=== PATIENT | male | born 1950 | race Caucasian/White ===

== ENCOUNTER → 2016-09-10 | Outpatient (CLI) | payer MEDICARE, OTHER ==
[~2016-09-10] MED LIST: ALBU1.25 IH; ALLP300T; ALLP300T PO; AMLO5TAB2 PO; ASP325TEC PO; ASP81CT; ASP81TEC PO; ATRV10T PO; CEFD300C3 PO; CEPH-507 PO; CEPH250T PO; CEPH500C PO; CERTIRIZINE PO; CETI10CA PO; CETI10TA17 PO; CLOP75TA PO; CYAN10006 PO; DCS100C PO; DICL25TA PO; DILT120C PO; FERR-57 PO; FEXO180T PO; FL025NA25; FL025NA25 NSEACH; GABA100T PO; GABA600T2 PO; GBPN100C; GBPN100C PO; GBPN300C; GBPN400C; GEMF600T3; GEMF600T3 PO; GLYB2.5T2; HCT25T; HCT25T PO; HYDR12.56 PO; HYDR1TAB PO; HYDR1TAB3 PO; HYDR1TAB86 PO; ISOS30TA74 PO; LIRA0.6P SQ; LIRA0.6P3 SC; LISI10TA PO; LISI20TA PO; LISI30TA; LISI30TA64 PO; LORA10TA2; LOSA100T7 PO; LOSA50TA36 PO; METF-380; METH-313 PO; METO-351 PO; METO25TA2 PO; MTP25TSR PO; MULT-608; MULT-608 PO; OMEG-109 PO; OMEG1CAP51 PO; OMG1KC; PHEN100C11 PO; PRED10TA22 PO; SIMV10TA3; SIMV20TA3 PO; SIMV40TA4 PO; SULF1TAB38 PO; TEST200V3 IM; TEST5GEL6; TESTOSTERONE; TRAM-21; TRAM-21 PO; TRAM50TA2; TRAM50TA2 PO; TRM50T PO; Ticagrelor PO; VARD20TA30
--- OUTSIDE RECORDS SUMMARY | 2016-09-10 09:31 | XMS REPORT | Continuity of Care Document ---
Author Author [facility] Organization [facility] Address Unknown Phone Unavailable Care Team Providers Care Boot Liner Maker Name Role Phone PCP Unavailable Source Comments Some departments are not documenting in the electronic medical record. If you do not see the information that you expected, contact Release of Information in the Health Information Management department at [phone] for further assistance in locating additional records.[facility] Active Allergies and Adverse Reactions Not on File Current Medications Not on file Active Problems Not on file Social History Tobacco Use Types Packs/Day Years Used Date Never Assessed Plan of Care Health Maintenance Due Date Last Done Comments Physical (Comprehensive) 1957 Exam Pertussis Vaccine 1960 Tetanus Vaccine 1966 Colorectal Cancer 1999 Screening Shingles Vaccine 2009 Prevnar/Pneumovax (#1) 2014 Influenza Vaccine 05/03/2016 Results from Last 3 Months Not on file
--- NOTE | 2016-09-11 08:10 | ELECTROENCEPHALOPATHY REPORT ---
PROCEDURE PHYSICIAN: KACI WINTER DATE OF PROCEDURE: 09/10/2016 Mr. Johnny Aj is a 66-year-old male with complaints of memory loss, occasional dizziness and time loss events. This study was requested to evaluate for epileptiform activity. The background rhythm consisted of 8 to 9 Hz, 50 to 65 microvolts in amplitude, bilaterally symmetrical over the vortex region which was reactive to eye opening. Intermix was no epileptiform activity. Movement and muscle artifacts were present. The patient was awake, drowsy and asleep during this recording. Hyperventilation was performed and there was no build-up of diffuse or focal slow wave activity. Intermittent photic stimulation was done at various flash frequencies and no photic driving response was seen. IMPRESSION: This EEG is within normal limits in awake and sleepy states. No clear epileptiform activity is seen. A normal EEG does not exclude the diagnosis of seizure or epilepsy. Job ID: [id number] Dictated Date: 09/11/2016 07:43:12 Cocoa Roaster Date: 09/11/2016 08:09:00 / gume
== END ==
LOC: RT 09:24
PROVIDERS: ATTEND Psychiatry & Neurology Neurology
DX: R56.9 Unspecified convulsions (principal)

== ENCOUNTER → 2016-09-20 | Outpatient (CLI) | payer MEDICARE, OTHER ==
--- OUTSIDE RECORDS SUMMARY | 2016-09-20 10:17 | XMS REPORT | Continuity of Care Document ---
Author Author [facility] Organization [facility] Address Unknown Phone Unavailable Care Team Providers Care Shop Mechanic Helper Name Role Phone PCP Unavailable Source Comments Some departments are not documenting in the electronic medical record. If you do not see the information that you expected, contact Release of Information in the Health Information Management department at [phone] for further assistance in locating additional records.[facility] Active Allergies and Adverse Reactions Not [...]
[2016-09-20 10:27] LABS: BASOPHILS % (AUTO) 1 % (0-10); EOSINOPHILS # (AUTO) 0.3 10^3/uL (0.0-0.3); EOSINOPHILS % (AUTO) 7 % (0-10); LYMPHOCYTES # (AUTO) 1.2 X 10^3 (1.0-4.0); LYMPHOCYTES % (AUTO) 29 % (12-44); MEAN CORPUSCULAR HEMOGLOBIN 31 PG (25-34); MEAN CORPUSCULAR HGB CONC 34 G/DL (32-36); MEAN CORPUSCULAR VOLUME 91 FL (80-99); MEAN PLATELET VOLUME 8.7 FL (7.4-10.4); MONOCYTES # (AUTO) 0.4 X 10^3 (0.0-1.0); MONOCYTES % (AUTO) 10 % (0-12); NEUTROPHILS # (AUTO) 2.2 X 10^3 (1.8-7.8); NEUTROPHILS % (AUTO) 53 % (42-75); PLATELET COUNT 235 10^3/uL (130-400); RED BLOOD COUNT 4.35 10^6/uL (4.35-5.85); RED CELL DISTRIBUTION WIDTH 13.1 % (10.0-14.5); WHITE BLOOD COUNT 4.2 10^3/uL (4.3-11.0)
[2016-09-20 10:50] LABS: ALANINE AMINOTRANSFERASE 43 U/L (0-55); ALBUMIN 3.8 G/DL (3.2-4.5); ANION GAP 9 MMOL/L (5-14); ASPARTATE AMINO TRANSFERASE 27 U/L (5-34); BILIRUBIN,TOTAL 0.3 MG/DL (0.1-1.0); BLOOD UREA NITROGEN 14 MG/DL (7-18); BUN/CREATININE RATIO 14; CALCIUM 9.5 MG/DL (8.5-10.1); CARBON DIOXIDE 27 MMOL/L (21-32); CHLORIDE 99 MMOL/L (98-107); CREATININE SERUM 1.02 MG/DL (0.60-1.30); GFR ESTIMATED > 60; GLUCOSE 103 MG/DL (70-105); SODIUM 135 MMOL/L (135-145); TOTAL PROTEIN 6.6 G/DL (6.4-8.2)
== END ==
LOC: LAB 10:14
PROVIDERS: ATTEND Psychiatry & Neurology Neurology
DX: R56.9 Unspecified convulsions (principal); Z79.899 Other long term (current) drug therapy
CPT/HCPCS: 36415; 80053; 80185; 85025

== ENCOUNTER → 2016-10-15 | Outpatient (CLI) | payer MEDICARE, OTHER ==
--- OUTSIDE RECORDS SUMMARY | 2016-10-15 13:44 | XMS REPORT | Continuity of Care Document ---
Author Author [facility] Organization [facility] Address Unknown Phone Unavailable Care Team Providers Care Central Supply Technician Name Role Phone PCP Unavailable Source Comments Some departments are not documenting in the electronic medical record. If you do not see the information that you expected, contact Release of Information in the Health Information Management department at [phone] for further assistance in locating additional records.[facility] [...]
--- NOTE | 2016-10-17 07:41 | ECHOCARDIOGRAPHY REPORT ---
PROCEDURE PHYSICIAN: GENE BOYKIN DATE OF PROCEDURE: 10/15/2016 TWO DIMENSIONAL ECHOCARDIOGRAM REPORT PRIMARY PHYSICIAN: OTHER PHYSICIAN: REFERRING PHYSICIAN: Dr. Haro ORDERING PHYSICIAN: INDICATION FOR THE PROCEDURE: Coronary artery disease. MEASUREMENTS DERIVED VALUES LV DIAMETER (LAX) NORMALS NORMALS Diastolic 3.5 (3.6-5.2) Eject. Fract. 60% (60%+/-6%) Systolic (2.3-3.9) Diastolic Vol. % Shortening (0.22-0.42) Systolic Vol. Aortic Root IVS THICKNESS Diastolic 1 (0.6-1.1) LVPW THICKNESS Diastolic 1 (0.6-1.1) LA DIAMETER Systolic 4.1 (2.1-3.7) FINDINGS: 1. Technically difficult study. 2. The left ventricle is normal in size, endocardium was not well visualized in all segments. Overall systolic function appeared to be preserved. Estimated ejection fraction 60%. 3. The left atrium is in the upper normal limit in size. No clot or thrombus were seen within the left atrium. 4. The right atrium and right ventricle were not well visualized. No clot or thrombus were seen within the right side. 5. Mitral valve is normal in morphology with mild mitral regurgitation noted by color Doppler flow. No mitral valve prolapse. No mitral valve stenosis. 6. Aortic valve leaflets were not well visualized. No significant aortic stenosis or regurgitation was seen. 7. Tricuspid valve is normal in morphology with mild tricuspid regurgitation noted by color Doppler flow. Doppler across tricuspid valve estimated pulmonary artery pressure of 10+ right atrial pressure. 8. Pulmonic valve is functioning normally. 9. No pericardial effusion. IN CONCLUSION: 1. Technically difficult study. 2. Normal left ventricular size and systolic function. Endocardium was not well visualized. Overall contractility appeared to be preserved. Cannot comment on segmental wall motion. Estimated ejection fraction 60%. 3. Mild mitral and tricuspid regurgitation. 4. Estimated pulmonary artery pressure of 15 mmHg. Job ID: [id number] Dictated Date: 10/16/2016 15:33:02 Cartridge Feeder Date: 10/17/2016 07:37:49 / gume
== END ==
LOC: CARD 13:42
PROVIDERS: ATTEND Physician Assistant
DX: I25.10 Atherosclerotic heart disease of native coronary artery without angina pectoris (principal); I65.23 Occlusion and stenosis of bilateral carotid arteries; I10 Essential (primary) hypertension; E66.01 Morbid (severe) obesity due to excess calories
CPT/HCPCS: 93306

== ENCOUNTER 2016-10-23 23:14 | Inpatient (IN) | payer MEDICARE, OTHER ==
[~2016-10-23] VITALS: Ht 165.1 cm; Wt 103.9 kg
[~2016-10-23 23:14] MED LIST changes: -ALBU1.25 IH; -CEFD300C3 PO; -CERTIRIZINE PO; -CETI10CA PO; -CYAN10006 PO; -LIRA0.6P3 SC; -LOSA50TA36 PO; -METO-351 PO; -OMEG-109 PO; -PHEN100C11 PO; -PRED10TA22 PO
--- OUTSIDE RECORDS SUMMARY | 2016-10-23 23:22 | XMS REPORT | Continuity of Care Document ---
Author Author [facility] Organization [facility] Address Unknown Phone Unavailable Care Team Providers Care Frit Burner Name Role Phone PCP Unavailable Source Comments Some departments are not documenting in the electronic medical record. If you do not see the information that you expected, contact Release of Information in the Health Information Management department at [phone] for further assistance in locating additional records.[facility] Active Allergies and Adverse Reactions [...]
[2016-10-23] MEDS ORDERED: NS IV 1000 ML 1,000 ML IV ONE (23:27)
[2016-10-23] MEDS ORDERED: ACETAMINOPHEN 500 MG TAB (TYLENOL) PO PRN (23:30)
[2016-10-23 23:52] LABS: BASOPHILS % (AUTO) 0 % (0-10); EOSINOPHILS % (AUTO) 0 % (0-10); LYMPHOCYTES # (AUTO) 0.3 X 10^3 (1.0-4.0); LYMPHOCYTES % (AUTO) 3 % (12-44); MEAN CORPUSCULAR HEMOGLOBIN 31 PG (25-34); MEAN CORPUSCULAR HGB CONC 35 G/DL (32-36); MEAN CORPUSCULAR VOLUME 88 FL (80-99); MEAN PLATELET VOLUME 9.3 FL (7.4-10.4); MONOCYTES # (AUTO) 0.4 X 10^3 (0.0-1.0); MONOCYTES % (AUTO) 5 % (0-12); NEUTROPHILS # (AUTO) 6.8 X 10^3 (1.8-7.8); NEUTROPHILS % (AUTO) 92 % (42-75); PLATELET COUNT 213 10^3/uL (130-400); RED CELL DISTRIBUTION WIDTH 13.9 % (10.0-14.5); WHITE BLOOD COUNT 7.4 10^3/uL (4.3-11.0)
[2016-10-24] LABS: PROTHROMBIN TIME PATIENT 13.3 SEC (12.2-14.7)
--- NOTE | 2016-10-24 00:02 | ED General ---
General Chief Complaint: Fever-Adult/Adol Stated Complaint: DIZZY,SOB,103 FEVER Nursing Triage Note: COUGH X 3 DAYS, SNIFFLES AND THROAT TICKLE X 2 DAYS, PT DEVELOPED SOA AND LABORED BREATHING AT REST WITH FEVER LATE DAY Nursing Sepsis Screen: Possible Severe Sepsis Risk Source of Information: Patient Exam Limitations: No Limitations History of Present Illness Time Seen by Provider: 23:20 Initial Comments Here with report of fevers, chills that started over the last 12 hours as well as sore throat and sniffles over the last couple days and cough for the last 3 days. Overall does not feel well and is short of breath. Does complain of body aches. Has not taken anything for the fever tonight. Denies nausea or vomiting. She denies chest pain, diarrhea or dysuria. Timing/Duration: 2-3 Days, Getting Worse Severity: Moderate Associated Systoms: No Chest Pain, Cough Fever/ChillsNo Nausea/Vomiting, Shortness of Air Weakness Allergies and Home Medications Allergies Coded Allergies: hydrocodone (Verified Allergy, Mild, RASH (NO REACTION TO MORPHINE/ PERCOCET), 10/29/11) Sulfa (Sulfonamide Antibiotics) (Verified Allergy, Unknown, 12/08/12) Home Medications Allopurinol 300 Mg Tab 300 MG PO DAILY PRN PRN (Reported) PRN GOUT Aspirin 81 Mg Tabec 81 MG PO DAILY (Reported) Cetirizine Hcl 10 Mg Tablet 10 MG PO DAILY (Reported) Gabapentin 100 Mg Tablet 100 MG PO DAILY IN MORNING (Reported) Gabapentin 100 Mg Cap 300 MG PO HS (Reported) TAKE 3 (100MG) TABS AT HS Hydrochlorothiazide 25 Mg Tab 12.5 MG PO DAILY (Reported) Isosorbide Mononitrate 30 Mg Tab.sr.24h 30 MG PO DAILY (Reported) Losartan Potassium 100 Mg Tablet 50 MG PO DAILY (Reported) Metoprolol Succinate 25 Mg Tab.er.24h #180 12.5 MG PO DAILY (Reported) Multivitamins 1 Tab Tablet 1 TAB PO DAILY (Reported) Sheridan-3 Fatty Acids/Fish Oil 1 Each Capsule 1 EACH PO DAILY (Reported) Phenytoin Sodium Extended 100 Mg Capsule 200 MG PO BID (Reported) Simvastatin 40 Mg Tablet 20 MG PO HS (Reported) TAKES 1/2 TAB OF 40MG Constitutional: see HPI chills fever malaise EENTM: nose congestion see HPI throat pain Respiratory: no symptoms reported cough short of breathNo wheezing Cardiovascular: No chest pain, No edema, No palpitations Gastrointestinal: no symptoms reportedNo abdominal pain, No nausea, No vomiting Genitourinary: no symptoms reported Musculoskeletal: see HPINo joint pain, muscle pain Skin: no symptoms reportedNo lesions, No rash Psychiatric/Neurological: No Symptoms Reported All Other Systems Reviewed Negative Unless Noted: Yes Past Kfherrx-Ycazgj-Otdyxx Hx Patient Social History Alcohol Use: Past History Recreational Drug Use: No Smoking Status: Former Smoker Type Used: Cigarettes Former Smoker/When Quit: Feb 24, 1992 2nd Hand Smoke Exposure: No Recent Foreign Travel: No Contact w/Someone Who Travel: No Recent Infectious Disease Expo: No Recent Hopitalizations: Yes ( PREVIOUSLY STATED) Immunizations Up To Date Tetanus Booster (TDap): More than 5yrs Date of Pneumonia Vaccine: Jun 02, 2016 Date of Influenza Vaccine: Jun 02, 2016 Seasonal Allergies Seasonal Allergies: No Surgeries HX Surgeries: Yes (BILAT HIP REPLACEMENT, RIGHT KNEE SX, R SHOULDER, ) Respiratory Hx Respiratory Disorders: Yes (GETS SOB, USES C-PAP) Respiratory Disorders: Sleep Apnea Cardiovascular Hx Cardiac Disorders: Yes (X2 STENTS) Cardiac Disorders: Heart Attack, Hypertension Neurological Hx Neurological Disorders: Yes Neurological Disorders: Neuropathy Reproductive System Hx Reproductive Disorders: No Sexually Transmitted Disease: No Genitourinary Hx Genitourinary Disorders: No Gastrointestinal Hx Gastrointestinal Disorders: No Musculoskeletal Hx Musculoskeletal Disorders: Yes (RIGHT LEG, FOSTER. THR) Endocrine Hx Endocrine Disorders: Yes Endocrine Disorders: Diabetes, Non-Insulin dep HEENT HX ENT Disorders: Yes (GLASSES) Cancer Hx Cancer: No Psychosocial Hx Psychiatric Problems: No Integumentary HX Skin/Integumentary Disorder: No Blood Transfusions Hx Blood Disorders: No Reviewed Nursing Assessment Reviewed/Agree w Nursing PMH: Yes Family Medical History Significant Family History: No Pertinent Family Hx Physical Exam-Suspected Sepsis Physical Exam Vital Signs Vital Sign - Last 12Hours 10/23/16 10/23/16 23:21 23:30 Temp 103.4 Pulse 139 Resp 26 B/P 132/59 Pulse Ox 91 O2 Delivery Room Air O2 Flow Rate 2 Capillary Refill : Less Than 3 Seconds Blood Pressure Mean: 83 General Appearance: WD/WN Mild Distress (body aches and fever) HEENT: PERRL/EOMI TMs Normal Pharyngeal Erythema Other (moderate nasal congestion bilateral) Neck: Non Tender Supple Respiratory: Lungs Clear Normal Breath Sounds Cardiovascular: No Murmur Tachycardia Gastrointestinal: Non Tender Soft Back: Normal Inspection No CVA Tenderness No Vertebral Tenderness Extremity: Normal Capillary Refill Non Tender No Calf Tenderness Neurologic/Psychiatric: Alert Oriented x3 Skin: normal color warm/dryNo rash Laceration Repair : Suture Size: 5-0 Progress/Results/Core Measures Suspected Sepsis Recent Fever Within 48 Hours: Yes Infection Criteria Present: Suspected New Infection New/Unexplained Altered Menta: Yes Sepsis Screen: Possible Severe Sepsis Risk Sepsis Diagnosis: SIRS Temperature:103.4 Pulse: 139 Respiratory Rate: 26 Laboratory Tests 10/23/16 23:30: White Blood Count 7.4 Blood Pressure 132 /59 Mean: 83 Laboratory Tests 10/23/16 23:30: Creatinine 1.12, INR Comment 1.0, Platelet Count 213, Total Bilirubin 0.5 Results/Orders Lab Results Laboratory Tests Test 10/23/16 23:30 Range/Units Activated Partial Thromboplast Time 27 24-35 SEC Alanine Aminotransferase (ALT/SGPT) 34 0-55 U/L Albumin 4.1 3.2-4.5 G/DL Alkaline Phosphatase 50 40-136 U/L Anion Gap 15 H 5-14 MMOL/L Aspartate Amino Transf (AST/SGOT) 32 5-34 U/L BUN/Creatinine Ratio 14 Band Neutrophils 24 % Basophils # (Auto) 0.0 0.0-0.1 10^3/uL Basophils % (Manual) 0 % Basophils (%) (Auto) 0 0-10 % Blood Morphology Comment NORMAL Blood Urea Nitrogen 16 7-18 MG/DL Calcium Level 8.9 8.5-10.1 MG/DL Carbon Dioxide Level 21 21-32 MMOL/L Chloride Level 93 L 98-107 MMOL/L Creatinine 1.12 0.60-1.30 MG/DL Eosinophils # (Auto) 0.0 0.0-0.3 10^3/uL Eosinophils % (Manual) 0 % Eosinophils (%) (Auto) 0 0-10 % Estimat Glomerular Filtration Rate > 60 Glucose Level 115 H 70-105 MG/DL Hematocrit 43 40-54 % Hemoglobin 15.0 13.3-17.7 G/DL INR Comment 1.0 0.8-1.4 Lactic Acid Level 1.2 0.5-2.0 MMOL/L Lymphocytes # (Auto) 0.3 L 1.0-4.0 X 10^3 Lymphocytes % (Manual) 1 % Lymphocytes (%) (Auto) 3 L 12-44 % Mean Corpuscular Hemoglobin 31 25-34 PG Mean Corpuscular Hemoglobin Concent 35 32-36 G/DL Mean Corpuscular Volume 88 80-99 FL Mean Platelet Volume 9.3 7.4-10.4 FL Monocytes # (Auto) 0.4 0.0-1.0 X 10^3 Monocytes % (Manual) 9 % Monocytes (%) (Auto) 5 0-12 % Neutrophils # (Auto) 6.8 1.8-7.8 X 10^3 Neutrophils % (Manual) 64 % Neutrophils (%) (Auto) 92 H 42-75 % Platelet Count 213 130-400 10^3/uL Potassium Level 3.3 L 3.6-5.0 MMOL/L Prothrombin Time 13.3 12.2-14.7 SEC Reactive Lymphocytes 2 % Red Blood Count 4.90 4.35-5.85 10^6/uL Red Cell Distribution Width 13.9 10.0-14.5 % Sodium Level 129 L 135-145 MMOL/L Total Bilirubin 0.5 0.1-1.0 MG/DL Total Protein 6.9 6.4-8.2 G/DL White Blood Count 7.4 4.3-11.0 10^3/uL Micro Results Microbiology 10/23/16 Influenza Types A,B Antigen (THANIA) - Final, Complete My Orders Orders-LOIDA SHEPARD MD Cbc With Automated Diff (10/23/16 23:27) Comprehensive Metabolic Panel (10/23/16 23:27) Lactic Acid Analyzer (10/23/16 23:27) Blood Culture (10/23/16 23:27) Sputum Culture (10/23/16 23:27) Ua Culture If Indicated (10/23/16 23:27) Protime With Inr (10/23/16 23:27) Partial Thromboplastin Time (10/23/16 23:27) Chest 1 View, Ap/Pa Only (10/23/16 23:27) O2 (10/23/16 23:27) Acetaminophen Tablet (Tylenol Tablet) (10/23/16 23:30) Saline Lock/Iv-Start (10/23/16 23:27) Saline Lock/Iv-Start (10/23/16 23:27) Vital Signs Adult Sepsis Patie Q1HR (10/23/16 23:27) Remove Rings In Anticipation O (10/23/16 23:27) Influenza A And B Antigens (10/23/16 23:27) Saline Lock/Iv-Start (10/23/16 23:27) Ns Iv 1000 Ml (Sodium Chloride 0.9%) (10/23/16 23:27) Manual Differential (10/23/16 23:30) Ns Iv 1000 Ml (Sodium Chloride 0.9%) (10/24/16 00:06) Ceftriaxone Injection (Rocephin Injectio (10/24/16 00:45) Medications Given in ED Current Medications Medications Dose Ordered Sig/Malissa Route Start Time Stop Time Status Last Admin Dose Admin Acetaminophen 1000 mg 1,000 mg ONCE PRN PO 10/23/16 23:30 10/23/16 23:34 DC 10/23/16 23:34 1,000 MG Ceftriaxone Sodium/Sodium Chloride 50 ml @ 100 mls/hr ONCE ONCE IV 10/24/16 00:45 10/24/16 01:14 10/24/16 00:47 100 MLS/HR Sodium Chloride 1,000 ml @ 0 mls/hr Q0M ONCE IV 10/23/16 23:27 10/23/16 23:28 DC 10/23/16 23:33 0 MLS/HR Sodium Chloride 1,000 ml @ 0 mls/hr Q0M ONCE IV 10/24/16 00:06 10/24/16 00:08 DC 10/24/16 00:10 0 MLS/HR Vital Signs/I&O Vital Sign - Last 12Hours 10/23/16 10/23/16 10/24/16 23:21 23:30 00:12 Temp 103.4 102.5 Pulse 139 128 Resp 26 30 B/P 132/59 111/66 Pulse Ox 91 89 96 O2 Delivery Room Air Nasal Cannula Nasal Cannula O2 Flow Rate 2 Capillary Refill : Less Than 3 Seconds Blood Pressure Mean: 83 Progress Note : Progress Note Seen and evaluated. Sepsis protocol initiated. IV, labs, normal saline 1 L bolus, UA, chest x-ray, blood cultures, lactic acid and sputum culture ordered. Monitor patient. 0000: Concerns for right-sided pneumonia noted on chest x- ray. Pending lab studies. 0040: Discussed case with Dr. CRESPO. Likely pneumonia. Patient has fairly significant left shift indicating ongoing infection. Fever improved with Tylenol. Rocephin 1 g IV. He accepts patient for admission, inpatient status for right-sided pneumonia. Patient family informed and they agree with plan. Currently meet sepsis but not requiring high -volume fluid resuscitation as blood pressure in normal range with a negative lactic acid. Heart rate improved with fluid volume resuscitation and is currently 116 after 1.2 L of fluid. Total of 2 L ordered and normal saline in the emergency department. Diagnostic Imaging Diagonstic Imaging: Xray Plain Films/CT/US/NM/MRI: chest Comments Questionable right-sided infiltrate. Stable cardiomegaly. Departure Communication Time/Spoke to Admitting Phy: 00:40 Impression Impression: Primary Impression: Pneumonia involving right lung Qualified Code: J18.1 - Lobar pneumonia, unspecified organism Disposition: ADMITTED INPATIENT Condition: Stable Decision to Admit Reason: Admit from ER (General) Decision to Admit/Date: Oct 24, 2016 Time/Decision to Admit Time: 00:40 Departure-Patient Inst. Referrals: MICHELLE REA MD (PCP/Family) Primary Care Physician LOIDA SHEPARD MD Oct 24, 2016 00:02
[2016-10-24] MEDS ORDERED: OMEG-109 PO (00:03)
[2016-10-24] MEDS ORDERED: METO-351 PO (00:03)
[2016-10-24] MEDS ORDERED: PHEN100C11 PO (00:03)
[2016-10-24 00:06] LABS: BAND NEUTROPHILS 24 %; BASOPHILS % (MANUAL) 0 %; EOSINOPHILS % (MANUAL) 0 %; LYMPHOCYTES % (MANUAL) 1 %; NEUTROPHILS % (MANUAL) 64 %; REACTIVE LYMPHOCYTES 2 %
[2016-10-24] MEDS ORDERED: NS IV 1000 ML 1,000 ML IV ONE (00:06)
[2016-10-24 00:11] LABS: ALANINE AMINOTRANSFERASE 34 U/L (0-55); ALBUMIN 4.1 G/DL (3.2-4.5); ANION GAP 15 MMOL/L (5-14); ASPARTATE AMINO TRANSFERASE 32 U/L (5-34); BILIRUBIN,TOTAL 0.5 MG/DL (0.1-1.0); BLOOD UREA NITROGEN 16 MG/DL (7-18); BUN/CREATININE RATIO 14; CALCIUM 8.9 MG/DL (8.5-10.1); CARBON DIOXIDE 21 MMOL/L (21-32); CHLORIDE 93 MMOL/L (98-107); CREATININE SERUM 1.12 MG/DL (0.60-1.30); GFR ESTIMATED > 60; GLUCOSE 115 MG/DL (70-105); POTASSIUM 3.3 MMOL/L (3.6-5.0); SODIUM 129 MMOL/L (135-145); TOTAL PROTEIN 6.9 G/DL (6.4-8.2)
[2016-10-24] MEDS ORDERED: cefTRIAXone INJECTION 1,000 MG in NS (IVPB) 50 ML IV ONE (00:45)
[2016-10-24 01:35] VITALS: BP 100/63
[2016-10-24] MEDS ORDERED: NS IV 1000 ML 1,000 ML IV SCH (02:00)
[2016-10-24] MEDS ORDERED: AZITHROMYCIN 500 MG/NS 250 ML IVPB IV ONE ×2 (02:00)
[2016-10-24] MEDS ORDERED: CATHETER FLUSH 10 ML SYR IV PRN (02:00)
[2016-10-24] MEDS ORDERED: NS W/KCL 20 MEQ/L 1,000 ML IV ONE (02:09)
[2016-10-24] MEDS: NS W/KCL 20 MEQ/L 1,000 ML IV SCH ×3 (02:18→20:24)
[2016-10-24 02:41] LABS: BILIRUBIN,URINE NEGATIVE (NEGATIVE); KETONES,URINE NEGATIVE (NEGATIVE); LEUKOCYTE ESTERASE ,URINE NEGATIVE (NEGATIVE); NITRITE,URINE NEGATIVE (NEGATIVE); PH,URINE 7 (5-9); PROTEIN,URINE 2+ (NEGATIVE); UROBILINOGEN,URINE NORMAL (NORMAL)
[2016-10-24 02:48] LABS: HYALINE CASTS, URINE 0-2 /LPF; SQUAMOUS EPITHELIAL CELL,UR RARE /HPF; WBC,URINE RARE /HPF
[2016-10-24] MEDS ORDERED: RT-ALBUTEROL/IPRATROPIUM 3 ML (DUONEB) VIAL INH PRN (04:15)
[2016-10-24 04:40] VITALS: BP 130/79
[2016-10-24 05:00] LABS: BASOPHILS % (AUTO) 0 % (0-10); EOSINOPHILS % (AUTO) 0 % (0-10); LYMPHOCYTES # (AUTO) 0.5 X 10^3 (1.0-4.0); LYMPHOCYTES % (AUTO) 5 % (12-44); MEAN CORPUSCULAR HEMOGLOBIN 31 PG (25-34); MEAN CORPUSCULAR HGB CONC 34 G/DL (32-36); MEAN CORPUSCULAR VOLUME 89 FL (80-99); MEAN PLATELET VOLUME 9.3 FL (7.4-10.4); MONOCYTES # (AUTO) 0.5 X 10^3 (0.0-1.0); MONOCYTES % (AUTO) 5 % (0-12); NEUTROPHILS # (AUTO) 8.5 X 10^3 (1.8-7.8); NEUTROPHILS % (AUTO) 90 % (42-75); PLATELET COUNT 199 10^3/uL (130-400); RED BLOOD COUNT 4.38 10^6/uL (4.35-5.85); WHITE BLOOD COUNT 9.4 10^3/uL (4.3-11.0)
[2016-10-24 05:24] LABS: ALANINE AMINOTRANSFERASE 28 U/L (0-55); ALBUMIN 3.4 G/DL (3.2-4.5); ANION GAP 13 MMOL/L (5-14); ASPARTATE AMINO TRANSFERASE 28 U/L (5-34); BILIRUBIN,TOTAL 0.4 MG/DL (0.1-1.0); BLOOD UREA NITROGEN 15 MG/DL (7-18); BUN/CREATININE RATIO 13; CALCIUM 8.1 MG/DL (8.5-10.1); CARBON DIOXIDE 21 MMOL/L (21-32); CHLORIDE 96 MMOL/L (98-107); CREATININE SERUM 1.17 MG/DL (0.60-1.30); GFR ESTIMATED > 60; GLUCOSE 129 MG/DL (70-105); POTASSIUM 3.6 MMOL/L (3.6-5.0); SODIUM 130 MMOL/L (135-145); TOTAL PROTEIN 5.7 G/DL (6.4-8.2)
[2016-10-24] MEDS: inSUlin (REGULAR) HUMAN 1 UNIT/0.01 ML (CHARGE PER UNIT) SC SCH ×4 (05:57→20:24)
[2016-10-24] MEDS: CATHETER FLUSH 10 ML SYR IV SCH ×3 (05:57→20:20)
[2016-10-24] MEDS ORDERED: inSUlin ASPART (NovoLOG) 1 UNIT/0.01 ML (CHARGE PER UNIT) SC SCH (06:00)
[2016-10-24] MEDS: RT-ALBUTEROL/IPRATROPIUM 3 ML (DUONEB) VIAL INH SCH ×4 (07:40→19:45)
[2016-10-24 08:00] VITALS: BP 115/70
--- NOTE | 2016-10-24 08:00 | Diagnostic Imaging Report ---
Portable erect AP chest at 1131 hours. INDICATION: Cough and congestion. FINDINGS: The heart size is within normal limits and stable when compared to 04/10/16. In the interval since the previous exam, vague areas of increased density have developed in the right midlung and right infrahilar region. I suspect these are secondary to mild pneumonia/atelectasis. The right upper lung and left lung are generally clear. The mediastinum is not widened. The osseous structures are intact. IMPRESSION: 1. The findings do suggest that there is now mild pneumonia/atelectasis involving the right midlung and right lung base. Clinical followup is recommended. 2. There is no acute cardiopulmonary abnormality identified otherwise. Dictated by: Dictated on workstation # [id number]
[2016-10-24] MEDS ORDERED: LOSA50TA36 PO (08:53)
[2016-10-24] MEDS ORDERED: LIRA0.6P3 SC (08:53)
[2016-10-24] MEDS ORDERED: CYAN10006 PO (08:53)
[2016-10-24] MEDS ORDERED: AZITHROMYCIN 250 MG TAB (ZITHROMAX) PO SCH (09:00)
[2016-10-24] MEDS ORDERED: oxyCODONE/APAP 5/325MG (PERCOCET 5) TABLET PO PRN (09:30)
[2016-10-24] MEDS ORDERED: ONDANSETRON 4 MG/2 ML (SDV) Z0FRAN IVP PRN (09:30)
[2016-10-24] MEDS ORDERED: RT-ALBUTEROL/IPRATROPIUM 3 ML (DUONEB) VIAL INH SCH (09:30)
[2016-10-24] MEDS ORDERED: fentaNYL INJECTION 100 MCG/2 ML AMP IVP PRN (09:30)
[2016-10-24] MEDS: HYDROCHLOROTHIAZIDE 12.5 MG (HCTZ) CAP PO SCH (10:21)
[2016-10-24] MEDS: methylPREDNISolone 125 MG (Solu-MEDROL) VIAL IVP SCH ×3 (10:21→14:25)
[2016-10-24] MEDS: GABAPENTIN 100 MG (NEURONTIN) CAP PO SCH (10:22)
[2016-10-24] MEDS: ISOSORBIDE MONONITRATE 30 MG (IMDUR) TAB PO SCH (10:23)
--- NOTE | 2016-10-24 10:49 | Diagnostic Imaging Report ---
PA and lateral chest at 10:20 a.m. INDICATION: Pneumonia. The previous exam of 10/23/2016, suggested mild pneumonia/atelectasis involving the right midlung and right lung base. On this exam the density in both of these areas has increased indicating that there is greater involvement of these portions of the right lung by pneumonia/atelectasis. There also appears to be another area of pneumonia/atelectasis in the left retrocardiac region. The left upper lung is clear. The heart is stable in size. The mediastinum is not widened. The osseous structures are intact. IMPRESSION: The appearance of the chest has worsened since the prior exam as there is greater involvement of the right lung by pneumonia/atelectasis. There also now appears to be an area of pneumonia/atelectasis in the left retrocardiac region. A followup study would be recommended for continued evaluation. Dictated by: Dictated on workstation # [id number]
--- NOTE | 2016-10-24 11:19 | History & Physical-Hospitalist ---
HPI History of Present Illness: HPI/Chief Complaint CC: Cough and fever HPI: This is a 66yowM that presented with worsening symptoms of cough and fever. Pt has cardiac hx involving two stents monitored by Dr. Chavis, but reports no hx of prior pneumonia. Pt is influenza negative, and found to have RML pneumonia. Chart Review: Max fever 100.5 WBC 9.4 Hgb 13.4 Na+ 130 K+ 3.6 Lactic acid 1.2 CXR mild pneumonia RL Influenza negative Patient Interview: Pt states that he still has a cough and headache. PCP is Dr. Haro, but pt has not seen PCP. Pt has never had a pneumonia. Pt uses CPAP every night. Pt has two stents in heart. Softball Player is Dr. Chavis. Pt denies smoking and drinking ETOH. Pt has had cough for three days, and it escalated yesterday. Physical exam reveals wheezing. Pt served in the [employer] for 20 years. Scribed by Rafael Tucker under the direct supervision of Dr. Holden. 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) Alcohol Use: Past History Recreational Drug Use: No Smoking Status: Former Smoker Former smoker/When Quit: Feb 24, 1992 Type Used: Cigarettes 2nd Hand Smoke Exposure: No Physical Abuse Screen: No Sexual Abuse: No Recent Foreign Travel: No Contact w/other who traveled: No Recent Hopitalizations: Yes ( PREVIOUSLY STATED) Recent Infectious Disease Expo: No Immunizations Up To Date Tetanus Booster (TDap): More than 5yrs Date of Pneumonia Vaccine: Jun 02, 2016 Date of Influenza Vaccine: Jun 02, 2016 Seasonal Allergies Seasonal Allergies: No Surgeries HX Surgeries: Yes (BILAT HIP REPLACEMENT, RIGHT KNEE SX, R SHOULDER, ) Respiratory Hx Respiratory Disorders: Yes (GETS SOB, USES C-PAP) Respiratory Disorders: Sleep Apnea Cardiovascular Hx Cardiovascular Disorders: Yes (X2 STENTS) Cardiac Disorders: Coronary Artery Disease, Heart Attack, Hypertension Neurological Hx Neurological Disorders: Yes Neurological Disorders: Neuropathy Reproductive System Hx Reproductive Disorders: No Sexually Transmitted Disease: No Genitourinary Hx Genitourinary Disorders: No Gastrointestinal Hx Gastrointestinal Disorders: No Musculoskeletal Hx Musculoskeletal Disorders: Yes (RIGHT LEG, FOSTER. THR) Musculoskeletal Disorders: Arthritis Endocrine Hx Endocrine Disorders: Yes Endocrine Disorders: Diabetes, Non-Insulin dep HEENT HX ENT Disorders: Yes (GLASSES) Loss of Vision: Denies Hearing Impairment: Hearing Aide Right, Hearing Aide Left Cancer Hx Cancer: No Psychosocial Hx Psychiatric Problems: No Integumentary HX Skin/Integumentary Disorder: No Blood Transfusions Hx Blood Disorders: No Reviewed Nursing Assessment Reviewed/Agree w Nursing PMH: Yes Family Medical History Significant Family History: No Pertinent Family Hx Review of Systems Constitutional: see HPI chills dizziness fever malaise weakness EENTM: no symptoms reported Respiratory: cough short of breath wheezing Cardiovascular: no symptoms reported Gastrointestinal: no symptoms reported Genitourinary: no symptoms reported Musculoskeletal: no symptoms reported Skin: no symptoms reported Psychiatric/Neurological: No Symptoms Reported All Other Systems Reviewed Negative Unless Noted: Yes Physical Exam Physical Exam Vital Signs Vital Sign - Last 12Hours 10/23/16 10/23/16 23:21 23:30 Temp 103.4 Pulse 139 Resp 26 B/P 132/59 Pulse Ox 91 O2 Delivery Room Air O2 Flow Rate 2 Capillary Refill : Less Than 3 Seconds General Appearance: No Apparent Distress WD/WN Chronically ill Obese Eyes: Bilateral Eye Normal Inspection, Bilateral Eye PERRL HEENT: PERRL/EOMI Normal ENT Inspection Pharynx Normal Neck: Full Range of Motion Normal Inspection Non Tender Supple Carotid Bruit Respiratory: Chest Non Tender No Accessory Muscle Use No Respiratory Distress Crackles Decreased Breath Sounds Wheezing Cardiovascular: Regular Rate, Rhythm No Edema No Gallop No JVD No Murmur Normal Peripheral Pulses Gastrointestinal: Normal Bowel Sounds No Organomegaly No Pulsatile Mass Non Tender Soft Back: Normal Inspection No CVA Tenderness No Vertebral Tenderness Extremity: Normal Capillary Refill Normal Inspection Normal Range of Motion Non Tender No Calf Tenderness No Pedal Edema Neurologic/Psychiatric: Alert Oriented x3 No Motor/Sensory Deficits Normal Mood/Affect Skin: Normal Color Warm/Dry Lymphatic: No Adenopathy Results Results/Procedures Lab Laboratory Tests 10/23/16 23:30 10/24/16 04:08 Assessment/Plan Admission Diagnosis Assessment: RML pneumonia but worsened CXR today compared to last night ELLY on CPAP Gout Neuropathy CAD previous stents by Dr. Chavis HTN Angina Seizure disorder Hyperlipidemia Assessment and Plan Plan: Plan for DC tomorrow if able to recover but worsen CXR is prompting Dr. Bledsoe consult Decrease IVF to 90ccs/hr Recheck CXR Check labs in AM Maintain Zithromax Duoneb TID scheduled instead of prn Initiate Solumedrol 62.5 q6 Initiate Pulmicort BID Initiate Fentanyl and Percocet for CEE Restart all home meds Clinical Quality Measures DVT/VTE Risk/Contraindication: Risk Factor Score Per Nursin RFS Level Per Nursing on Admit: 4+=Very High GWEN HOLDEN DO Oct 24, 2016 11:19
[2016-10-24 12:00] VITALS: BP 137/81
[2016-10-24] MEDS ORDERED: PATIENT MAY USE OWN MED,SINGLE MED PO SCH (12:15)
--- NOTE | 2016-10-24 12:59 | Pulmonary Consultation ---
History of Present Illness History of Present Illness Date of Consultation 10/24/16 12:53 Date of Admission History of Present Illness 66yo presented to ED secondary to worsening, fever, cough and SOB. Pt was dx with DELMA CARLOS in ED. Influenza is negative. I am consulted for pulmonary management. Allergies and Home Medications Allergies Coded Allergies: hydrocodone (Verified Allergy, Mild, RASH (NO REACTION TO MORPHINE/ PERCOCET), 10/29/11) Sulfa (Sulfonamide Antibiotics) (Verified Allergy, Unknown, 12/08/12) Home Medications Allopurinol 300 Mg Tab 300 MG PO HS (Reported) Aspirin 81 Mg Tabec 81 MG PO DAILY (Reported) Cetirizine Hcl 10 Mg Tablet 10 MG PO DAILY (Reported) Cyanocobalamin (Vitamin B-12) 1,000 Mcg Tablet 1,000 MCG PO DAILY (Reported) Gabapentin 100 Mg Tablet 100 MG PO DAILY (Reported) Gabapentin 100 Mg Cap 300 MG PO HS (Reported) TAKES 3 (100MG) CAPSULES Hydrochlorothiazide 25 Mg Tab 12.5 MG PO DAILY (Reported) TAKES 1/2 (25MG) TABLET Isosorbide Mononitrate 30 Mg Tab.sr.24h 30 MG PO DAILY (Reported) Liraglutide 0.6 Mg/0.1 Ml Pen.injctr 1.2 MG SC DAILY (Reported) Losartan Potassium 50 Mg Tablet 50 MG PO HS (Reported) Metoprolol Succinate 25 Mg Tab.er.24h 12.5 MG PO BID (Reported) TAKES 1/2 (25MG) TABLET Multivitamins 1 Tab Tablet 1 TAB PO DAILY (Reported) [place]-3 Fatty Acids/Fish Oil 1 Each Capsule 1,200 MG PO DAILY (Reported) Phenytoin Sodium Extended 100 Mg Capsule 200 MG PO BID (Reported) TAKES 2 (100MG) CAPSULES Simvastatin 40 Mg Tablet 20 MG PO HS (Reported) TAKES 1/2 TAB OF 40MG Past Chofczy-Yurpsg-Ttwldr Hx Patient Social History Alcohol Use: Past History Recreational Drug Use: No Smoking Status: Former Smoker Type Used: Cigarettes Former Smoker/When Quit: Feb 24, 1992 2nd Hand Smoke Exposure: No Recent Foreign Travel: No Contact w/Someone Who Travel: No Recent Infectious Disease Expo: No Recent Hopitalizations: Yes ( PREVIOUSLY STATED) Physical Abuse Screen: No Sexual Abuse: No Immunizations Up To Date Tetanus Booster (TDap): More than 5yrs Date of Pneumonia Vaccine: Jun 02, 2016 Date of Influenza Vaccine: Jun 02, 2016 Seasonal Allergies Seasonal Allergies: No Surgeries HX Surgeries: Yes (BILAT HIP REPLACEMENT, RIGHT KNEE SX, R SHOULDER, ) Respiratory Hx Respiratory Disorders: Yes (GETS SOB, USES C-PAP) Respiratory Disorders: Sleep Apnea Cardiovascular Hx Cardiac Disorders: Yes (X2 STENTS) Cardiac Disorders: Coronary Artery Disease, Heart Attack, Hypertension Neurological Hx Neurological Disorders: Yes Neurological Disorders: Neuropathy Reproductive System Hx Reproductive Disorders: No Sexually Transmitted Disease: No Genitourinary Hx Genitourinary Disorders: No Gastrointestinal Hx Gastrointestinal Disorders: No Musculoskeletal Hx Musculoskeletal Disorders: Yes (RIGHT LEG, FOSTER. THR) Musculoskeletal Disorders: Arthritis Endocrine Hx Endocrine Disorders: Yes Endocrine Disorders: Diabetes, Non-Insulin dep HEENT HX ENT Disorders: Yes (GLASSES) Loss of Vision: Denies Hearing Impairment: Hearing Aide Right, Hearing Aide Left Cancer Hx Cancer: No Psychosocial Hx Psychiatric Problems: No Integumentary HX Skin/Integumentary Disorder: No Blood Transfusions Hx Blood Disorders: No Reviewed Nursing Assessment Reviewed/Agree w Nursing PMH: Yes Family Medical History Significant Family History: No Pertinent Family Hx Exam Exam Vital Signs Date Time Temp Pulse Resp B/P Pulse Ox O2 Delivery O2 Flow Rate FiO2 10/24/16 10:55 94 5.00 10/24/16 08:00 99.5 79 16 115/70 98 Nasal Cannula 3.00 10/24/16 07:40 92 4.00 10/24/16 04:40 99.1 82 18 130/79 94 Nasal Cannula 3.00 10/24/16 04:02 92 3.00 10/24/16 04:00 92 10/24/16 01:35 100.5 112 18 100/63 92 Nasal Cannula 3.00 10/24/16 01:30 Nasal Cannula 2.00 10/24/16 01:29 100.8 113 31 93 2 10/24/16 00:58 100.8 117 24 110/61 93 Nasal Cannula 2 10/24/16 00:12 102.5 128 30 111/66 96 Nasal Cannula 10/23/16 23:30 89 Nasal Cannula 2 10/23/16 23:21 103.4 139 26 132/59 91 Room Air I & O 10/24/16 07:00 Intake Total 550 ml Output Total 200 ml Balance 350 ml General Appearance: No Apparent Distress WD/WN Chronically ill Obese HEENT: PERRL/EOMI Normal ENT Inspection Pharynx Normal Neck: Full Range of Motion Normal Inspection Non Tender Supple Carotid Bruit Respiratory: Chest Non Tender No Accessory Muscle Use No Respiratory Distress Crackles Decreased Breath Sounds Wheezing Cardiovascular: Regular Rate, Rhythm No Edema No Gallop No JVD No Murmur Normal Peripheral Pulses Capillary Refill: Less Than 3 Seconds Extremity: Normal Capillary Refill Normal Inspection Normal Range of Motion Non Tender No Calf Tenderness No Pedal Edema Neurologic/Psychiatric: Alert Oriented x3 No Motor/Sensory Deficits Normal Mood/Affect Skin: Normal Color Warm/Dry Lymphatic: No Adenopathy Results Lab Laboratory Tests 10/23/16 23:30 10/24/16 04:08 Assessment/Plan Assessment/Plan RML pneumonia with acute bronchitis -solumedrol -SVNs DuoNeb and Pulmicort -Continue Rocephin and azithromycin (worsening CXR probably secondary to IV hydration) ELLY - continue CPAP therapy Clinical Quality Measures DVT/VTE Risk/Contraindication: Risk Factor Score Per Nursin RFS Level Per Nursing on Admit: 4+=Very High RASHI HUTCHISON DO Oct 24, 2016 12:59
[2016-10-24] MEDS: MULTIVIT W/MINERALS TAB (THERAGRAN M) PO SCH (14:25)
[2016-10-24] MEDS: OMEGA 3 (FISH OIL) 1000 MG CAP PO SCH (14:25)
[2016-10-24] MEDS: ACETAMINOPHEN 500 MG TAB (TYLENOL) PO PRN (14:29)
[2016-10-24] MEDS: CYANOCOBALAMIN 500 MCG TAB (VITAMIN B-12) PO SCH (14:31)
[2016-10-24 16:00] VITALS: BP 127/62
[2016-10-24] MEDS: RT-BUDESONIDE NEBS 0.5 MG/2ML (PULMICORT) AMP INH SCH ×2 (19:22→19:45)
[2016-10-24 20:00] VITALS: BP 122/56
[2016-10-24] MEDS: LOSARTAN 50 MG (COZAAR) TAB PO SCH (20:19)
[2016-10-24] MEDS: SIMvastatin 20 MG (ZOCOR) TAB PO SCH (20:20)
[2016-10-24] MEDS: GABAPENTIN 300 MG (NEURONTIN) CAP PO SCH (20:20)
[2016-10-24] MEDS: ALLOPURINOL 300 MG (ZYLOPRIM) TAB PO SCH (20:20)
[2016-10-24] MEDS ORDERED: PHENYTOIN 100 MG (DILANTIN) CAP PO SCH (21:00)
[2016-10-24] MEDS ORDERED: prednisoLONE 1% OPTH (PRED FORTE) 5 ML BTL OU SCH (21:00)
[2016-10-24] MEDS ORDERED: prednisoLONE 1% OPTH (PRED FORTE) 5 ML BTL OS SCH (21:00)
[2016-10-25 00:53] VITALS: BP 135/78
[2016-10-25] MEDS: methylPREDNISolone 125 MG (Solu-MEDROL) VIAL IVP SCH ×2 (01:02→06:12)
[2016-10-25] MEDS: inSUlin (REGULAR) HUMAN 1 UNIT/0.01 ML (CHARGE PER UNIT) SC SCH ×4 (06:00→19:30)
[2016-10-25] MEDS: CATHETER FLUSH 10 ML SYR IV SCH ×3 (06:00→20:00)
[2016-10-25] MEDS: CYANOCOBALAMIN 500 MCG TAB (VITAMIN B-12) PO SCH (06:12)
[2016-10-25] MEDS: MULTIVIT W/MINERALS TAB (THERAGRAN M) PO SCH (06:12)
[2016-10-25] MEDS: OMEGA 3 (FISH OIL) 1000 MG CAP PO SCH (06:12)
[2016-10-25] MEDS: RT-BUDESONIDE NEBS 0.5 MG/2ML (PULMICORT) AMP INH SCH ×2 (07:25→20:05)
[2016-10-25] MEDS: RT-ALBUTEROL/IPRATROPIUM 3 ML (DUONEB) VIAL INH SCH ×4 (07:25→20:05)
[2016-10-25] MEDS: AZITHROMYCIN 250 MG TAB (ZITHROMAX) PO SCH (07:29)
[2016-10-25] MEDS: GABAPENTIN 100 MG (NEURONTIN) CAP PO SCH (07:30)
[2016-10-25] MEDS: ISOSORBIDE MONONITRATE 30 MG (IMDUR) TAB PO SCH (07:30)
[2016-10-25] MEDS: LORATADINE (CLARITIN) 10 MG TAB PO SCH (07:30)
[2016-10-25] MEDS: LIRAGLUTIDE 1.2 MG SC SCH (07:30)
[2016-10-25] MEDS: HYDROCHLOROTHIAZIDE 12.5 MG (HCTZ) CAP PO SCH (07:30)
[2016-10-25 07:32] LABS: BASOPHILS % (AUTO) 0 % (0-10); EOSINOPHILS % (AUTO) 0 % (0-10); LYMPHOCYTES # (AUTO) 0.4 X 10^3 (1.0-4.0); LYMPHOCYTES % (AUTO) 3 % (12-44); MEAN CORPUSCULAR HEMOGLOBIN 31 PG (25-34); MEAN CORPUSCULAR HGB CONC 35 G/DL (32-36); MEAN CORPUSCULAR VOLUME 90 FL (80-99); MEAN PLATELET VOLUME 9.6 FL (7.4-10.4); MONOCYTES # (AUTO) 0.3 X 10^3 (0.0-1.0); MONOCYTES % (AUTO) 2 % (0-12); NEUTROPHILS # (AUTO) 14.1 X 10^3 (1.8-7.8); NEUTROPHILS % (AUTO) 95 % (42-75); PLATELET COUNT 186 10^3/uL (130-400); RED BLOOD COUNT 4.19 10^6/uL (4.35-5.85); RED CELL DISTRIBUTION WIDTH 14.2 % (10.0-14.5); WHITE BLOOD COUNT 14.8 10^3/uL (4.3-11.0)
[2016-10-25] MEDS: ASPIRIN E.C. 81 MG (ECOTRIN) TAB PO SCH (07:33)
--- NOTE | 2016-10-25 07:39 | Pulmonary Progress Note ---
ROSIEKACIE Kathleen BONNIE 10/25/16 0739: Subjective Subjective/Events-last exam Pt states he is feeling better today but that he still feels short of breath. He is sitting up in bed. Wearing oxygen at 5L and is using cpap at night from home. Reports productive cough. Exam Exam Vital Signs Date Time Temp Pulse Resp B/P Pulse Ox O2 Delivery O2 Flow Rate FiO2 10/25/16 07:26 95 5.00 10/25/16 00:53 98.8 90 20 135/78 94 Nasal Cannula 3.00 10/24/16 21:00 Nasal Cannula 2.00 10/24/16 20:00 98.4 101 20 122/56 96 Nasal Cannula 3.00 10/24/16 19:48 5.00 10/24/16 19:46 92 5.00 10/24/16 16:00 98.6 86 18 127/62 97 Nasal Cannula 3.00 10/24/16 14:05 94 5.00 10/24/16 12:00 100.3 96 20 137/81 97 Nasal Cannula 3.00 10/24/16 10:55 94 5.00 10/24/16 08:00 99.5 79 16 115/70 98 Nasal Cannula 3.00 10/24/16 07:40 92 4.00 I & O 10/25/16 07:00 Intake Total 3280 ml Output Total 1500 ml Balance 1780 ml General Appearance: No Apparent Distress WD/WN Chronically ill Obese HEENT: PERRL/EOMI Normal ENT Inspection Pharynx Normal Neck: Full Range of Motion Normal Inspection Non Tender Supple Carotid Bruit Respiratory: Chest Non Tender No Accessory Muscle Use No Respiratory Distress Crackles Decreased Breath Sounds Wheezing Cardiovascular: Regular Rate, Rhythm No Edema No Gallop No JVD No Murmur Normal Peripheral Pulses Capillary Refill: Less Than 3 Seconds Extremity: Normal Capillary Refill Normal Inspection Normal Range of Motion Non Tender No Calf Tenderness No Pedal Edema Neurologic/Psychiatric: Alert Oriented x3 No Motor/Sensory Deficits Normal Mood/Affect Skin: Normal Color Warm/Dry Lymphatic: No Adenopathy Results Lab Laboratory Tests 10/23/16 23:30 10/24/16 04:08 10/25/16 06:50 Assessment/Plan Assessment/Plan RML pneumonia with acute bronchitis -solumedrol -SVNs DuoNeb and Pulmicort -Continue Rocephin and azithromycin (worsening CXR probably secondary to IV hydration) ELLY - continue CPAP therapy Clinical Quality Measures DVT/VTE Risk/Contraindication: Risk Factor Score Per Nursin RFS Level Per Nursing on Admit: 4+=Very High RASHI HUTCHISON DO 10/25/16 0840: Subjective Subjective/Events-last exam No complications noted. Exam Exam General Appearance: No Apparent Distress WD/WN Respiratory: Lungs Clear No Accessory Muscle Use No Respiratory Distress Neurologic/Psychiatric: Alert Oriented x3 Skin: Normal Color Warm/Dry Assessment/Plan Assessment/Plan RML pneumonia with acute bronchitis -solumedrol -SVNs DuoNeb and Pulmicort -Continue Rocephin and azithromycin (worsening CXR probably secondary to IV hydration) ELLY - continue CPAP therapy KACIE VELEZ APRN Oct 25, 2016 07:39 RASHI HUTCHISON DO Oct 25, 2016 08:40
[2016-10-25 07:55] LABS: ALANINE AMINOTRANSFERASE 28 U/L (0-55); ALBUMIN 3.3 G/DL (3.2-4.5); ANION GAP 8 MMOL/L (5-14); ASPARTATE AMINO TRANSFERASE 24 U/L (5-34); BILIRUBIN,TOTAL 0.3 MG/DL (0.1-1.0); BLOOD UREA NITROGEN 14 MG/DL (7-18); BUN/CREATININE RATIO 16; CALCIUM 8.7 MG/DL (8.5-10.1); CARBON DIOXIDE 23 MMOL/L (21-32); CHLORIDE 100 MMOL/L (98-107); CREATININE SERUM 0.87 MG/DL (0.60-1.30); GFR ESTIMATED > 60; GLUCOSE 164 MG/DL (70-105); POTASSIUM 4.3 MMOL/L (3.6-5.0); SODIUM 131 MMOL/L (135-145)
[2016-10-25 08:00] VITALS: BP 119/56
[2016-10-25] MEDS: ACETAMINOPHEN 500 MG TAB (TYLENOL) PO PRN (08:09)
[2016-10-25 08:26] LABS: BASOPHILS % (MANUAL) 1 %; LYMPHOCYTES % (MANUAL) 2 %; NEUTROPHILS % (MANUAL) 96 %
[2016-10-25] MEDS: methylPREDNISolone 40 MG/ML (Solu-MEDROL) VIAL IV SCH ×2 (11:29→17:58)
--- NOTE | 2016-10-25 11:44 | Progress Note-Hospitalist ---
Progress Note HPI/CC on Admission CC: Cough and fever HPI: This is a 66yowM that presented with worsening symptoms of cough and fever. Pt has cardiac hx involving two stents monitored by Dr. Chavis, but reports no hx of prior pneumonia. Pt is influenza negative, and found to have RML pneumonia. Chart Review: Max fever 100.5 WBC 9.4 Hgb 13.4 Na+ 130 K+ 3.6 Lactic acid 1.2 CXR mild pneumonia RL Influenza negative Patient Interview: Pt states that he still has a cough and headache. PCP is Dr. Haro, but pt has not seen PCP. Pt has never had a pneumonia. Pt uses CPAP every night. Pt has two stents in heart. Soap Grinder is Dr. Chavis. Pt denies smoking and drinking ETOH. Pt has had cough for three days, and it escalated yesterday. Physical exam reveals wheezing. Pt served in the [employer] for 20 years. Scribed by Rafael Tucker under the direct supervision of Dr. Holden. Progress Notes/Assess & Plan Date Seen 10/25/16 Admission Dx/Process Assessment: RML pneumonia but worsened CXR today compared to last night ELLY on CPAP Gout Neuropathy CAD previous stents by Dr. Chavis HTN Angina Seizure disorder Hyperlipidemia Diagonsis/Assessment & Plan Chart Review: No fever since yesterday at noon of 100.3 WBC 14.8 up from 9.4 Hgb 13 Na+ up to 131 All Cx negative including sputum Cx CXR from yesterday showed worsening prompting consult from Dr Bledsoe who states pt is doing very well. Review: Patient Interview: Pt states that he still requires oxygen, and is using breathing treatments and the IS, but still struggles to breathe. Physical exam reveals improved lungs, but pt still struggling. Pt states that he uses [facility] no fever vital signs stable, pleasant, oriented 3, sitting in chair, much improved but coughing Regular rate and rhythm, wheezing throughout all rodriguez with good air expansion No edema Laboratory Tests 10/25/16 06:50 Assessment: RML pneumonia ELLY on CPAP Gout Neuropathy CAD previous stents by Dr. Chavis HTN Angina Seizure disorder Hyperlipidemia Plan: Home O2 eval SS consult Check labs in AM Duoneb TID scheduled Maintain Solumedrol 62.5 q6, Zithromax, Pulmicort BID, Fentanyl and Percocet for CEE Scribed by Rafael Tucker under the direct supervision of Dr. Holden. GWEN HOLDEN DO Oct 25, 2016 11:44
[2016-10-25 15:40] VITALS: BP 131/61
[2016-10-25] MEDS: SIMvastatin 20 MG (ZOCOR) TAB PO SCH (19:56)
[2016-10-25] MEDS: ALLOPURINOL 300 MG (ZYLOPRIM) TAB PO SCH (19:56)
[2016-10-25] MEDS: GABAPENTIN 300 MG (NEURONTIN) CAP PO SCH (19:56)
[2016-10-25] MEDS: LOSARTAN 50 MG (COZAAR) TAB PO SCH (19:57)
[2016-10-26] VITALS: BP_SYST 148; BP_SYST 159; BP_DIAS 80; BP_DIAS 81
[2016-10-26] MEDS: methylPREDNISolone 40 MG/ML (Solu-MEDROL) VIAL IV SCH ×2 (00:14→06:02)
[2016-10-26 05:09] LABS: BASOPHILS % (AUTO) 0 % (0-10); EOSINOPHILS % (AUTO) 0 % (0-10); LYMPHOCYTES # (AUTO) 0.3 X 10^3 (1.0-4.0); LYMPHOCYTES % (AUTO) 3 % (12-44); MEAN CORPUSCULAR HEMOGLOBIN 30 PG (25-34); MEAN CORPUSCULAR HGB CONC 34 G/DL (32-36); MEAN CORPUSCULAR VOLUME 88 FL (80-99); MEAN PLATELET VOLUME 9.6 FL (7.4-10.4); MONOCYTES # (AUTO) 0.2 X 10^3 (0.0-1.0); MONOCYTES % (AUTO) 2 % (0-12); NEUTROPHILS # (AUTO) 9.5 X 10^3 (1.8-7.8); NEUTROPHILS % (AUTO) 94 % (42-75); PLATELET COUNT 205 10^3/uL (130-400); RED BLOOD COUNT 4.29 10^6/uL (4.35-5.85); RED CELL DISTRIBUTION WIDTH 13.8 % (10.0-14.5); WHITE BLOOD COUNT 10.1 10^3/uL (4.3-11.0)
[2016-10-26 05:25] LABS: ALANINE AMINOTRANSFERASE 49 U/L (0-55); ALBUMIN 3.3 G/DL (3.2-4.5); ANION GAP 9 MMOL/L (5-14); ASPARTATE AMINO TRANSFERASE 40 U/L (5-34); BILIRUBIN,TOTAL 0.2 MG/DL (0.1-1.0); BLOOD UREA NITROGEN 16 MG/DL (7-18); BUN/CREATININE RATIO 20; CALCIUM 8.9 MG/DL (8.5-10.1); CARBON DIOXIDE 22 MMOL/L (21-32); CHLORIDE 98 MMOL/L (98-107); CREATININE SERUM 0.82 MG/DL (0.60-1.30); GFR ESTIMATED > 60; GLUCOSE 205 MG/DL (70-105); POTASSIUM 4.2 MMOL/L (3.6-5.0); SODIUM 129 MMOL/L (135-145); TOTAL PROTEIN 6.1 G/DL (6.4-8.2)
[2016-10-26] MEDS: CYANOCOBALAMIN 500 MCG TAB (VITAMIN B-12) PO SCH (06:02)
[2016-10-26] MEDS: OMEGA 3 (FISH OIL) 1000 MG CAP PO SCH (06:02)
[2016-10-26] MEDS: MULTIVIT W/MINERALS TAB (THERAGRAN M) PO SCH (06:02)
[2016-10-26] MEDS: inSUlin (REGULAR) HUMAN 1 UNIT/0.01 ML (CHARGE PER UNIT) SC SCH ×2 (06:03→09:58)
[2016-10-26] MEDS: CATHETER FLUSH 10 ML SYR IV SCH (06:04)
[2016-10-26] MEDS: RT-BUDESONIDE NEBS 0.5 MG/2ML (PULMICORT) AMP INH SCH (07:05)
[2016-10-26] MEDS: RT-ALBUTEROL/IPRATROPIUM 3 ML (DUONEB) VIAL INH SCH ×2 (07:05→11:17)
--- NOTE | 2016-10-26 07:12 | Pulmonary Progress Note ---
Subjective Subjective/Events-last exam No complications noted. Exam Exam Vital Signs Date Time Temp Pulse Resp B/P Pulse Ox O2 Delivery O2 Flow Rate FiO2 10/26/16 00:00 98.7 102 18 148/80 95 Room Air 10/25/16 20:09 Room Air 10/25/16 20:06 92 10/25/16 15:40 97.3 96 24 131/61 96 Room Air 10/25/16 14:44 95 10/25/16 13:00 97 4.00 10/25/16 11:01 100 5.00 10/25/16 09:00 4 Nasal Cannula 10/25/16 08:00 99.4 114 18 119/56 92 Nasal Cannula 5.00 10/25/16 07:40 5.00 10/25/16 07:26 95 5.00 I & O 10/26/16 07:00 Intake Total 4248 ml Output Total 3775 ml Balance 473 ml General Appearance: No Apparent Distress WD/WN Chronically ill Obese HEENT: PERRL/EOMI Normal ENT Inspection Pharynx Normal Neck: Full Range of Motion Normal Inspection Non Tender Supple Carotid Bruit Respiratory: Chest Non Tender No Accessory Muscle Use No Respiratory Distress Crackles Decreased Breath Sounds Wheezing Cardiovascular: Regular Rate, Rhythm No Edema No Gallop No JVD No Murmur Normal Peripheral Pulses Capillary Refill: Less Than 3 Seconds Extremity: Normal Capillary Refill Normal Inspection Normal Range of Motion Non Tender No Calf Tenderness No Pedal Edema Neurologic/Psychiatric: Alert Oriented x3 No Motor/Sensory Deficits Normal Mood/Affect Skin: Normal Color Warm/Dry Lymphatic: No Adenopathy Results Lab Laboratory Tests 10/25/16 06:50 10/26/16 04:35 Assessment/Plan Assessment/Plan RML pneumonia with acute bronchitis -solumedrol -- change to prednisone taper -SVNs DuoNeb and Pulmicort -Continue Rocephin and azithromycin (worsening CXR probably secondary to IV hydration) ELLY - continue CPAP therapy Never smoker Clinical Quality Measures DVT/VTE Risk/Contraindication: Risk Factor Score Per Nursin RFS Level Per Nursing on Admit: 4+=Very High RASHI HUTCHISON DO Oct 26, 2016 07:12
[2016-10-26 08:00] VITALS: BP 158/78
[2016-10-26] MEDS ORDERED: predniSONE 10 MG TAB PO SCH (09:00)
[2016-10-26] MEDS: AZITHROMYCIN 250 MG TAB (ZITHROMAX) PO SCH (09:16)
[2016-10-26] MEDS: GABAPENTIN 100 MG (NEURONTIN) CAP PO SCH (09:16)
[2016-10-26] MEDS: ACETAMINOPHEN 500 MG TAB (TYLENOL) PO PRN (09:16)
[2016-10-26] MEDS: LIRAGLUTIDE 1.2 MG SC SCH (09:16)
[2016-10-26] MEDS: ASPIRIN E.C. 81 MG (ECOTRIN) TAB PO SCH (09:17)
[2016-10-26] MEDS: ISOSORBIDE MONONITRATE 30 MG (IMDUR) TAB PO SCH (09:18)
[2016-10-26] MEDS: LORATADINE (CLARITIN) 10 MG TAB PO SCH (09:18)
--- NOTE | 2016-10-26 09:50 | Diagnostic Imaging Report ---
EXAM: CHEST PA/LAT (2 VIEW) INDICATION: Shortness of breath. COMPARISON: Chest radiograph 10/24/2016. FINDINGS: Normal heart size with mildly prominent central pulmonary vascularity. Since yesterday, there has been no appreciable change in the atelectasis or infiltrate in the lung bases. The airspace opacity in the right upper lobe has minimally improved. No pleural effusion or pneumothorax. Degenerative changes in the visualized spine. IMPRESSION: Stable/ minimally improved bilateral infiltrates. Dictated by: Dictated on workstation # [id number]
--- NOTE | 2016-10-26 10:52 | Discharge Summary-Hospitalist ---
Diagnosis/Chief Complaint Date of Admission Oct 24, 2016 at 00:44 Date of Discharge Admission Diagnosis Assessment: RML pneumonia but worsened CXR today compared to last night ELLY on CPAP Gout Neuropathy CAD previous stents by Dr. Chavis HTN Angina Seizure disorder Hyperlipidemia Discharge Diagnosis Assessment: RML pneumonia ELLY on CPAP Gout Neuropathy CAD previous stents by Dr. Chavis HTN Angina Seizure disorder Hyperlipidemia hyponatremia due to hydrochlorothiazide Chart Review: No fever since yesterday at noon of 100.3 WBC 14.8 up from 9.4 Hgb 13 Na+ up to 131 All Cx negative including sputum Cx CXR from yesterday showed worsening prompting consult from Dr Bledsoe who states pt is doing very well. Review: Patient Interview: Pt states that he still requires oxygen, and is using breathing treatments and the IS, but still struggles to breathe. Physical exam reveals improved lungs, but pt still struggling. Pt states that he uses [facility] no fever vital signs stable, pleasant, oriented 3, sitting in chair, much improved but coughing Regular rate and rhythm, wheezing throughout all rodriguez with good air expansion No edema Laboratory Tests 10/25/16 06:50 Assessment: RML pneumonia ELLY on CPAP Gout Neuropathy CAD previous stents by Dr. Chavis HTN Angina Seizure disorder Hyperlipidemia Plan: Home O2 eval SS consult Check labs in AM Duoneb TID scheduled Maintain Solumedrol 62.5 q6, Zithromax, Pulmicort BID, Fentanyl and Percocet for CEE Scribed by Rafael Tucker under the direct supervision of Dr. Holden. Reason Hospital Visit/Course CC: Cough and fever HPI: This is a [id number] that presented with worsening symptoms of cough and fever. Pt has cardiac hx involving two stents monitored by Dr. Chavis, but reports no hx of prior pneumonia. Pt is influenza negative, and found to have RML pneumonia. Chart Review: Max fever 100.5 WBC 9.4 Hgb 13.4 Na+ 130 K+ 3.6 Lactic acid 1.2 CXR mild pneumonia RL Influenza negative Patient Interview: Pt states that he still has a cough and headache. PCP is Dr. Haro, but pt has not seen PCP. Pt has never had a pneumonia. Pt uses CPAP every night. Pt has two stents in heart. Sr. Manager [employer] is Dr. Chavis. Pt denies smoking and drinking ETOH. Pt has had cough for three days, and it escalated yesterday. Physical exam reveals wheezing. Pt served in the [employer] for 20 years. Scribed by Rafael Tucker under the direct supervision of Dr. Holden. Notes from 10/26/2016: Chart Review: No fever Vitals stable WBC 10 now normal Na+ 129 so will hold HCTZ CXR shows improved bilateral infiltrates Patient Interview: Pt states that he feels much better today and is ready to DC to home. Dr. Holden discusses updated CXR results and improved health. Dr. Holden informs pt that HCTZ will be held due to low Na. Pt states that Dr. Haro is PCP, but he also sees a physician at the [facility] in [place]. Pt will follow-up with Dr. Haro. Physical exam stable. Pt still coughing. Pt will not need home O2, but will continue using CPAP. Pts BMs normal. Pt uses [facility]. no fever, vital signs stable, pleasant, improved, sitting in chair Regular rate and rhythm, wheezing throughout all rodriguez but much improved and good air expansion No edema Plan: Hold HCTZ DC with follow-up with Dr. Haro complete antibiotics Scribed by Rafael Tucker under the direct supervision of Dr. Holden. Hospital course: She had an uneventful hospital course due to the fact that his chest x-ray did worsen prompted a pulmonary consultation but that was assessed to be just rehydration and more apparent infiltrate on chest x-ray. Overall he responded to community-acquired antibiotics in addition to steroids while maintaining CPAP for ELLY. Hyponatremia did occur due to illness in addition to HCTZ use of that was held and will be continued to be held for 1 week. He did not meet criteria for home oxygen so was discharged in good condition with close follow-up with Dr. Haro. Discharge Summary Discharge Physical Examination Allergies: Coded Allergies: hydrocodone (Verified Allergy, Mild, RASH (NO REACTION TO MORPHINE/ PERCOCET), 10/29/11) Sulfa (Sulfonamide Antibiotics) (Verified Allergy, Unknown, 12/08/12) Vitals & I&Os Vital Signs Date Time Temp Pulse Resp B/P Pulse Ox O2 Delivery O2 Flow Rate FiO2 10/26/16 11:17 91 10/26/16 08:00 98.9 119 20 158/78 Room Air 10/25/16 13:00 4.00 Hospital Course Labs (last 24 hrs) Laboratory Tests 10/25/16 14:50: Glucometer 253H 10/25/16 19:35: Glucometer 193H 10/26/16 04:35: Alanine Aminotransferase (ALT/SGPT) 49, Albumin 3.3, Alkaline Phosphatase 42, Anion Gap 9, Aspartate Amino Transf (AST/SGOT) 40H, BUN/Creatinine Ratio 20, Basophils # (Auto) 0.0, Basophils (%) (Auto) 0, Blood Urea Nitrogen 16, Calcium Level 8.9, Carbon Dioxide Level 22, Chloride Level 98, Creatinine 0.82, Eosinophils # (Auto) 0.0, Eosinophils (%) (Auto) 0, Estimat Glomerular Filtration Rate > 60, Glucose Level 205H, Hematocrit 38L, Hemoglobin 13.0L, Lymphocytes # (Auto) 0.3L, Lymphocytes (%) (Auto) 3L, Mean Corpuscular Hemoglobin 30, Mean Corpuscular Hemoglobin Concent 34, Mean Corpuscular Volume 88, Mean Platelet Volume 9.6, Monocytes # (Auto) 0.2, Monocytes (%) (Auto) 2, Neutrophils # (Auto) 9.5H, Neutrophils (%) (Auto) 94H, Platelet Count 205, Potassium Level 4.2, Red Blood Count 4.29L, Red Cell Distribution Width 13.8, Sodium Level 129L, Total Bilirubin 0.2, Total Protein 6.1L, White Blood Count 10.1 10/26/16 09:45: Glucometer 271H Microbiology 10/23/16 Blood Culture - Preliminary, Resulted No growth 10/23/16 Gram Stain - Final, Complete 10/23/16 Sputum Culture - Final, Complete Usual/normal gerald isolated. Pending Labs Laboratory Tests 10/26/16 04:35: Alanine Aminotransferase (ALT/SGPT) 49, Albumin 3.3, Alkaline Phosphatase 42, Anion Gap 9, Aspartate Amino Transf (AST/SGOT) 40, BUN/Creatinine Ratio 20, Basophils # (Auto) 0.0, Basophils (%) (Auto) 0, Blood Urea Nitrogen 16, Calcium Level 8.9, Carbon Dioxide Level 22, Chloride Level 98, Creatinine 0.82, Eosinophils # (Auto) 0.0, Eosinophils (%) (Auto) 0, Estimat Glomerular Filtration Rate > 60, Glucose Level 205, Hematocrit 38, Hemoglobin 13.0, Lymphocytes # (Auto) 0.3, Lymphocytes (%) (Auto) 3, Mean Corpuscular Hemoglobin 30, Mean Corpuscular Hemoglobin Concent 34, Mean Corpuscular Volume 88, Mean Platelet Volume 9.6, Monocytes # (Auto) 0.2, Monocytes (%) (Auto) 2, Neutrophils # (Auto) 9.5, Neutrophils (%) (Auto) 94, Platelet Count 205, Potassium Level 4.2, Red Blood Count 4.29, Red Cell Distribution Width 13.8, Sodium Level 129, Total Bilirubin 0.2, Total Protein 6.1, White Blood Count 10.1 10/26/16 09:45: Glucometer 271 Discharge Home Medications: Active Scripts Active Albuterol Sulfate 1.25 Mg/3 Ml Vial.neb 1.25 Mg IH TID Cefdinir 300 Mg Capsule 300 Mg PO BID Prednisone 10 Mg Tab.ds.pk 10 Mg PO DAILY Take 6 tabs(60mg)daily,decrease by 1 tab(10mg)every other day. Reported Vitamin B-12 (Cyanocobalamin (Vitamin B-12)) 1,000 Mcg Tablet 1,000 Mcg PO DAILY Victoza 3-Justin (Liraglutide) 0.6 Mg/0.1 Ml Pen.injctr 1.2 Mg SC DAILY Losartan Potassium 50 Mg Tablet 50 Mg PO HS Phenytoin Sodium Extended 100 Mg Capsule 200 Mg PO BID TAKES 2 (100MG) CAPSULES Toprol Xl (Metoprolol Succinate) 25 Mg Tab.er.24h 12.5 Mg PO BID TAKES 1/2 (25MG) TABLET Fish Oil 1,200 mg Softgel (Butler-3 Fatty Acids/Fish Oil) 1 Each Capsule 1,200 Mg PO DAILY Simvastatin 40 Mg Tablet 20 Mg PO HS TAKES 1/2 TAB OF 40MG Aspirin Ec 81 Mg (Aspirin) 81 Mg Tabec 81 Mg PO DAILY Neurontin (Gabapentin) 100 Mg Cap 300 Mg PO HS TAKES 3 (100MG) CAPSULES Cetirizine Hcl (Cetirizine HCl) 10 Mg Tablet 10 Mg PO DAILY Imdur (Isosorbide Mononitrate) 30 Mg Tab.sr.24h 30 Mg PO DAILY Gabapentin 100 Mg Tablet 100 Mg PO DAILY Zyloprim (Allopurinol) 300 Mg Tab 300 Mg PO HS Multiple Vitamin (Multivitamins) 1 Tab Tablet 1 Tab PO DAILY Instructions to patient/family Please see electonic discharge instructions given to patient. Clinical Quality Measures DVT/VTE Risk/Contraindication: Risk Factor Score Per Nursin RFS Level Per Nursing on Admit: 4+=Very High GWEN HOLDEN DO Oct 26, 2016 10:52
[2016-10-26] MEDS ORDERED: CEFD300C3 PO (11:03)
[2016-10-26] MEDS ORDERED: PRED10TA22 PO (11:03)
[2016-10-26] MEDS ORDERED: ALBU1.25 IH (11:07)
--- NOTE | 2016-10-26 11:08 | Discharge Instructions ---
Discharge Instructions Discharge Medications New, Converted or Re-Newed RX: Transmitted to Pharmacy New Medications: Albuterol Sulfate (Albuterol Sulfate) 1.25 Mg/3 Ml Vial.neb 1.25 MG IH TID #50 EACH Cefdinir (Cefdinir) 300 Mg Capsule 300 MG PO BID #8 CAP Prednisone (Prednisone) 10 Mg Tab.ds.pk 10 MG PO DAILY Take 6 tabs(60mg)daily,decrease by 1 tab(10mg)every other day. # 42 PKG Continued Medications: Allopurinol (Zyloprim) 300 Mg Tab 300 MG PO HS TAB Aspirin (Aspirin Ec 81 Mg) 81 Mg Tabec 81 MG PO DAILY TAB Cetirizine Hcl (Cetirizine Hcl) 10 Mg Tablet 10 MG PO DAILY TAB Cyanocobalamin (Vitamin B-12) (Vitamin B-12) 1,000 Mcg Tablet 1000 MCG PO DAILY TAB Gabapentin (Gabapentin) 100 Mg Tablet 100 MG PO DAILY CAP Gabapentin (Neurontin) 100 Mg Cap 300 MG PO HS TAKES 3 (100MG) CAPSULES CAP Isosorbide Mononitrate (Imdur) 30 Mg Tab.sr.24h 30 MG PO DAILY TAB Liraglutide (Victoza 3-Justin) 0.6 Mg/0.1 Ml Pen.injctr 1.2 MG SC DAILY EA Losartan Potassium (Losartan Potassium) 50 Mg Tablet 50 MG PO HS TAB Metoprolol Succinate (Toprol Xl) 25 Mg Tab.er.24h 12.5 MG PO BID TAKES 1/2 (25MG) TABLET TAB Multivitamins (Multiple Vitamin) 1 Tab Tablet 1 TAB PO DAILY TAB Garrett-3 Fatty Acids/Fish Oil (Fish Oil 1,200 mg Softgel) 1 Each Capsule 1200 MG PO DAILY CAP Phenytoin Sodium Extended (Phenytoin Sodium Extended) 100 Mg Capsule 200 MG PO BID TAKES 2 (100MG) CAPSULES CAP Simvastatin (Simvastatin) 40 Mg Tablet 20 MG PO HS TAKES 1/2 TAB OF 40MG TAB Discontinued Medications: Hydrochlorothiazide (Hctz) 25 Mg Tab 12.5 MG PO DAILY TAKES 1/2 (25MG) TABLET TAB Patient Instructions Goal/Follow Up Appt: PCP Dr Haro in 1 week Activity & Diet Discharge Diet: Cardiac Diet Activity as Tolerated: Yes GWEN HOLDEN DO Oct 26, 2016 11:08
[2016-10-26 12:30] VITALS: BP 148/88
== END 2016-10-26 12:30 | disposition home or self-care (01) | DRG 194 ==
LOC: EDUNIT# 23:14 → ER 23:18 → 4TH 10-24 00:44
PROVIDERS: ADMIT Internal Medicine; ATTEND Internal Medicine
DX: J18.1 Lobar pneumonia, unspecified organism (principal); J20.9 Acute bronchitis, unspecified; E87.1 Hypo-osmolality and hyponatremia; T50.2X5A Adverse effect of carbonic-anhydrase inhibitors, benzothiadiazides and other diuretics, initial encounter; G47.33 Obstructive sleep apnea (adult) (pediatric); I25.10 Atherosclerotic heart disease of native coronary artery without angina pectoris; I10 Essential (primary) hypertension; I25.2 Old myocardial infarction; E11.40 Type 2 diabetes mellitus with diabetic neuropathy, unspecified; Z96.643 Presence of artificial hip joint, bilateral; G40.909 Epilepsy, unspecified, not intractable, without status epilepticus; E78.5 Hyperlipidemia, unspecified; M10.9 Gout, unspecified; Z87.891 Personal history of nicotine dependence; Z95.5 Presence of coronary angioplasty implant and graft
CPT/HCPCS: 36415; 71010; 71020; 80053; 81000; 82962; 83605; 85007; 85025; 85027; 85610; 85730; 87040; 87070; 87205; 87804; 94640; 94760; 94761; 96361; 96365

== ENCOUNTER → 2016-11-06 | Outpatient (CLI) | payer MEDICARE, OTHER ==
[~2016-11-06] MED LIST changes: +ALBU1.25 IH; +CEFD300C3 PO; +CERTIRIZINE PO; +CETI10CA PO; +CYAN10006 PO; +LIRA0.6P3 SC; +LOSA50TA36 PO; +METO-351 PO; +OMEG-109 PO; +PHEN100C11 PO; +PRED10TA22 PO
--- OUTSIDE RECORDS SUMMARY | 2016-11-06 10:00 | XMS REPORT | Continuity of Care Document ---
Author Author [facility] Organization [facility] Address Unknown Phone Unavailable Care Team Providers Care Oil Well Gun Perforator Operator Name Role Phone PCP Unavailable Source Comments Some departments are not documenting in the electronic medical record. If you do not see the information that you expected, contact Release of Information in the Health Information Management department at [phone] for further assistance in locating additional records.[facility] Active Allergies and Adverse Reactions Not [...]
== END ==
LOC: LAB 09:55
PROVIDERS: ATTEND Psychiatry & Neurology Neurology
DX: G40.219 Localization-related (focal) (partial) symptomatic epilepsy and epileptic syndromes with complex partial seizures, intractable, without status epilepticus (principal); Z79.899 Other long term (current) drug therapy
CPT/HCPCS: 36415; 80185

== ENCOUNTER → 2016-11-14 | Outpatient (CLI) | payer MEDICARE, OTHER ==
[~2016-11-14] VITALS: Ht 167.6 cm; Wt 109.3 kg
[~2016-11-14] MED LIST changes: +CATHETER FLUSH 10 ML SYR IV PRN; +REGADENOSON 0.4 MG/5 ML SYR (LEXISCAN) IV ONE
--- OUTSIDE RECORDS SUMMARY | 2016-11-14 07:30 | XMS REPORT | Continuity of Care Document ---
Author Author [facility] Organization [facility] Address Unknown Phone Unavailable Care Team Providers Care Knit Tubing Dyer Name Role Phone PCP Unavailable Source Comments Some departments are not documenting in the electronic medical record. If you do not see the information that you expected, contact Release of Information in the Health Information Management department at [phone] for further assistance in locating additional records.[facility] Active Allergies and Adverse Reactions [...]
[2016-11-14 09:12] VITALS: BP 154/81
[2016-11-14 09:15] VITALS: BP 135/96
[2016-11-14 09:17] VITALS: BP 152/89
--- NOTE | 2016-11-15 08:30 | STRESS TEST ---
PROCEDURE PHYSICIAN: GENE BOYKIN DATE OF PROCEDURE: 11/14/2016 LEXISCAN MYOVIEW STRESS TEST REPORT: REFERRING PHYSICIAN: Dr. Haro INDICATION: Coronary artery disease. BASELINE HEART RATE: 82 BASELINE BLOOD PRESSURE: 150/80 BASELINE EKG: Sinus rhythm with no ischemic changes. IN SUMMARY: The patient was injected with 10.68 mCi of technetium 99 Myoview and the resting images were obtained. Then the patient received 0.4 mg of Lexiscan followed by 30.6 mCi of technetium 99 Myoview. Throughout the test, there were no EKG changes. The resting and stress images were reviewed and compared in the short axis, horizontal long axis, and vertical long axis views. Review of the images showed diaphragmatic attenuation with no significant ischemia or infarction on SPECT images. SSS is 3, SDS 2, TID value 1.11. On the gated images, the left ventricle appeared to be normal size with normal contractility. Calculated ejection fraction 50%. IN CONCLUSION: 1. The patient tolerated Lexiscan well. 2. No ischemia or infarction on SPECT images. 3. Normal left ventricular size with normal contractility. Calculated ejection fraction 50%. Job ID: [id number] Dictated Date: 11/14/2016 15:45:46 Medical Receptionist Date: 11/15/2016 08:28:30 / gume
== END ==
LOC: CARD 07:27
PROVIDERS: ATTEND Physician Assistant
DX: I25.10 Atherosclerotic heart disease of native coronary artery without angina pectoris (principal); I65.23 Occlusion and stenosis of bilateral carotid arteries; I10 Essential (primary) hypertension; E66.01 Morbid (severe) obesity due to excess calories
CPT/HCPCS: 78452; 93017

== ENCOUNTER → 2016-11-21 | Outpatient (CLI) | payer MEDICARE, OTHER ==
[~2016-11-21] MED LIST changes: -CATHETER FLUSH 10 ML SYR IV PRN; -REGADENOSON 0.4 MG/5 ML SYR (LEXISCAN) IV ONE
== END ==
LOC: RT 15:19
PROVIDERS: ATTEND Nurse Practitioner Family
DX: R06.02 Shortness of breath (principal)
CPT/HCPCS: 94060; 94726; 94729

== ENCOUNTER 2016-12-31 01:20 | Inpatient (IN) | payer MEDICARE, OTHER ==
[2016-12-31] VITALS (8 sets, daily range): BP systolic 104–164; BP diastolic 68–94
[~2016-12-31] VITALS: Ht 160 cm; Wt 98.6 kg
[~2016-12-31 01:20] MED LIST changes: -CERTIRIZINE PO; -CETI10CA PO
[2016-12-31] MEDS ORDERED: NS IV 1000 ML 1,000 ML IV ONE ×2 (01:50→04:30)
[2016-12-31 02:16] LABS: BASOPHILS # (AUTO) 0.1 10^3/uL (0.0-0.1); BASOPHILS % (AUTO) 1 % (0-10); EOSINOPHILS # (AUTO) 0.3 10^3/uL (0.0-0.3); EOSINOPHILS % (AUTO) 6 % (0-10); LYMPHOCYTES # (AUTO) 1.7 X 10^3 (1.0-4.0); LYMPHOCYTES % (AUTO) 31 % (12-44); MEAN CORPUSCULAR HEMOGLOBIN 30 PG (25-34); MEAN CORPUSCULAR HGB CONC 34 G/DL (32-36); MEAN CORPUSCULAR VOLUME 88 FL (80-99); MEAN PLATELET VOLUME 9.5 FL (7.4-10.4); MONOCYTES # (AUTO) 0.7 X 10^3 (0.0-1.0); MONOCYTES % (AUTO) 12 % (0-12); NEUTROPHILS # (AUTO) 2.8 X 10^3 (1.8-7.8); NEUTROPHILS % (AUTO) 50 % (42-75); PLATELET COUNT 245 10^3/uL (130-400); RED BLOOD COUNT 4.74 10^6/uL (4.35-5.85); RED CELL DISTRIBUTION WIDTH 14.9 % (10.0-14.5); WHITE BLOOD COUNT 5.6 10^3/uL (4.3-11.0)
[2016-12-31 02:25] LABS: PROTHROMBIN TIME PATIENT 12.4 SEC (12.2-14.7)
--- NOTE | 2016-12-31 02:29 | ED GI ---
General Chief Complaint: Rect Problems Stated Complaint: BLOOD CLOTS IN STOOL Nursing Triage Note: passing blood clots x6hrs Sepsis Screen: No Definite Risk Source of Information: Patient, Spouse History of Present Illness Time Seen By Provider: 01:35 Initial Comments C/O BRIGHT RED RECTAL BLEEDING AND PASSING ALOT OF CLOTS PT HAD A BM MIXED WITH BLOOD AT 1800 TONIGHT-STOOL WAS NORMAL/SOFT FORMED STOOL AND WAS NOT STRAINING, ETC. SINCE THEN, PT IS NOW JUST PASSING LARGE AMOUNTS OF BRIGHT RED BLOOD WITH CLOTS , WITHOUT STOOL NO RECTAL PAIN NO ABDOMINAL PAIN NO NAUSEA/VOMITING NO FEVER/SWEATS/CHILLS HAS BEEN DIZZY ON STANDING SINCE THE BLEEDING STARTED HAS FELT FINE ALL DAY ATE DINNER AROUND 1830 TONIGHT NO HISTORY OF SIMILAR PT HAS ROUTINE SCREENING COLONOSCOPIES EVERY 2 YEARS THROUGH [facility], AND LAST ONE WAS 2 YEARS AGO--ALL HAVE BEEN NORMAL PT HAS NO PERSONAL OR FAMILY HISTORY OF ANY GI PROBLEMS PT TAKES A BABY ASPIRIN DAILY---PT WAS ON [place] AFTER HIS LAST CARDIAC STENT , BUT THAT WAS DISCONTINUED APPROXIMATELY 2 MONTHS AGO. PT DOES HAVE A HISTORY OF ALCOHOL ABUSE, BUT IN THE LAST FEW MONTHS, HAS CUT DOWN TO "OCCASIONAL" USE--HAD A COUPLE OF BEERS THIS WEEKEND Allergies and Home Medications Allergies Coded Allergies: hydrocodone (Verified Allergy, Mild, RASH (NO REACTION TO MORPHINE/ PERCOCET), 10/29/11) Sulfa (Sulfonamide Antibiotics) (Verified Allergy, Unknown, 12/08/12) Home Medications Allopurinol 300 Mg Tab, 300 MG PO HS, (Reported) Aspirin 81 Mg Tabec, 81 MG PO DAILY, (Reported) Cetirizine Hcl 10 Mg Tablet, 10 MG PO DAILY, (Reported) Cyanocobalamin (Vitamin B-12) 1,000 Mcg Tablet, 1,000 MCG PO DAILY, (Reported) Gabapentin 100 Mg Tablet, 100 MG PO DAILY, (Reported) Gabapentin 100 Mg Cap, 300 MG PO HS, (Reported) TAKES 3 (100MG) CAPSULES Isosorbide Mononitrate 30 Mg Tab.sr.24h, 30 MG PO DAILY, (Reported) Liraglutide 0.6 Mg/0.1 Ml Pen.injctr, 1.2 MG SC DAILY, (Reported) Losartan Potassium 50 Mg Tablet, 50 MG PO HS, (Reported) Metoprolol Succinate 25 Mg Tab.er.24h, 12.5 MG PO BID, (Reported) TAKES 1/2 (25MG) TABLET Multivitamins 1 Tab Tablet, 1 TAB PO DAILY, (Reported) [place]-3 Fatty Acids/Fish Oil 1 Each Capsule, 1,200 MG PO DAILY, (Reported) Phenytoin Sodium Extended 100 Mg Capsule, 200 MG PO BID, (Reported) TAKES 2 (100MG) CAPSULES Simvastatin 40 Mg Tablet, 20 MG PO HS, (Reported) TAKES 1/2 TAB OF 40MG Review of Systems Constitutional: see HPI, No chills, No diaphoresis, dizziness, No fever, No malaise, No weakness, weight loss (HAS LOST 20 LBS SINCE HE REDUCED ALCOHOL INTAKE FROM DAILY USE TO "OCCASIONAL" USE) EENTM: No Symptoms Reported Respiratory: No Symptoms Reported, Denies Shortness of Air Cardiovascular: No Symptoms Reported, Denies Chest Pain Gastrointestinal: See HPI, Denies Abdomen Distended, Denies Abdominal Pain, Denies Constipated, Denies Diarrhea, Denies Nausea, Denies Poor Appetite, Denies Poor Fluid Intake, Rectal Bleeding, Denies Vomiting Genitourinary: No Symptoms Reported Musculoskeletal: no symptoms reported Skin: no symptoms reported Psychiatric/Neurological: No Symptoms Reported Endocrine: No Symptoms Reported Hematologic/Lymphatic: See HPI Past Wpkkdmg-Fylumt-Vrrlio Hx Patient Social History Alcohol Use: Occasionally Uses (HISTORY OF ABUSE/HEAVY USE--> 6 PACK OF BEER / DAY--NOW ONLY "OCCASIONALLY USES" FOR THE PAST FEW MONTHS-PER PT ON 12/31/16) Recreational Drug Use: No Smoking Status: Former Smoker (2 PPD, QUIT IN 1999) Type Used: Cigarettes 2nd Hand Smoke Exposure: No Recent Foreign Travel: No Contact w/Someone Who Travel: No Recent Infectious Disease Expo: No Recent Hopitalizations: No Immunizations Up To Date Tetanus Booster (TDap): Unknown Date of Pneumonia Vaccine: Jun 02, 2016 Date of Influenza Vaccine: Jun 02, 2016 Seasonal Allergies Seasonal Allergies: Yes Surgeries HX Surgeries: Yes (BILAT HIP REPLACEMENTS; RIGHT KNEE SX X 5--PATELLA FX; LEFT SHOULDER; CARDIAC CATH X 2--STENTS X 2; TMJ SURGERY; COLONOSCOPIES ) Surgeries: Appendectomy, Cardiac, Coronary Stent, Joint Replacement, Orthopedic Respiratory Hx Respiratory Disorders: Yes (GETS SOB-DX "RESTRICTIVE LUNG DISEASE", USES C- PAP) Respiratory Disorders: Sleep Apnea Cardiovascular Hx Cardiac Disorders: Yes (X2 STENTS) Cardiac Disorders: Coronary Artery Disease, Heart Attack, High Cholesterol, Hypertension Neurological Hx Neurological Disorders: Yes (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 TOTAL HIP REPLACEMENT) Musculoskeletal Disorders: Arthritis, Gout Endocrine Hx Endocrine Disorders: Yes (ON VICTOZA) Endocrine Disorders: Diabetes, Non-Insulin dep HEENT HX ENT Disorders: Yes (GLASSES) Loss of Vision: Denies Hearing Impairment: Hearing Aide Right, Hearing Aide Left, Bilateral Hearing Aide Cancer Hx Cancer: No Psychosocial Hx Psychiatric Problems: No Integumentary HX Skin/Integumentary Disorder: No Blood Transfusions Hx Blood Disorders: No Family Medical History Significant Family History: No Pertinent Family Hx Physical Exam Vital Signs VS - Last 72 Hours, by Label 12/31/16 12/31/16 12/31/16 01:37 02:17 04:38 Temp 98.0 98.0 Pulse 98 91 81 81 96 Resp 18 16 B/P (MAP) 109/68 Pulse Ox 94 97 O2 Delivery Room Air Capillary Refill : Less Than 3 Seconds General Appearance: WD/WN, no apparent distress HEENT: No pale conjunctivae (R), No pale conjunctivae (L) Neck: normal inspection Respiratory: normal breath sounds, no respiratory distress, no accessory muscle use Cardiovascular: regular rate, rhythm, no murmur Gastrointestinal: normal bowel sounds, non tender, soft, no organomegaly, no pulsatile mass, hernia (REDUCIBLE, NON-TENDER UMBILICAL HERNIA) Rectal: No mass, No tenderness, other (GROSS BLOOD PRESENT. SMALL INTERNAL HEMORRHOID AT 6:00, NON-TENDER. ) Extremities: normal inspection, no pedal edema Back: normal inspection, no CVA tenderness, no vertebral tenderness Neurologic/Psychiatric: tax agent II-XII nml as tested, no motor/sensory deficits, alert, normal mood/affect, oriented x 3 Skin: normal color, warm/dry Laceration Repair : Suture Size: 5-0 Progress/Results/Core Measures Results/Orders Lab Results Laboratory Tests Test 12/31/16 01:55 12/31/16 04:30 Range/Units White Blood Count 5.6 4.3-11.0 10^3/uL Red Blood Count 4.74 4.35-5.85 10^6/uL Hemoglobin 14.0 12.7 L 13.3-17.7 G/DL Hematocrit 42 38 L 40-54 % Mean Corpuscular Volume 88 80-99 FL Mean Corpuscular Hemoglobin 30 25-34 PG Mean Corpuscular Hemoglobin Concent 34 32-36 G/DL Red Cell Distribution Width 14.9 H 10.0-14.5 % Platelet Count 245 130-400 10^3/uL Mean Platelet Volume 9.5 7.4-10.4 FL Neutrophils (%) (Auto) 50 42-75 % Lymphocytes (%) (Auto) 31 12-44 % Monocytes (%) (Auto) 12 0-12 % Eosinophils (%) (Auto) 6 0-10 % Basophils (%) (Auto) 1 0-10 % Neutrophils # (Auto) 2.8 1.8-7.8 X 10^3 Lymphocytes # (Auto) 1.7 1.0-4.0 X 10^3 Monocytes # (Auto) 0.7 0.0-1.0 X 10^3 Eosinophils # (Auto) 0.3 0.0-0.3 10^3/uL Basophils # (Auto) 0.1 0.0-0.1 10^3/uL Prothrombin Time 12.4 12.2-14.7 SEC INR Comment 1.0 0.8-1.4 Activated Partial Thromboplast Time 28 24-35 SEC Sodium Level 138 135-145 MMOL/L Potassium Level 4.0 3.6-5.0 MMOL/L Chloride Level 103 98-107 MMOL/L Carbon Dioxide Level 26 21-32 MMOL/L Anion Gap 9 5-14 MMOL/L Blood Urea Nitrogen 24 H 7-18 MG/DL Creatinine 1.16 0.60-1.30 MG/DL Estimat Glomerular Filtration Rate > 60 BUN/Creatinine Ratio 21 Glucose Level 90 70-105 MG/DL Calcium Level 9.3 8.5-10.1 MG/DL Total Bilirubin 0.4 0.1-1.0 MG/DL Aspartate Amino Transf (AST/SGOT) 25 5-34 U/L Alanine Aminotransferase (ALT/SGPT) 31 0-55 U/L Alkaline Phosphatase 49 40-136 U/L Total Protein 6.3 L 6.4-8.2 G/DL Albumin 3.8 3.2-4.5 G/DL Amylase Level 49 25-125 U/L Lipase 24 8-78 U/L Phenytoin (Dilantin) Level 10.0-20.0 UG/ML Serum Alcohol < 10 <10 MG/DL My Orders Orders - EDDIE PORTER DO Saline Lock/Iv-Start (12/31/16 01:50) Amylase (12/31/16 01:50) Cbc With Automated Diff (12/31/16 01:50) Comprehensive Metabolic Panel (12/31/16 01:50) Lipase (12/31/16 01:50) Protime With Inr (12/31/16 01:50) Partial Thromboplastin Time (12/31/16 01:50) Type And Screen (12/31/16 01:50) Saline Lock/Iv-Start (12/31/16 01:50) Ns Iv 1000 Ml (Sodium Chloride 0.9%) (12/31/16 01:50) Orthostatic Vital Signs (12/31/16 01:50) Alcohol (12/31/16 02:29) Phenytoin (Dilantin) (12/31/16 02:37) Ct Abdomen/Pelvis W (12/31/16 02:51) Iohexol Injection (Omnipaque 350 Mg/Ml 1 (12/31/16 03:30) Ns (Ivpb) (Sodium Chloride 0.9% Ivpb Bag (12/31/16 03:30) Red Cells Leukocytes Reduced (12/31/16 04:21) Hemoglobin And Hematocrit (12/31/16 04:21) Saline Lock/Iv-Start (12/31/16 04:30) Ns Iv 1000 Ml (Sodium Chloride 0.9%) (12/31/16 04:30) Medications Given in ED Current Medications Medications Dose Ordered Sig/Malissa Route Start Time Stop Time Status Last Admin Dose Admin Iohexol 100 ml ONCE ONCE IV 12/31/16 03:30 12/31/16 03:31 DC 12/31/16 03:18 100 ML Sodium Chloride 100 ml ONCE ONCE IV 12/31/16 03:30 12/31/16 03:31 DC 12/31/16 03:18 80 ML Sodium Chloride 1,000 ml @ 0 mls/hr Q0M ONCE IV 12/31/16 01:50 12/31/16 01:52 DC 12/31/16 01:56 0 MLS/HR Sodium Chloride 1,000 ml @ 0 mls/hr Q0M ONCE IV 12/31/16 04:30 12/31/16 04:31 UNV 12/31/16 04:35 0 MLS/HR Vital Signs/I&O Vital Sign - Last 12Hours 12/31/16 12/31/16 12/31/16 01:37 02:17 04:38 Temp 98.0 98.0 Pulse 98 91 81 81 96 Resp 18 16 B/P (MAP) 109/68 Pulse Ox 94 97 O2 Delivery Room Air Blood Pressure Mean: 82 Progress Note : Progress Note PT HAD MULTIPLE EPISODES OF PASSING BRIGHT RED BLOOD WITH CLOTS DURING ER STAY-- AT LEAST 6 EPISODES\\ VITALS REMAINED STABLE AND PT STATES DIZZINESS IS BETTER, BUT NOT GONE, WITH STANDING /WALKING. FEELS FINE OTHERWISE--NO PAIN, NAUSEA, OR ANY OTHER SYMPTOMS Diagnostic Imaging Comments CT ABDOMEN/PELVIS--NON-SPECIFIC MILD MESENTERIC STRANDING WITH PROMINENT LYMPH NODES. OTHER NON-ACUTE FINDINGS--PER [facility] VIA FAX @ [phone] Reviewed: Reviewed by Me Departure Communication Progress Notes 0420--SPOKE WITH DR. LACY, SURGEON EXCELSIOR MACHINE TENDER--HE WILL SEE PT IN CONSULT OR OUTPATIENT 0421--SPOKE WITH DR. HOLDEN, ACCEPTS PT FOR ADMIT. Impression Impression: Primary Impression: Acute lower GI bleeding Disposition: ADMITTED INPATIENT Condition: Stable Decision to Admit Reason: Admit from ER (General) Decision to Admit/Date: December 31, 2016 Time/Decision to Admit Time: 04:20 Departure-Patient Inst. Referrals: MICHELLE REA MD (PCP/Family) Primary Care Physician EDDIE PORTER DO December 31, 2016 02:29
[2016-12-31 02:40] LABS: ALANINE AMINOTRANSFERASE 31 U/L (0-55); ALBUMIN 3.8 G/DL (3.2-4.5); AMYLASE 49 U/L (25-125); ANION GAP 9 MMOL/L (5-14); ASPARTATE AMINO TRANSFERASE 25 U/L (5-34); BILIRUBIN,TOTAL 0.4 MG/DL (0.1-1.0); BLOOD UREA NITROGEN 24 MG/DL (7-18); BUN/CREATININE RATIO 21; CALCIUM 9.3 MG/DL (8.5-10.1); CARBON DIOXIDE 26 MMOL/L (21-32); CHLORIDE 103 MMOL/L (98-107); CREATININE SERUM 1.16 MG/DL (0.60-1.30); GFR ESTIMATED > 60; GLUCOSE 90 MG/DL (70-105); LIPASE 24 U/L (8-78); SODIUM 138 MMOL/L (135-145); TOTAL PROTEIN 6.3 G/DL (6.4-8.2)
[2016-12-31] MEDS ORDERED: NS 100 ML (IVPB) BAG IV ONE (03:30)
[2016-12-31] MEDS ORDERED: IOHEXOL 350 MG/ML 100 ML (OMNIPAQUE 350) VIAL IV ONE (03:30)
[2016-12-31] MEDS ORDERED: CATHETER FLUSH 10 ML SYR IV PRN (06:00)
[2016-12-31] MEDS: CATHETER FLUSH 10 ML SYR IV SCH ×3 (06:16→22:00)
[2016-12-31] MEDS: NS IV 1000 ML 1,000 ML IV SCH ×4 (06:49→23:15)
--- NOTE | 2016-12-31 08:36 | Diagnostic Imaging Report ---
PROCEDURE: CT abdomen and pelvis with contrast. TECHNIQUE: Multiple contiguous axial images were obtained through the abdomen and pelvis after administration of intravenous contrast. INDICATION: Rectal bleeding. CONTRAST: 100 mL of Omnipaque 350 was administered intravenously. FINDINGS: There is a 5 mm nodule in the left lung base, similar to the 08/15/2016 exam. The etiology is indeterminate. Minimal bilateral atelectasis is also seen. The liver demonstrates hypodense lesions of less than 1 cm in size, mostly within the left hepatic lobe, which may relate to hepatic cysts. No definite enhancing lesion. The gallbladder demonstrates no calcified stone. The spleen is not enlarged. The adrenals and pancreas appear unremarkable. The kidneys have symmetric enhancement and contrast excretion. A 7.3 cm upper pole exophytic left renal cyst is seen. The abdominal aorta is normal in caliber. No periaortic significantly enlarged lymph node is seen. There is a fat-containing umbilical hernia of a [id number]-[id number] size with a 1 cm diameter abdominal wall defect seen. The urinary bladder demonstrates minimal wall thickening which could relate to cystitis. The lower pelvis is obscured by significant streak artifact from the bilateral hip replacements. There is no bowel obstruction. There are a few diverticuli scattered in the colon with no diverticulitis. There is mild stranding in the mesentery with mildly prominent mesenteric lymph nodes which may relate to an underlying infectious or inflammatory process. No significant free fluid or abscess in the abdomen or pelvis. The osseous structures demonstrate lower lumbar spine degenerative disc changes. IMPRESSION: 1. Mild stranding and minimally prominent lymph nodes in the mesentery may reflect an inflammatory or infectious process involving the mesentery itself or the bowel loops. 2. Diverticulosis. No definite evidence of diverticulitis. 3. Mild urinary bladder wall thickening which could correlate with cystitis. Correlate clinically. 4. Small to moderate-sized fat-containing umbilical hernia. 5. Nonspecific pulmonary 5 mm nodule in the left lower lobe. 6 months followup unenhanced low dose CT chest to reevaluate is recommended. Dictated by: Dictated on workstation # [id number]
[2016-12-31] MEDS ORDERED: GOLYTELY POWDER 4000 ML BTL PO NR (13:00)
--- NOTE | 2016-12-31 13:35 | Consultation ---
History of Present Illness History of Present Illness Patient Consulted On(simone/time) 12/31/16 13:27 Date of Admission History of Present Illness Surgery asked to consult regarding GI bleed. HPI Pt presented to the ER last night with c/o bright red rectal bleeding and seeing clots. This first occurred at 18:00 and was mixed with normal stool, after that it was only blood. Pt denies rectal pain, abdominal pain. No N/V. Pt denied fever or chills. He did relate some dizziness with standing after the bleeding started. He states this has never occurred before, he gets colonoscopy every 2 yrs at the [facility]. He states this is because he was in the [place] War and was exposed to Agent [place]. He denies any family hx of GI problems or cancer. Pt states the bleeding "has slacked off". Does not feel dizzy at this time. Per ER PT TAKES A BABY ASPIRIN DAILY---PT WAS ON BRILLINTA AFTER HIS LAST CARDIAC STENT , BUT THAT WAS DISCONTINUED APPROXIMATELY 2 MONTHS AGO. PT DOES HAVE A HISTORY OF ALCOHOL ABUSE, BUT IN THE LAST FEW MONTHS, HAS CUT DOWN TO "OCCASIONAL" USE--HAD A COUPLE OF BEERS THIS WEEKEND Allergies and Home Medications Allergies Coded Allergies: hydrocodone (Verified Allergy, Mild, RASH (NO REACTION TO MORPHINE/ PERCOCET), 10/29/11) Sulfa (Sulfonamide Antibiotics) (Verified Allergy, Unknown, 12/08/12) Home Medications Allopurinol 300 Mg Tab, 300 MG PO HS, (Reported) Aspirin 81 Mg Tabec, 81 MG PO DAILY, (Reported) Cetirizine Hcl 10 Mg Tablet, 10 MG PO DAILY, (Reported) Cyanocobalamin (Vitamin B-12) 1,000 Mcg Tablet, 1,000 MCG PO DAILY, (Reported) Gabapentin 100 Mg Tablet, 100 MG PO DAILY, (Reported) Gabapentin 100 Mg Cap, 300 MG PO HS, (Reported) TAKES 3 (100MG) CAPSULES Isosorbide Mononitrate 30 Mg Tab.sr.24h, 30 MG PO DAILY, (Reported) Liraglutide 0.6 Mg/0.1 Ml Pen.injctr, 1.2 MG SC DAILY, (Reported) Losartan Potassium 50 Mg Tablet, 50 MG PO HS, (Reported) Metoprolol Succinate 25 Mg Tab.er.24h, 12.5 MG PO BID, (Reported) TAKES 1/2 (25MG) TABLET Multivitamins 1 Tab Tablet, 1 TAB PO DAILY, (Reported) [place]-3 Fatty Acids/Fish Oil 1 Each Capsule, 1,200 MG PO DAILY, (Reported) Phenytoin Sodium Extended 100 Mg Capsule, 200 MG PO BID, (Reported) TAKES 2 (100MG) CAPSULES Simvastatin 40 Mg Tablet, 20 MG PO HS, (Reported) TAKES 1/2 TAB OF 40MG Past Lkgtjik-Vhvons-Bzzhlk Hx Patient Social History Alcohol Use: Occasionally Uses Recreational Drug Use: No Smoking Status: Former Smoker Type Used: Cigarettes 2nd Hand Smoke Exposure: No Recent Foreign Travel: No Contact w/Someone Who Travel: No Recent Infectious Disease Expo: No Recent Hopitalizations: Yes Physical Abuse Screen: No Sexual Abuse: No Immunizations Up To Date Tetanus Booster (TDap): Unknown Date of Pneumonia Vaccine: Jun 02, 2016 Date of Influenza Vaccine: Jun 02, 2016 Seasonal Allergies Seasonal Allergies: Yes Surgeries HX Surgeries: Yes (BILAT HIP REPLACEMENTS; RIGHT KNEE SX X 5--PATELLA FX; LEFT SHOULDER; CARDIAC CATH X 2--STENTS X 2; TMJ SURGERY; COLONOSCOPIES ) Surgeries: Appendectomy, Cardiac, Coronary Stent, Joint Replacement, Orthopedic Respiratory Hx Respiratory Disorders: Yes (GETS SOB-DX "RESTRICTIVE LUNG DISEASE", USES C- PAP) Respiratory Disorders: Sleep Apnea Cardiovascular Hx Cardiac Disorders: Yes (X2 STENTS) Cardiac Disorders: Coronary Artery Disease, Heart Attack, High Cholesterol, Hypertension Neurological Hx Neurological Disorders: Yes (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 TOTAL HIP REPLACEMENT) Musculoskeletal Disorders: Arthritis, Gout Endocrine Hx Endocrine Disorders: Yes (ON VICTOZA) Endocrine Disorders: Diabetes, Non-Insulin dep HEENT HX ENT Disorders: Yes (GLASSES) Loss of Vision: Denies Hearing Impairment: Hearing Aide Right, Hearing Aide Left, Bilateral Hearing Aide Cancer Hx Cancer: No Psychosocial Hx Psychiatric Problems: No Integumentary HX Skin/Integumentary Disorder: No Blood Transfusions Hx Blood Disorders: No Family Medical History Significant Family History: Diabetes (mother), Other Conditions/Hx Family Medial History: Not obtainable due to adoption unknown Review of Systems-General Constitutional: No chills, No diaphoresis, dizziness, malaise EENTM: No blurred vision, No epistaxis, No mouth pain, No throat swelling Respiratory: No cough, No dyspnea on exertion Cardiovascular: No chest pain, No edema, Hx of Intervention, No palpitations Gastrointestinal: No constipation, No hematemesis, other (hematochezia) Genitourinary: No dysuria, No frequency Musculoskeletal: joint pain, muscle stiffness Skin: No change in color, No change in hair/nails Psychiatric/Neurological: Denies Anxiety, Denies Depressed, Denies Emotional Problems Physical Exam-General Problems Physical Exam Vital Signs Vital Sign - Last 12Hours 12/31/16 01:37 Temp 98.0 Pulse 98 Resp 18 B/P (MAP) 109/68 Pulse Ox 94 O2 Delivery Room Air Capillary Refill : Less Than 3 Seconds General Appearance: WD/WN, no apparent distress, obese Eyes: Bilateral Eye EOMI, Bilateral Eye PERRL HEENT: pharynx normal, No scleral icterus (R), No scleral icterus (L) Neck: full range of motion, supple Respiratory: lungs clear, normal breath sounds, no respiratory distress, no accessory muscle use Cardiovascular: regular rate, rhythm, no edema, no murmur Gastrointestinal: normal bowel sounds, soft, no organomegaly, no pulsatile mass Extremities: no pedal edema, no calf tenderness Neurologic/Psychiatric: grain distributor II-XII nml as tested, no motor/sensory deficits, alert, normal mood/affect, oriented x 3 Lymphatic: no adenopathy (neck, axilla or groin) Data Review Labs Laboratory Tests 12/31/16 01:55: White Blood Count 5.6, Red Blood Count 4.74, Hemoglobin 14.0, Hematocrit 42, Mean Corpuscular Volume 88, Mean Corpuscular Hemoglobin 30, Mean Corpuscular Hemoglobin Concent 34, Red Cell Distribution Width 14.9H, Platelet Count 245, Mean Platelet Volume 9.5, Neutrophils (%) (Auto) 50, Lymphocytes (%) (Auto) 31, Monocytes (%) (Auto) 12, Eosinophils (%) (Auto) 6, Basophils (%) (Auto) 1, Neutrophils # (Auto) 2.8, Lymphocytes # (Auto) 1.7, Monocytes # (Auto) 0.7, Eosinophils # (Auto) 0.3, Basophils # (Auto) 0.1, Prothrombin Time 12.4, INR Comment 1.0, Activated Partial Thromboplast Time 28, Sodium Level 138, Potassium Level 4.0, Chloride Level 103, Carbon Dioxide Level 26, Anion Gap 9, Blood Urea Nitrogen 24H, Creatinine 1.16, Estimat Glomerular Filtration Rate > 60, BUN/Creatinine Ratio 21, Glucose Level 90, Calcium Level 9.3, Total Bilirubin 0.4, Aspartate Amino Transf (AST/SGOT) 25, Alanine Aminotransferase ( ALT/SGPT) 31, Alkaline Phosphatase 49, Total Protein 6.3L, Albumin 3.8, Amylase Level 49, Lipase 24, Phenytoin (Dilantin) Level , Serum Alcohol < 10 12/31/16 04:30: Hemoglobin 12.7L, Hematocrit 38L 12/31/16 06:26: Hemoglobin 12.3L, Hematocrit 37L Assessment/Plan Assessment/Plan Assessment/Plan 1. Rectal Bleed - Clear liquids, Start Go-lytely. Plan for colonoscopy tomorrow. Pt is well versed in colonoscopy, but went over risks and complications not limited to; pain, bleeding, infection and worst case scenario bowel perforation. All questions answered to his satisfaction. CAD MO Arthritis Sleep Apnea HTN Max medical management. Clinical Quality Measures DVT/VTE Risk/Contraindication: Risk Factor Score Per Nursin RFS Level Per Nursing on Admit: 3=High BENJAMIN LACY DO December 31, 2016 13:34
--- NOTE | 2016-12-31 14:32 | History & Physical-Hospitalist ---
HPI History of Present Illness: HPI/Chief Complaint The patient is a 66-year-old white male who presented to the emergency room in the fruit and vegetable classer hours. He reports that he had a bowel movement at about 1800 yesterday which was stool blood mixed. He had several bowel movements following that the were only red blood and with some darker clots. He had no past history of GI bleeding. He believes that he had a colonoscopy 2-3 years ago. He is not currently taking any blood thinners. He had previously been taking Plavix after a stent. This was discontinued in October Source: patient Date Seen 12/31/16 Attending Physician Andrey Haro MD PCP Andrey Haro MD Referring Physician Date of Admission December 31, 2016 at 04:20 Home Medications & Allergies Home Medications Reviewed patient Home Medication Reconciliation Form Allergies Allergies Coded Allergies hydrocodone (Verified Allergy, Mild, RASH (NO REACTION TO MORPHINE/PERCOCET), 10/29/11) Sulfa (Sulfonamide Antibiotics) (Verified Allergy, Unknown, 12/08/12) Past Kyrdsmx-Dcupnn-Jjbxox Hx Patient Social History Alcohol Use: Occasionally Uses Recreational Drug Use: No Smoking Status: Former Smoker Type Used: Cigarettes 2nd Hand Smoke Exposure: No Physical Abuse Screen: No Sexual Abuse: No Recent Foreign Travel: No Contact w/other who traveled: No Recent Hopitalizations: Yes Recent Infectious Disease Expo: No Immunizations Up To Date Tetanus Booster (TDap): Unknown Date of Pneumonia Vaccine: Jun 02, 2016 Date of Influenza Vaccine: Jun 02, 2016 Seasonal Allergies Seasonal Allergies: Yes Surgeries HX Surgeries: Yes (BILAT HIP REPLACEMENTS; RIGHT KNEE SX X 5--PATELLA FX; LEFT SHOULDER; CARDIAC CATH X 2--STENTS X 2; TMJ SURGERY; COLONOSCOPIES ) Surgeries: Appendectomy, Cardiac, Coronary Stent, Joint Replacement, Orthopedic Respiratory Hx Respiratory Disorders: Yes (GETS SOB-DX "RESTRICTIVE LUNG DISEASE", USES C- PAP) Respiratory Disorders: Sleep Apnea Cardiovascular Hx Cardiovascular Disorders: Yes (X2 STENTS) Cardiac Disorders: Coronary Artery Disease, Heart Attack, High Cholesterol, Hypertension Neurological Hx Neurological Disorders: Yes (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 TOTAL HIP REPLACEMENT) Musculoskeletal Disorders: Arthritis, Gout Endocrine Hx Endocrine Disorders: Yes (ON VICTOZA) Endocrine Disorders: Diabetes, Non-Insulin dep HEENT HX ENT Disorders: Yes (GLASSES) Loss of Vision: Denies Hearing Impairment: Hearing Aide Right, Hearing Aide Left, Bilateral Hearing Aide Cancer Hx Cancer: No Psychosocial Hx Psychiatric Problems: No Integumentary HX Skin/Integumentary Disorder: No Blood Transfusions Hx Blood Disorders: No Family Medical History Significant Family History: Diabetes (mother), Other Conditions/Hx Family Hx: Not obtainable due to adoption unknown Review of Systems Constitutional: see HPI EENTM: no symptoms reported Respiratory: no symptoms reported Cardiovascular: no symptoms reported Gastrointestinal: melena, other (hematochezia) Genitourinary: no symptoms reported Musculoskeletal: no symptoms reported Skin: no symptoms reported Psychiatric/Neurological: No Symptoms Reported Physical Exam Physical Exam Vital Signs Vital Sign - Last 12Hours 12/31/16 01:37 Temp 98.0 Pulse 98 Resp 18 B/P (MAP) 109/68 Pulse Ox 94 O2 Delivery Room Air Capillary Refill : Less Than 3 Seconds General Appearance: No Apparent Distress, WD/WN Eyes: Bilateral Eye Normal Inspection HEENT: Normal ENT Inspection Neck: Normal Inspection Respiratory: Chest Non Tender, Lungs Clear, Normal Breath Sounds, No Accessory Muscle Use, No Respiratory Distress Cardiovascular: Regular Rate, Rhythm, No Edema, No Gallop, No JVD, No Murmur, Normal Peripheral Pulses Gastrointestinal: Other (obese, no masses or tenderness to palpation) Back: No CVA Tenderness Extremity: Normal Capillary Refill, Normal Inspection, Normal Range of Motion, Non Tender, No Calf Tenderness, No Pedal Edema Skin: Normal Color, Warm/Dry Lymphatic: No Adenopathy Results Results/Procedures Lab Laboratory Tests 12/31/16 01:55 12/31/16 04:30 12/31/16 06:26 Assessment/Plan Admission Diagnosis 1.lower GI bleeding. 2.arteriosclerotic heart disease with previous stenting. 3.previous history of alcohol abuse Clinical Quality Measures DVT/VTE Risk/Contraindication: Risk Factor Score Per Nursin RFS Level Per Nursing on Admit: 3=High KELLY CRESPO MD December 31, 2016 14:32
[2017-01-01] VITALS (8 sets, daily range): BP systolic 115–173; BP diastolic 74–96
[2017-01-01] MEDS: NS IV 1000 ML 1,000 ML IV SCH ×3 (05:45→21:23)
[2017-01-01] MEDS: CATHETER FLUSH 10 ML SYR IV SCH ×3 (06:05→22:49)
--- NOTE | 2017-01-01 10:33 | Progress Note-Hospitalist ---
Subjective HPI/CC On Admission The patient is a 66-year-old white male who presented to the emergency room in the tube sorter hours. He reports that he had a bowel movement at about 1800 yesterday which was stool blood mixed. He had several bowel movements following that the were only red blood and with some darker clots. He had no past history of GI bleeding. He believes that he had a colonoscopy 2-3 years ago. He is not currently taking any blood thinners. He had previously been taking Plavix after a stent. This was discontinued in October Date Seen 01/01/17 Subjective/Events-last exam Mr. Aj reports he is able to finish the bowel prep last night with some initial bright red blood per rectum but by the end he was only passing a lot of coffee-ground like material. He denies lightheadedness or weakness this morning. His last bowel movement was at 1 o'clock a.m. last night. Objective Exam Vital Signs Vital Sign - Last 12Hours 12/31/16 01:37 Temp 98.0 Pulse 98 Resp 18 B/P (MAP) 109/68 Pulse Ox 94 O2 Delivery Room Air Capillary Refill : Less Than 3 Seconds General Appearance: No Apparent Distress, Obese Respiratory: Chest Non Tender, Lungs Clear, Normal Breath Sounds, No Accessory Muscle Use, No Respiratory Distress Cardiovascular: Regular Rate, Rhythm, No Edema, No Gallop, No JVD, No Murmur Gastrointestinal: Normal Bowel Sounds, No Organomegaly, No Pulsatile Mass, Non Tender, Soft Neurologic/Psychiatric: Alert, Normal Mood/Affect Assessment/Plan Assessment and Plan Assess & Plan/Chief Complaint 1. Lower GI bleed hemodynamically stable at this time. Patient scheduled for colonoscopy later on today. At this point bleeding has ceased. 2. Type II diabetes mellitus will hold Actos at a day we will add sliding scale insulin and glucose monitoring. 3. Patient has a questionable history of absence seizures for which she is been on Dilantin he has no history of generalized seizure disorder. Will hold for now with resumption as an outpatient. NUBIA RODRÍGUEZ MD January 01, 2017 10:33
[2017-01-01] MEDS: inSUlin (REGULAR) HUMAN 1 UNIT/0.01 ML (CHARGE PER UNIT) SC SCH ×2 (11:17→16:12)
[2017-01-01] MEDS ORDERED: proPOfol 200 MG/20 ML (DIPRIVAN) VIAL IV ONE ×2 (12:10→12:36)
[2017-01-01] MEDS ORDERED: MIDAZOLAM 5 MG/5 ML (VERSED) VIAL ONE (12:10)
--- NOTE | 2017-01-01 12:16 | Progress Note ---
Subjective Subjective/Events-last exam Pt seen and examined, no new complaints today. Was able to drink entire gallon of Golytely, states he was having clear BM's but now sees some brown. Denies abdominal pain. Denies hematochezia. State he is hungry. Review of Systems General: No Chills, No Night Sweats HEENT: No Head Aches Pulmonary: No Dyspnea, No Cough Cardiovascular: No: Chest Pain, Palpitations Gastrointestinal: No: Abdominal Pain, Nausea, Vomiting Objective Exam Vital Signs Date Time Temp Pulse Resp B/P (MAP) Pulse Ox O2 Delivery O2 Flow Rate FiO2 01/01/17 08:00 97.6 92 16 146/85 99 Room Air 01/01/17 04:00 96.9 96 20 153/93 97 Room Air 01/01/17 00:00 96.6 79 20 115/86 99 Room Air 12/31/16 19:38 97.2 72 20 164/83 100 Room Air 12/31/16 16:00 96.8 75 20 153/94 98 Room Air I & O 01/01/17 07:00 Intake Total 49304 ml Output Total 4650 ml Balance 7050 ml Capillary Refill : Less Than 3 Seconds General Appearance: No Apparent Distress, Obese HEENT: Normal ENT Inspection Neck: Normal Inspection Respiratory: Chest Non Tender, Lungs Clear, Normal Breath Sounds, No Accessory Muscle Use, No Respiratory Distress Cardiovascular: Regular Rate, Rhythm, No Edema, No Gallop, No JVD, No Murmur Gastrointestinal: normal bowel sounds, soft, no organomegaly, no pulsatile mass Extremity: Normal Capillary Refill, Normal Inspection, Normal Range of Motion, Non Tender, No Calf Tenderness, No Pedal Edema Neurologic/Psychiatric: Alert, Normal Mood/Affect Skin: Normal Color, Warm/Dry Lymphatic: No Adenopathy Results Lab Laboratory Tests 01/01/17 11:09: Glucometer 113H Assessment/Plan Assessment/Plan Assessment/Plan 1. Rectal Bleed - Going down for colonoscopy in next hour. Went over risks and complications (yesterday) not limited to; pain, bleeding, infection and worst case scenario bowel perforation. All questions answered to his satisfaction. CAD MO Arthritis Sleep Apnea HTN Max medical management. Clinical Quality Measures DVT/VTE Risk/Contraindication: Risk Factor Score Per Nursin RFS Level Per Nursing on Admit: 3=High BENJAMIN LACY DO January 01, 2017 12:16
[2017-01-01] MEDS ORDERED: NS IV 1000 ML 1,000 ML ONE (12:17)
[2017-01-01] MEDS ORDERED: PROPOFOL INJECTION 50 ML IV ONE (12:45)
[2017-01-01] MEDS ORDERED: LACTATED RINGERS 1,000 ML IV ONE (13:01)
[2017-01-01] MEDS ORDERED: CERTIRIZINE PO (14:33)
[2017-01-01] MEDS ORDERED: CETI10CA PO (14:37)
--- NOTE | 2017-01-01 15:04 | Progress Note-Post Operative ---
Post-Operative Progess Note Surgeon (s)/Shank Tapper (s) Surgeon BENJAMIN LACY DO Shank Tapper: none Pre-Operative Diagnosis Rectal bleed Post-Operative Diagnosis GI bleed Diverticula Colon Polyps Internal hemorrhoids Post-Op Procedure Note Date of Procedure: January 01, 2017 Name of Procedure Performed: Colonoscopy with snare polypectomy Description of the Procedure: colonoscopy Findings of the Procedure Blood found in colon and TI Large diverticula, more on right than left Internal hemorrhoids 4 polyps, 3 small and one large Anesthesia Type IV sedation Estimated blood loss (mL): scant from procedure Specimen(s) collected/removed 2 small polyps BENJAMIN LACY DO January 01, 2017 15:04
[2017-01-01] MEDS: LOSARTAN 50 MG (COZAAR) TAB PO SCH ×2 (15:39→20:04)
[2017-01-01] MEDS: LORATADINE (CLARITIN) 10 MG TAB PO SCH (15:40)
--- NOTE | 2017-01-01 16:23 | OPERATIVE REPORT ---
DATE OF SERVICE: 01/01/2017 PREOPERATIVE DIAGNOSIS: Rectal bleed. POSTOPERATIVE DIAGNOSES: 1. Gastrointestinal bleed. 2. Colon polyps. 3. Diverticula. 4. Internal hemorrhoids. PROCEDURE: Colonoscopy with snare polypectomy. SURGEON: Dr. Junior. CANAL SUPERINTENDENT: None. ANESTHESIA: IV sedation by WOOD GOUGER. SPECIMEN: Removed 3 small polyps and 1 large one. Unfortunately, only able to recover 2 of the small polyps. BLOOD LOSS: During the procedure scant, unknown from his bleeding. FLUIDS: Per anesthesia. POSTOPERATIVE CONDITION: Stable. INDICATION FOR PROCEDURE: The patient is a 66-year-old male who came in with bright red rectal bleeding and needed a workup. FINDINGS: The patient actually still had some blood and feculent material in the colon and even into the terminal ileum. The patient was also noted to have large diverticula, more on the right than on the left. He had 3 small polyps and 1 large polyp. Unfortunately, I only did collect 2 of the small polyps. He also had some internal hemorrhoids. PROCEDURE NOTE: After informed consent was obtained the patient was brought to the endoscopy suite and placed in the left lateral decubitus position. He was administered IV sedation. Vitals were monitored the entire time by the WOOD GOUGER. The scope was inserted. Upon entry noted some fecal material and some blood but able to wash some of this off of the llamas, starting pushing in and I saw some diverticula. I was able to push all the way to about [address] to the cecum. I took a picture of the appendiceal orifice. Again all throughout here there was blood and feculent material. Most of it washed off. I was able to get into the terminal ileum, and again found blood and took a picture in here as well and then slowly withdrew the scope, insufflated and looked circumferentially at the llamas, looking at the cecum, up the ascending colon. In the ascending colon, I saw large diverticula with feculent material in them. I saw a large polyp and did a snare polypectomy. Unfortunately, it would not suction up through the scope and so I tried to insert a Finch basket but after I inserted the Finch basket, then could not find the polyp. It had fallen off. I looked for another 15-20 minutes and could not find it. I found 3 other small polyps. I did a snare polypectomy of these as well and suctioned up. Unfortunately, there was some difficulty with the trap and only able to find 2 of the 3 polyps of the small polyps that we removed. Two was found in the ascending colon, 1 in the descending colon. These were sent to pathology. I continued up the ascending colon to the hepatic flexure, then down the transverse colon, splenic flexure, into the descending colon and then down into the sigmoid and finally into the rectum. Retroflexed in the rectal vault and saw some internal hemorrhoids, probably grade 2. Unfortunately, I did not see a source for the bleeding. I did not see anything obvious. We will need to do an EGD and possible capsule endoscopy on this patient. He tolerated the procedure well and was transferred to recovery in stable condition. Job ID: [id number] DocumentID: [id number] Dictated Date: 01/01/2017 15:20:50 [facility] Date: 01/01/2017 16:22:32 Dictated By: BENJAMIN JUNIOR DO
[2017-01-01] MEDS: GABAPENTIN 100 MG (NEURONTIN) CAP PO SCH (20:04)
[2017-01-01] MEDS: ALLOPURINOL 300 MG (ZYLOPRIM) TAB PO SCH (20:04)
[2017-01-01] MEDS: SIMvastatin 20 MG (ZOCOR) TAB PO SCH (20:04)
[2017-01-01] MEDS ORDERED: LOSARTAN 50 MG (COZAAR) TAB PO SCH (21:00)
[2017-01-02 03:00] VITALS: BP 163/95
[2017-01-02] MEDS: CATHETER FLUSH 10 ML SYR IV SCH ×3 (05:56→21:09)
[2017-01-02] MEDS: inSUlin (REGULAR) HUMAN 1 UNIT/0.01 ML (CHARGE PER UNIT) SC SCH ×4 (05:56→20:49)
[2017-01-02] MEDS: NS IV 1000 ML 1,000 ML IV SCH ×2 (05:56→13:20)
[2017-01-02] MEDS ORDERED: proPOfol 200 MG/20 ML (DIPRIVAN) VIAL IV ONE (07:09)
[2017-01-02] MEDS ORDERED: NS IV 1000 ML 1,000 ML ONE (07:59)
[2017-01-02 08:00] VITALS: BP 175/83
[2017-01-02] MEDS ORDERED: NS IV 1000 ML 1,000 ML IV PRN (08:05)
--- NOTE | 2017-01-02 08:25 | Progress Note-Post Operative ---
Post-Operative Progess Note Surgeon (s)/Primary Montessori Teacher (s) Surgeon BENJAMIN LACY DO Primary Montessori Teacher: none Pre-Operative Diagnosis Rectal bleed Post-Operative Diagnosis Gastritis Rectal Bleed Post-Op Procedure Note Date of Procedure: January 02, 2017 Name of Procedure Performed: EGD with biopsy Description of the Procedure: EGD Findings of the Procedure Gastritis Small Hiatal Hernia Anesthesia Type IV sedation by CREDIT REPORTER Estimated blood loss (mL): scant from procedure Specimen(s) collected/removed Antral biopsy BENJAMIN LACY DO January 02, 2017 08:25
[2017-01-02] MEDS ORDERED: HURRICAINE EXT TUBE (BENZOCAINE) XX PRN (08:45)
[2017-01-02 09:00] VITALS: BP 175/83
[2017-01-02] MEDS ORDERED: LORATADINE (CLARITIN) 10 MG TAB PO SCH (09:00)
--- NOTE | 2017-01-02 10:28 | Progress Note ---
Subjective Subjective/Events-last exam Pt seen and examined, walking around halls. Pt denies abdominal pain, states he saw a little blood in BM. Denies nausea, vomiting, fever or chills. Pt denies any weakness. He is hungry. Tolerated clears yesterday without any difficulty. Review of Systems General: No Chills, No Night Sweats HEENT: No Head Aches Pulmonary: No Dyspnea, No Cough Cardiovascular: No: Chest Pain, Palpitations Gastrointestinal: Hematochezia, No: Abdominal Pain, Nausea, Vomiting Objective Exam Vital Signs Date Time Temp Pulse Resp B/P (MAP) Pulse Ox O2 Delivery O2 Flow Rate FiO2 01/02/17 08:00 96.8 92 20 175/83 97 NIV CPAP 01/02/17 03:00 96.4 96 20 163/95 98 NIV CPAP 01/02/17 00:23 97.1 18 99 NIV CPAP 01/01/17 22:50 96.9 81 20 172/94 99 NIV CPAP 01/01/17 19:10 97.4 93 18 173/96 97 Room Air 01/01/17 16:00 97.4 94 19 156/91 98 Room Air 01/01/17 15:18 162/82 01/01/17 12:00 98.8 99 20 151/74 93 Room Air I & O 01/02/17 07:00 Intake Total 4100 ml Output Total 3600 ml Balance 500 ml Capillary Refill : Less Than 3 Seconds General Appearance: No Apparent Distress, Obese HEENT: Normal ENT Inspection Neck: Normal Inspection Respiratory: Chest Non Tender, Lungs Clear, Normal Breath Sounds, No Accessory Muscle Use, No Respiratory Distress Cardiovascular: Regular Rate, Rhythm, No Edema, No Gallop, No JVD, No Murmur Gastrointestinal: normal bowel sounds, soft, no organomegaly, no pulsatile mass Extremity: No Calf Tenderness, No Pedal Edema Neurologic/Psychiatric: Alert, Normal Mood/Affect Skin: Normal Color, Warm/Dry Lymphatic: No Adenopathy Results Lab Laboratory Tests 01/01/17 11:09: Glucometer 113H 01/01/17 15:58: Glucometer 204H 01/01/17 22:48: Glucometer 139H 01/02/17 05:51: Glucometer 108 Assessment/Plan Assessment/Plan Assessment/Plan 1. GI Bleed - EGD performed showed some gastritis, but did not find source and neither did Colonoscopy. Pt now wearing gear for capsule endoscopy. Bleeding seen in entire colon and portion of TI. 2. Colon polyps - sent for path 3. Diverticula - did not see any inflammation or signs of active bleeding CAD MO Arthritis Sleep Apnea HTN Max medical management. Clinical Quality Measures DVT/VTE Risk/Contraindication: Risk Factor Score Per Nursin RFS Level Per Nursing on Admit: 3=High BENJAMIN LACY DO January 02, 2017 10:28 am
[2017-01-02] MEDS: LORATADINE (CLARITIN) 10 MG TAB PO SCH (10:49)
[2017-01-02] MEDS: ISOSORBIDE MONONITRATE 30 MG (IMDUR) TAB PO SCH (10:49)
[2017-01-02 11:52] VITALS: BP 125/65
--- NOTE | 2017-01-02 12:55 | OPERATIVE REPORT ---
DATE OF SERVICE: 01/02/2017 PREOPERATIVE DIAGNOSIS: Gastrointestinal bleed. POSTOPERATIVE DIAGNOSES: 1. Gastrointestinal bleed. 2. Gastritis. PROCEDURE: EGD with biopsy. SURGEON: Jl Junior DO SNOW GROOMER: None. ANESTHESIA: IV sedation by SUPERVISOR ROVING. SPECIMEN: Antral biopsy. BLOOD LOSS: Scant. FLUIDS: Per anesthesia. POSTOPERATIVE CONDITION: Stable. INDICATIONS FOR PROCEDURE: The patient is a 66-year-old male who has been having some bleeding from the GI tract, it was bright red blood per rectum, but colonoscopy did not find any sources of bleeding and needed to do an EGD. FINDINGS: EGD showed some gastritis, but no signs of ulcers or old bleeding, just some gastritis and actually the first portion of the duodenum looked fine. PROCEDURE NOTE: After informed consent was obtained, the patient was brought to the endoscopy suite, placed in the bed in the left lateral decubitus position. He was administered IV sedation and vitals were monitored by the SUPERVISOR ROVING. Scope was inserted down the mouth, down the esophagus into the stomach. In the stomach, I noted some inflammation, looked like gastritis, pushed into the first portion of the duodenum, looked normal and actually into the second portion, again normal and no signs of bleeding. There were no old ulcers, no healed ulcers. Pulled back into the antrum, did and antral biopsy and then retroflexed, saw a small hiatal hernia. No other obvious pathology and then slowly move the scope, pulled it up the esophagus, again did not see any bleeding or signs of varices and then up out of the mouth. The patient tolerated this procedure well, was transferred to the recovery room in stable condition. We will now order a small capsule endoscopy because we could not find the source of the bleeding. Job ID: [id number] DocumentID: [id number] Dictated Date: 01/02/2017 09:08:07 Molded Parts Inspector Date: 01/02/2017 12:54:31 Dictated By: JL JUNIOR DO
--- NOTE | 2017-01-02 13:51 | Progress Note-Hospitalist ---
Standard Progress Note Progress Notes/Assess & Plan Date Seen 01/02/17 Diagnosis 1.lower GI bleeding. 2.arteriosclerotic heart disease with previous stenting. 3.previous history of alcohol abuse Assess & Plan/Chief Complaint The patient reports that he is feeling well enough. Dr. Junior reports multiple areas of bleeding in the colon. The patient is completing capsule endoscopy. He reports no evident bleeding since admission. His hemoglobin since admission was 14 then 12.7 then 12.3 and finally 10.8 today. He takes no anticoagulants. The treatment plan is unclear at this point. Physical exam: The patient is sitting at bedside finishing his lunch. Lungs are distant but clear to auscultation. CV is regular. The abdomen is quite obese and nontender to palpation. Impression: Continuing evidence of progressive blood loss. Plan await examination of the capsule study. Labs Laboratory Tests 01/02/17 13:50 KELLY CRESPO MD January 02, 2017 13:51
[2017-01-02 14:00] LABS: BASOPHILS % (AUTO) 0 % (0-10); EOSINOPHILS # (AUTO) 0.2 10^3/uL (0.0-0.3); EOSINOPHILS % (AUTO) 4 % (0-10); LYMPHOCYTES # (AUTO) 0.8 X 10^3 (1.0-4.0); LYMPHOCYTES % (AUTO) 19 % (12-44); MEAN CORPUSCULAR HEMOGLOBIN 30 PG (25-34); MEAN CORPUSCULAR HGB CONC 33 G/DL (32-36); MEAN CORPUSCULAR VOLUME 89 FL (80-99); MEAN PLATELET VOLUME 8.9 FL (7.4-10.4); MONOCYTES # (AUTO) 0.3 X 10^3 (0.0-1.0); MONOCYTES % (AUTO) 7 % (0-12); NEUTROPHILS # (AUTO) 2.8 X 10^3 (1.8-7.8); NEUTROPHILS % (AUTO) 70 % (42-75); PLATELET COUNT 223 10^3/uL (130-400); RED BLOOD COUNT 3.64 10^6/uL (4.35-5.85); RED CELL DISTRIBUTION WIDTH 14.6 % (10.0-14.5)
[2017-01-02] MEDS ORDERED: CATHETER FLUSH 10 ML SYR IV SCH (14:00)
[2017-01-02 16:15] VITALS: BP 113/59
[2017-01-02 19:50] VITALS: BP 117/56
[2017-01-02] MEDS: GABAPENTIN 100 MG (NEURONTIN) CAP PO SCH (20:27)
[2017-01-02] MEDS: ALLOPURINOL 300 MG (ZYLOPRIM) TAB PO SCH (20:28)
[2017-01-02] MEDS: SIMvastatin 20 MG (ZOCOR) TAB PO SCH (20:28)
[2017-01-02] MEDS: LOSARTAN 50 MG (COZAAR) TAB PO SCH (20:28)
[2017-01-03] VITALS: BP 126/76
[2017-01-03 04:00] VITALS: BP 126/72
[2017-01-03] MEDS: inSUlin (REGULAR) HUMAN 1 UNIT/0.01 ML (CHARGE PER UNIT) SC SCH ×2 (05:12→11:51)
[2017-01-03] MEDS: CATHETER FLUSH 10 ML SYR IV SCH (05:12)
[2017-01-03 08:00] VITALS: BP 134/67
[2017-01-03] MEDS: ISOSORBIDE MONONITRATE 30 MG (IMDUR) TAB PO SCH (08:45)
[2017-01-03] MEDS: LORATADINE (CLARITIN) 10 MG TAB PO SCH (08:45)
--- NOTE | 2017-01-03 11:37 | Discharge Summary-Hospitalist ---
Diagnosis/Chief Complaint Date of Admission December 31, 2016 at 04:20 Date of Discharge Discharge Date: January 03, 2017 Admission Diagnosis 1.lower GI bleeding. 2.arteriosclerotic heart disease with previous stenting. 3.previous history of alcohol abuse Discharge Diagnosis 1.lower GI bleeding but uncertain of exact location. 2.arteriosclerotic heart disease with previous stenting. 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 He reports that he had a bowel movement at about 1800 yesterday which was stool blood mixed. He had several bowel movements following that the were only red blood and with some darker clots. He had no past history of GI bleeding. He believes that he had a colonoscopy 2-3 years ago. He is not currently taking any blood thinners. He had previously been taking Plavix after a stent. This was discontinued in October Notes from 01/03/17 Chart Review: No fever Vitals stable Labs reviewed Conferred w/ Dr. Junior small bowel capsule pending no source of bleeding Pharmacy Review: Hx of stents placed by Dr. Chavis. Pt is on blood thinners indefinitely Patient Interview: Pt's small bowel capsule was discussed with pt. Pt admits to not seeing Dr. Junior yet today. Pt confirms PCP as Dr. Haro Physical exam stable. Pt denies experiencing pain Pt confirms [facility] No fever, vital signs stable, pleasant, up in chair, at bedside Regular rate rhythm, clear to all sedation bilaterally No edema Plan: Follow up with Dr. Junior and DC if he is ok with that plan Continue all meds including ASA and close f/u for any repeat testing if necessary Scribed by Lashay Espinoza under the direct supervision of Dr. Holden. Hospital course: Patient had an uneventful hospital course he was admitted due to presumed lower GI bleeding he underwent endoscopies and capsule endoscopy by Dr. Sandoval that did not result in an exact location of the blood loss. He had been on Plavix until October after stents were placed and he had gone off on that and had been maintained on baby aspirin daily due to heart disease. He did not require transfusion and overall he remained stable through the entire hospital course and was monitored closely and I did confer with Dr. Junior who will see him in close follow-up along with lab monitoring by Dr. Haro. Discharge Summary Discharge Physical Examination Allergies: Coded Allergies: hydrocodone (Verified Allergy, Mild, RASH (NO REACTION TO MORPHINE/ PERCOCET), 10/29/11) Sulfa (Sulfonamide Antibiotics) (Verified Allergy, Unknown, 12/08/12) Vitals & I&Os Vital Signs Date Time Temp Pulse Resp B/P (MAP) Pulse Ox O2 Delivery O2 Flow Rate FiO2 01/03/17 08:00 97.1 84 20 134/67 96 Room Air Hospital Course Labs (last 24 hrs) Laboratory Tests 01/02/17 13:50: White Blood Count 4.0L, Red Blood Count 3.64L, Hemoglobin 10.8L, Hematocrit 32L , Mean Corpuscular Volume 89, Mean Corpuscular Hemoglobin 30, Mean Corpuscular Hemoglobin Concent 33, Red Cell Distribution Width 14.6H, Platelet Count 223, Mean Platelet Volume 8.9, Neutrophils (%) (Auto) 70, Lymphocytes (%) (Auto) 19, Monocytes (%) (Auto) 7, Eosinophils (%) (Auto) 4, Basophils (%) (Auto) 0, Neutrophils # (Auto) 2.8, Lymphocytes # (Auto) 0.8L, Monocytes # (Auto) 0.3, Eosinophils # (Auto) 0.2, Basophils # (Auto) 0.0 01/02/17 16:16: Glucometer 101 01/02/17 20:45: Glucometer 90 01/03/17 05:01: Glucometer 99 01/03/17 11:16: Glucometer 172H Pending Labs Laboratory Tests 01/03/17 05:01: Glucometer 99 01/03/17 11:16: Glucometer 172 Discharge Home Medications: Active Scripts Active Reported Vitamin B-12 (Cyanocobalamin (Vitamin B-12)) 1,000 Mcg Tablet 1,000 Mcg PO DAILY Victoza 3-Justin (Liraglutide) 0.6 Mg/0.1 Ml Pen.injctr 1.2 Mg SC DAILY Losartan Potassium 50 Mg Tablet 50 Mg PO HS Phenytoin Sodium Extended 100 Mg Capsule 200 Mg PO BID TAKES 2 (100MG) CAPSULES Toprol Xl (Metoprolol Succinate) 25 Mg Tab.er.24h 12.5 Mg PO BID TAKES 1/2 (25MG) TABLET Fish Oil 1,200 mg Softgel (Pana-3 Fatty Acids/Fish Oil) 1 Each Capsule 1,200 Mg PO DAILY Simvastatin 40 Mg Tablet 20 Mg PO HS TAKES 1/2 TAB OF 40MG Aspirin Ec 81 Mg (Aspirin) 81 Mg Tabec 81 Mg PO DAILY Neurontin (Gabapentin) 100 Mg Cap 300 Mg PO HS TAKES 3 (100MG) CAPSULES Cetirizine Hcl (Cetirizine HCl) 10 Mg Tablet 10 Mg PO DAILY Imdur (Isosorbide Mononitrate) 30 Mg Tab.sr.24h 30 Mg PO DAILY Gabapentin 100 Mg Tablet 100 Mg PO DAILY Zyloprim (Allopurinol) 300 Mg Tab 300 Mg PO HS Multiple Vitamin (Multivitamins) 1 Tab Tablet 1 Tab PO DAILY Instructions to patient/family Please see electonic discharge instructions given to patient. Clinical Quality Measures DVT/VTE Risk/Contraindication: Risk Factor Score Per Nursin RFS Level Per Nursing on Admit: 3=High GWEN HOLDEN DO January 03, 2017 11:37
[2017-01-03 12:00] VITALS: BP 122/71
[2017-01-03 14:20] VITALS: BP 122/71
== END 2017-01-03 14:30 | disposition home or self-care (01) | DRG 378 ==
LOC: EDUNIT# 01:20 → ER 01:23 → 4TH 04:20
PROVIDERS: ADMIT Internal Medicine; ATTEND Family Medicine
PROC: 0DBM8ZX Excision of Descending Colon, Via Natural or Artificial Opening Endoscopic, Diagnostic (ICD-10-PCS; 2017-01-01)
PROC: 0DBK8ZX Excision of Ascending Colon, Via Natural or Artificial Opening Endoscopic, Diagnostic (ICD-10-PCS; principal; 2017-01-01 12:20)
PROC: 0DB78ZX Excision of Stomach, Pylorus, Via Natural or Artificial Opening Endoscopic, Diagnostic (ICD-10-PCS; 2017-01-02)
DX: K92.2 Gastrointestinal hemorrhage, unspecified (principal); K57.30 Diverticulosis of large intestine without perforation or abscess without bleeding; K64.1 Second degree hemorrhoids; K63.5 Polyp of colon; D12.6 Benign neoplasm of colon, unspecified; K29.70 Gastritis, unspecified, without bleeding; J98.4 Other disorders of lung; G40.89 Other seizures; F10.188 Alcohol abuse with other alcohol-induced disorder; G47.30 Sleep apnea, unspecified; I25.10 Atherosclerotic heart disease of native coronary artery without angina pectoris; I10 Essential (primary) hypertension; E11.40 Type 2 diabetes mellitus with diabetic neuropathy, unspecified; I25.2 Old myocardial infarction; E78.00 Pure hypercholesterolemia, unspecified; E66.9 Obesity, unspecified; M10.9 Gout, unspecified; M19.91 Primary osteoarthritis, unspecified site; K44.9 Diaphragmatic hernia without obstruction or gangrene; Z87.891 Personal history of nicotine dependence; Z79.84 Long term (current) use of oral hypoglycemic drugs; Z95.5 Presence of coronary angioplasty implant and graft; Z96.641 Presence of right artificial hip joint; Z96.642 Presence of left artificial hip joint; Z68.39 Body mass index [BMI] 39.0-39.9, adult
CPT/HCPCS: 36415; 74177; 80053; 80185; 80320; 82150; 82962; 83690; 85014; 85018; 85025; 85610; 85730; 86850; 86900; 86901; 86920; 88305; 88342; 91110; 96360

== ENCOUNTER → 2017-05-16 | Outpatient (CLI) | payer MEDICARE, OTHER ==
[~2017-05-16] MED LIST changes: +CERTIRIZINE PO; +CETI10CA PO
[2017-05-16 11:27] LABS: ALANINE AMINOTRANSFERASE 33 U/L (0-55); ALBUMIN 3.9 GM/DL (3.2-4.5); ANION GAP 7 MMOL/L (5-14); ASPARTATE AMINO TRANSFERASE 25 U/L (5-34); BILIRUBIN,TOTAL 0.3 MG/DL (0.1-1.0); BLOOD UREA NITROGEN 12 MG/DL (7-18); BUN/CREATININE RATIO 13; CALCIUM 9.4 MG/DL (8.5-10.1); CARBON DIOXIDE 29 MMOL/L (21-32); CHLORIDE 102 MMOL/L (98-107); CHOLESTEROL 171 MG/DL (< 200); CREATININE SERUM 0.94 MG/DL (0.60-1.30); DIRECT LDL 111 MG/DL (1-129); GFR ESTIMATED > 60; GLUCOSE 105 MG/DL (70-105); POTASSIUM 4.3 MMOL/L (3.6-5.0); SODIUM 138 MMOL/L (135-145); TOTAL PROTEIN 6.7 GM/DL (6.4-8.2); TRIGLYCERIDES 106 MG/DL (<150); VLDL CHOLESTEROL 21 MG/DL (5-40)
== END ==
LOC: LAB 10:41
PROVIDERS: ATTEND Internal Medicine Cardiovascular Disease
DX: Z51.81 Encounter for therapeutic drug level monitoring (principal); I65.23 Occlusion and stenosis of bilateral carotid arteries; I25.10 Atherosclerotic heart disease of native coronary artery without angina pectoris; R07.89 Other chest pain; I10 Essential (primary) hypertension; I51.7 Cardiomegaly; R06.02 Shortness of breath; G40.909 Epilepsy, unspecified, not intractable, without status epilepticus; Z79.899 Other long term (current) drug therapy
CPT/HCPCS: 36415; 80053; 80061; 80185

== ENCOUNTER 2017-05-23 10:00 | Outpatient (RCR) | payer MEDICARE, OTHER | END 2017-05-26 | disposition home or self-care (01) | LOC: PULM 10:00 | PROVIDERS: ATTEND Nurse Practitioner Family | DX: J98.4 Other disorders of lung (principal); R06.02 Shortness of breath | CPT/HCPCS: 99211 ==

== ENCOUNTER 2017-05-30 10:15 | Outpatient (RCR) | payer MEDICARE, OTHER | END 2017-06-01 | disposition home or self-care (01) | LOC: PULM 10:15 | PROVIDERS: ATTEND Nurse Practitioner Family | DX: J98.4 Other disorders of lung (principal); R06.02 Shortness of breath ==

== ENCOUNTER 2017-06-04 13:13 | Outpatient (RCR) | payer MEDICARE, OTHER ==
[2017-06-22] MEDS ORDERED: MONT10TA21 PO (22:57)
[2017-06-22] MEDS ORDERED: [UNRECOGNIZED DRUG - REMARK] (22:57)
[2017-06-22] MEDS ORDERED: NAPR-1067 PO (22:57)
[2017-06-22] MEDS ORDERED: ALLO100T PO (22:57)
[2017-06-22] MEDS ORDERED: LOSA50TA2 PO (22:57)
[2017-06-23] MEDS ORDERED: NAPR500T4 PO (14:17)
[2017-06-23] MEDS ORDERED: ASPI-983 PO (14:17)
[2017-06-23] MEDS ORDERED: CETI10TA17 PO (14:17)
[2017-06-23] MEDS ORDERED: ISOS30TA3 PO (14:17)
[2017-06-23] MEDS ORDERED: MULT1TAB69 PO (14:17)
[2017-06-23] MEDS ORDERED: METO-351 PO (14:17)
[2017-06-23] MEDS ORDERED: ATOR20TA66 PO (14:17)
[2017-06-23] MEDS ORDERED: GABA-488 PO (14:17)
[2017-06-23] MEDS ORDERED: 5-HY100C3 PO (14:17)
[2017-06-23] MEDS ORDERED: ALLO300T2 PO (14:17)
[2017-06-25] MEDS ORDERED: AMOX-358 PO (09:42)
[2017-08-15] MEDS ORDERED: ISOS10TA8 PO (10:10)
== END 2017-09-02 | disposition home or self-care (01) ==
LOC: PULM 13:13
PROVIDERS: ATTEND Nurse Practitioner Family
DX: J98.4 Other disorders of lung (principal); R06.02 Shortness of breath

== ENCOUNTER 2017-06-22 22:33 | Inpatient (IN) | payer MEDICARE, OTHER ==
[~2017-06-22] VITALS: Ht 160 cm; Wt 104.4 kg
[2017-06-22] MEDS ORDERED: LOSA50TA2 PO (22:57)
[2017-06-22] MEDS ORDERED: NAPR-1067 PO (22:57)
[2017-06-22] MEDS ORDERED: [UNRECOGNIZED DRUG - REMARK] (22:57)
[2017-06-22] MEDS ORDERED: ALLO100T PO (22:57)
[2017-06-22] MEDS ORDERED: MONT10TA21 PO (22:57)
[2017-06-22 23:30] LABS: BASOPHILS % (AUTO) 0 % (0-10); EOSINOPHILS # (AUTO) 0.4 10^3/uL (0.0-0.3); EOSINOPHILS % (AUTO) 6 % (0-10); LYMPHOCYTES # (AUTO) 1.1 X 10^3 (1.0-4.0); LYMPHOCYTES % (AUTO) 18 % (12-44); MEAN CORPUSCULAR HEMOGLOBIN 30 PG (25-34); MEAN CORPUSCULAR HGB CONC 35 G/DL (32-36); MEAN CORPUSCULAR VOLUME 85 FL (80-99); MEAN PLATELET VOLUME 9.4 FL (7.4-10.4); MONOCYTES # (AUTO) 0.6 X 10^3 (0.0-1.0); MONOCYTES % (AUTO) 11 % (0-12); NEUTROPHILS # (AUTO) 3.8 X 10^3 (1.8-7.8); NEUTROPHILS % (AUTO) 65 % (42-75); PLATELET COUNT 235 10^3/uL (130-400); RED BLOOD COUNT 4.29 10^6/uL (4.35-5.85); RED CELL DISTRIBUTION WIDTH 16.1 % (10.0-14.5); WHITE BLOOD COUNT 5.9 10^3/uL (4.3-11.0)
[2017-06-22 23:42] LABS: INR 0.9 (0.8-1.4); PROTHROMBIN TIME PATIENT 11.8 SEC (12.2-14.7)
[2017-06-22 23:55] LABS: MAGNESIUM 1.9 MG/DL (1.8-2.4); hs C REACTIVE PROTEIN 12.34 MG/DL (0.00-0.50)
[2017-06-22 23:57] LABS: ALANINE AMINOTRANSFERASE 34 U/L (0-55); ALBUMIN 3.5 GM/DL (3.2-4.5); ANION GAP 9 MMOL/L (5-14); ASPARTATE AMINO TRANSFERASE 23 U/L (5-34); BILIRUBIN,TOTAL 0.2 MG/DL (0.1-1.0); BLOOD UREA NITROGEN 18 MG/DL (7-18); BUN/CREATININE RATIO 17; CALCIUM 9.4 MG/DL (8.5-10.1); CARBON DIOXIDE 24 MMOL/L (21-32); CHLORIDE 102 MMOL/L (98-107); CREATININE SERUM 1.04 MG/DL (0.60-1.30); GFR ESTIMATED > 60; GLUCOSE 191 MG/DL (70-105); POTASSIUM 3.8 MMOL/L (3.6-5.0); SODIUM 135 MMOL/L (135-145); TOTAL PROTEIN 6.4 GM/DL (6.4-8.2)
[2017-06-23 00:17] LABS: TROPONIN I < 0.30 NG/ML (<0.30)
[2017-06-23] MEDS ORDERED: VANCOMYCIN INJECTION 1,000 MG in NS (IVPB) 250 ML IV ONE (01:30)
[2017-06-23 02:20] VITALS: BP 175/84
[2017-06-23] MEDS ORDERED: PIPERACILLIN/TAZOBACTAM 4.5 GM/NS100 ML IVPB IV ONE ×2 (02:45)
[2017-06-23] MEDS ORDERED: inSUlin (REGULAR) HUMAN 1 UNIT/0.01 ML (CHARGE PER UNIT) SC SCH (04:00)
[2017-06-23 04:25] VITALS: BP 163/94
--- NOTE | 2017-06-23 04:37 | ED Lower Extremity ---
General Chief Complaint: Lower Extremity Stated Complaint: CELLULITIS R LEG; DIABETES Nursing Triage Note: PT CO OF LOWER EXT SWELLING STATES WAS SUPPOSE TO WEAR SUPPORT STOCKINGS BUT FEET R KNEE AREA STARTED HURTING FROM STOCKINGS, AREA FIRM FEELS LIKE IS FULL OF FLUID. R LOWER EXT MORE SWOLLEN THAN L. PT HAS NEUROPATHY OF BOTH LOWER EXT Nursing Sepsis Screen: No Definite Risk Source: patient, spouse History of Present Illness Time seen by provider: 23:15 Initial Comments PT ARRIVES VIA POV FROM HOME PT STATES HE HAS CHRONIC LEG EDEMA AND HAS HAD ONGOING ISSUES WITH "RASH" AROUND ANKLES FROM SWELLING --HAS BEEN TO CLAIM APPROVER AND HAS GIVEN HIM UNKNOWN CREAM PT STATES HE WAS TOLD TO WEAR SUPPORT HOSE TO HELP WITH SWELLING, SO HE USED THEM ONE TIME A COUPLE OF DAYS AGO, AND WHEN HE TOOK THEM OFF IT CAUSED HIS LEGS TO BE SORE YESTERDAY, HE NOTICED THAT RIGHT LOWER LEG WAS RED AND SWOLLEN AND PAINFUL, AND HAS GOTTEN WORSE TONIGHT, AND REDNESS AND PAIN ARE ALL THE WAY UP TO RIGHT MEDIAL THIGH NO DRAINAGE/WEEPING OR OPEN SORES TO LEGS--ONLY SCABBED AREAS AROUND ANKLES PT HAS DIABETES WITH PERIPHERAL NEUROPATHY, AND DOES NOT HAVE SENSATION TO LIGHT TOUCH TO FEET, BUT HAS HAD INCREASED PAIN IN RIGHT FOOT SINCE YESTERDAY. ADDITIONALLY PT HAS ALREADY HAD RIGHT TOES 2 AND 3 PARTIALLY AMPUTATED IN THE PAST. NO KNOWN INJURY NO FEVER NO CHEST PAIN OR SHORTNESS OF BREATH PCP: DR. REA Allergies and Home Medications Allergies Coded Allergies: hydrocodone (Verified Allergy, Mild, RASH (NO REACTION TO MORPHINE/ PERCOCET), 10/29/11) Sulfa (Sulfonamide Antibiotics) (Verified Allergy, Unknown, 12/08/12) Home Medications Allopurinol 100 Mg Tablet, 100 MG PO DAILY, (Reported) Aspirin 81 Mg Tabec, 81 MG PO DAILY, (Reported) Cetirizine Hcl 10 Mg Tablet, 10 MG PO DAILY, (Reported) Cyanocobalamin (Vitamin B-12) 1,000 Mcg Tablet, 1,000 MCG PO DAILY, (Reported) Gabapentin 100 Mg Tablet, 100 MG PO DAILY, (Reported) Gabapentin 100 Mg Cap, 300 MG PO HS, (Reported) TAKES 3 (100MG) CAPSULES Isosorbide Mononitrate 30 Mg Tab.sr.24h, 30 MG PO DAILY, (Reported) Liraglutide 0.6 Mg/0.1 Ml Pen.injctr, 1.2 MG SC DAILY, (Reported) Losartan Potassium 50 Mg Tablet, 50 MG PO DAILY, (Reported) Montelukast Sodium 10 Mg Tablet, 10 MG PO DAILY, (Reported) Multivitamins 1 Tab Tablet, 1 TAB PO DAILY, (Reported) Naproxen Sodium 550 Mg Tablet, 550 MG PO BID, (Reported) Sheridan-3 Fatty Acids/Fish Oil 1 Each Capsule, 1,200 MG PO DAILY, (Reported) Phenytoin Sodium Extended 100 Mg Capsule, 200 MG PO BID, (Reported) TAKES 2 (100MG) CAPSULES Simvastatin 40 Mg Tablet, 20 MG PO HS, (Reported) TAKES 1/2 TAB OF 40MG [Astrazenera] , Unknown Dose, (Reported) Constitutional: no symptoms reported Respiratory: no symptoms reported Cardiovascular: see HPI, No chest pain, edema, No palpitations, No syncope Gastrointestinal: no symptoms reported Genitourinary: no symptoms reported Musculoskeletal: see HPI Skin: see HPI Psychiatric/Neurological: See HPI, Pre-Existing Deficit Past Wjovhvc-Lwmkmu-Pgjaiu Hx Patient Social History Alcohol Use: Occasionally Uses (HISTORY OF ABUSE/HEAVY USE--> 6 PACK/DAY, NOW ONLY DRINKS "OCCASIONALLY" ) Alcohol Beverage of Choice: Beer Recreational Drug Use: No Smoking Status: Former Smoker (2 PPD, QUIT IN 1999) Type Used: Cigarettes 2nd Hand Smoke Exposure: No Recent Foreign Travel: No Contact w/Someone Who Travel: No Recent Infectious Disease Expo: No Recent Hopitalizations: No Physical Abuse: No Sexual Abuse: No Immunizations Up To Date Tetanus Booster (TDap): Unknown Date of Pneumonia Vaccine: Jun 02, 2016 Date of Influenza Vaccine: Jun 03, 2017 Seasonal Allergies Seasonal Allergies: Yes Surgeries History of Surgeries: Yes (BILAT HIP REPLACEMENTS, RIGHT KNEE SURGERY X 2-- PATELLA FX; LEFT SHOULDER; CARDIAC CATH X 2--STENTS X 2; TMJ SURGERY; COLONOSCOPIES ) Surgeries: Appendectomy, Cardiac, Coronary Stent, Joint Replacement, Orthopedic Respiratory History of Respiratory Disorde: Yes (GETS SOB-DX "RESTRICTIVE LUNG DISEASE", USES C-PAP) Respiratory Disorders: Sleep Apnea Currently Using CPAP: Yes Cardiovascular History of Cardiac Disorders: Yes (X2 STENTS) Cardiac Disorders: Chronic Edema/Swelling, Coronary Artery Disease, Heart Attack, High Cholesterol, Hypertension, Peripheral Vascular Neurological History of Neurological Disord: Yes (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 TOTAL HIP REPLACEMENT) Musculoskeletal Disorders: Arthritis, Fractures, Gout Endocrine History of Endocrine Disorders: Yes (ON VICTOZA; OBESITY) Endocrine Disorders: Diabetes, Non-Insulin dep Are Your Blood Sugars Over 250: No HEENT History of HEENT Disorders: Yes (GLASSES) Loss of Vision: Denies Hearing Impairment: Hearing Aide Right, Hearing Aide Left, Bilateral Hearing Aide Cancer History of Cancer: No Psychosocial History of Psychiatric Problem: No Suicide Risk Score: 0 Integumentary History of Skin or Integumenta: No Blood Transfusions History of Blood Disorders: No Family Medical History Significant Family History: Diabetes, Other Conditions/Hx Family Medial History: Not obtainable due to adoption unknown Physical Exam Vital Signs Vital Sign - Last 12Hours 06/22/17 22:40 Temp 98.1 Pulse 104 Resp 18 B/P (MAP) 160/87 Pulse Ox 94 O2 Delivery Room Air Capillary Refill : Less Than 3 Seconds General Appearance: WD/WN, no apparent distress, obese Cardiovascular: regular rate, rhythm, no murmur Respiratory: normal breath sounds, no respiratory distress Gastrointestinal: soft Hips: bilateral hip non-tender Legs: left leg other (TRACE EDEMA ON LEFT, WITH MILD CHRONIC VENOUS STASIS CHANGES. HAS SCABBED AREA OVER DISTAL/LATERAL ASPECT OF LEG. RIGHT LEG AND FOOT WITH 3+ EDEMA WITH MARKED REDNESS TO MOST OF LOWER ASPECT OF RIGHT LOWER LEG, FAINT ERYTHEMA TO RIGHT FOOT, WITH NO OPEN WOUNDS. RIGHT TOES 2 AND 3 PARTIALLY AMPUTATED. MILD TO MODERATE ERYTHEMA TO MEDIAL ASPECT OF RIGHT THIGH-- APPROXIMATELY 2/3 OF MEDIAL THIGH. WARMTH TO ALL REDDENED AREAS. LATERAL ASPECT OF RIGHT LOWER LEG HAS SCABBED AREA. HAS SKIN FISSURING TO ANTERIOR ASPECT OF RIGHT LOWER LEG. NO WEEPING/DRAINAGE FROM ANY OF THESE AREAS. NO DISCRETE ULCERS NOTED. PT WITH GOOD CAPILLARY REFILL TO TOES, BUT ALL TOES WITH DECREASED SENSATION TO LIGHT TOUCH. MOTOR INTACT. ) Feet: bilateral foot other ( ABOVE) Neurologic/Tendon: normal motor functions, normal tendon functions, sensory deficit Neurologic/Psychiatric: section repairer II-XII nml as tested, alert, normal mood/affect, oriented x 3, sensory deficit (NORMAL BASELINE--PERIPHERAL NEUROPATHY) Skin: warm/dry, other ( ABOVE) Laceration Repair : Suture Size: 5-0 Progress/Results/Core Measures Results/Orders Lab Results Laboratory Tests Test 06/22/17 23:22 06/22/17 23:40 Range/Units White Blood Count 5.9 4.3-11.0 10^3/uL Red Blood Count 4.29 L 4.35-5.85 10^6/uL Hemoglobin 12.7 L 13.3-17.7 G/DL Hematocrit 37 L 40-54 % Mean Corpuscular Volume 85 80-99 FL Mean Corpuscular Hemoglobin 30 25-34 PG Mean Corpuscular Hemoglobin Concent 35 32-36 G/DL Red Cell Distribution Width 16.1 H 10.0-14.5 % Platelet Count 235 130-400 10^3/uL Mean Platelet Volume 9.4 7.4-10.4 FL Neutrophils (%) (Auto) 65 42-75 % Lymphocytes (%) (Auto) 18 12-44 % Monocytes (%) (Auto) 11 0-12 % Eosinophils (%) (Auto) 6 0-10 % Basophils (%) (Auto) 0 0-10 % Neutrophils # (Auto) 3.8 1.8-7.8 X 10^3 Lymphocytes # (Auto) 1.1 1.0-4.0 X 10^3 Monocytes # (Auto) 0.6 0.0-1.0 X 10^3 Eosinophils # (Auto) 0.4 H 0.0-0.3 10^3/uL Basophils # (Auto) 0.0 0.0-0.1 10^3/uL Erythrocyte Sedimentation Rate 42 H 0-30 MM/HR Prothrombin Time 11.8 L 12.2-14.7 SEC INR Comment 0.9 0.8-1.4 Activated Partial Thromboplast Time 31 24-35 SEC Sodium Level 135 135-145 MMOL/L Potassium Level 3.8 3.6-5.0 MMOL/L Chloride Level 102 98-107 MMOL/L Carbon Dioxide Level 24 21-32 MMOL/L Anion Gap 9 5-14 MMOL/L Blood Urea Nitrogen 18 7-18 MG/DL Creatinine 1.04 0.60-1.30 MG/DL Estimat Glomerular Filtration Rate > 60 BUN/Creatinine Ratio 17 Glucose Level 191 H 70-105 MG/DL Calcium Level 9.4 8.5-10.1 MG/DL Magnesium Level 1.9 1.8-2.4 MG/DL Total Bilirubin 0.2 0.1-1.0 MG/DL Aspartate Amino Transf (AST/SGOT) 23 5-34 U/L Alanine Aminotransferase (ALT/SGPT) 34 0-55 U/L Alkaline Phosphatase 62 40-136 U/L Troponin I < 0.30 <0.30 NG/ML C-Reactive Protein High Sensitivity 12.34 H 0.00-0.50 MG/DL B-Type Natriuretic Peptide 55.4 <100.0 PG/ML Total Protein 6.4 6.4-8.2 GM/DL Albumin 3.5 3.2-4.5 GM/DL TSH [place] Testing 4.37 0.35-4.94 UIU/ML Lactic Acid Level 1.14 0.50-2.00 MMOL/L My Orders Orders - EDDIE PORTER DO Saline Lock/Iv-Start (06/22/17 23:11) BNP (06/22/17 23:11) Cbc With Automated Diff (06/22/17 23:11) Comprehensive Metabolic Panel (06/22/17 23:11) Protime With Inr (06/22/17 23:11) Partial Thromboplastin Time (06/22/17 23:11) Thyroid Analyzer (06/22/17 23:11) Troponin I (06/22/17 23:11) Ekg Tracing (06/22/17 23:11) Chest Pa/Lat (2 View) (06/22/17 23:11) Tibia/Fibula, Right, 2 Views (06/22/17 23:26) Hs C Reactive Protein (06/22/17 23:26) Erythrocyte Sedimentation Rate (06/22/17 23:26) Lactic Acid Analyzer (06/22/17 23:26) Magnesium (06/22/17 23:26) Blood Culture (06/22/17 23:26) Us Venous Lower Ext Rt (06/23/17 23:26) Vital Signs/I&O Vital Sign - Last 12Hours 06/22/17 22:40 Temp 98.1 Pulse 104 Resp 18 B/P (MAP) 160/87 Pulse Ox 94 O2 Delivery Room Air Blood Pressure Mean: 114 Diagnostic Imaging Comments CXR--NO ACUTE PROCESS, PENDING RADIOLOGIST REVIEW VENOUS DOPPLER RIGHT LEG--NO DVT, PER [facility] VIA FAX @ [phone] Reviewed: Reviewed by Me Departure Communication (Admissions) Progress Notes 0120--SPOKE WITH DR. HOLDEN, ACCEPTS PT FOR ADMIT. ORDERS NOTED FOR ANTIBIOTICS AND WILL CONSULT DR. TAYLOR TOMORROW MORNING Impression Impression: Primary Impression: CELLULITIS RIGHT LEG Additional Impressions: Peripheral neuropathy Peripheral vascular disease Diabetes mellitus Disposition: ADMITTED INPATIENT Condition: Stable Admissions Decision to Admit Reason: Admit from ER (General) Decision to Admit/Date: Jun 23, 2017 Time/Decision to Admit Time: 01:20 Departure-Patient Inst. Referrals: MICHELLE REA MD (PCP) Primary Care Physician EDDIE PORTER DO Jun 23, 2017 04:37
[2017-06-23 05:11] LABS: BASOPHILS % (AUTO) 1 % (0-10); EOSINOPHILS # (AUTO) 0.5 10^3/uL (0.0-0.3); EOSINOPHILS % (AUTO) 9 % (0-10); LYMPHOCYTES # (AUTO) 1.2 X 10^3 (1.0-4.0); LYMPHOCYTES % (AUTO) 23 % (12-44); MEAN CORPUSCULAR HEMOGLOBIN 30 PG (25-34); MEAN CORPUSCULAR HGB CONC 34 G/DL (32-36); MEAN CORPUSCULAR VOLUME 86 FL (80-99); MEAN PLATELET VOLUME 9.9 FL (7.4-10.4); MONOCYTES # (AUTO) 0.6 X 10^3 (0.0-1.0); MONOCYTES % (AUTO) 11 % (0-12); NEUTROPHILS # (AUTO) 2.8 X 10^3 (1.8-7.8); NEUTROPHILS % (AUTO) 56 % (42-75); PLATELET COUNT 231 10^3/uL (130-400); RED BLOOD COUNT 4.47 10^6/uL (4.35-5.85); RED CELL DISTRIBUTION WIDTH 16.5 % (10.0-14.5)
[2017-06-23] MEDS: inSUlin (REGULAR) HUMAN 1 UNIT/0.01 ML (CHARGE PER UNIT) SC SCH ×4 (05:12→20:53)
[2017-06-23 05:33] LABS: ALANINE AMINOTRANSFERASE 34 U/L (0-55); ALBUMIN 3.4 GM/DL (3.2-4.5); ANION GAP 10 MMOL/L (5-14); ASPARTATE AMINO TRANSFERASE 23 U/L (5-34); BILIRUBIN,TOTAL 0.3 MG/DL (0.1-1.0); BLOOD UREA NITROGEN 18 MG/DL (7-18); BUN/CREATININE RATIO 19; CALCIUM 9.5 MG/DL (8.5-10.1); CARBON DIOXIDE 23 MMOL/L (21-32); CHLORIDE 105 MMOL/L (98-107); CREATININE SERUM 0.96 MG/DL (0.60-1.30); GFR ESTIMATED > 60; GLUCOSE 102 MG/DL (70-105); POTASSIUM 4.1 MMOL/L (3.6-5.0); SODIUM 138 MMOL/L (135-145); TOTAL PROTEIN 6.4 GM/DL (6.4-8.2)
[2017-06-23 07:29] VITALS: BP 134/83
--- NOTE | 2017-06-23 08:06 | Diagnostic Imaging Report ---
INDICATION: Leg swelling and pain. COMPARISON: 10/26/16. FINDINGS: Frontal and lateral views of the chest demonstrate stable cardiac enlargement without pulmonary edema. There is COPD with scarring in both bases. No focal infiltrate, effusion or pneumothorax is seen. IMPRESSION: 1. Cardiac enlargement without pulmonary edema 2. COPD without infiltrate. Dictated by: Dictated on workstation # [id number]
--- NOTE | 2017-06-23 08:06 | Diagnostic Imaging Report ---
Indication: Leg injury pain comparison none 4 views the right tibia fibula demonstrate no fracture or dislocation. Advanced degenerative changes seen involving the patellofemoral joint. There is atherosclerosis. Ankle mortise is intact. Impression: No acute fracture dislocation number next atherosclerosis. Dictated by: Dictated on workstation # [id number]
--- NOTE | 2017-06-23 08:43 | Diagnostic Imaging Report ---
PROCEDURE: US right lower extremity venous. TECHNIQUE: Multiple real-time grayscale images were obtained over the right lower extremity in various projections. Additional duplex Doppler and color Doppler images were also obtained. INDICATION: Right leg pain. FINDINGS: The right common femoral, superficial femoral and popliteal veins demonstrate normal response to compression, augmentation, and Valsalva. There are no right lower extremity fluid collections or masses. IMPRESSION: No evidence of deep vein thrombosis in the right lower extremity. Dictated by: Dictated on workstation # [id number]
[2017-06-23] MEDS: VANCOMYCIN 1500 MG/NS 500 ML IVPB IV SCH ×4 (08:50→20:56)
[2017-06-23] MEDS: PIPERACILLIN/TAZOBACTAM 4.5 GM/NS100 ML IVPB IV SCH ×4 (09:45→17:33)
--- NOTE | 2017-06-23 11:35 | Consultation ---
History of Present Illness History of Present Illness Patient Consulted On(simone/time) 06/23/17 11:34 Date Seen by Provider: Jun 23, 2017 Time Seen by Provider: 11:34 Allergies and Home Medications Allergies Coded Allergies: hydrocodone (Verified Allergy, Mild, RASH (NO REACTION TO MORPHINE/ PERCOCET), 10/29/11) Sulfa (Sulfonamide Antibiotics) (Verified Allergy, Unknown, 12/08/12) Home Medications Allopurinol 100 Mg Tablet, 100 MG PO DAILY, (Reported) Aspirin 81 Mg Tabec, 81 MG PO DAILY, (Reported) Cetirizine Hcl 10 Mg Tablet, 10 MG PO DAILY, (Reported) Cyanocobalamin (Vitamin B-12) 1,000 Mcg Tablet, 1,000 MCG PO DAILY, (Reported) Gabapentin 100 Mg Tablet, 100 MG PO DAILY, (Reported) Gabapentin 100 Mg Cap, 300 MG PO HS, (Reported) TAKES 3 (100MG) CAPSULES Isosorbide Mononitrate 30 Mg Tab.sr.24h, 30 MG PO DAILY, (Reported) Liraglutide 0.6 Mg/0.1 Ml Pen.injctr, 1.2 MG SC DAILY, (Reported) Losartan Potassium 50 Mg Tablet, 50 MG PO DAILY, (Reported) Montelukast Sodium 10 Mg Tablet, 10 MG PO DAILY, (Reported) Multivitamins 1 Tab Tablet, 1 TAB PO DAILY, (Reported) Naproxen Sodium 550 Mg Tablet, 550 MG PO BID, (Reported) Levasy-3 Fatty Acids/Fish Oil 1 Each Capsule, 1,200 MG PO DAILY, (Reported) Phenytoin Sodium Extended 100 Mg Capsule, 200 MG PO BID, (Reported) TAKES 2 (100MG) CAPSULES Simvastatin 40 Mg Tablet, 20 MG PO HS, (Reported) TAKES 1/2 TAB OF 40MG [Astrazenera] , Unknown Dose, (Reported) Past Lydvgnb-Ujnhhg-Uaafhw Hx Patient Social History Alcohol Use: Occasionally Uses (HISTORY OF ABUSE/HEAVY USE--> 6 PACK/DAY, NOW ONLY DRINKS "OCCASIONALLY" ) Recreational Drug Use: No Smoking Status: Former Smoker (2 PPD, QUIT IN 1999) Type Used: Cigarettes 2nd Hand Smoke Exposure: No Recent Foreign Travel: No Contact w/Someone Who Travel: No Recent Infectious Disease Expo: No Recent Hopitalizations: No Physical Abuse Screen: No Sexual Abuse: No Immunizations Up To Date Tetanus Booster (TDap): Unknown Date of Pneumonia Vaccine: Jun 02, 2016 Date of Influenza Vaccine: Jun 03, 2017 Seasonal Allergies Seasonal Allergies: Yes Surgeries History of Surgeries: Yes (BILAT HIP REPLACEMENTS, RIGHT KNEE SURGERY X 2-- PATELLA FX; LEFT SHOULDER; CARDIAC CATH X 2--STENTS X 2; TMJ SURGERY; COLONOSCOPIES ) Surgeries: Appendectomy, Cardiac, Coronary Stent, Joint Replacement, Orthopedic Respiratory History of Respiratory Disorde: Yes (GETS SOB-DX "RESTRICTIVE LUNG DISEASE", USES C-PAP) Respiratory Disorders: Sleep Apnea Cardiovascular History of Cardiac Disorders: Yes (X2 STENTS) Cardiac Disorders: Chronic Edema/Swelling, Coronary Artery Disease, Heart Attack, High Cholesterol, Hypertension, Peripheral Vascular Neurological History of Neurological Disord: Yes (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 TOTAL HIP REPLACEMENT) Musculoskeletal Disorders: Arthritis, Fractures, Gout Endocrine History of Endocrine Disorders: Yes (ON VICTOZA; OBESITY) Endocrine Disorders: Diabetes, Non-Insulin dep HEENT History of HEENT Disorders: Yes (GLASSES) Loss of Vision: Denies Hearing Impairment: Hearing Aide Right, Hearing Aide Left, Bilateral Hearing Aide Cancer History of Cancer: No Psychosocial History of Psychiatric Problem: No Integumentary History of Skin or Integumenta: No Blood Transfusions History of Blood Disorders: No Family Medical History Significant Family History: Diabetes, Other Conditions/Hx Family Medial History: Not obtainable due to adoption unknown Physical Exam-General Problems Physical Exam Vital Signs Vital Sign - Last 12Hours 06/22/17 22:40 Temp 98.1 Pulse 104 Resp 18 B/P (MAP) 160/87 Pulse Ox 94 O2 Delivery Room Air Capillary Refill : Less Than 3 Seconds Data Review Labs Laboratory Tests 06/22/17 23:22: White Blood Count 5.9, Red Blood Count 4.29L, Hemoglobin 12.7L, Hematocrit 37L, Mean Corpuscular Volume 85, Mean Corpuscular Hemoglobin 30, Mean Corpuscular Hemoglobin Concent 35, Red Cell Distribution Width 16.1H, Platelet Count 235, Mean Platelet Volume 9.4, Neutrophils (%) (Auto) 65, Lymphocytes (%) (Auto) 18, Monocytes (%) (Auto) 11, Eosinophils (%) (Auto) 6, Basophils (%) (Auto) 0, Neutrophils # (Auto) 3.8, Lymphocytes # (Auto) 1.1, Monocytes # (Auto) 0.6, Eosinophils # (Auto) 0.4H, Basophils # (Auto) 0.0, Erythrocyte Sedimentation Rate 42H, Prothrombin Time 11.8L, INR Comment 0.9, Activated Partial Thromboplast Time 31, Sodium Level 135, Potassium Level 3.8, Chloride Level 102 , Carbon Dioxide Level 24, Anion Gap 9, Blood Urea Nitrogen 18, Creatinine 1.04 , Estimat Glomerular Filtration Rate > 60, BUN/Creatinine Ratio 17, Glucose Level 191H, Calcium Level 9.4, Magnesium Level 1.9, Total Bilirubin 0.2, Aspartate Amino Transf (AST/SGOT) 23, Alanine Aminotransferase (ALT/SGPT) 34, Alkaline Phosphatase 62, Troponin I < 0.30, C-Reactive Protein High Sensitivity 12.34H, B-Type Natriuretic Peptide 55.4, Total Protein 6.4, Albumin 3.5, TSH Toole Testing 4.37 06/22/17 23:40: Lactic Acid Level 1.14 06/23/17 04:49: White Blood Count 5.0, Red Blood Count 4.47, Hemoglobin 13.2L, Hematocrit 38L, Mean Corpuscular Volume 86, Mean Corpuscular Hemoglobin 30, Mean Corpuscular Hemoglobin Concent 34, Red Cell Distribution Width 16.5H, Platelet Count 231, Mean Platelet Volume 9.9, Neutrophils (%) (Auto) 56, Lymphocytes (%) (Auto) 23, Monocytes (%) (Auto) 11, Eosinophils (%) (Auto) 9, Basophils (%) (Auto) 1, Neutrophils # (Auto) 2.8, Lymphocytes # (Auto) 1.2, Monocytes # (Auto) 0.6, Eosinophils # (Auto) 0.5H, Basophils # (Auto) 0.0, Sodium Level 138, Potassium Level 4.1, Chloride Level 105, Carbon Dioxide Level 23, Anion Gap 10, Blood Urea Nitrogen 18, Creatinine 0.96, Estimat Glomerular Filtration Rate > 60, BUN/ Creatinine Ratio 19, Glucose Level 102, Calcium Level 9.5, Total Bilirubin 0.3, Aspartate Amino Transf (AST/SGOT) 23, Alanine Aminotransferase (ALT/SGPT) 34, Alkaline Phosphatase 62, Total Protein 6.4, Albumin 3.4 06/23/17 05:11: Glucometer 96 06/23/17 11:06: Glucometer 106 Assessment/Plan Assessment/Plan Assessment/Plan right lower ext cellulitis continue iv abx no surgical intervention at this time will follow Clinical Quality Measures DVT/VTE Risk/Contraindication: Risk Factor Score Per Nursin RFS Level Per Nursing on Admit: 4+=Very High SONIDO CARTWRIGHT DO Jun 23, 2017 11:35 am
[2017-06-23 12:00] VITALS: BP 135/82
--- NOTE | 2017-06-23 13:09 | History & Physical-Hospitalist ---
HPI History of Present Illness: HPI/Chief Complaint CC: Severe right leg cellulitis in diabetic patient HPI: This is a 67-year-old white male clinic patient of Dr. Haro and Dr. Chong at the [facility] in [place] that has a past medical history of sleep apnea and diabetes the presents to the ER with complaints of right leg swelling pain and redness. He was found to have severe right leg cellulitis so severe prompting vancomycin and Zosyn coverage since it was approaching the groin area. At this current time patient reports a major in dramatic improvement of the cellulitis and redness line to 30 percent of what he had experienced last night when he presented to the ER. He denies any pain and is in the process of having his bring most of his home medication to the hospital. He denies any current chest pain or shortness of breath and sees no other specialist on a regular basis. Source: patient Exam Limitations: no limitations Date Seen 06/23/17 Time Seen by Provider: 11:30 Attending Physician Andrey Haro MD PCP Andrey Haro MD Referring Physician Date of Admission Jun 23, 2017 at 01:20 Home Medications & Allergies Home Medications Reviewed patient Home Medication Reconciliation Form Allergies Allergies Coded Allergies hydrocodone (Verified Allergy, Mild, RASH (NO REACTION TO MORPHINE/PERCOCET), 10/29/11) Sulfa (Sulfonamide Antibiotics) (Verified Allergy, Unknown, 12/08/12) Past Qmkhmho-Lzxglx-Gpfgnr Hx Patient Social History Marrital Status: Employed/Student: retired Alcohol Use: Occasionally Uses (HISTORY OF ABUSE/HEAVY USE--> 6 PACK/DAY, NOW ONLY DRINKS "OCCASIONALLY" ) Alcohol Beverage of Choice: Beer Recreational Drug Use: No Smoking Status: Former Smoker (2 PPD, QUIT IN 1999) Type Used: Cigarettes 2nd Hand Smoke Exposure: No Physical Abuse Screen: No Sexual Abuse: No Recent Foreign Travel: No Contact w/other who traveled: No Recent Hopitalizations: No Recent Infectious Disease Expo: No Immunizations Up To Date Tetanus Booster (TDap): Unknown Date of Pneumonia Vaccine: Jun 02, 2016 Date of Influenza Vaccine: Jun 03, 2017 Seasonal Allergies Seasonal Allergies: Yes Surgeries Yes (BILAT HIP REPLACEMENTS, RIGHT KNEE SURGERY X 2--PATELLA FX; LEFT SHOULDER; CARDIAC CATH X 2--STENTS X 2; TMJ SURGERY; COLONOSCOPIES ) Appendectomy, Cardiac, Coronary Stent, Joint Replacement, Orthopedic Respiratory Yes (GETS SOB-DX "RESTRICTIVE LUNG DISEASE", USES C-PAP) Sleep Apnea Currently Using CPAP: Yes Cardiovascular Yes (X2 STENTS) Chronic Edema/Swelling, Coronary Artery Disease, Heart Attack, High Cholesterol , Hypertension, Peripheral Vascular Neurological Yes (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 TOTAL HIP REPLACEMENT) Arthritis, Fractures, Gout Endocrine History of Endocrine Disorders: Yes (ON VICTOZA; OBESITY) Endocrine Disorders: Diabetes, Non-Insulin dep Are Your Blood Sugars Over 250: No HEENT History of HEENT Disorders: Yes (GLASSES) Loss of Vision: Denies Hearing Impairment: Hearing Aide Right, Hearing Aide Left, Bilateral Hearing Aide Cancer No Psychosocial History of Psychiatric Problem: No Integumentary History of Skin or Integumenta: No Blood Transfusions History of Blood Disorders: No Family Medical History Significant Family History: Diabetes, Other Conditions/Hx Family Hx: Not obtainable due to adoption unknown Review of Systems Constitutional: see HPI, fever EENTM: no symptoms reported Respiratory: no symptoms reported Cardiovascular: no symptoms reported Gastrointestinal: no symptoms reported Genitourinary: no symptoms reported Musculoskeletal: muscle pain Skin: see HPI Psychiatric/Neurological: No Symptoms Reported All Other Systems Reviewed Negative Unless Noted: Yes Physical Exam Physical Exam Vital Signs Vital Sign - Last 12Hours 06/22/17 22:40 Temp 98.1 Pulse 104 Resp 18 B/P (MAP) 160/87 Pulse Ox 94 O2 Delivery Room Air Capillary Refill : Less Than 3 Seconds General Appearance: No Apparent Distress, WD/WN Eyes: Bilateral Eye Normal Inspection, Bilateral Eye PERRL HEENT: PERRL/EOMI, Normal ENT Inspection, Pharynx Normal Neck: Full Range of Motion, Normal Inspection, Non Tender, Supple, Carotid Bruit Respiratory: Chest Non Tender, Lungs Clear, Normal Breath Sounds, No Accessory Muscle Use, No Respiratory Distress Cardiovascular: Regular Rate, Rhythm, No Edema, No Gallop, No JVD, No Murmur, Normal Peripheral Pulses Gastrointestinal: Normal Bowel Sounds, No Organomegaly, No Pulsatile Mass, Non Tender, Soft Back: Normal Inspection, No CVA Tenderness, No Vertebral Tenderness Extremity: Normal Capillary Refill, Normal Inspection, Normal Range of Motion, Non Tender, No Calf Tenderness, No Pedal Edema Neurologic/Psychiatric: Alert, Oriented x3, No Motor/Sensory Deficits, Normal Mood/Affect Skin: Normal Color, Warm/Dry, Rash (right leg much improved erythema and edema from demarcated line drawn in ER last night) Lymphatic: No Adenopathy Results Results/Procedures Lab Laboratory Tests 06/22/17 23:22 06/23/17 04:49 Assessment/Plan Admission Diagnosis Assessment: Severe right leg cellulitis approaching groin region in diabetic patient high risk for necrotizing fasciitis and Kathya's gangrene Sleep apnea maintained on faithful use of CPAP Hypertension Hyperlipidemia Obesity Chronic angina Gout Seizure d/o Assessment and Plan Plan: Reconcile all home meds and restart when completed IV antibiotics General surgery consultation with Dr. Tovar Monitor closely Check labs in a.m. Clinical Quality Measures DVT/VTE Risk/Contraindication: Risk Factor Score Per Nursin RFS Level Per Nursing on Admit: 4+=Very High GWEN HOLDEN DO Jun 23, 2017 13:09
[2017-06-23] MEDS ORDERED: ALLO300T2 PO (14:17)
[2017-06-23] MEDS ORDERED: ISOS30TA3 PO (14:17)
[2017-06-23] MEDS ORDERED: GABA-488 PO (14:17)
[2017-06-23] MEDS ORDERED: 5-HY100C3 PO (14:17)
[2017-06-23] MEDS ORDERED: CETI10TA17 PO (14:17)
[2017-06-23] MEDS ORDERED: MULT1TAB69 PO (14:17)
[2017-06-23] MEDS ORDERED: ASPI-983 PO (14:17)
[2017-06-23] MEDS ORDERED: METO-351 PO (14:17)
[2017-06-23] MEDS ORDERED: ATOR20TA66 PO (14:17)
[2017-06-23] MEDS ORDERED: NAPR500T3 PO (14:17)
[2017-06-23 16:00] VITALS: BP 166/83
[2017-06-23 20:00] VITALS: BP 153/71
[2017-06-23] MEDS: NAPROXEN 250 MG (NAPROSYN) TABLET PO SCH (20:53)
[2017-06-23] MEDS: MONTELUKAST 10 MG (SINGULAIR) TAB PO SCH (20:53)
[2017-06-23] MEDS: GABAPENTIN 300 MG (NEURONTIN) CAP PO SCH (20:53)
[2017-06-23] MEDS: PHENYTOIN 100 MG (DILANTIN) CAP PO SCH (20:53)
[2017-06-23] MEDS: ATORVASTATIN 20 MG (LIPITOR) TABLET PO SCH (20:53)
[2017-06-23] MEDS ORDERED: ALLOPURINOL 300 MG (ZYLOPRIM) TAB ONE (20:56)
[2017-06-23] MEDS ORDERED: NON-FORMULARY MEDICATION 1 EA EA (Naproxen 500 MG) PO SCH (21:00)
[2017-06-24] MEDS: PIPERACILLIN/TAZOBACTAM 4.5 GM/NS100 ML IVPB IV SCH ×6 (00:50→17:41)
[2017-06-24 00:51] VITALS: BP 144/68
[2017-06-24] MEDS ORDERED: VANCOMYCIN 1500 MG/NS 500 ML IVPB IV SCH ×2 (01:30)
[2017-06-24 04:35] VITALS: BP 151/78
[2017-06-24] MEDS: inSUlin (REGULAR) HUMAN 1 UNIT/0.01 ML (CHARGE PER UNIT) SC SCH ×4 (06:19→21:06)
[2017-06-24 08:00] VITALS: BP 143/69
[2017-06-24] MEDS ORDERED: TROUGH ORDER-PHARMACY XX NR (08:00)
[2017-06-24] MEDS ORDERED: PATIENT MAY USE OWN MED,SINGLE MED PO SCH (08:00)
[2017-06-24 08:06] LABS: BASOPHILS % (AUTO) 1 % (0-10); EOSINOPHILS # (AUTO) 0.4 10^3/uL (0.0-0.3); EOSINOPHILS % (AUTO) 12 % (0-10); LYMPHOCYTES % (AUTO) 28 % (12-44); MEAN CORPUSCULAR HEMOGLOBIN 29 PG (25-34); MEAN CORPUSCULAR HGB CONC 34 G/DL (32-36); MEAN CORPUSCULAR VOLUME 87 FL (80-99); MEAN PLATELET VOLUME 9.4 FL (7.4-10.4); MONOCYTES # (AUTO) 0.4 X 10^3 (0.0-1.0); MONOCYTES % (AUTO) 11 % (0-12); NEUTROPHILS # (AUTO) 1.8 X 10^3 (1.8-7.8); NEUTROPHILS % (AUTO) 49 % (42-75); PLATELET COUNT 260 10^3/uL (130-400); RED BLOOD COUNT 4.45 10^6/uL (4.35-5.85); RED CELL DISTRIBUTION WIDTH 16.5 % (10.0-14.5); WHITE BLOOD COUNT 3.7 10^3/uL (4.3-11.0)
[2017-06-24 08:23] LABS: ALANINE AMINOTRANSFERASE 32 U/L (0-55); ALBUMIN 3.3 GM/DL (3.2-4.5); ANION GAP 5 MMOL/L (5-14); ASPARTATE AMINO TRANSFERASE 21 U/L (5-34); BILIRUBIN,TOTAL 0.4 MG/DL (0.1-1.0); BLOOD UREA NITROGEN 17 MG/DL (7-18); BUN/CREATININE RATIO 18; CALCIUM 9.3 MG/DL (8.5-10.1); CARBON DIOXIDE 27 MMOL/L (21-32); CHLORIDE 105 MMOL/L (98-107); CREATININE SERUM 0.96 MG/DL (0.60-1.30); GFR ESTIMATED > 60; GLUCOSE 110 MG/DL (70-105); POTASSIUM 4.2 MMOL/L (3.6-5.0); SODIUM 137 MMOL/L (135-145); TOTAL PROTEIN 6.2 GM/DL (6.4-8.2)
[2017-06-24] MEDS ORDERED: ALLOPURINOL 300 MG (ZYLOPRIM) TAB PO SCH ×2 (09:00→21:00)
[2017-06-24] MEDS: HYDROXYTRYPTOPHAN 100 MG PO SCH (09:00)
[2017-06-24] MEDS ORDERED: NON-FORMULARY MEDICATION 1 EA EA (Cyanocobalamin (Vitamin B-12) (Vitamin B-12) 1,000 MCG) PO SCH (09:00)
[2017-06-24] MEDS ORDERED: NON-FORMULARY MEDICATION 1 EA EA (Omega-3 Fatty Acids/Fish Oil (Fish Oil 1,200 mg Softgel) PO SCH (09:00)
[2017-06-24] MEDS ORDERED: NON-FORMULARY MEDICATION 1 EA EA (Cetirizine HCl 10 MG) PO SCH (09:00)
[2017-06-24] MEDS: PHENYTOIN 100 MG (DILANTIN) CAP PO SCH ×2 (09:41→20:17)
[2017-06-24] MEDS: GABAPENTIN 300 MG (NEURONTIN) CAP PO SCH ×3 (09:41→20:17)
[2017-06-24] MEDS: CYANOCOBALAMIN 500 MCG TAB (VITAMIN B-12) PO SCH (09:42)
[2017-06-24] MEDS: ISOSORBIDE MONONITRATE 30 MG (IMDUR) TAB PO SCH (09:42)
[2017-06-24] MEDS: OMEGA 3 (FISH OIL) 1000 MG CAP PO SCH (09:42)
[2017-06-24] MEDS: MULTIVIT W/MINERALS TAB (THERAGRAN M) PO SCH (09:42)
[2017-06-24] MEDS: NAPROXEN 250 MG (NAPROSYN) TABLET PO SCH ×2 (09:42→20:17)
[2017-06-24] MEDS: ASPIRIN E.C. 81 MG (ECOTRIN) TAB PO SCH (09:42)
[2017-06-24] MEDS: LOSARTAN 50 MG (COZAAR) TAB PO SCH (09:42)
[2017-06-24] MEDS: LORATADINE (CLARITIN) 10 MG TAB PO SCH (09:42)
--- NOTE | 2017-06-24 11:17 | Progress Note-Hospitalist ---
Subjective HPI/CC On Admission Date Seen by Provider: Jun 24, 2017 Time Seen by Provider: 10:45 CC: Severe right leg cellulitis in diabetic patient HPI: This is a 67-year-old white male clinic patient of Dr. Haro and Dr. Chong at the [facility] in [place] that has a past medical history of sleep apnea and diabetes the presents to the ER with complaints of right leg swelling pain and redness. He was found to have severe right leg cellulitis so severe prompting vancomycin and Zosyn coverage since it was approaching the groin area. Subjective/Events-last exam Pt reports feeling much better. Redness has improved dramatically. Swelling still there and still feels sore. No other complaints. Ambulating without difficulty. Objective Exam Vital Signs Vital Sign - Last 12Hours 06/22/17 22:40 Temp 98.1 Pulse 104 Resp 18 B/P (MAP) 160/87 Pulse Ox 94 O2 Delivery Room Air Capillary Refill : Less Than 3 Seconds General Appearance: No Apparent Distress, WD/WN Respiratory: Lungs Clear, No Respiratory Distress Cardiovascular: Regular Rate, Rhythm, No Murmur Gastrointestinal: Normal Bowel Sounds, Non Tender, Soft Extremity: Swelling (left lower extremity) Neurologic/Psychiatric: Alert, Oriented x3 Skin: Normal Color, Warm/Dry Results/Procedures Lab Laboratory Tests 06/24/17 07:55 Assessment/Plan Assessment and Plan Assess & Plan/Chief Complaint Cellulitis Diagnosis/Problems Diagnosis/Problems (1) Cellulitis Status: Acute Assessment & Plan: Rapid improvement with abx Will DC Vanc today Continue Zosyn Surgery consulted appreciate recs Blood cultures show gram positive allyson in 1/4 tubes at >48 hours- likely contaminant Qualifiers: Qualified Codes: L03.116 - Cellulitis of left lower limb (2) Peripheral neuropathy Status: Chronic Assessment & Plan: Reports due to agent orange exposure Cannot feel feet Continue gabepentin Qualifiers: Qualified Codes: 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 (3) Non-insulin dependent type 2 diabetes mellitus Status: Chronic Assessment & Plan: fasting BS 101 this AM Continue SSI #1 (4) CAD (coronary artery disease) Status: Chronic Assessment & Plan: S/p stenting in 2014 Continue statin, ASA Qualifiers: Qualified Codes: I25.10 - Atherosclerotic heart disease of nikolski coronary artery without angina pectoris (5) Essential (primary) hypertension Status: Chronic Assessment & Plan: Well controlled on home meds Metoprolol, Losartan, Imdur (6) Normocytic anemia Status: Chronic Assessment & Plan: Mild, trend (7) Prophylactic measure Assessment & Plan: Lovenox Cardiac Diet Saline ROSIO Abreu MD Jun 24, 2017 11:17
[2017-06-24 12:00] VITALS: BP 120/67
[2017-06-24] MEDS: ENOXAPARIN 40 MG/0.4 ML (LOVENOX) SYR SC SCH (12:53)
[2017-06-24 16:10] VITALS: BP 126/68
--- NOTE | 2017-06-24 17:20 | Progress Note ---
Subjective Date Seen by Provider: Jun 24, 2017 Time Seen by Provider: 08:42 Subjective/Events-last exam Patient still sore in the right lower extremity. Still with some swelling and redness, but overall improved. Denies any new complaints. Denies fever sweats chills shortness of breath or chest pain. Objective Exam Vital Signs Date Time Temp Pulse Resp B/P (MAP) Pulse Ox O2 Delivery O2 Flow Rate FiO2 06/24/17 16:10 97.8 74 18 126/68 95 Room Air 06/24/17 12:00 98.4 75 20 120/67 94 Room Air 06/24/17 08:00 97.2 80 20 143/69 96 Room Air 06/24/17 04:35 98.4 76 16 151/78 97 Room Air 06/24/17 00:51 97.9 74 18 144/68 99 Room Air 06/23/17 21:00 NIV CPAP 06/23/17 20:00 96.8 75 18 153/71 97 Room Air I & O 06/25/17 07:00 Intake Total 100 ml Balance 100 ml Capillary Refill : Less Than 3 Seconds General Appearance: No Apparent Distress, WD/WN HEENT: PERRL/EOMI, Normal ENT Inspection, Pharynx Normal Neck: Full Range of Motion, Normal Inspection, Non Tender, Supple, Carotid Bruit Respiratory: Lungs Clear, No Respiratory Distress Cardiovascular: Regular Rate, Rhythm, No Murmur Gastrointestinal: soft Extremity: Swelling (left lower extremity swelling improved and still with erythema overall improved) Neurologic/Psychiatric: Alert, Oriented x3 Skin: Normal Color, Warm/Dry Lymphatic: No Adenopathy Results Lab Laboratory Tests 06/23/17 20:53: Glucometer 131H 06/24/17 05:52: Glucometer 101 06/24/17 07:55: White Blood Count 3.7L, Red Blood Count 4.45, Hemoglobin 12.9L, Hematocrit 39L, Mean Corpuscular Volume 87, Mean Corpuscular Hemoglobin 29, Mean Corpuscular Hemoglobin Concent 34, Red Cell Distribution Width 16.5H, Platelet Count 260, Mean Platelet Volume 9.4, Neutrophils (%) (Auto) 49, Lymphocytes (%) (Auto) 28, Monocytes (%) (Auto) 11, Eosinophils (%) (Auto) 12H, Basophils (%) (Auto) 1, Neutrophils # (Auto) 1.8, Lymphocytes # (Auto) 1.0, Monocytes # (Auto) 0.4, Eosinophils # (Auto) 0.4H, Basophils # (Auto) 0.0, Sodium Level 137, Potassium Level 4.2, Chloride Level 105, Carbon Dioxide Level 27, Anion Gap 5, Blood Urea Nitrogen 17, Creatinine 0.96, Estimat Glomerular Filtration Rate > 60, BUN/ Creatinine Ratio 18, Glucose Level 110H, Calcium Level 9.3, Total Bilirubin 0.4 , Aspartate Amino Transf (AST/SGOT) 21, Alanine Aminotransferase (ALT/SGPT) 32, Alkaline Phosphatase 50, Total Protein 6.2L, Albumin 3.3, Vancomycin Level Trough 23.4H 06/24/17 10:59: Glucometer 178H 06/24/17 16:08: Glucometer 122H Microbiology 06/22/17 Blood Culture - Preliminary, Resulted No growth Assessment/Plan Assessment/Plan Assessment/Plan right lower ext cellulitis continue iv abx no surgical intervention at this time instructed to keep leg elevated medical management will follow Clinical Quality Measures DVT/VTE Risk/Contraindication: Risk Factor Score Per Nursin RFS Level Per Nursing on Admit: 4+=Very High SONIDO CARTWRIGHT DO Jun 24, 2017 17:20
[2017-06-24] MEDS ORDERED: VANCOMYCIN INJECTION 1,250 MG in NS (IVPB) 250 ML IV SCH (18:00)
[2017-06-24] MEDS: ATORVASTATIN 20 MG (LIPITOR) TABLET PO SCH (20:17)
[2017-06-24] MEDS: MONTELUKAST 10 MG (SINGULAIR) TAB PO SCH (20:17)
[2017-06-24 20:35] VITALS: BP 128/76
[2017-06-25 00:25] VITALS: BP 131/67
[2017-06-25] MEDS: PIPERACILLIN/TAZOBACTAM 4.5 GM/NS100 ML IVPB IV SCH ×4 (01:37→08:54)
[2017-06-25] MEDS: inSUlin (REGULAR) HUMAN 1 UNIT/0.01 ML (CHARGE PER UNIT) SC SCH ×2 (06:16→11:43)
[2017-06-25 06:48] LABS: BASOPHILS % (AUTO) 1 % (0-10); EOSINOPHILS # (AUTO) 0.4 10^3/uL (0.0-0.3); EOSINOPHILS % (AUTO) 11 % (0-10); LYMPHOCYTES # (AUTO) 1.1 X 10^3 (1.0-4.0); LYMPHOCYTES % (AUTO) 27 % (12-44); MEAN CORPUSCULAR HEMOGLOBIN 29 PG (25-34); MEAN CORPUSCULAR HGB CONC 33 G/DL (32-36); MEAN CORPUSCULAR VOLUME 87 FL (80-99); MEAN PLATELET VOLUME 9.3 FL (7.4-10.4); MONOCYTES # (AUTO) 0.3 X 10^3 (0.0-1.0); MONOCYTES % (AUTO) 8 % (0-12); NEUTROPHILS # (AUTO) 2.1 X 10^3 (1.8-7.8); NEUTROPHILS % (AUTO) 53 % (42-75); PLATELET COUNT 249 10^3/uL (130-400); RED BLOOD COUNT 4.35 10^6/uL (4.35-5.85); RED CELL DISTRIBUTION WIDTH 16.1 % (10.0-14.5)
[2017-06-25 07:06] LABS: ANION GAP 8 MMOL/L (5-14); BLOOD UREA NITROGEN 21 MG/DL (7-18); BUN/CREATININE RATIO 19; CALCIUM 9.4 MG/DL (8.5-10.1); CARBON DIOXIDE 24 MMOL/L (21-32); CHLORIDE 105 MMOL/L (98-107); GFR ESTIMATED > 60; GLUCOSE 107 MG/DL (70-105); POTASSIUM 4.2 MMOL/L (3.6-5.0); SODIUM 137 MMOL/L (135-145)
[2017-06-25 08:00] VITALS: BP 153/75
[2017-06-25] MEDS: PHENYTOIN 100 MG (DILANTIN) CAP PO SCH (08:52)
[2017-06-25] MEDS: GABAPENTIN 300 MG (NEURONTIN) CAP PO SCH ×2 (08:52→12:43)
[2017-06-25] MEDS: NAPROXEN 250 MG (NAPROSYN) TABLET PO SCH (08:53)
[2017-06-25] MEDS: LOSARTAN 50 MG (COZAAR) TAB PO SCH (08:53)
[2017-06-25] MEDS: ASPIRIN E.C. 81 MG (ECOTRIN) TAB PO SCH (08:53)
[2017-06-25] MEDS: ISOSORBIDE MONONITRATE 30 MG (IMDUR) TAB PO SCH (08:53)
[2017-06-25] MEDS: LORATADINE (CLARITIN) 10 MG TAB PO SCH (08:53)
[2017-06-25] MEDS: MULTIVIT W/MINERALS TAB (THERAGRAN M) PO SCH (08:53)
[2017-06-25] MEDS: CYANOCOBALAMIN 500 MCG TAB (VITAMIN B-12) PO SCH (08:53)
[2017-06-25] MEDS: OMEGA 3 (FISH OIL) 1000 MG CAP PO SCH (08:53)
[2017-06-25] MEDS: HYDROXYTRYPTOPHAN 100 MG PO SCH (08:55)
[2017-06-25] MEDS ORDERED: AMOX-358 PO (09:42)
--- NOTE | 2017-06-25 09:49 | Progress Note ---
Subjective Date Seen by Provider: Jun 25, 2017 Time Seen by Provider: 09:47 Subjective/Events-last exam right lower extremity still sore. less erythema and swelling. denies any fever sweats chills shortness of breath or chest pain. Objective Exam Vital Signs Date Time Temp Pulse Resp B/P (MAP) Pulse Ox O2 Delivery O2 Flow Rate FiO2 06/25/17 08:00 97.8 70 18 153/75 97 NIV CPAP 06/25/17 00:25 96.3 76 18 131/67 96 NIV CPAP 06/24/17 21:00 NIV CPAP 06/24/17 20:35 97.4 74 18 128/76 97 Room Air 06/24/17 16:10 97.8 74 18 126/68 95 Room Air 06/24/17 12:00 98.4 75 20 120/67 94 Room Air Capillary Refill : Less Than 3 Seconds General Appearance: No Apparent Distress, WD/WN HEENT: PERRL/EOMI, Normal ENT Inspection, Pharynx Normal Neck: Full Range of Motion, Normal Inspection, Non Tender, Supple, Carotid Bruit Respiratory: Lungs Clear, No Respiratory Distress Cardiovascular: Regular Rate, Rhythm, No Murmur Gastrointestinal: soft Extremity: Swelling (right lower extremity swelling improved and still with erythema overall improved) Neurologic/Psychiatric: Alert, Oriented x3 Skin: Normal Color, Warm/Dry Lymphatic: No Adenopathy Results Lab Laboratory Tests 06/24/17 10:59: Glucometer 178H 06/24/17 16:08: Glucometer 122H 06/24/17 21:04: Glucometer 154H 06/25/17 06:13: Glucometer 102 06/25/17 06:28: White Blood Count 4.0L, Red Blood Count 4.35, Hemoglobin 12.6L, Hematocrit 38L, Mean Corpuscular Volume 87, Mean Corpuscular Hemoglobin 29, Mean Corpuscular Hemoglobin Concent 33, Red Cell Distribution Width 16.1H, Platelet Count 249, Mean Platelet Volume 9.3, Neutrophils (%) (Auto) 53, Lymphocytes (%) (Auto) 27, Monocytes (%) (Auto) 8, Eosinophils (%) (Auto) 11H, Basophils (%) (Auto) 1, Neutrophils # (Auto) 2.1, Lymphocytes # (Auto) 1.1, Monocytes # (Auto) 0.3, Eosinophils # (Auto) 0.4H, Basophils # (Auto) 0.0, Sodium Level 137, Potassium Level 4.2, Chloride Level 105, Carbon Dioxide Level 24, Anion Gap 8, Blood Urea Nitrogen 21H, Creatinine 1.10, Estimat Glomerular Filtration Rate > 60, BUN/ Creatinine Ratio 19, Glucose Level 107H, Calcium Level 9.4 Microbiology 06/22/17 Blood Culture - Preliminary, Resulted No growth Assessment/Plan Assessment/Plan Assessment/Plan right lower ext cellulitis no surgical intervention ok from surgical standpoint to be dc'd instructed to keep leg elevated continue abx convert to PO Clinical Quality Measures DVT/VTE Risk/Contraindication: Risk Factor Score Per Nursin RFS Level Per Nursing on Admit: 4+=Very High SONIDO CARTWRIGHT DO Jun 25, 2017 9:49 am
[2017-06-25] MEDS: ENOXAPARIN 40 MG/0.4 ML (LOVENOX) SYR SC SCH (11:42)
--- NOTE | 2017-06-25 13:41 | Discharge Summary-Hospitalist ---
Diagnosis/Chief Complaint Date of Admission Jun 23, 2017 at 1:20 am Date of Discharge Discharge Date: Jun 25, 2017 Admission Diagnosis Assessment: Severe right leg cellulitis approaching groin region in diabetic patient high risk for necrotizing fasciitis and Kathya's gangrene Sleep apnea maintained on faithful use of CPAP Hypertension Hyperlipidemia Obesity Chronic angina Gout Seizure d/o Discharge Diagnosis Cellulitis (1) Cellulitis Status: Acute Assessment & Plan: Rapid improvement with abx transition to Augmentin to complete 10- day course Surgery consulted appreciate recs Blood cultures show gram positive allyson in 1/4 tubes at >48 hours- likely contaminant (2) Peripheral neuropathy Status: Chronic Assessment & Plan: Reports due to agent orange exposure Cannot feel feet Continue gabepentin (3) Non-insulin dependent type 2 diabetes mellitus Status: Chronic Assessment & Plan: fasting BS 101 this AM Continue SSI #1 (4) CAD (coronary artery disease) Status: Chronic Assessment & Plan: S/p stenting in 2014 Continue statin, ASA (5) Essential (primary) hypertension Status: Chronic Assessment & Plan: Well controlled on home meds Metoprolol, Losartan, Imdur (6) Normocytic anemia Status: Chronic Assessment & Plan: Mild, trend (7) Prophylactic measure Assessment & Plan: Lovenox Cardiac Diet Saline Lock Discharge Summary Discharge Physical Examination Allergies: Coded Allergies: hydrocodone (Verified Allergy, Mild, RASH (NO REACTION TO MORPHINE/ PERCOCET), 10/29/11) Sulfa (Sulfonamide Antibiotics) (Verified Allergy, Unknown, 12/08/12) Vitals & I&Os Vital Signs Date Time Temp Pulse Resp B/P (MAP) Pulse Ox O2 Delivery O2 Flow Rate FiO2 06/25/17 09:00 Room Air 06/25/17 08:00 97.8 70 18 153/75 97 Hospital Course Pt presented to the ER with CC leg pain, swelling and redness. Was found to have cellulitis spreading to groin. Surgery was consulted for concerns about Kathya gangrene vs nec fasc. He was started on Vanc/Zosyn given history of diabetes. He improved rapidly and was transitioned to Augmentin. He was ambulating freely without assistance. USG was negative for DVT. He was DC'd home with plans to complete 10 days of treatment and to follow up with Dr. Haro this week. Labs (last 24 hrs) Laboratory Tests 06/24/17 16:08: Glucometer 122H 06/24/17 21:04: Glucometer 154H 06/25/17 06:13: Glucometer 102 06/25/17 06:28: White Blood Count 4.0L, Red Blood Count 4.35, Hemoglobin 12.6L, Hematocrit 38L, Mean Corpuscular Volume 87, Mean Corpuscular Hemoglobin 29, Mean Corpuscular Hemoglobin Concent 33, Red Cell Distribution Width 16.1H, Platelet Count 249, Mean Platelet Volume 9.3, Neutrophils (%) (Auto) 53, Lymphocytes (%) (Auto) 27, Monocytes (%) (Auto) 8, Eosinophils (%) (Auto) 11H, Basophils (%) (Auto) 1, Neutrophils # (Auto) 2.1, Lymphocytes # (Auto) 1.1, Monocytes # (Auto) 0.3, Eosinophils # (Auto) 0.4H, Basophils # (Auto) 0.0, Sodium Level 137, Potassium Level 4.2, Chloride Level 105, Carbon Dioxide Level 24, Anion Gap 8, Blood Urea Nitrogen 21H, Creatinine 1.10, Estimat Glomerular Filtration Rate > 60, BUN/ Creatinine Ratio 19, Glucose Level 107H, Calcium Level 9.4 06/25/17 11:02: Glucometer 189H Microbiology 06/22/17 Blood Culture - Preliminary, Resulted No growth Pending Labs Laboratory Tests 06/25/17 06:13: Glucometer 102 06/25/17 06:28: White Blood Count 4.0, Red Blood Count 4.35, Hemoglobin 12.6, Hematocrit 38, Mean Corpuscular Volume 87, Mean Corpuscular Hemoglobin 29, Mean Corpuscular Hemoglobin Concent 33, Red Cell Distribution Width 16.1, Platelet Count 249, Mean Platelet Volume 9.3, Neutrophils (%) (Auto) 53, Lymphocytes (%) (Auto) 27, Monocytes (%) (Auto) 8, Eosinophils (%) (Auto) 11, Basophils (%) (Auto) 1, Neutrophils # (Auto) 2.1, Lymphocytes # (Auto) 1.1, Monocytes # (Auto) 0.3, Eosinophils # (Auto) 0.4, Basophils # (Auto) 0.0, Sodium Level 137, Potassium Level 4.2, Chloride Level 105, Carbon Dioxide Level 24, Anion Gap 8, Blood Urea Nitrogen 21, Creatinine 1.10, Estimat Glomerular Filtration Rate > 60, BUN/ Creatinine Ratio 19, Glucose Level 107, Calcium Level 9.4 06/25/17 11:02: Glucometer 189 Discharge Home Medications: Active Scripts Active Augmentin 875-125 Tablet (Amoxicillin/Potassium Clav) 1 Each Tablet 1 Each PO BID 7 Days Reported Allopurinol 300 Mg Tablet 300 Mg PO DAILY Naproxen 500 Mg Tablet 500 Mg PO BID Atorvastatin Calcium 20 Mg Tablet 20 Mg PO HS 5-Htp (5-Hydroxytryptophan) 100 Mg Capsule 100 Mg PO DAILY Toprol Xl (Metoprolol Succinate) 25 Mg Tab.er.24h 25 Mg PO BID Aspirin EC (Aspirin) 81 Mg Tablet.dr 81 Mg PO DAILY Gabapentin 300 Mg Capsule 300 Mg PO TID Cetirizine HCl 10 Mg Tablet 10 Mg PO DAILY Isosorbide Mononitrate ER (Isosorbide Mononitrate) 30 Mg Tab.er.24h 30 Mg PO DAILY Multivitamins (Multivitamin) 1 Each Tablet 1 Tab PO DAILY Singulair (Montelukast Sodium) 10 Mg Tablet 10 Mg PO HS Cozaar (Losartan Potassium) 50 Mg Tablet 50 Mg PO DAILY Vitamin B-12 (Cyanocobalamin (Vitamin B-12)) 1,000 Mcg Tablet 1,000 Mcg PO DAILY Victoza 3-Justin (Liraglutide) 0.6 Mg/0.1 Ml Pen.injctr 1.2 Mg SC DAILY Phenytoin Sodium Extended 100 Mg Capsule 200 Mg PO BID TAKES 2 (100 MG) CAPSULES Fish Oil 1,200 mg Softgel ([place]-3 Fatty Acids/Fish Oil) 1 Each Capsule 1,200 Mg PO DAILY Instructions to patient/family Please see electronic discharge instructions given to patient. Clinical Quality Measures DVT/VTE Risk/Contraindication: Risk Factor Score Per Nursin RFS Level Per Nursing on Admit: 4+=Very High Copy Copies To 1: MICHELLE HARO MD Problem Qualifiers (1) Cellulitis: Site of cellulitis: extremity Site of cellulitis of extremity: lower extremity Laterality: left Qualified Codes: L03.116 - Cellulitis of left lower limb (2) Peripheral neuropathy: Peripheral neuropathy type: polyneuropathy due to other toxic agent Qualified Codes: 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 (3) CAD (coronary artery disease): Coronary Disease-Associated Artery/Lesion type: [place] artery [place] vs. transplanted heart: [place] heart Associated angina: angina presence unspecified Qualified Codes: I25.10 - Atherosclerotic heart disease of [place] coronary artery without angina pectoris ROSIO LAWLER MD Jun 25, 2017 1:41 pm
[2017-06-26] MEDS ORDERED: TROUGH ORDER-PHARMACY XX NR (05:00)
== END 2017-06-25 13:15 | disposition home or self-care (01) | DRG 603 ==
LOC: EDUNIT# 22:33 → ER 22:35 → 4TH 06-23 01:20
PROVIDERS: ADMIT Internal Medicine; ATTEND Family Medicine
DX: L03.115 Cellulitis of right lower limb (principal); E11.51 Type 2 diabetes mellitus with diabetic peripheral angiopathy without gangrene; I87.8 Other specified disorders of veins; J30.2 Other seasonal allergic rhinitis; J84.89 Other specified interstitial pulmonary diseases; I25.119 Atherosclerotic heart disease of native coronary artery with unspecified angina pectoris; I10 Essential (primary) hypertension; E66.9 Obesity, unspecified; Z68.41 Body mass index [BMI] 40.0-44.9, adult; G47.30 Sleep apnea, unspecified; D64.9 Anemia, unspecified; E78.5 Hyperlipidemia, unspecified; M10.9 Gout, unspecified; G40.909 Epilepsy, unspecified, not intractable, without status epilepticus; I25.2 Old myocardial infarction; Z96.643 Presence of artificial hip joint, bilateral; Z95.5 Presence of coronary angioplasty implant and graft
CPT/HCPCS: 36415; 71020; 73590; 80048; 80053; 80202; 82962; 83605; 83735; 83880; 84443; 84484; 85025; 85610; 85652; 85730; 86141; 87040; 93005; 96365

== ENCOUNTER 2017-08-15 09:45 | Outpatient (CLI) | payer MEDICARE, OTHER ==
[~2017-08-15] VITALS: Ht 160 cm; Wt 103.4 kg
[~2017-08-15 09:45] MED LIST changes: +5-HY100C3 PO; +ALLO100T PO; +ALLO300T2 PO; +AMOX-358 PO; +ASPI-983 PO; +ATOR20TA66 PO; +GABA-488 PO; +ISOS30TA3 PO; +LOSA50TA2 PO; +MONT10TA21 PO; +MULT1TAB69 PO; +NAPR-1067 PO; +NAPR500T4 PO; +[UNRECOGNIZED DRUG - REMARK]
[2017-08-15 10:04] VITALS: BP 140/80
[2017-08-15] MEDS ORDERED: ISOS10TA8 PO (10:10)
== END 2017-08-15 10:17 | disposition home or self-care (01) ==
LOC: PREOP 09:45
PROVIDERS: ATTEND Podiatrist Foot & Ankle Surgery
DX: Z01.818 Encounter for other preprocedural examination (principal); M20.41 Other hammer toe(s) (acquired), right foot
CPT/HCPCS: 87081

== ENCOUNTER 2017-09-06 11:21 | Day surgery (SDC) | payer MEDICARE, OTHER ==
[~2017-09-06] VITALS: Ht 160 cm; Wt 103.4 kg
[~2017-09-06 11:21] MED LIST changes: +ISOS10TA8 PO
[2017-09-06] MEDS: LACTATED RINGERS 1,000 ML IV PRN ×2 (11:45→12:45)
[2017-09-06] MEDS ORDERED: ceFAZolin 1,000 MG (ANCEF) VIAL ONE (11:47)
[2017-09-06] MEDS ORDERED: NS (IVPB) 50 ML ONE (11:47)
--- NOTE | 2017-09-06 11:55 | Physical Therapy Ortho Eval ---
PT Orthopedic Evaluation Type of Surgery right hammertoe surgery Prior Level of Function Current Living Status: Spouse Locomotion (Upon Admit): Front Wheeled Walker Established Durable Medical Eq: Front Wheeled Walker Patient has been using a FWW for a while and is familiar with its use. He was educated on how to use the walker when NWB and he is confident that he can. Subjective Entry Into Home: Stairs With Railing Steps Into Home: 2 Treatment Rendered Treatment: Reviewed Precautions, Caregiver Instruction Assessment/Goals Goal Time Frame: 1 Visit Patient has 2 rails on either side of his stairs and he states that he will have no problem doing these hopping up on one leg. Plan Treatment Plan: Discharge PT/Family Agrees to Plan: Yes Time Time In: 1130 Time Out: 1140 Total Billed Treatment Time: 10 Billed Treatment Time 1 visit EVL 10' PT/OT Therapy GCodes Therapy Functional Limitation: Physical Therapy Test(s)/Tool used to determine: Level of Assistance Scale Functional Limitation-Current Charge Code: MOBCUR Modifier: CI Functional Limitation-Goal Charge Code: MOBGOAL Modifier: CI Functional Limitation-D/C Charge Codes: MOBDC Modifier: CI MARCO A BLANTON PT Sep 06, 2017 11:55
[2017-09-06] MEDS ORDERED: LIDOCAINE 1% INJ 20 ML (XYLOCAINE) VIAL ONE (11:58)
[2017-09-06] MEDS ORDERED: BUPIVACAINE 0.5% 30 ML (SENSORCAINE) VIAL ONE (11:59)
[2017-09-06] MEDS ORDERED: CATHETER FLUSH 10 ML SYR IV PRN (12:00)
[2017-09-06] MEDS ORDERED: ceFAZolin 1 GM/NS 50 ML IVPB IV ONE ×2 (12:00)
--- NOTE | 2017-09-06 12:04 | Progress Note-Pre Operative ---
Pre-Operative Progress Note H&P Reviewed The H&P was reviewed, patient examined and no changes noted. Date Seen by Provider: Sep 06, 2017 Time Seen by Provider: 12:04 Date H&P Reviewed: Sep 06, 2017 Time H&P Reviewed: 12:04 Pre-Operative Diagnosis: Hammertoes 4,5, right foot JACK GAR DPM Sep 06, 2017 12:04 pm
[2017-09-06] MEDS ORDERED: fentaNYL INJECTION 100 MCG/2 ML AMP ONE (12:07)
[2017-09-06] MEDS ORDERED: MIDAZOLAM 2 MG/2 ML (VERSED) VIAL ONE (12:07)
[2017-09-06] MEDS ORDERED: ONDANSETRON 4 MG/2 ML (SDV) Z0FRAN ONE (12:08)
[2017-09-06] MEDS ORDERED: proPOfol 200 MG/20 ML (DIPRIVAN) VIAL IV ONE (12:08)
[2017-09-06] MEDS ORDERED: LIDOCAINE PF 2% 5 ML (XYLOCAINE) VIAL ONE (12:08)
[2017-09-06] MEDS ORDERED: SEVOFLURANE (ULTANE) 15 ML INHAL SOLN ONE ×5 (12:08→12:56)
[2017-09-06 12:36] VITALS: BP 148/49
[2017-09-06] MEDS ORDERED: BUPIVACAINE 0.5% 30 ML (SENSORCAINE) VIAL INJ ONE (13:00)
--- NOTE | 2017-09-06 13:05 | Progress Note-Post Operative ---
Post-Operative Progess Note Surgeon (s)/Program Production Specialist (s) Surgeon JACK GAR DPM Program Production Specialist: none Pre-Operative Diagnosis Hammertoes 4,5, right foot Post-Operative Diagnosis same Procedure & Operative Findings Date of Procedure 09/06/17 Procedure Performed/Findings Partial amputation of the right 4th toe, Arthroplasty right 5th toe Anesthesia Type General Estimated Blood Loss Estimated blood loss (mL): minimal Specimens/Packing Specimens Removed none JACK GAR DPM Sep 06, 2017 1:05 pm
[2017-09-06] MEDS ORDERED: LACTATED RINGERS 1,000 ML IV SCH (13:06)
[2017-09-06] MEDS ORDERED: CEPH500C PO (13:13)
[2017-09-06] MEDS ORDERED: morphine INJ 10 MG/ML 1ML (SYR OR VIAL) IVP PRN (13:15)
[2017-09-06] MEDS ORDERED: MEPERIDINE (DEMEROL) INJ 50 MG/ML IVP PRN (13:15)
[2017-09-06] MEDS ORDERED: ONDANSETRON 4 MG/2 ML (SDV) Z0FRAN IVP PRN (13:15)
[2017-09-06] MEDS ORDERED: ceFAZolin INJECTION 1,000 MG in NS (IVPB) 50 ML IV ONE (14:00)
[2017-09-06 14:05] VITALS: BP 128/80
--- NOTE | 2017-09-06 14:25 | Diagnostic Imaging Report ---
INDICATION: Postop hammertoe foot. FINDINGS: There has been resection of the distal phalanges of the second, third and fourth digit. Osteotomy of the proximal phalanx of the fifth digit. There is noted rather dense vascular calcification throughout the foot. IMPRESSION: Amputations and osteotomies of the distal phalanges. Dictated by: Dictated on workstation # [id number]
[2017-09-06 14:35] VITALS: BP 126/81
[2017-09-06 15:05] VITALS: BP 124/80
[2017-09-06 15:40] VITALS: BP 124/80
--- NOTE | 2017-09-06 16:32 | OPERATIVE REPORT ---
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 PROCEDURES: 1. Arthroplasty, right 5th toe. 2. Partial amputation of the right 4th toe. WOUND CLASS: Clean. ANESTHESIA: General. HEMOSTASIS: Pneumatic ankle tourniquet at 250 mmHg. INDICATION: This 67-year-old male who presents complaining of chronic hammertoes. He has had a history of amputation of the lesser toes 2, 3 on the right. He has had a continual hyperkeratotic lesion to the right 4th toe, which has become symptomatic for him. He understands that there are no guarantees with the procedure, but with a partial amputation, there is less pressure associated with the toe and the contracture of the digit will be removed. The patient is willing to proceed. DESCRIPTION OF PROCEDURE: The patient was brought back to the operating table, placed in secure supine position. General anesthetic was then induced. Appropriate timeout was performed. A pneumatic ankle tourniquet was placed on the right lower extremity over several layers of padding. The right foot was then prepped and draped in the normal sterile manner. The right foot was then elevated and allowed to exsanguinate after which the tourniquet was inflated to 250 mmHg. Attention was then directed to the right 4th toe where two semi-curved incisions were created, the first overlying the middle phalanx extending distally dorsally and then to the same position to the lateral aspect of the toe. The next incision was from the same starting point to the hyponychium area and back to the same ending point of the previous incision. The incision was deepened down to bone and there was a disarticulation at the distal interphalangeal joint. Next, utilizing a power sagittal saw, the distal portion of the middle phalanx was resected. The wound was flushed with copious amounts of normal saline. There was no gross fracture. No gross signs of infection noted. Closure was then performed with a simple interrupted type stitch utilizing 4-0 Prolene. Excellent apposition of the tissue was then noted. Attention was then directed to the right 5th toe where 2 semielliptical incisions were created at a proximal lateral to distal medial orientation overlying the proximal interphalangeal joint. The incision was deepened down to the capsule and extensor tendon tissue. The circumscribed skin was removed in toto. The incision was created down to the extensor tendon where a transverse tenotomy was performed overlying the proximal interphalangeal joint. The medial lateral collateral ligaments were also released. This exposed the hypertrophic head of the proximal phalanx, which was resected utilizing a power sagittal saw. The wound was flushed with copious amounts of normal saline and closure was then performed in layers. Deep closure was performed with 4-0 Vicryl, superficial with 4-0 Vicryl, skin closure with 4-0 Prolene in a horizontal mattress type stitch. The tourniquet was released noting appropriate capillary refill time to the distal aspect of the 4th and 5th digits right foot. Postoperative injection consisted of 10 mL of 0.5% Marcaine injected in a local effusion to the surgical sites. Postoperative dressing consisted of Betadine soaked Adaptic, sterile 4 x 4, sterile Kerlix all secured with a Coban wrap. The patient tolerated the anesthesia and procedure well, was transported from the operating room to the recovery area with vital signs stable and vascular status intact to all remaining digits of the right foot. He is to follow up in my office in 10 days' period of time or sooner if necessary. Job ID: [id number] DocumentID: [id number] Dictated Date: 09/06/2017 13:20:57 Core Composer Machine Tender Date: 09/06/2017 16:30:58 Dictated By: SB DURANT
== END 2017-09-06 13:40 | disposition home or self-care (01) ==
LOC: SDC 11:21
PROVIDERS: ATTEND Podiatrist Foot & Ankle Surgery
DX: M20.41 Other hammer toe(s) (acquired), right foot (principal); I25.10 Atherosclerotic heart disease of native coronary artery without angina pectoris; E11.9 Type 2 diabetes mellitus without complications; I10 Essential (primary) hypertension; E78.5 Hyperlipidemia, unspecified; R56.9 Unspecified convulsions; G47.33 Obstructive sleep apnea (adult) (pediatric); Z79.899 Other long term (current) drug therapy; Z79.82 Long term (current) use of aspirin; Z95.5 Presence of coronary angioplasty implant and graft
CPT/HCPCS: 73620; 82962

== ENCOUNTER → 2017-12-19 | Outpatient (CLI) | payer MEDICARE, OTHER ==
[~2017-12-19] MED LIST changes: +NAPR-915 PO; -NAPR500T4 PO
[2017-12-19 09:39] LABS: BASOPHILS % (AUTO) 1 % (0-10); EOSINOPHILS # (AUTO) 0.3 10^3/uL (0.0-0.3); EOSINOPHILS % (AUTO) 8 % (0-10); HEMATOCRIT 43 % (40-54); HEMOGLOBIN 14.5 G/DL (13.3-17.7); LYMPHOCYTES # (AUTO) 1.1 X 10^3 (1.0-4.0); LYMPHOCYTES % (AUTO) 31 % (12-44); MEAN CORPUSCULAR HEMOGLOBIN 31 PG (25-34); MEAN CORPUSCULAR HGB CONC 34 G/DL (32-36); MEAN CORPUSCULAR VOLUME 91 FL (80-99); MEAN PLATELET VOLUME 9.1 FL (7.4-10.4); MONOCYTES # (AUTO) 0.4 X 10^3 (0.0-1.0); MONOCYTES % (AUTO) 11 % (0-12); NEUTROPHILS # (AUTO) 1.7 X 10^3 (1.8-7.8); NEUTROPHILS % (AUTO) 49 % (42-75); PLATELET COUNT 211 10^3/uL (130-400); RED BLOOD COUNT 4.74 10^6/uL (4.35-5.85); RED CELL DISTRIBUTION WIDTH 14.8 % (10.0-14.5); WHITE BLOOD COUNT 3.4 10^3/uL (4.3-11.0)
== END ==
LOC: LAB 09:23
PROVIDERS: ATTEND Podiatrist Foot & Ankle Surgery
DX: E11.42 Type 2 diabetes mellitus with diabetic polyneuropathy (principal)
CPT/HCPCS: 36415; 83036; 85025

== ENCOUNTER 2018-04-16 11:58 | Outpatient (CLI) | payer MEDICARE, OTHER ==
[~2018-04-16] VITALS: Ht 160 cm; Wt 104.3 kg
[2018-04-16] MEDS ORDERED: ATOR40TA70 PO (12:11)
[2018-04-16 12:16] VITALS: BP 135/79
[2018-04-16 12:44] LABS: CLARITY,URINE CLEAR; COLOR,URINE YELLOW; GLUCOSE, URINE (UA) NEGATIVE (NEGATIVE); KETONES,URINE NEGATIVE (NEGATIVE); LEUKOCYTE ESTERASE ,URINE NEGATIVE (NEGATIVE); NITRITE,URINE NEGATIVE (NEGATIVE); PH,URINE 5 (5-9); PROTEIN,URINE 2+ (NEGATIVE); UROBILINOGEN,URINE NORMAL (NORMAL)
[2018-04-16 12:44] LABS: BASOPHILS % (AUTO) 1 % (0-10); EOSINOPHILS # (AUTO) 0.2 10^3/uL (0.0-0.3); EOSINOPHILS % (AUTO) 4 % (0-10); HEMATOCRIT 41 % (40-54); LYMPHOCYTES # (AUTO) 1.3 X 10^3 (1.0-4.0); LYMPHOCYTES % (AUTO) 33 % (12-44); MEAN CORPUSCULAR HEMOGLOBIN 32 PG (25-34); MEAN CORPUSCULAR HGB CONC 35 G/DL (32-36); MEAN CORPUSCULAR VOLUME 91 FL (80-99); MEAN PLATELET VOLUME 9.2 FL (7.4-10.4); MONOCYTES # (AUTO) 0.4 X 10^3 (0.0-1.0); MONOCYTES % (AUTO) 10 % (0-12); NEUTROPHILS % (AUTO) 52 % (42-75); PLATELET COUNT 195 10^3/uL (130-400); RED BLOOD COUNT 4.45 10^6/uL (4.35-5.85); RED CELL DISTRIBUTION WIDTH 16.1 % (10.0-14.5); WHITE BLOOD COUNT 3.9 10^3/uL (4.3-11.0)
[2018-04-16 12:57] LABS: BACTERIA,URINE NEGATIVE /HPF; SQUAMOUS EPITHELIAL CELL,UR RARE /HPF
[2018-04-16 12:58] LABS: BILIRUBIN,URINE 1+ (NEGATIVE)
[2018-04-16 13:03] LABS: PROTHROMBIN TIME PATIENT 12.8 SEC (12.2-14.7)
[2018-04-16 13:09] LABS: BUN/CREATININE RATIO 21; CALCIUM 8.8 MG/DL (8.5-10.1); CARBON DIOXIDE 23 MMOL/L (21-32); CHLORIDE 104 MMOL/L (98-107); CREATININE SERUM 0.91 MG/DL (0.60-1.30); GFR ESTIMATED > 60; GLUCOSE 184 MG/DL (70-105); POTASSIUM 3.7 MMOL/L (3.6-5.0); SODIUM 137 MMOL/L (135-145)
--- NOTE | 2018-04-16 13:10 | Diagnostic Imaging Report ---
INDICATION: Knee pain. FINDINGS: There is air trapping and COPD chronic. There is some blunting of the left posterior sulcus which may be pleural thickening or small amount of pleural fluid. Heart size is within normal limits. No vascular congestion. IMPRESSION: Left pleural thickening versus small left effusion. Upper limits heart size but no failure pattern or pneumonia. Dictated by: Dictated on workstation # [id number]
== END 2018-04-16 14:22 | disposition home or self-care (01) ==
LOC: PREOP 11:58
PROVIDERS: ATTEND Orthopaedic Surgery
DX: Z01.810 Encounter for preprocedural cardiovascular examination (principal); Z01.811 Encounter for preprocedural respiratory examination; Z01.812 Encounter for preprocedural laboratory examination; Z11.2 Encounter for screening for other bacterial diseases; M17.12 Unilateral primary osteoarthritis, left knee; E11.9 Type 2 diabetes mellitus without complications; I10 Essential (primary) hypertension
CPT/HCPCS: 36415; 71046; 80048; 81000; 85025; 85610; 86850; 86900; 86901; 87081; 93005

== ENCOUNTER 2018-04-22 08:36 | Inpatient (IN) | payer MEDICARE, OTHER ==
[~2018-04-22] VITALS: Ht 160 cm; Wt 104.3 kg
[~2018-04-22 08:36] MED LIST changes: +ATOR40TA70 PO; -LOSA50TA36 PO; +LOSA50TA7 PO
[2018-04-22] MEDS ORDERED: MIDAZOLAM 2 MG/2 ML (VERSED) VIAL ONE (08:51)
[2018-04-22] MEDS: LACTATED RINGERS 1,000 ML IV PRN ×3 (09:00→13:11)
[2018-04-22] MEDS ORDERED: GABAPENTIN 600 MG (NEURONTIN) TAB PO ONE (09:00)
[2018-04-22] MEDS ORDERED: CELECOXIB 100 MG (CeleBREX) CAP PO ONE (09:00)
[2018-04-22] MEDS ORDERED: ceFAZolin 2 GM IV Premixed 50 ML IV ONE (09:00)
[2018-04-22] MEDS ORDERED: ONDANSETRON 4 MG/2 ML (SDV) Z0FRAN IVP ONE (09:00)
[2018-04-22 09:09] VITALS: BP 142/91
[2018-04-22] MEDS ORDERED: fentaNYL INJECTION 100 MCG/2 ML AMP ONE ×2 (09:41→11:34)
[2018-04-22] MEDS ORDERED: LIDOCAINE PF 2% 5 ML (XYLOCAINE) VIAL ONE (09:41)
[2018-04-22] MEDS ORDERED: ONDANSETRON 4 MG/2 ML (SDV) Z0FRAN ONE (09:41)
[2018-04-22] MEDS ORDERED: proPOfol 200 MG/20 ML (DIPRIVAN) VIAL IV ONE (09:41)
[2018-04-22] MEDS ORDERED: SEVOFLURANE (ULTANE) 15 ML INHAL SOLN ONE ×5 (09:41→12:34)
[2018-04-22] MEDS ORDERED: GENTAMICIN 40 MG/ML 2 ML INJ SDV ONE (09:50)
[2018-04-22] MEDS ORDERED: INTRA-ARTICULAR IU ONE ×4 (10:15)
--- NOTE | 2018-04-22 10:24 | Progress Note-Pre Operative ---
Pre-Operative Progress Note H&P Reviewed The H&P was reviewed, patient examined and no changes noted. Date Seen by Provider: Apr 22, 2018 Time Seen by Provider: 10:00 Date H&P Reviewed: Apr 22, 2018 Time H&P Reviewed: 10:00 Pre-Operative Diagnosis: Primary Osteoarthritis Left Knee JUAN ZAVALETA DO Apr 22, 2018 10:24
[2018-04-22] MEDS ORDERED: BACLOFEN 10 MG (LIORESAL) TAB PO PRN (10:45)
[2018-04-22] MEDS ORDERED: KETOROLAC 15 MG/ML VIAL IVP PRN (10:45)
[2018-04-22] MEDS ORDERED: PROMETHAZINE INJ 25 MG/ML (PHENERGAN) AMP IVP PRN (10:45)
[2018-04-22] MEDS ORDERED: ONDANSETRON 4 MG/2 ML (SDV) Z0FRAN IVP PRN ×2 (10:45→13:15)
[2018-04-22] MEDS ORDERED: BISACODYL 10 MG SUPP (DULCOLAX) PR PRN (10:45)
[2018-04-22] MEDS ORDERED: TRANEXAMIC ACID 100 MG/ML 10 ML INJECTION IV ONE (11:50)
[2018-04-22] MEDS ORDERED: ROCURONIUM 10 MG/ML 5 ML SYRINGE IV ONE (12:02)
[2018-04-22] MEDS ORDERED: NEO/POLY/BACI (NEOSPORIN) OPHTH OINT 3.5 GM ONE (12:09)
[2018-04-22] MEDS ORDERED: NEO/POLY/BAC (NEOSPORIN) OINT 15 GM TUBE ONE (12:10)
[2018-04-22] MEDS ORDERED: PHENYLEPHRINE 100 MCG/ML 10 ML (ANESTHESIA) SYR ONE (12:34)
[2018-04-22] MEDS ORDERED: LACTATED RINGERS 1,000 ML IV ONE (12:34)
--- NOTE | 2018-04-22 13:01 | Progress Note-Post Operative ---
Post-Operative Progess Note Surgeon (s)/Radiator Specialist (s) Surgeon JUAN ZAVALETA DO Radiator Specialist: Thad Greenberg IT AUDITOR-Adriana Pre-Operative Diagnosis Primary Osteoarthritis Left Knee Post-Operative Diagnosis same Procedure & Operative Findings Date of Procedure 04/22/18 Procedure Performed/Findings Left Total Knee Arthroplasty Anesthesia Type General with femoral and [place] nerve block Estimated Blood Loss Estimated blood loss (mL): 100 ml Specimens/Packing Specimens Removed none JUAN ZAVALETA DO Apr 22, 2018 1:01 pm
[2018-04-22] MEDS ORDERED: morphine INJ 10 MG/ML 1ML (SYR OR VIAL) ONE (13:10)
[2018-04-22] MEDS: morphine INJ 10 MG/ML 1ML (SYR OR VIAL) IVP PRN ×3 (13:14→14:24)
[2018-04-22] MEDS ORDERED: MEPERIDINE (DEMEROL) INJ 50 MG/ML IVP PRN (13:15)
[2018-04-22] MEDS ORDERED: HYDROmorphone 2 MG/ML VIAL (DILAUDID) IV PRN (13:15)
[2018-04-22 14:00] VITALS: BP 128/62
[2018-04-22] MEDS: D5 1/2 NS 1000 ML IV SOLUTION 1,000 ML IV SCH (14:34)
[2018-04-22] MEDS: GABAPENTIN 300 MG (NEURONTIN) CAP PO SCH ×2 (14:34→20:26)
--- NOTE | 2018-04-22 15:58 | Diagnostic Imaging Report ---
INDICATION: Left knee pain. FINDINGS: AP and lateral views of the left knee show postop changes from joint arthroplasty. The prosthesis is in good position. The alignment is normal. IMPRESSION: Good alignment of the left knee following joint arthroplasty. Dictated by: Dictated on workstation # [id number]
[2018-04-22 16:30] VITALS: BP 134/65
[2018-04-22] MEDS: inSUlin ASPART (NovoLOG) 1 UNIT/0.01 ML (CHARGE PER UNIT) SC SCH ×2 (17:00→20:16)
--- OUTSIDE RECORDS SUMMARY | 2018-04-22 17:04 | XMS REPORT | Continuity of Care Document ---
Author Author [facility] Organization [facility] Address Unknown Phone Unavailable Allergies Active Description Code Type Severity Reaction Onset Reported/Identified Relationship to Patient Clinical Status Yes hydrocodone [id number] Drug Allergy Mild RASH (NO REACTI 01/02/2017 Yes Sulfa (Sulfonamide Antibiotics) [id number] Drug Allergy Unknown N/A 2016 Medications Medication Packaging Start Date Stop Date Route Dosage Sig Fish Oil 1 ORAL 10/24/2016 FISH OIL 1 2000 EAC Phenytoin Sodium Extended CAPSULE 10/24/2016 ORAL 200 MG BID TWICE A DAY Vitamin B-12 TABLET 10/24/2016 ORAL 1000 MCG DAILY DAILY Victoza 3-Justin PEN.INJCTR 2016 SUBCUTANEOUSLY 1.2 MG DAILY DAILY Singulair TABLET 06/22/2017 ORAL 10 MG HS BEDTIME Cozaar TABLET 06/22/2017 ORAL 50 MG DAILY DAILY Toprol Xl TAB.ER.24H 06/23/2017 ORAL 12.5 MG BID TWICE A DAY Naproxen TABLET 06/23/2017 ORAL 500 MG BID TWICE A DAY 5-Htp CAPSULE 06/23/2017 ORAL 100 MG DAILY DAILY Multivitamins TABLET 06/23/2017 ORAL 1 TAB DAILY DAILY Aspirin EC TABLET. 06/23/2017 ORAL 81 MG DAILY DAILY Gabapentin CAPSULE 06/23/2017 ORAL 300 MG TID THREE TIMES A DAY Atorvastatin Calcium TABLET 2016 ORAL 20 MG HS BEDTIME Cetirizine HCl TABLET 06/23/2017 ORAL 10 MG DAILY DAILY Allopurinol TABLET 06/23/2017 ORAL 300 MG DAILY DAILY Toprol Xl TAB.ER.24H 06/23/2017 ORAL 12.5 MG BID TWICE A DAY Isosorbide Mononitrate ER TAB.ER.24H 06/23/2017 ORAL 30 MG DAILY DAILY Naproxen TABLET 06/23/2017 ORAL 500 MG BID TWICE A DAY Naproxen TABLET 06/23/2017 ORAL 500 MG BID TWICE A DAY Augmentin 875-125 Tablet TABLET ORAL 1 EACH BID TWICE A DAY Isosorbide Mononitrate TABLET 08/15 ORAL 10 MG DAILY DAILY Cephalexin CAPSULE 09/06/2017 ORAL 1 CAP TID THREE TIMES A DAY Problems Date Dx Coded Attending Type Code Diagnosis Diagnosed By 10/31/2011 Ot 250.00 DIAB KARRIE WO COMPL, TYPE II OR UNSPEC TY 10/31/2011 Ot 401.9 HYPERTENSION NOS 10/31/2011 Ot 440.9 ATHEROSCLEROSIS NOS 10/31/2011 Ot 682.6 CELLULITIS OF LEG 12/31/2014 RIN DPM, JACK Q Ot 250.00 DIAB KARRIE WO COMPL, TYPE II OR UNSPEC TY 12/31/2014 RIN DPM, JACK Q Ot 401.9 HYPERTENSION NOS 12/31/2014 RIN DPM, JACK Q Ot 707.15 ULCER OF OTHER PART OF FOOT 12/31/2014 RIN DPM, JACK Q Ot 730.27 OSTEOMYELITIS NOS-ANKLE 12/31/2014 RIN DPM, JACK Q Ot V58.69 OT MED,LT,CURRENT USE 01/04/2015 SONIDO CARTWRIGHT DO Ot 715.36 01/04/2015 [place] SONIDO DUARTE Ot 717.2 01/04/2015 [place] SONIDO DUARTE Ot 717.3 01/04/2015 [place] SONDIO DUARTE Ot 998.59 01/26/2015 [place] SONIDO DUARTE Ot 715.36 01/26/2015 [place] SONIDO DUARTE Ot 717.2 01/26/2015 [place] SONIDO DUARTE Ot 717.3 01/26/2015 [place] SONIDO DUARTE Ot 998.59 01/29/2015 RIN DPM, JACK Q Ot 707.15 01/29/2015 RIN DPM, JACK Q Ot 730.27 01/29/2015 RIN DPM, JACK Q Ot V72.63 01/29/2015 RIN DPM, JACK Q Ot V74.8 02/24/2015 GENE BOYKIN MD Ot 250.00 DIAB KARRIE WO COMPL, TYPE II OR UNSPEC TY 02/24/2015 GENE BOYKIN MD Ot 272.4 HYPERLIPIDEMIA NEC/NOS 02/24/2015 GENE BOYKIN MD Ot 278.00 OBESITY, NOS 02/24/2015 GENE BOYKIN MD Ot 403.90 HYPTNSV CHR KID DIS, UNSPEC, W CHR KD ST 02/24/2015 GENE BOYKIN MD Ot 412 OLD MYOCARDIAL INFARCT 02/24/2015 GENE BOYKIN MD Ot 413.9 ANGINA PECTORIS NEC/NOS 02/24/2015 GENE BOYKIN MD Ot 414.01 CORONARY ATHEROSCLEROSIS OF [place] CORON 02/24/2015 GENE BOYKIN MD Ot 585.9 CHRONIC KIDNEY DISEASE, UNSPECIFIED 02/24/2015 GENE BOYKIN MD Ot V15.82 HISTORY OF TOBACCO USE 02/24/2015 GENE BOYKIN MD Ot V45.82 PERCUTANEOUS TRANSLUM CORON ANGIOPLASTY 02/24/2015 GENE BOYKIN MD, Ot V58.69 OT MED,LT,CURRENT USE 02/24/2015 GENE BOYKIN MD Ot V85.38 BODY MASS INDEX 38.0-38.9, ADULT 02/24/2015 GENE BOYKIN MD Ot 250.00 02/24/2015 GENE BOYKIN MD Ot 403.90 02/24/2015 GENE BOYKIN MD Ot 413.9 02/24/2015 GENE BOYKIN MD Ot 414.01 02/24/2015 GENE BOYKIN MD Ot 585.9 03/17/2015 GENE BOYKIN MD Ot 250.00 03/17/2015 GENE BOYKIN MD Ot 403.90 03/17/2015 GENE BOYKIN MD Ot 413.9 03/17/2015 GENE BOYKIN MD Ot 414.01 03/17/2015 GENE BOYKIN MD Ot 585.9 06/01/2015 GENE BOYKIN MD Ot V45.82 PERCUTANEOUS TRANSLUM CORON ANGIOPLASTY 06/01/2015 GENE BOYKIN MD Ot V57.89 REHABILITATION PROC NEC 06/04/2015 GENE BOYKIN MD Ot V45.82 06/04/2015 GENE BOYKIN MD Ot V57.89 06/07/2015 RIN DPM, JACK Q Ot 707.15 06/07/2015 RIN DPM, JACK Q Ot 730.27 06/07/2015 RIN DPM, JACK Q Ot V72.63 06/07/2015 RIN DPM, JACK Q Ot V74.8 06/07/2015 GENE BOYKIN MD Ot 250.00 06/07/2015 GENE BOYKIN MD Ot 403.90 06/07/2015 GENE BOYKIN MD Ot 413.9 06/07/2015 GENE BOYKIN MD Ot 414.01 06/07/2015 GENE BOYKIN MD Ot 585.9 06/07/2015 GENE BOYKIN MD Ot V45.82 06/07/2015 GENE BOYKIN MD Ot V57.89 06/07/2015 GENE BOYKIN MD Ot V45.82 06/07/2015 GENE BOYKIN MD Ot V57.89 06/07/2015 GENE BOYKIN MD Ot V45.82 06/07/2015 GENE BOYKIN MD Ot V57.89 06/08/2015 RIN DPM, JACK Q Ot 707.15 06/08/2015 RIN DPM, JACK Q Ot 730.27 06/08/2015 RIN DPM, JACK Q Ot V72.63 06/08/2015 RIN DPM, JACK Q Ot V74.8 06/08/2015 GENE BOYKIN MD Ot 250.00 06/08/2015 GENE BOYKIN MD Ot 403.90 06/08/2015 GENE BOYKIN MD Ot 413.9 06/08/2015 GENE BOYKIN MD Ot 414.01 06/08/2015 GENE BOYKIN MD Ot 585.9 06/08/2015 GENE BOYKIN MD Ot V45.82 06/08/2015 GENE BOYKIN MD Ot V57.89 06/17/2015 GENE BOYKIN MD Ot V45.82 06/17/2015 GENE BOYKIN MD Ot V57.89 06/22/2015 LORIN BURCH MD Ot R94.4 06/29/2015 GENE BOYKIN MD Ot Z48.812 ENCNTR FOR SURGICAL AFTCR FOLLOWING SURG 06/29/2015 GENE BOYKIN MD Ot Z95.5 PRESENCE OF CORONARY ANGIOPLASTY IMPLANT 07/06/2015 LORIN BURCH MD Ot R94.4 08/27/2015 NEVAEH STEVE ACCOUNTS PAYABLE ASSOCIATE Ot E11.9 TYPE 2 DIABETES MELLITUS WITHOUT COMPLIC 08/27/2015 NEVAEH STEVE APRN Ot S61.215A LACERATION W/O FB OF L RNG FNGR W/O SAM 08/27/2015 NEVAEH STEVE APRN Ot W01.0XXA FALL SAME LEV FROM SLIP/TRIP W/O STRIKE 08/27/2015 NEVAEH STEVE APRN Ot Y92.017 GARDEN OR YARD IN SINGLE-FAMILY (PRIVATE 08/27/2015 NEVAEH STEVE APRN Ot Y99.8 OTHER EXTERNAL CAUSE STATUS 08/27/2015 NEVAEH STEVE ACCOUNTS PAYABLE ASSOCIATE Ot Z23 ENCOUNTER FOR IMMUNIZATION 08/27/2015 NEVAEH STEVE APRN Ot Z79.899 OTHER [facility] (CURRENT) DRUG THERAPY 04/11/2016 MICHELLE REA MD R Ot M25.552 PAIN IN LEFT HIP 04/11/2016 MICHELLE REA MD R Ot R06.00 DYSPNEA, UNSPECIFIED 04/20/2016 RONA TUCKER MICHELLE R Ot M25.552 PAIN IN LEFT HIP 04/20/2016 RONA TUCKER, MICHELLE R Ot R06.00 DYSPNEA, UNSPECIFIED 05/01/2016 RONA TUCKER, MICHELLE R Ot M25.552 PAIN IN LEFT HIP 05/01/2016 RONA TUCKER, MICHELLE R Ot R06.00 DYSPNEA, UNSPECIFIED 05/21/2016 RONA TUCKER, MICHELLE R Ot M25.552 PAIN IN LEFT HIP 05/21/2016 ROAN TUCKER, MICHELLE R Ot R06.00 DYSPNEA, UNSPECIFIED 08/15/2016 RIN DPM, JACK Q Ot 707.15 ULCER OF OTHER PART OF FOOT 08/15/2016 RIN DPM, JACK Q Ot 730.27 OSTEOMYELITIS NOS-ANKLE 08/15/2016 RIN DPM, JACK Q Ot V72.63 PRE-PROCEDURAL LABORATORY EXAMINATION 08/15/2016 RIN DPM, JACK Q Ot V74.8 SCREEN-BACTERIAL DIS NEC 08/15/2016 GENE BOYKIN MD Ot 250.00 DIAB KARRIE WO COMPL, TYPE II OR UNSPEC TY 08/15/2016 GENE BOYKIN MD Ot 403.90 HYPTNSV CHR KID DIS, UNSPEC, W CHR KD ST 08/15/2016 GENE BOYKIN MD Ot 413.9 ANGINA PECTORIS NEC/NOS 08/15/2016 GENE BOYKIN MD Ot 414.01 CORONARY ATHEROSCLEROSIS OF [place] CHAPTER CORON 08/15/2016 GENE BOYKIN MD Ot 585.9 CHRONIC KIDNEY DISEASE, UNSPECIFIED 08/15/2016 MARCIN TUCKER, LORIN Butler Ot R94.4 ABNORMAL RESULTS OF KIDNEY FUNCTION STUD 08/15/2016 RONA TUCKER, MICHELLE Evans Ot M25.552 PAIN IN LEFT HIP 08/15/2016 MICHELLE REA MD Ot R06.00 DYSPNEA, UNSPECIFIED 08/15/2016 THOMAS ESPINOSA DO Ot E11.9 TYPE 2 DIABETES MELLITUS WITHOUT COMPLIC 08/15/2016 THOMAS ESPINOSA DO Ot I10 ESSENTIAL (PRIMARY) HYPERTENSION 08/15/2016 THOMAS ESPINOSA DO Ot K43.9 VENTRAL HERNIA WITHOUT OBSTRUCTION OR GA 08/15/2016 THOMAS ESPINOSA DO Ot N28.1 CYST OF KIDNEY, ACQUIRED 08/15/2016 THOMAS ESPINOSA DO Ot R10.32 LEFT LOWER QUADRANT PAIN 08/15/2016 THOMAS ESPINOSA DO Ot Z79.82 LACE WINDER (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 OF ASPIRIN 08/15/2016 THOMAS ESPINOSA DO Ot Z79.899 OTHER [facility] (CURRENT) DRUG THERAPY 08/22/2016 THOMAS ESPINOSA DO Ot E11.9 TYPE 2 DIABETES MELLITUS WITHOUT COMPLIC 08/22/2016 THOMAS ESPINOSA DO Ot I10 ESSENTIAL (PRIMARY) HYPERTENSION 08/22/2016 THOMAS ESPINOSA DO Ot K43.9 VENTRAL HERNIA WITHOUT OBSTRUCTION OR GA 08/22/2016 THOMAS ESPINOSA DO Ot N28.1 CYST OF KIDNEY, ACQUIRED 08/22/2016 THOMAS ESPINOSA DO Ot R10.32 LEFT LOWER QUADRANT PAIN 08/22/2016 THOMAS ESPINOSA DO Ot Z79.82 LACE WINDER (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 OF ASPIRIN 08/22/2016 THOMAS ESPINOSA DO, Ot Z79.899 OTHER LACE WINDER (CURRENT) DRUG THERAPY 09/10/2016 RIN DPM, JACK Q Ot 707.15 ULCER OF OTHER PART OF FOOT 09/10/2016 RIN DPM, JACK Q Ot 730.27 OSTEOMYELITIS NOS-ANKLE 09/10/2016 RIN DPM, JACK Q Ot V72.63 PRE-PROCEDURAL LABORATORY EXAMINATION 09/10/2016 RIN DPM, JACK Q Ot V74.8 SCREEN-BACTERIAL DIS NEC 09/10/2016 GENE BOYKIN MD Ot 250.00 DIAB KARRIE WO COMPL, TYPE II OR UNSPEC TY 09/10/2016 GENE BOYKIN MD Ot 403.90 HYPTNSV CHR KID DIS, UNSPEC, W CHR KD ST 09/10/2016 GENE BOYKIN MD Ot 413.9 ANGINA PECTORIS NEC/NOS 09/10/2016 GENE BOYKIN MD Ot 414.01 CORONARY ATHEROSCLEROSIS OF [place] CHAPTER CORON 09/10/2016 GENE BOYKIN MD Ot 585.9 CHRONIC KIDNEY DISEASE, UNSPECIFIED 09/10/2016 MARCIN TUCKER, LORIN Butler Ot R94.4 ABNORMAL RESULTS OF KIDNEY FUNCTION STUD 09/10/2016 MICHELLE REA MD Ot M25.552 PAIN IN LEFT HIP 09/10/2016 MICHELLE REA MD Ot R06.00 DYSPNEA, UNSPECIFIED 10/10/2016 Ot 786.2 COUGH 10/10/2016 Ot 250.00 DIAB KARRIE WO COMPL, TYPE II OR UNSPEC TY 10/10/2016 Ot 274.9 GOUT NOS 10/10/2016 Ot 401.9 HYPERTENSION NOS 10/10/2016 Ot 998.59 OTH POSTOPER INFECTION 10/10/2016 Ot V58.63 LONG-TERM( CURRENT)USE OF ANTIPLATELET/AN 10/10/2016 Ot V58.69 OTH MED,LT, CURRENT USE 10/10/2016 Ot 998.59 OTH POSTOPER INFECTION 10/10/2016 Ot V72.63 PRE- PROCEDURAL LABORATORY EXAMINATION 10/10/2016 Ot V74.8 SCREEN- BACTERIAL DIS NEC 10/10/2016 MICHELLE REA MD Ot 845.00 SPRAIN OF ANKLE NOS 10/10/2016 MICHELLE REA MD Ot E000.8 OTHER EXTERNAL CAUSE STATUS 10/10/2016 MICHELLE REA MD Ot E849.0 ACCIDENT IN HOME 10/10/2016 MICHELLE REA MD Ot E928.9 ACCIDENT NOS 10/10/2016 MICHELLE REA MD Ot 715.37 LOC OSTEOARTH NOS-ANKLE 10/10/2016 BENEDICTO REA MDYD R Ot 733.20 CYST OF BONE NOS 10/10/2016 RONA TUCKER, MICHELLE R Ot 734 FLAT FOOT 10/10/2016 RONA TUCKER, MICHELLE Evans Ot 250.00 DIAB KARRIE WO COMPL, TYPE II OR UNSPEC TY 10/10/2016 SONIDO CARTWRIGHT DO Ot 715.36 LOC OSTEOARTH NOS-L/LEG 10/10/2016 CARTWRIGHT SONIDO DUARTE Ot 717.2 DERANG POST MED MENISCUS 10/10/2016 [place] DOSONIDO Ot 717.3 DERANG MED MENISCUS NEC 10/10/2016 [place] DOSONIDO Ot 998.59 OTH POSTOPER INFECTION 10/11/2016 MAGGY TUCKER, KACI Parr Ot R56.9 UNSPECIFIED CONVULSIONS 10/11/2016 MAGGY TUCKER, KACI Parr Ot Z79.899 OTHER [facility] (CURRENT) DRUG THERAPY 10/16/2016 MARTIN ALEMAN Ot E66.01 MORBID (SEVERE) OBESITY DUE TO EXCESS CA 10/16/2016 MARTIN ALEMAN Ot I10 ESSENTIAL (PRIMARY) HYPERTENSION 10/16/2016 MARTIN ALEMAN Ot I25.10 ATHSCL HEART DISEASE OF [place] CORONARY 10/16/2016 MARTIN ALEMAN Ot I65.23 OCCLUSION AND STENOSIS OF BILATERAL [place] 10/16/2016 MARTIN ALEMAN Ot E66.01 MORBID (SEVERE) OBESITY DUE TO EXCESS CA 10/16/2016 MARTIN ALEMAN Ot I10 ESSENTIAL (PRIMARY) HYPERTENSION 10/16/2016 MARTIN ALEMAN Ot I25.10 ATHSCL HEART DISEASE OF [place] CORONARY 10/16/2016 MARTIN ALEMAN Ot I65.23 OCCLUSION AND STENOSIS OF B[place]AL [place] 10/17/2016 MARTIN ALEMAN Ot E66.01 MORBID (SEVERE) OBESITY DUE TO EXCESS CA 10/17/2016 MARTIN ALEMAN Ot I10 ESSENTIAL (PRIMARY) HYPERTENSION 10/17/2016 MARTIN ALEMAN Ot I25.10 ATHSCL HEART DISEASE OF [place] CORONARY 10/17/2016 MARTIN ALEMAN Ot I65.23 OCCLUSION AND STENOSIS OF [place]AL [place] 10/26/2016 KELLY CRESPO MD Ot E11.40 TYPE 2 DIABETES MELLITUS WITH DIABETIC N 10/26/2016 KELLY CRESPO MD, Ot E78.5 HYPERLIPIDEMIA, UNSPECIFIED 10/26/2016 KELLY CRESPO MD, Ot E87.1 HYPO-OSMOLALITY AND HYPONATREMIA 10/26/2016 KELLY CRESPO MD, Ot G40.909 EPILEPSY, UNSP, NOT INTRACTABLE, WITHOUT 10/26/2016 KELLY CRESPO MD, Ot G47.33 OBSTRUCTIVE SLEEP APNEA (ADULT) (PEDIATR 10/26/2016 KELLY CRESPO MD, Ot I10 ESSENTIAL (PRIMARY) HYPERTENSION 10/26/2016 KELLY CRESPO MD, Ot I25.10 ATHSCL HEART DISEASE OF [place] CORONARY 10/26/2016 KELLY CRESPO MD, Ot I25.2 OLD MYOCARDIAL INFARCTION 10/26/2016 KELLY CRESPO MD, Ot J18.1 LOBAR PNEUMONIA, UNSPECIFIED ORGANISM 10/26/2016 KELLY CRESPO MD, Ot J20.9 ACUTE BRONCHITIS, UNSPECIFIED 10/26/2016 KELLY CRESPO MD, Ot M10.9 GOUT, UNSPECIFIED 10/26/2016 KELLY CRESPO MD, Ot T50.2X5A ADVRS EFF OF CRBNC-ANHYDR INHIBTR, BENZO 10/26/2016 KELLY CRESPO MD, Ot Z87.891 PERSONAL HISTORY OF NICOTINE DEPENDENCE 10/26/2016 KELLY CRESPO MD, Ot Z95.5 PRESENCE OF CORONARY ANGIOPLASTY IMPLANT 10/26/2016 KELLY CRESPO MD, Ot Z96.643 PRESENCE OF ARTIFICIAL HIP JOINT, BILATE 11/07/2016 KACI WINTER MD, Ot 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, 11/07/2016 KACI WINTER MD, Ot Z79.899 OTHER LACE WINDER (CURRENT) DRUG THERAPY 11/07/2016 MARTIN ALEMAN Ot E66.01 MORBID (SEVERE) OBESITY DUE TO EXCESS CA 11/07/2016 MARTIN ALEMAN Ot I10 ESSENTIAL (PRIMARY) HYPERTENSION 11/07/2016 FLEMING-CANDELARIA PA, MARTIN K Ot I25.10 ATHSCL HEART DISEASE OF [place] CORONARY 11/07/2016 BERNADETTE-CANDELARIA PA, MARTIN K Ot I65.23 OCCLUSION AND STENOSIS OF [place] 11/14/2016 BERNADETTE-CANDELARIA PA, MARTIN K Ot E66.01 MORBID (SEVERE) OBESITY DUE TO EXCESS CA 11/14/2016 BERNADETTE-CANDELARIA PA, MARTIN K Ot I10 ESSENTIAL (PRIMARY) HYPERTENSION 11/14/2016 BERNADETTE-CANDELARIA PA, MARTIN K Ot I25.10 ATHSCL HEART DISEASE OF [place] CORONARY 11/14/2016 BERNADETTE-CANDELARIA PA, MARTIN K Ot I65.23 OCCLUSION AND STENOSIS OF [place] 11/15/2016 BERNADETTE-CANDELARIA PA, MARTIN K Ot E66.01 MORBID (SEVERE) OBESITY DUE TO EXCESS CA 11/15/2016 BERNADETTE-CANDELARIA PA, MARTIN K Ot I10 ESSENTIAL (PRIMARY) HYPERTENSION 11/15/2016 BERNADETTE-CANDELARIA PA, MARTIN K Ot I25.10 ATHSCL HEART DISEASE OF [place] CORONARY 11/15/2016 BERNADETTE-CANDELARIA PA, MARTIN K Ot I65.23 OCCLUSION AND STENOSIS OF [place] 11/20/2016 BERNADETTE-CANDELARIA PA, MARTIN K Ot E66.01 MORBID (SEVERE) OBESITY DUE TO EXCESS CA 11/20/2016 BERNADETTE-CANDELARIA PA, MARTIN K Ot I10 ESSENTIAL (PRIMARY) HYPERTENSION 11/20/2016 BERNADETTE-CANDELARIA PA, MARTIN K Ot I25.10 ATHSCL HEART DISEASE OF [place] CORONARY 11/20/2016 BERNADETTE-CANDELARIA PA, MARTIN K Ot I65.23 OCCLUSION AND STENOSIS OF [place] 11/22/2016 KACIE VELEZ APRN Ot R06.02 SHORTNESS OF BREATH 11/28/2016 BERNADETTE-CANDELARIA PA, MARTIN K Ot E66.01 MORBID (SEVERE) OBESITY DUE TO EXCESS CA 11/28/2016 BERNADETTE-CANDELARIA PA, MARTIN K Ot I10 ESSENTIAL (PRIMARY) HYPERTENSION 11/28/2016 BERNADETTE-CANDELARIA PA, MARTIN K Ot I25.10 ATHSCL HEART DISEASE OF [place] CORONARY 11/28/2016 BERNADETTE-CANDELARIA PA, MARTIN K Ot I65.23 OCCLUSION AND STENOSIS OF BILATERAL [place] 11/29/2016 MAGGY TUCKER, KACI K Ot G40.219 [facility] EPI W CMPLX PART SEIZ, 11/29/2016 KACI WINTER MD Ot Z79.899 OTHER LACE WINDER (CURRENT) DRUG THERAPY 12/05/2016 MARTIN ALEMAN Ot E66.01 MORBID (SEVERE) OBESITY DUE TO EXCESS CA 12/05/2016 MARTIN ALEMAN Ot I10 ESSENTIAL (PRIMARY) HYPERTENSION 12/05/2016 MARTIN ALEMAN Ot I25.10 ATHSCL HEART DISEASE OF [place] CORONARY 12/05/2016 MARTIN ALEMAN Ot I65.23 OCCLUSION AND STENOSIS OF [place] 12/17/2016 KACIE VELEZ APRN Ot R06.02 SHORTNESS OF BREATH 01/01/2017 MICHELLE REA MD Ot E11.40 TYPE 2 DIABETES MELLITUS WITH DIABETIC N 01/01/2017 MICHELLE REA MD Ot E66.9 OBESITY, UNSPECIFIED 01/01/2017 MICHELLE REA MD Ot E78.00 PURE HYPERCHOLESTEROLEMIA, UNSPECIFIED 01/01/2017 MICHELLE REA MD Ot F10.188 ALCOHOL ABUSE WITH OTHER ALCOHOL-INDUCED 01/01/2017 MICHELLE REA MD Ot G40.89 OTHER SEIZURES 01/01/2017 MICHELLE REA MD Ot G47.30 SLEEP APNEA, UNSPECIFIED 01/01/2017 MICHELLE REA MD Ot I10 ESSENTIAL (PRIMARY) HYPERTENSION 01/01/2017 MICHELLE REA MD Ot I25.10 ATHSCL HEART DISEASE OF [place] CORONARY 01/01/2017 MICHELLE REA MD Ot I25.2 OLD MYOCARDIAL INFARCTION 01/01/2017 MICHELLE REA MD Ot J98.4 OTHER DISORDERS OF LUNG 01/01/2017 MICHELLE REA MD Ot K92.2 GASTROINTESTINAL HEMORRHAGE, UNSPECIFIED 01/01/2017 MICHELLE REA MD Ot M10.9 GOUT, UNSPECIFIED 01/01/2017 MICHELLE REA MD Ot M19.91 PRIMARY OSTEOARTHRITIS, UNSPECIFIED SITE 01/01/2017 MICHELLE REA MD Ot Y36.7X0S WAR OP W CHEM WEAPONS AND OTH UNCONVTL W 01/01/2017 MICHELLE REA MD, Ot Z68.39 BODY MASS INDEX (BMI) 39.0-39.9, ADULT 01/01/2017 MICHELLE REA MD, Ot Z79.84 LACE WINDER (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 OF ORAL HYPOGLYC 01/01/2017 MICHELLE REA MD, Ot Z87.891 PERSONAL HISTORY OF NICOTINE DEPENDENCE 01/01/2017 MICHELLE REA MD, Ot Z95.5 PRESENCE OF CORONARY ANGIOPLASTY IMPLANT 01/01/2017 MICHELLE REA MD, Ot Z96.641 PRESENCE OF RIGHT ARTIFICIAL HIP JOINT 01/01/2017 MICHELLE REA MD, Ot Z96.642 PRESENCE OF LEFT ARTIFICIAL HIP JOINT 01/01/2017 MICHELLE REA MD, Ot E11.40 TYPE 2 DIABETES MELLITUS WITH DIABETIC N 01/01/2017 MICHELLE REA MD, Ot E66.9 OBESITY, UNSPECIFIED 01/01/2017 MICHELLE REA MD, Ot E78.00 PURE HYPERCHOLESTEROLEMIA, UNSPECIFIED 01/01/2017 MICHELLE REA MD Ot F10.188 ALCOHOL ABUSE WITH OTHER ALCOHOL-INDUCED 01/01/2017 MICHELLE REA MD Ot G40.89 OTHER SEIZURES 01/01/2017 MICHELLE REA MD, Ot G47.30 SLEEP APNEA, UNSPECIFIED 01/01/2017 MCIHELLE REA MD Ot I10 ESSENTIAL (PRIMARY) HYPERTENSION 01/01/2017 MICHELLE REA MD Ot I25.10 ATHSCL HEART DISEASE OF [place] CORONARY 01/01/2017 MICHELLE RAE MD Ot I25.2 OLD MYOCARDIAL INFARCTION 01/01/2017 MICHELLE REA MD Ot J98.4 OTHER DISORDERS OF LUNG 01/01/2017 MICHELLE REA MD, Ot K92.2 GASTROINTESTINAL HEMORRHAGE, UNSPECIFIED 01/01/2017 MICHELLE REA MD, Ot M10.9 GOUT, UNSPECIFIED 01/01/2017 MICHELLE REA MD, Ot M19.91 PRIMARY OSTEOARTHRITIS, UNSPECIFIED SITE 01/01/2017 MICHELLE REA MD, Ot Y36.7X0S WAR OP W CHEM WEAPONS AND OTH UNCONVTL W 01/01/2017 MICHELLE REA MD, Ot Z68.39 BODY MASS INDEX (BMI) 39.0-39.9, ADULT 01/01/2017 MICHELLE REA MD, Ot Z79.84 LACE WINDER (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 OF ORAL HYPOGLYC 01/01/2017 MICHELLE REA MD, Ot Z87.891 PERSONAL HISTORY OF NICOTINE DEPENDENCE 01/01/2017 MICHELLE REA MD, Ot Z95.5 PRESENCE OF CORONARY ANGIOPLASTY IMPLANT 01/01/2017 MICHELLE REA MD, Ot Z96.641 PRESENCE OF RIGHT ARTIFICIAL HIP JOINT 01/01/2017 MICHELLE REA MD, Ot Z96.642 PRESENCE OF LEFT ARTIFICIAL HIP JOINT 01/01/2017 RIN DPM, JACK Q Ot 707.15 ULCER OF OTHER PART OF FOOT 01/01/2017 RIN DPM, JACK Q Ot 730.27 OSTEOMYELITIS NOS-ANKLE 01/01/2017 RIN DPM, JACK Q Ot V72.63 PRE-PROCEDURAL LABORATORY EXAMINATION 01/01/2017 RIN DPM, JACK Q Ot V74.8 SCREEN-BACTERIAL DIS NEC 01/01/2017 GENE BOYKIN MD Ot 250.00 DIAB KARRIE WO COMPL, TYPE II OR UNSPEC TY 01/01/2017 GENE BOYKIN MD Ot 403.90 HYPTNSV CHR KID DIS, UNSPEC, W CHR KD ST 01/01/2017 GENE BOYKIN MD Ot 413.9 ANGINA PECTORIS NEC/NOS 01/01/2017 GENE BOYKIN MD Ot 414.01 CORONARY ATHEROSCLEROSIS OF [place] CHAPTER CORON 01/01/2017 GENE BOYKIN MD Ot 585.9 CHRONIC KIDNEY DISEASE, UNSPECIFIED 01/01/2017 MARCIN TUCKER, LORIN P Ot R94.4 ABNORMAL RESULTS OF KIDNEY FUNCTION STUD 01/01/2017 MICHELLE REA MD, Ot M25.552 PAIN IN LEFT HIP 01/01/2017 MICHELLE REA MD, Ot R06.00 DYSPNEA, UNSPECIFIED 01/01/2017 KACI WINTER MD Ot R56.9 UNSPECIFIED CONVULSIONS 01/01/2017 KACI WINTER MD Ot R56.9 UNSPECIFIED CONVULSIONS 01/01/2017 KACI WINTER MD Ot Z79.899 OTHER [facility] (CURRENT) DRUG THERAPY 01/01/2017 MARTIN ALEMAN Ot E66.01 MORBID (SEVERE) OBESITY DUE TO EXCESS CA 01/01/2017 MARTIN ALEMAN Ot I10 ESSENTIAL (PRIMARY) HYPERTENSION 01/01/2017 ISABEL MCDERMOTT MARTIN K Ot 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 SYMPTC EPI W CMPLX PART SEIZ, 01/01/2017 KACI WINTER MD Ot Z79.899 OTHER [place] (CURRENT) DRUG THERAPY 01/01/2017 KACIE VELEZ APRN Ot R06.02 SHORTNESS OF BREATH 01/01/2017 MICHELLE REA MD Ot E11.40 TYPE 2 DIABETES MELLITUS WITH DIABETIC N 01/01/2017 MICHELLE REA MD Ot E66.9 OBESITY, UNSPECIFIED 01/01/2017 MICHELLE REA MD Ot E78.00 PURE HYPERCHOLESTEROLEMIA, UNSPECIFIED 01/01/2017 MICHELLE REA MD Ot F10.188 ALCOHOL ABUSE WITH OTHER ALCOHOL-INDUCED 01/01/2017 MICHELLE REA MD Ot G40.89 OTHER SEIZURES 01/01/2017 MICHELLE REA MD Ot G47.30 SLEEP APNEA, UNSPECIFIED 01/01/2017 MICHELLE REA MD Ot I10 ESSENTIAL (PRIMARY) HYPERTENSION 01/01/2017 MICHELLE REA MD Ot I25.10 ATHSCL HEART DISEASE OF [place] CORONARY 01/01/2017 MICHELLE REA MD Ot I25.2 OLD MYOCARDIAL INFARCTION 01/01/2017 MICHELLE REA MD Ot J98.4 OTHER DISORDERS OF LUNG 01/01/2017 MICHELLE REA MD Ot K92.2 GASTROINTESTINAL HEMORRHAGE, UNSPECIFIED 01/01/2017 MICHELLE REA MD Ot M10.9 GOUT, UNSPECIFIED 01/01/2017 MICHELLE REA MD Ot M19.91 PRIMARY OSTEOARTHRITIS, UNSPECIFIED SITE 01/01/2017 MICHELLE REA MD, Ot Y36.7X0S WAR OP W CHEM WEAPONS AND OTH UNCONVTL W 01/01/2017 MICHELLE REA MD, Ot Z68.39 BODY MASS INDEX (BMI) 39.0-39.9, ADULT 01/01/2017 MICHELLE REA MD, Ot Z79.84 [facility] (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 OF ORAL HYPOGLYC 01/01/2017 MICHELLE REA MD Ot Z87.891 PERSONAL HISTORY OF NICOTINE DEPENDENCE 01/01/2017 MICHELLE REA MD Ot Z95.5 PRESENCE OF CORONARY ANGIOPLASTY IMPLANT 01/01/2017 MICHELLE REA MD R Ot Z96.641 PRESENCE OF RIGHT ARTIFICIAL HIP JOINT 01/01/2017 MICHELLE REA MD Ot Z96.642 PRESENCE OF LEFT ARTIFICIAL HIP JOINT 01/02/2017 MICHELLE REA MD Ot E11.40 TYPE 2 DIABETES MELLITUS WITH DIABETIC N 01/02/2017 MICHELLE REA MD Ot E66.9 OBESITY, UNSPECIFIED 01/02/2017 MICHELLE REA MD Ot E78.00 PURE HYPERCHOLESTEROLEMIA, UNSPECIFIED 01/02/2017 MICHELLE REA MD Ot F10.188 ALCOHOL ABUSE WITH OTHER ALCOHOL-INDUCED 01/02/2017 MICHELLE REA MD Ot G40.89 OTHER SEIZURES 01/02/2017 MICHELLE REA MD Ot G47.30 SLEEP APNEA, UNSPECIFIED 01/02/2017 MICHELLE REA MD Ot I10 ESSENTIAL (PRIMARY) HYPERTENSION 01/02/2017 MICHELLE REA MD Ot I25.10 ATHSCL HEART DISEASE OF [place] CORONARY 01/02/2017 MICHELLE REA MD Ot I25.2 OLD MYOCARDIAL INFARCTION 01/02/2017 SEGLIE MD, MICHELLE R Ot J98.4 OTHER DISORDERS OF LUNG 01/02/2017 MICHELLE REA MD, Ot K92.2 GASTROINTESTINAL HEMORRHAGE, UNSPECIFIED 01/02/2017 MICHELLE REA MD, Ot M10.9 GOUT, UNSPECIFIED 01/02/2017 MICHELLE REA MD, Ot M19.91 PRIMARY OSTEOARTHRITIS, UNSPECIFIED SITE 01/02/2017 MICHELLE REA MD, Ot Y36.7X0S WAR OP W CHEM WEAPONS AND OTH UNCONVTL W 01/02/2017 MICHELLE REA MD, Ot Z68.39 BODY MASS INDEX (BMI) 39.0-39.9, ADULT 01/02/2017 MICHELLE REA MD, Ot Z79.84 [place]ACE [place]INDER (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 OF ORAL HYPOGLYC 01/02/2017 MICHELLE REA MD, Ot Z87.891 PERSONAL HISTORY OF NICOTINE DEPENDENCE 01/02/2017 MICHELLE REA MD Ot Z95.5 PRESENCE OF CORONARY ANGIOPLASTY IMPLANT 01/02/2017 MICHELLE REA MD R Ot Z96.641 PRESENCE OF RIGHT ARTIFICIAL HIP JOINT 01/02/2017 MICHELLE REA MD, Ot Z96.642 PRESENCE OF LEFT ARTIFICIAL HIP JOINT 01/03/2017 MICHELLE REA MD Ot D12.6 BENIGN NEOPLASM OF COLON, UNSPECIFIED 01/03/2017 MICHELLE ERA MD Ot E11.40 TYPE 2 DIABETES MELLITUS WITH DIABETIC N 01/03/2017 MICHELLE REA MD Ot E66.9 OBESITY, UNSPECIFIED 01/03/2017 MICHELLE REA MD Ot E78.00 PURE HYPERCHOLESTEROLEMIA, UNSPECIFIED 01/03/2017 MICHELLE REA MD Ot F10.188 ALCOHOL ABUSE WITH OTHER ALCOHOL-INDUCED 01/03/2017 MICHELLE REA MD R Ot G40.89 OTHER SEIZURES 01/03/2017 MICHELLE REA MD Ot G47.30 SLEEP APNEA, UNSPECIFIED 01/03/2017 MICHELLE REA MD Ot I10 ESSENTIAL (PRIMARY) HYPERTENSION 01/03/2017 MICHELLE REA MD Ot I25.10 ATHSCL HEART DISEASE OF [place] CORONARY 01/03/2017 MICHELLE REA MD R Ot I25.2 OLD MYOCARDIAL INFARCTION 01/03/2017 MICHELLE REA MD, Ot J98.4 OTHER DISORDERS OF LUNG 01/03/2017 MICHELLE REA MD, Ot K29.70 GASTRITIS, UNSPECIFIED, WITHOUT BLEEDING 01/03/2017 MICHELLE REA MD, Ot K44.9 DIAPHRAGMATIC HERNIA WITHOUT OBSTRUCTION 01/03/2017 MICHELLE REA MD, Ot K57.30 DVRTCLOS OF LG INT W/O PERFORATION OR AB 01/03/2017 MICHELLE REA MD, Ot K63.5 POLYP OF COLON 01/03/2017 MICHELLE REA MD, Ot K64.1 SECOND DEGREE HEMORRHOIDS 01/03/2017 MICHELLE REA MD, Ot K92.2 GASTROINTESTINAL HEMORRHAGE, UNSPECIFIED 01/03/2017 MICHELLE REA MD, Ot M10.9 GOUT, UNSPECIFIED 01/03/2017 MICHELLE REA MD, Ot M19.91 PRIMARY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 hemoglobin measurement (mass/volume) 13.0 g/dL 13.3-17.7 Blood hematocrit (volume fraction) 38 % 40-54 Automated erythrocyte mean corpuscular volume 90 [foz_us] 80-99 Automated erythrocyte mean corpuscular hemoglobin (mass per erythrocyte) 31 pg 25-34 Automated erythrocyte mean corpuscular hemoglobin concentration measurement ( mass/volume) 35 g/dL 32-36 Automated erythrocyte distribution width ratio 14.2 % 10.0-14.5 Automated blood platelet count (count/volume) 186 10*3/uL 130-400 Automated blood platelet mean volume measurement 9.6 [foz_us] 7.4-10.4 Automated blood neutrophils/100 leukocytes 95 % 42-75 Automated blood lymphocytes/100 leukocytes 3 % 12-44 Blood monocytes/100 leukocytes 2 % 0-12 Automated blood eosinophils/100 leukocytes 0 % 0-10 Automated blood basophils/100 leukocytes 0 % 0-10 Blood neutrophils automated count (number/volume) 14.1 10*3 1.8-7.8 Blood lymphocytes automated count (number/volume) 0.4 10*3 1.0-4.0 Blood monocytes automated count (number/volume) 0.3 10*3 0.0-1.0 Automated eosinophil count 0.0 10*3/uL 0.0-0.3 Automated blood basophil count (count/volume) 0.0 10*3/uL 0.0-0.1 Comprehensive metabolic panel - 10/25/16 06:50 Serum or plasma sodium measurement (moles/volume) 131 mmol/L 135-145 Serum or plasma potassium measurement (moles/volume) 4.3 mmol/L 3.6-5.0 Serum or plasma chloride measurement (moles/volume) 100 mmol/L 98-107 Carbon dioxide 23 mmol/L 21-32 Serum or plasma anion gap determination (moles/volume) 8 mmol/L 5-14 Serum or plasma urea nitrogen measurement (mass/volume) 14 mg/dL 7-18 Serum or plasma creatinine measurement (mass/volume) 0.87 mg/dL 0.60-1.30 Serum or plasma urea nitrogen/creatinine mass ratio 16 NRG Serum or plasma creatinine measurement with calculation of estimated glomerular filtration rate > NRG Serum or plasma glucose measurement (mass/volume) 164 mg/dL 70-105 Serum or plasma calcium measurement (mass/volume) 8.7 mg/dL 8.5-10.1 Serum or plasma total bilirubin measurement (mass/volume) 0.3 mg/dL 0.1-1.0 Serum or plasma alkaline phosphatase measurement (enzymatic activity/volume) 40 U/L 40-136 Serum or plasma aspartate aminotransferase measurement (enzymatic activity/ volume) 24 U/L 5-34 Serum or plasma alanine aminotransferase measurement (enzymatic activity/volume ) 28 U/L 0-55 Serum or plasma protein measurement (mass/volume) 6.0 g/dL 6.4-8.2 Serum or plasma albumin measurement (mass/volume) 3.3 g/dL 3.2-4.5 Blood manual differential performed detection - 10/25/16 06:50 Blood monocytes/100 leukocytes 1 % NRG Manual blood segmented neutrophils/100 leukocytes 96 % NRG Manual blood lymphocytes/100 leukocytes 2 % NRG Manual blood basophils/100 leukocytes 1 % NRG Blood erythrocyte morphology finding identification NORMAL NRG Capillary blood glucose measurement by glucometer (mass/volume) - 10/25/16 10: 57 Capillary blood glucose measurement by glucometer (mass/volume) 249 mg/dL 70-110 Capillary blood glucose measurement by glucometer (mass/volume) - 10/25/16 14: 50 Capillary blood glucose measurement by glucometer (mass/volume) 253 mg/dL 70-110 Capillary blood glucose measurement by glucometer (mass/volume) - 10/25/16 19: 35 Capillary blood glucose measurement by glucometer (mass/volume) 193 mg/dL 70-110 Complete blood count (CBC) with automated white blood cell (WBC) differential - 10/26/16 04:35 Blood leukocytes automated count (number/volume) 10.1 10*3/uL 4.3-11.0 Blood erythrocytes automated count (number/volume) 4.29 10*6/uL 4.35-5.85 Venous blood hemoglobin measurement (mass/volume) 13.0 g/dL 13.3-17.7 Blood hematocrit (volume fraction) 38 % 40-54 Automated erythrocyte mean corpuscular volume 88 [foz_us] 80-99 Automated erythrocyte mean corpuscular hemoglobin (mass per erythrocyte) 30 pg 25-34 Automated erythrocyte mean corpuscular hemoglobin concentration measurement ( mass/volume) 34 g/dL 32-36 Automated erythrocyte distribution width ratio 13.8 % 10.0-14.5 Automated blood platelet count (count/volume) 205 10*3/uL 130-400 Automated blood platelet mean volume measurement 9.6 [foz_us] 7.4-10.4 Automated blood neutrophils/100 leukocytes 94 % 42-75 Automated blood lymphocytes/100 leukocytes 3 % 12-44 Blood monocytes/100 leukocytes 2 % 0-12 Automated blood eosinophils/100 leukocytes 0 % 0-10 Automated blood basophils/100 leukocytes 0 % 0-10 Blood neutrophils automated count (number/volume) 9.5 10*3 1.8-7.8 Blood lymphocytes automated count (number/volume) 0.3 10*3 1.0-4.0 Blood monocytes automated count (number/volume) 0.2 10*3 0.0-1.0 Automated eosinophil count 0.0 10*3/uL 0.0-0.3 Automated blood basophil count (count/volume) 0.0 10*3/uL 0.0-0.1 Comprehensive metabolic panel - 10/26/16 04:35 Serum or plasma sodium measurement (moles/volume) 129 mmol/L 135-145 Serum or plasma potassium measurement (moles/volume) 4.2 mmol/L 3.6-5.0 Serum or plasma chloride measurement (moles/volume) 98 mmol/L 98-107 Carbon dioxide 22 mmol/L 21-32 Serum or plasma anion gap determination (moles/volume) 9 mmol/L 5-14 Serum or plasma urea nitrogen measurement (mass/volume) 16 mg/dL 7-18 Serum or plasma creatinine measurement (mass/volume) 0.82 mg/dL 0.60-1.30 Serum or plasma urea nitrogen/creatinine mass ratio 20 NRG Serum or plasma creatinine measurement with calculation of estimated glomerular filtration rate > NRG Serum or plasma glucose measurement (mass/volume) 205 mg/dL 70-105 Serum or plasma calcium measurement (mass/volume) 8.9 mg/dL 8.5-10.1 Serum or plasma total bilirubin measurement (mass/volume) 0.2 mg/dL 0.1-1.0 Serum or plasma alkaline phosphatase measurement (enzymatic activity/volume) 42 U/L 40-136 Serum or plasma aspartate aminotransferase measurement (enzymatic activity/ volume) 40 U/L 5-34 Serum or plasma alanine aminotransferase measurement (enzymatic activity/volume ) 49 U/L 0-55 Serum or plasma protein measurement (mass/volume) 6.1 g/dL 6.4-8.2 Serum or plasma albumin measurement (mass/volume) 3.3 g/dL 3.2-4.5 Capillary blood glucose measurement by glucometer (mass/volume) - 10/26/16 09: 45 Capillary blood glucose measurement by glucometer (mass/volume) 271 mg/dL 70-110 Serum or plasma phenytoin measurement (mass/volume) - 11/06/16 10:02 Serum or plasma phenytoin measurement (mass/volume) 12.2 ug/mL 10.0-20.0 Complete blood count (CBC) with automated white blood cell (WBC) differential - 12/31/16 01:55 Blood leukocytes automated count (number/volume) 5.6 10*3/uL 4.3-11.0 Blood erythrocytes automated count (number/volume) 4.74 10*6/uL 4.35-5.85 Venous blood hemoglobin measurement (mass/volume) 14.0 g/dL 13.3-17.7 Blood hematocrit (volume fraction) 42 % 40-54 Automated erythrocyte mean corpuscular volume 88 [foz_us] 80-99 Automated erythrocyte mean corpuscular hemoglobin (mass per erythrocyte) 30 pg 25-34 Automated erythrocyte mean corpuscular hemoglobin concentration measurement ( mass/volume) 34 g/dL 32-36 Automated erythrocyte distribution width ratio 14.9 % 10.0-14.5 Automated blood platelet count (count/volume) 245 10*3/uL 130-400 Automated blood platelet mean volume measurement 9.5 [foz_us] 7.4-10.4 Automated blood neutrophils/100 leukocytes 50 % 42-75 Automated blood lymphocytes/100 leukocytes 31 % 12-44 Blood monocytes/100 leukocytes 12 % 0-12 Automated blood eosinophils/100 leukocytes 6 % 0-10 Automated blood basophils/100 leukocytes 1 % 0-10 Blood neutrophils automated count (number/volume) 2.8 10*3 1.8-7.8 Blood lymphocytes automated count (number/volume) 1.7 10*3 1.0-4.0 Blood monocytes automated count (number/volume) 0.7 10*3 0.0-1.0 Automated eosinophil count 0.3 10*3/uL 0.0-0.3 Automated blood basophil count (count/volume) 0.1 10*3/uL 0.0-0.1 PT panel in platelet poor plasma by coagulation assay - 12/31/16 01:55 Prothrombin time (PT) in platelet poor plasma by coagulation assay 12.4 s 12.2-14.7 INR in platelet poor plasma or blood by coagulation assay 1.0 0.8-1.4 Activated partial thromboplastin time (aPTT) in platelet poor plasma bycoagulation assay - 12/31/16 01:55 Activated partial thromboplastin time (aPTT) in platelet poor plasma bycoagulation assay 28 s 24-35 Blood type T Indirect antibody screen panel - 12/31/16 01:55 ABO+Rh group OP NRG Transfusion band number [id number] NR Blood group antibody screen NEGATIVE NRG Serum or plasma phenytoin measurement (mass/volume) - 12/31/16 01:55 Serum or plasma phenytoin measurement (mass/volume) 10.0-20.0 Comprehensive metabolic panel - 12/31/16 01:55 Serum or plasma sodium measurement (moles/volume) 138 mmol/L 135-145 Serum or plasma potassium measurement (moles/volume) 4.0 mmol/L 3.6-5.0 Serum or plasma chloride measurement (moles/volume) 103 mmol/L 98-107 Carbon dioxide 26 mmol/L 21-32 Serum or plasma anion gap determination (moles/volume) 9 mmol/L 5-14 Serum or plasma urea nitrogen measurement (mass/volume) 24 mg/dL 7-18 Serum or plasma creatinine measurement (mass/volume) 1.16 mg/dL 0.60-1.30 Serum or plasma urea nitrogen/creatinine mass ratio 21 NRG Serum or plasma creatinine measurement with calculation of estimated glomerular filtration rate > NRG Serum or plasma glucose measurement (mass/volume) 90 mg/dL 70-105 Serum or plasma calcium measurement (mass/volume) 9.3 mg/dL 8.5-10.1 Serum or plasma total bilirubin measurement (mass/volume) 0.4 mg/dL 0.1-1.0 Serum or plasma alkaline phosphatase measurement (enzymatic activity/volume) 49 U/L 40-136 Serum or plasma aspartate aminotransferase measurement (enzymatic activity/ volume) 25 U/L 5-34 Serum or plasma alanine aminotransferase measurement (enzymatic activity/volume ) 31 U/L 0-55 Serum or plasma protein measurement (mass/volume) 6.3 g/dL 6.4-8.2 Serum or plasma albumin measurement (mass/volume) 3.8 g/dL 3.2-4.5 Serum or plasma amylase measurement (enzymatic activity/volume) - 12/31/16 01: 55 Serum or plasma amylase measurement (enzymatic activity/volume) 49 U /L 25-125 Lipase - 12/31/16 01:55 Lipase 24 U/L 8-78 Serum or plasma ethanol measurement (mass/volume) - 12/31/16 01:55 Serum or plasma ethanol measurement (mass/volume) < mg/dL <10 Whole blood hemoglobin and hematocrit panel - 12/31/16 04:30 Venous blood hemoglobin measurement (mass/volume) 12.7 g/dL 13.3-17.7 Blood hematocrit (volume fraction) 38 % 40-54 Whole blood hemoglobin and hematocrit panel - 12/31/16 06:26 Venous blood hemoglobin measurement (mass/volume) 12.3 g/dL 13.3-17.7 Blood hematocrit (volume fraction) 37 % 40-54 Capillary blood glucose measurement by glucometer (mass/volume) - 01/01/17 11: 09 Capillary blood glucose measurement by glucometer (mass/volume) 113 mg/dL 70-110 Capillary blood glucose measurement by glucometer (mass/volume) - 01/01/17 15: 58 Capillary blood glucose measurement by glucometer (mass/volume) 204 mg/dL 70-110 Capillary blood glucose measurement by glucometer (mass/volume) - 01/01/17 22: 48 Capillary blood glucose measurement by glucometer (mass/volume) 139 mg/dL 70-110 Capillary blood glucose measurement by glucometer (mass/volume) - 01/02/17 05: 51 Capillary blood glucose measurement by glucometer (mass/volume) 108 mg/dL 70-110 Capillary blood glucose measurement by glucometer (mass/volume) - 01/02/17 10: 52 Capillary blood glucose measurement by glucometer (mass/volume) 115 mg/dL 70-110 Complete blood count (CBC) with automated white blood cell (WBC) differential - 01/02/17 13:50 Blood leukocytes automated count (number/volume) 4.0 10*3/uL 4.3-11.0 Blood erythrocytes automated count (number/volume) 3.64 10*6/uL 4.35-5.85 Venous blood hemoglobin measurement (mass/volume) 10.8 g/dL 13.3-17.7 Blood hematocrit (volume fraction) 32 % 40-54 Automated erythrocyte mean corpuscular volume 89 [foz_us] 80-99 Automated erythrocyte mean corpuscular hemoglobin (mass per erythrocyte) 30 pg 25-34 Automated erythrocyte mean corpuscular hemoglobin concentration measurement ( mass/volume) 33 g/dL 32-36 Automated erythrocyte distribution width ratio 14.6 % 10.0-14.5 Automated blood platelet count (count/volume) 223 10*3/uL 130-400 Automated blood platelet mean volume measurement 8.9 [foz_us] 7.4-10.4 Automated blood neutrophils/100 leukocytes 70 % 42-75 Automated blood lymphocytes/100 leukocytes 19 % 12-44 Blood monocytes/100 leukocytes 7 % 0-12 Automated blood eosinophils/100 leukocytes 4 % 0-10 Automated blood basophils/100 leukocytes 0 % 0-10 Blood neutrophils automated count (number/volume) 2.8 10*3 1.8-7.8 Blood lymphocytes automated count (number/volume) 0.8 10*3 1.0-4.0 Blood monocytes automated count (number/volume) 0.3 10*3 0.0-1.0 Automated eosinophil count 0.2 10*3/uL 0.0-0.3 Automated blood basophil count (count/volume) 0.0 10*3/uL 0.0-0.1 Capillary blood glucose measurement by glucometer (mass/volume) - 01/02/17 16: 16 Capillary blood glucose measurement by glucometer (mass/volume) 101 mg/dL 70-110 Capillary blood glucose measurement by glucometer (mass/volume) - 01/02/17 20: 45 Capillary blood glucose measurement by glucometer (mass/volume) 90 mg/dL 70-110 Capillary blood glucose measurement by glucometer (mass/volume) - 01/03/17 05: 01 Capillary blood glucose measurement by glucometer (mass/volume) 99 mg/dL 70-110 Capillary blood glucose measurement by glucometer (mass/volume) - 01/03/17 11: 16 Capillary blood glucose measurement by glucometer (mass/volume) 172 mg/dL 70-110 Bacterial blood culture - 06/22/17 01:40 FREE TEXT EXTERNAL SEE COMMENT NRG QUANTITY OF GROWTH Isolated NR Bacterial blood culture [id number] NR Complete blood count (CBC) with automated white blood cell (WBC) differential - 06/22/17 23:22 Blood leukocytes automated count (number/volume) 5.9 10*3/uL 4.3-11.0 Blood erythrocytes automated count (number/volume) 4.29 10*6/uL 4.35-5.85 Venous blood hemoglobin measurement (mass/volume) 12.7 g/dL 13.3-17.7 Blood hematocrit (volume fraction) 37 % 40-54 Automated erythrocyte mean corpuscular volume 85 [foz_us] 80-99 Automated erythrocyte mean corpuscular hemoglobin (mass per erythrocyte) 30 pg 25-34 Automated erythrocyte mean corpuscular hemoglobin concentration measurement ( mass/volume) 35 g/dL 32-36 Automated erythrocyte distribution width ratio 16.1 % 10.0-14.5 Automated blood platelet count (count/volume) 235 10*3/uL 130-400 Automated blood platelet mean volume measurement 9.4 [foz_us] 7.4-10.4 Automated blood neutrophils/100 leukocytes 65 % 42-75 Automated blood lymphocytes/100 leukocytes 18 % 12-44 Blood monocytes/100 leukocytes 11 % 0-12 Automated blood eosinophils/100 leukocytes 6 % 0-10 Automated blood basophils/100 leukocytes 0 % 0-10 Blood neutrophils automated count (number/volume) 3.8 10*3 1.8-7.8 Blood lymphocytes automated count (number/volume) 1.1 10*3 1.0-4.0 Blood monocytes automated count (number/volume) 0.6 10*3 0.0-1.0 Automated eosinophil count 0.4 10*3/uL 0.0-0.3 Automated blood basophil count (count/volume) 0.0 10*3/uL 0.0-0.1 PT panel in platelet poor plasma by coagulation assay - 06/22/17 23:22 Prothrombin time (PT) in platelet poor plasma by coagulation assay 11.8 s 12.2-14.7 INR in platelet poor plasma or blood by coagulation assay 0.9 0.8-1.4 Activated partial thromboplastin time (aPTT) in platelet poor plasma bycoagulation assay - 06/22/17 23:22 Activated partial thromboplastin time (aPTT) in platelet poor plasma bycoagulation assay 31 s 24-35 Erythrocyte sedimentation rate by westergren method - 06/22/17 23:22 Erythrocyte sedimentation rate by westergren method 42 mm 0-30 Magnesium - 06/22/17 23:22 Magnesium 1.9 mg/dL 1.8-2.4 Serum or plasma C reactive protein measurement (mass/volume) - 06/22/17 23:22 Serum or plasma C reactive protein measurement (mass/volume) 12.34 mg/dL 0.00-0.50 Comprehensive metabolic panel - 06/22/17 23:22 Serum or plasma sodium measurement (moles/volume) 135 mmol/L 135-145 Serum or plasma potassium measurement (moles/volume) 3.8 mmol/L 3.6-5.0 Serum or plasma chloride measurement (moles/volume) 102 mmol/L 98-107 Carbon dioxide 24 mmol/L 21-32 Serum or plasma anion gap determination (moles/volume) 9 mmol/L 5-14 Serum or plasma urea nitrogen measurement (mass/volume) 18 mg/dL 7-18 Serum or plasma creatinine measurement (mass/volume) 1.04 mg/dL 0.60-1.30 Serum or plasma urea nitrogen/creatinine mass ratio 17 NRG Serum or plasma creatinine measurement with calculation of estimated glomerular filtration rate > NRG Serum or plasma glucose measurement (mass/volume) 191 mg/dL 70-105 Serum or plasma calcium measurement (mass/volume) 9.4 mg/dL 8.5-10.1 Serum or plasma total bilirubin measurement (mass/volume) 0.2 mg/dL 0.1-1.0 Serum or plasma alkaline phosphatase measurement (enzymatic activity/volume) 62 U/L 40-136 Serum or plasma aspartate aminotransferase measurement (enzymatic activity/ volume) 23 U/L 5-34 Serum or plasma alanine aminotransferase measurement (enzymatic activity/volume ) 34 U/L 0-55 Serum or plasma protein measurement (mass/volume) 6.4 g/dL 6.4-8.2 Serum or plasma albumin measurement (mass/volume) 3.5 g/dL 3.2-4.5 Serum or plasma lithium measurement (moles/volume) - 06/22/17 23:22 BNP level 55.4 pg/mL <100.0 Serum or plasma troponin i.cardiac measurement (mass/volume) - 06/22/17 23:22 Serum or plasma troponin i.cardiac measurement (mass/volume) < ng/ mL <0.30 Serum or plasma thyrotropin measurement by detection limit <=0.05 miu/l (units/ volume) - 06/22/17 23:22 Serum or plasma thyrotropin measurement by detection limit <=0.05 miu/l (units/ volume) 4.37 u[iU]/mL 0.35-4.94 Blood lactic acid measurement (moles/volume) - 06/22/17 23:40 Blood lactic acid measurement (moles/volume) 1.14 mmol/L 0.50-2.00 Bacterial blood culture - 06/22/17 23:40 Bacterial blood culture [facility] Complete blood count (CBC) with automated white blood cell (WBC) differential - 06/23/17 04:49 Blood leukocytes automated count (number/volume) 5.0 10*3/uL 4.3-11.0 Blood erythrocytes automated count (number/volume) 4.47 10*6/uL 4.35-5.85 Venous blood hemoglobin measurement (mass/volume) 13.2 g/dL 13.3-17.7 Blood hematocrit (volume fraction) 38 % 40-54 Automated erythrocyte mean corpuscular volume 86 [foz_us] 80-99 Automated erythrocyte mean corpuscular hemoglobin (mass per erythrocyte) 30 pg 25-34 Automated erythrocyte mean corpuscular hemoglobin concentration measurement ( mass/volume) 34 g/dL 32-36 Automated erythrocyte distribution width ratio 16.5 % 10.0-14.5 Automated blood platelet count (count/volume) 231 10*3/uL 130-400 Automated blood platelet mean volume measurement 9.9 [foz_us] 7.4-10.4 Automated blood neutrophils/100 leukocytes 56 % 42-75 Automated blood lymphocytes/100 leukocytes 23 % 12-44 Blood monocytes/100 leukocytes 11 % 0-12 Automated blood eosinophils/100 leukocytes 9 % 0-10 Automated blood basophils/100 leukocytes 1 % 0-10 Blood neutrophils automated count (number/volume) 2.8 10*3 1.8-7.8 Blood lymphocytes automated count (number/volume) 1.2 10*3 1.0-4.0 Blood monocytes automated count (number/volume) 0.6 10*3 0.0-1.0 Automated eosinophil count 0.5 10*3/uL 0.0-0.3 Automated blood basophil count (count/volume) 0.0 10*3/uL 0.0-0.1 Comprehensive metabolic panel - 06/23/17 04:49 Serum or plasma sodium measurement (moles/volume) 138 mmol/L 135-145 Serum or plasma potassium measurement (moles/volume) 4.1 mmol/L 3.6-5.0 Serum or plasma chloride measurement (moles/volume) 105 mmol/L 98-107 Carbon dioxide 23 mmol/L 21-32 Serum or plasma anion gap determination (moles/volume) 10 mmol/L 5-14 Serum or plasma urea nitrogen measurement (mass/volume) 18 mg/dL 7-18 Serum or plasma creatinine measurement (mass/volume) 0.96 mg/dL 0.60-1.30 Serum or plasma urea nitrogen/creatinine mass ratio 19 NRG Serum or plasma creatinine measurement with calculation of estimated glomerular filtration rate > NRG Serum or plasma glucose measurement (mass/volume) 102 mg/dL 70-105 Serum or plasma calcium measurement (mass/volume) 9.5 mg/dL 8.5-10.1 Serum or plasma total bilirubin measurement (mass/volume) 0.3 mg/dL 0.1-1.0 Serum or plasma alkaline phosphatase measurement (enzymatic activity/volume) 62 U/L 40-136 Serum or plasma aspartate aminotransferase measurement (enzymatic activity/ volume) 23 U/L 5-34 Serum or plasma alanine aminotransferase measurement (enzymatic activity/volume ) 34 U/L 0-55 Serum or plasma protein measurement (mass/volume) 6.4 g/dL 6.4-8.2 Serum or plasma albumin measurement (mass/volume) 3.4 g/dL 3.2-4.5 Capillary blood glucose measurement by glucometer (mass/volume) - 06/23/17 05: 11 Capillary blood glucose measurement by glucometer (mass/volume) 96 mg/dL 70-110 Capillary blood glucose measurement by glucometer (mass/volume) - 06/23/17 11: 06 Capillary blood glucose measurement by glucometer (mass/volume) 106 mg/dL 70-110 Capillary blood glucose measurement by glucometer (mass/volume) - 06/23/17 16: 07 Capillary blood glucose measurement by glucometer (mass/volume) 114 mg/dL 70-110 Capillary blood glucose measurement by glucometer (mass/volume) - 06/23/17 20: 53 Capillary blood glucose measurement by glucometer (mass/volume) 131 mg/dL 70-110 Capillary blood glucose measurement by glucometer (mass/volume) - 06/24/17 05: 52 Capillary blood glucose measurement by glucometer (mass/volume) 101 mg/dL 70-110 Complete blood count (CBC) with automated white blood cell (WBC) differential - 06/24/17 07:55 Blood leukocytes automated count (number/volume) 3.7 10*3/uL 4.3-11.0 Blood erythrocytes automated count (number/volume) 4.45 10*6/uL 4.35-5.85 Venous blood hemoglobin measurement (mass/volume) 12.9 g/dL 13.3-17.7 Blood hematocrit (volume fraction) 39 % 40-54 Automated erythrocyte mean corpuscular volume 87 [foz_us] 80-99 Automated erythrocyte mean corpuscular hemoglobin (mass per erythrocyte) 29 pg 25-34 Automated erythrocyte mean corpuscular hemoglobin concentration measurement ( mass/volume) 34 g/dL 32-36 Automated erythrocyte distribution width ratio 16.5 % 10.0-14.5 Automated blood platelet count (count/volume) 260 10*3/uL 130-400 Automated blood platelet mean volume measurement 9.4 [foz_us] 7.4-10.4 Automated blood neutrophils/100 leukocytes 49 % 42-75 Automated blood lymphocytes/100 leukocytes 28 % 12-44 Blood monocytes/100 leukocytes 11 % 0-12 Automated blood eosinophils/100 leukocytes 12 % 0-10 Automated blood basophils/100 leukocytes 1 % 0-10 Blood neutrophils automated count (number/volume) 1.8 10*3 1.8-7.8 Blood lymphocytes automated count (number/volume) 1.0 10*3 1.0-4.0 Blood monocytes automated count (number/volume) 0.4 10*3 0.0-1.0 Automated eosinophil count 0.4 10*3/uL 0.0-0.3 Automated blood basophil count (count/volume) 0.0 10*3/uL 0.0-0.1 Comprehensive metabolic panel - 06/24/17 07:55 Serum or plasma sodium measurement (moles/volume) 137 mmol/L 135-145 Serum or plasma potassium measurement (moles/volume) 4.2 mmol/L 3.6-5.0 Serum or plasma chloride measurement (moles/volume) 105 mmol/L 98-107 Carbon dioxide 27 mmol/L 21-32 Serum or plasma anion gap determination (moles/volume) 5 mmol/L 5-14 Serum or plasma urea nitrogen measurement (mass/volume) 17 mg/dL 7-18 Serum or plasma creatinine measurement (mass/volume) 0.96 mg/dL 0.60-1.30 Serum or plasma urea nitrogen/creatinine mass ratio 18 NRG Serum or plasma creatinine measurement with calculation of estimated glomerular filtration rate > NRG Serum or plasma glucose measurement (mass/volume) 110 mg/dL 70-105 Serum or plasma calcium measurement (mass/volume) 9.3 mg/dL 8.5-10.1 Serum or plasma total bilirubin measurement (mass/volume) 0.4 mg/dL 0.1-1.0 Serum or plasma alkaline phosphatase measurement (enzymatic activity/volume) 50 U/L 40-136 Serum or plasma aspartate aminotransferase measurement (enzymatic activity/ volume) 21 U/L 5-34 Serum or plasma alanine aminotransferase measurement (enzymatic activity/volume ) 32 U/L 0-55 Serum or plasma protein measurement (mass/volume) 6.2 g/dL 6.4-8.2 Serum or plasma albumin measurement (mass/volume) 3.3 g/dL 3.2-4.5 Vancomycin trough - 06/24/17 07:55 Vancomycin trough 23.4 ug/mL 10.0-20.0 Capillary blood glucose measurement by glucometer (mass/volume) - 06/24/17 10: 59 Capillary blood glucose measurement by glucometer (mass/volume) 178 mg/dL 70-110 Capillary blood glucose measurement by glucometer (mass/volume) - 06/24/17 16: 08 Capillary blood glucose measurement by glucometer (mass/volume) 122 mg/dL 70-110 Capillary blood glucose measurement by glucometer (mass/volume) - 06/24/17 21: 04 Capillary blood glucose measurement by glucometer (mass/volume) 154 mg/dL 70-110 Capillary blood glucose measurement by glucometer (mass/volume) - 06/25/17 06: 13 Capillary blood glucose measurement by glucometer (mass/volume) 102 mg/dL 70-110 Complete blood count (CBC) with automated white blood cell (WBC) differential - 06/25/17 06:28 Blood leukocytes automated count (number/volume) 4.0 10*3/uL 4.3-11.0 Blood erythrocytes automated count (number/volume) 4.35 10*6/uL 4.35-5.85 Venous blood hemoglobin measurement (mass/volume) 12.6 g/dL 13.3-17.7 Blood hematocrit (volume fraction) 38 % 40-54 Automated erythrocyte mean corpuscular volume 87 [foz_us] 80-99 Automated erythrocyte mean corpuscular hemoglobin (mass per erythrocyte) 29 pg 25-34 Automated erythrocyte mean corpuscular hemoglobin concentration measurement ( mass/volume) 33 g/dL 32-36 Automated erythrocyte distribution width ratio 16.1 % 10.0-14.5 Automated blood platelet count (count/volume) 249 10*3/uL 130-400 Automated blood platelet mean volume measurement 9.3 [foz_us] 7.4-10.4 Automated blood neutrophils/100 leukocytes 53 % 42-75 Automated blood lymphocytes/100 leukocytes 27 % 12-44 Blood monocytes/100 leukocytes 8 % 0-12 Automated blood eosinophils/100 leukocytes 11 % 0-10 Automated blood basophils/100 leukocytes 1 % 0-10 Blood neutrophils automated count (number/volume) 2.1 10*3 1.8-7.8 Blood lymphocytes automated count (number/volume) 1.1 10*3 1.0-4.0 Blood monocytes automated count (number/volume) 0.3 10*3 0.0-1.0 Automated eosinophil count 0.4 10*3/uL 0.0-0.3 Automated blood basophil count (count/volume) 0.0 10*3/uL 0.0-0.1 Whole blood basic metabolic panel - 06/25/17 06:28 Serum or plasma sodium measurement (moles/volume) 137 mmol/L 135-145 Serum or plasma potassium measurement (moles/volume) 4.2 mmol/L 3.6-5.0 Serum or plasma chloride measurement (moles/volume) 105 mmol/L 98-107 Carbon dioxide 24 mmol/L 21-32 Serum or plasma anion gap determination (moles/volume) 8 mmol/L 5-14 Serum or plasma urea nitrogen measurement (mass/volume) 21 mg/dL 7-18 Serum or plasma creatinine measurement (mass/volume) 1.10 mg/dL 0.60-1.30 Serum or plasma urea nitrogen/creatinine mass ratio 19 NRG Serum or plasma creatinine measurement with calculation of estimated glomerular filtration rate > NRG Serum or plasma glucose measurement (mass/volume) 107 mg/dL 70-105 Serum or plasma calcium measurement (mass/volume) 9.4 mg/dL 8.5-10.1 Capillary blood glucose measurement by glucometer (mass/volume) - 06/25/17 11: 02 Capillary blood glucose measurement by glucometer (mass/volume) 189 mg/dL 70-110 Methicillin resistant Staphylococcus aureus (MRSA) screening culture - 10:15 Methicillin resistant Staphylococcus aureus (MRSA) screening culture NEG NRG Capillary blood glucose measurement by glucometer (mass/volume) - 09/06/17 11: 30 Capillary blood glucose measurement by glucometer (mass/volume) 85 mg/dL 70-110 Capillary blood glucose measurement by glucometer (mass/volume) - 09/06/17 13: 13 Capillary blood glucose measurement by glucometer (mass/volume) 80 mg/dL 70-110 Complete blood count (CBC) with automated white blood cell (WBC) differential - 12/19/17 09:35 Blood leukocytes automated count (number/volume) 3.4 10*3/uL 4.3-11.0 Blood erythrocytes automated count (number/volume) 4.74 10*6/uL 4.35-5.85 Venous blood hemoglobin measurement (mass/volume) 14.5 g/dL 13.3-17.7 Blood hematocrit (volume fraction) 43 % 40-54 Automated erythrocyte mean corpuscular volume 91 [foz_us] 80-99 Automated erythrocyte mean corpuscular hemoglobin (mass per erythrocyte) 31 pg 25-34 Automated erythrocyte mean corpuscular hemoglobin concentration measurement ( mass/volume) 34 g/dL 32-36 Automated erythrocyte distribution width ratio 14.8 % 10.0-14.5 Automated blood platelet count (count/volume) 211 10*3/uL 130-400 Automated blood platelet mean volume measurement 9.1 [foz_us] 7.4-10.4 Automated blood neutrophils/100 leukocytes 49 % 42-75 Automated blood lymphocytes/100 leukocytes 31 % 12-44 Blood monocytes/100 leukocytes 11 % 0-12 Automated blood eosinophils/100 leukocytes 8 % 0-10 Automated blood basophils/100 leukocytes 1 % 0-10 Blood neutrophils automated count (number/volume) 1.7 10*3 1.8-7.8 Blood lymphocytes automated count (number/volume) 1.1 10*3 1.0-4.0 Blood monocytes automated count (number/volume) 0.4 10*3 0.0-1.0 Automated eosinophil count 0.3 10*3/uL 0.0-0.3 Automated blood basophil count (count/volume) 0.0 10*3/uL 0.0-0.1 Hemoglobin A1c - 12/19/17 09:35 Blood hemoglobin A1C measurement (mass/volume) 5.3 % 4.0- 5.6 MEAN BLOOD GLUCOSE 105 % <=126 Encounters ACCT No. Visit Date/Time Discharge Status Pt. Type Provider Facility Loc./Unit Complaint [id number] 01/22/2018 12:05:00 01/22/2018 23:59:59 CLS Preadmit KASSIDY ADDISON Via [facility] REHAB LUMBAR RADICULOPATHY; STENOSIS;SPONDYLOLESTHESIS [id number] 12/25/2017 11:25:00 12/25/2017 23:59:59 CLS Outpatient MICHELLE REA MD [facility] RAD BILAT LEG PAIN [id number] 12/19/2017 09:23:00 12/19/2017 23:59:59 CLS Outpatient RIN DPM, JACK Q [facility] LAB DIABETES,PERIPERAL NEUROPATHY [id number] 09/06/2017 11:21:00 09/06/2017 13:40:00 DIS Outpatient RIN DPM, JACK Q [facility] SDC HAMMERTOE RIGHT FOOT [id number] 09/03/2017 10:15:00 09/03/2017 23:59:59 CLS Preadmit KACIE VELEZ APRN Via [facility] J98.4,R06.02 [id number] 06/04/2017 13:13:00 09/02/2017 00:01:00 DIS Outpatient KACIE VELEZ APRN [facility] J98.4,R06.02 [id number] 08/15/2017 09:45:00 08/15/2017 10:17:00 DIS Outpatient RIN DPM, JACK Q [facility] PREOP HAMMERTOE RIGHT FOOT [id number] 06/23/2017 01:20:00 06/25/2017 13:15:00 DIS Inpatient MICHELLE REA MD [facility] 4TH CELLULITIS R LEG; DIABETES [id number] 05/30/2017 10:15:00 06/01/2017 00:01:00 DIS Outpatient KACIE VELEZ APRN [facility] J98.4,R06.02 [id number] 05/23/2017 10:00:00 05/26/2017 00:01:00 DIS Outpatient KACIE VELEZ APRN [facility] PUL J98.4,R06.02 [id number] 05/16/2017 10:41:00 05/16/2017 23:59:59 CLS Outpatient ASHUTOSH TUCKER, GENE Melendez [facility] LAB Z51.81, SEIZURE [id number] 12/31/2016 04:20:00 01/03/2017 14:30:00 DIS Inpatient RONA TUCKER, MICHELLE R [facility] 4TH ACUTE LOWER GI BLEED [id number] 11/21/2016 15:19:00 11/21/2016 23:59:59 CLS Outpatient KACIE VELEZ APRN [facility] RT SOB [id number] 11/14/2016 07:27:00 11/14/2016 23:59:59 CLS Outpatient MARTIN ALEMAN [facility] CARD CAD,CAROTID ARTERY STENOSIS,HTN [id number] 11/06/2016 09:55:00 11/06/2016 23:59:59 CLS Outpatient KACI WINTER MD [facility] LAB SEIZURE,G40.219 [id number] 10/24/2016 00:44:00 10/26/2016 12:30:00 DIS Inpatient KELLY CRESPO MD [facility] 4TH RT SIDE PNA [id number] 10/15/2016 13:42:00 10/15/2016 23:59:59 CLS Outpatient MARTIN ALEMAN [facility] CARD CAD,HTN, CAROTID ARTERY STENOSIS [id number] 09/20/2016 10:14:00 09/20/2016 23:59:59 CLS Outpatient KACI WINTER MD [facility] LAB SEIZURES [id number] 09/10/2016 09:24:00 09/10/2016 23:59:59 CLS Outpatient KACI WINTER MD [facility] RT SEIZURE-NEW ONSET [id number] 08/15/2016 11:52:00 08/15/2016 13:37:00 DIS Emergency THOMAS ESPINOSA DO D [facility] ER LEFT FLANK PAIN [id number] 04/10/2016 11:06:00 04/10/2016 23:59:59 CLS Outpatient MICHELLE REA MD [facility] RAD PAIN L FEMUR,L HIP [id number] 08/27/2015 18:18:00 08/27/2015 19:38:00 DIS Emergency NEVAEH STEVE [employer]IATE [facility] ER L HAND FINGER LAC [id number] 06/15/2015 12:14:00 06/29/2015 12:28:00 DIS Outpatient GENE BOYKIN MD [facility] CR STENT [id number] 06/08/2015 11:53:00 06/08/2015 23:59:59 CLS Outpatient LORIN BURCH MD [facility] LAB KIDNEY FUNCTION [id number] 06/01/2015 11:44:00 06/01/2015 00:01:00 DIS Outpatient GENE BOYKIN MD [facility] CR STENT [id number] 02/23/2015 07:11:00 02/24/2015 09:20:00 DIS Outpatient GENE BOYKIN MD [facility] CATH CAD HTN ANGINA DIABETES [id number] 02/22/2015 08:05:00 02/22/2015 23:59:59 CLS Outpatient GENE BOYKIN MD [facility] LAB PRE OP LAB WORK FOR HEART CATH [id number] 12/31/2014 06:00:00 12/31/2014 08:35:00 DIS Outpatient RIN DPM JACK Q [facility] SDC OSTEOMYLITIS RIGHT FOOT [id number] 12/30/2014 11:50:00 12/30/2014 23:59:59 CLS Outpatient RIN DPM, JACK Q [facility] PREOP OSTEOMYLITIS RIGHT FOOT [id number] 12/02/2014 11:10:00 12/02/2014 23:59:59 CLS Outpatient SONIDO CARTWRIGHT DO [facility] RAD ABSCESS RT KNEE INCISION [id number] 11/20/2013 10:24:00 11/20/2013 23:59:59 CLS Outpatient MICHELLE REA MD [facility] LAB DM [id number] 06/04/2013 08:40:00 06/04/2013 23:59:59 CLS Outpatient MICHELLE REA MD [facility] RAD POP W/SUDDEN ONSET PAIN/ SWELLING [id number] 06/02/2013 10:06:00 06/02/2013 23:59:59 CLS Outpatient MICHELLE REA MD [facility] RAD L FOOT/ANKLE PAIN/ SWELLING [id number] 04/14/2018 04:59:45 Document Registration [id number] 04/13/2018 04:59:46 Document Registration [id number] 04/12/2018 04:59:47 Document Registration [id number] 04/11/2018 04:59:44 Document Registration [id number] 04/10/2018 04:59:49 Document Registration [id number] 04/08/2018 04:59:27 Document Registration [id number] 04/07/2018 04:59:28 Document Registration [id number] 04/06/2018 04:59:30 Document Registration [id number] 04/05/2018 04:59:30 Document Registration [id number] 04/04/2018 04:59:27 Document Registration [id number] 04/03/2018 04:59:32 Document Registration [id number] 04/02/2018 04:59:33 Document Registration [id number] 04/01/2018 04:59:34 Document Registration [id number] 03/31/2018 04:59:36 Document Registration [id number] 03/30/2018 04:59:36 Document Registration [id number] 03/29/2018 04:59:37 Document Registration [id number] 03/28/2018 04:59:38 Document Registration [id number] 03/27/2018 04:59:39 Document Registration [id number] 03/26/2018 04:59:40 Document Registration [id number] 03/25/2018 04:59:41 Document Registration [id number] 03/24/2018 04:59:42 Document Registration [id number] 03/23/2018 04:59:39 Document Registration [id number] 03/22/2018 04:59:44 Document Registration [id number] 03/21/2018 04:59:45 Document Registration [id number] 03/20/2018 04:59:46 Document Registration [id number] 03/19/2018 04:59:47 Document Registration [id number] 03/18/2018 04:59:48 Document Registration [id number] 03/17/2018 04:59:45 Document Registration [id number] 03/17/2018 04:59:44 Document Registration [id number] 03/16/2018 04:59:48 Document Registration [id number] 03/15/2018 04:59:46 Document Registration [id number] 03/14/2018 04:59:50 Document Registration [id number] 03/13/2018 04:59:49 Document Registration [id number] 03/12/2018 04:59:34 Document Registration [id number] 03/11/2018 04:59:37 Document Registration [id number] 03/10/2018 04:59:38 Document Registration [id number] 03/09/2018 04:59:38 Document Registration [id number] 03/08/2018 04:59:35 Document Registration [id number] 03/07/2018 04:59:39 Document Registration [id number] 03/06/2018 04:59:39 Document Registration [id number] 03/05/2018 04:59:40 Document Registration [id number] 03/04/2018 04:59:39 Document Registration [id number] 03/03/2018 04:59:40 Document Registration [id number] 03/02/2018 04:59:40 Document Registration [id number] 03/01/2018 04:59:40 Document Registration [id number] 02/28/2018 04:59:41 Document Registration [id number] 02/27/2018 04:59:41 Document Registration [id number] 02/26/2018 04:59:42 Document Registration [id number] 02/25/2018 04:59:42 Document Registration [id number] 02/23/2018 04:59:42 Document Registration [id number] 02/22/2018 04:59:43 Document Registration [id number] 02/21/2018 04:59:43 Document Registration [id number] 02/20/2018 04:59:43 Document Registration [id number] 02/19/2018 04:59:43 Document Registration [id number] 02/18/2018 04:59:44 Document Registration [id number] 02/17/2018 04:59:44 Document Registration [id number] 02/16/2018 04:59:44 Document Registration [id number] 02/15/2018 04:59:44 Document Registration [id number] 02/14/2018 04:59:44 Document Registration [id number] 02/13/2018 04:59:45 Document Registration [id number] 02/12/2018 04:59:45 Document Registration [id number] 02/11/2018 04:59:46 Document Registration [id number] 02/10/2018 04:59:42 Document Registration [id number] 02/09/2018 04:59:46 Document Registration [id number] 02/08/2018 04:59:47 Document Registration [id number] 02/07/2018 04:59:46 Document Registration [id number] 02/06/2018 04:59:48 Document Registration [id number] 02/05/2018 04:59:47 Document Registration [id number] 02/04/2018 04:59:48 Document Registration [id number] 02/03/2018 04:59:47 Document Registration [id number] 02/02/2018 04:59:48 Document Registration [id number] 02/01/2018 04:59:49 Document Registration [id number] 01/31/2018 04:59:48 Document Registration [id number] 01/30/2018 04:59:49 Document Registration [id number] 01/29/2018 04:59:43 Document Registration [id number] 01/28/2018 04:59:43 Document Registration [id number] 01/27/2018 04:59:43 Document Registration [id number] 01/26/2018 04:59:44 Document Registration [id number] 01/25/2018 04:59:44 Document Registration [id number] 01/24/2018 04:59:44 Document Registration [id number] 01/23/2018 04:59:45 Document Registration [id number] 01/22/2018 04:59:45 Document Registration [id number] 01/21/2018 04:59:46 Document Registration [id number] 01/20/2018 04:59:45 Document Registration [id number] 01/19/2018 04:59:46 Document Registration [id number] 01/18/2018 04:59:46 Document Registration [id number] 01/17/2018 04:59:47 Document Registration [id number] 01/16/2018 04:59:47 Document Registration [id number] 01/15/2018 04:59:47 Document Registration [id number] 01/14/2018 04:59:47 Document Registration [id number] 01/13/2018 04:59:44 Document Registration [id number] 01/12/2018 04:59:48 Document Registration [id number] 01/11/2018 04:59:45 Document Registration [id number] 01/10/2018 04:59:50 Document Registration [id number] 01/09/2018 04:59:50 Document Registration [id number] 01/08/2018 04:59:43 Document Registration [id number] 01/07/2018 04:59:40 Document Registration [id number] 01/06/2018 04:59:43 Document Registration [id number] 01/05/2018 04:59:45 Document Registration [id number] 01/04/2018 04:59:45 Document Registration [id number] 01/03/2018 04:59:46 Document Registration [id number] 01/02/2018 04:59:42 Document Registration [id number] 01/01/2018 04:59:45 Document Registration [id number] 12/31/2017 04:59:46 Document Registration [id number] 12/30/2017 04:59:46 Document Registration [id number] 12/29/2017 04:59:46 Document Registration [id number] 12/28/2017 04:59:47 Document Registration [id number] 12/27/2017 04:59:47 Document Registration [id number] 12/26/2017 04:59:44 Document Registration [id number] 12/25/2017 04:59:47 Document Registration [id number] 12/24/2017 04:59:48 Document Registration [id number] 12/23/2017 04:59:48 Document Registration [id number] 12/22/2017 04:59:48 Document Registration [id number] 12/21/2017 04:59:45 Document Registration [id number] 12/20/2017 04:59:45 Document Registration [id number] 12/19/2017 04:59:49 Document Registration [id number] 12/18/2017 04:59:44 Document Registration [id number] 12/17/2017 04:59:44 Document Registration [id number] 12/16/2017 04:59:45 Document Registration [id number] 12/15/2017 04:59:45 Document Registration [id number] 12/14/2017 04:59:46 Document Registration [id number] 12/13/2017 04:59:46 Document Registration [id number] 12/13/2017 04:59:45 Document Registration [id number] 12/12/2017 04:59:45 Document Registration [id number] 12/11/2017 04:59:46 Document Registration [id number] 12/10/2017 04:59:46 Document Registration [id number] 12/09/2017 04:59:46 Document Registration [id number] 12/08/2017 04:59:46 Document Registration [id number] 12/07/2017 04:59:47 Document Registration [id number] 12/06/2017 04:59:44 Document Registration [id number] 12/05/2017 04:59:47 Document Registration [id number] 12/04/2017 04:59:48 Document Registration [id number] 12/03/2017 04:59:45 Document Registration [id number] 12/02/2017 04:59:49 Document Registration [id number] 12/01/2017 04:59:49 Document Registration [id number] 11/30/2017 04:59:49 Document Registration [id number] 11/29/2017 04:59:46 Document Registration [id number] 11/28/2017 04:59:46 Document Registration [id number] 11/27/2017 04:59:47 Document Registration [id number] 11/26/2017 04:59:43 Document Registration [id number] 11/25/2017 04:59:46 Document Registration [id number] 11/24/2017 04:59:47 Document Registration [id number] 11/23/2017 04:59:48 Document Registration [id number] 11/22/2017 04:59:47 Document Registration [id number] 11/21/2017 04:59:44 Document Registration [id number] 11/20/2017 04:59:44 Document Registration [id number] 11/19/2017 04:59:49 Document Registration [id number] 11/18/2017 04:59:45 Document Registration [id number] 11/17/2017 04:59:45 Document Registration [id number] 11/16/2017 04:59:49 Document Registration [id number] 11/15/2017 04:59:50 Document Registration [id number] 11/14/2017 04:59:46 Document Registration [id number] 11/13/2017 04:59:49 Document Registration [id number] 11/12/2017 04:59:45 Document Registration [id number] 11/11/2017 04:59:46 Document Registration [id number] 11/10/2017 04:59:50 Document Registration [id number] 11/09/2017 04:59:47 Document Registration [id number] 11/08/2017 04:59:47 Document Registration [id number] 11/07/2017 04:59:51 Document Registration [id number] 11/06/2017 04:59:47 Document Registration [id number] 11/05/2017 04:59:48 Document Registration [id number] 11/04/2017 04:59:51 Document Registration [id number] 11/03/2017 04:59:48 Document Registration [id number] 11/02/2017 04:59:48 Document Registration [id number] 11/01/2017 04:59:52 Document Registration [id number] 10/31/2017 04:59:49 Document Registration [id number] 10/30/2017 04:59:54 Document Registration [id number] 10/29/2017 04:59:56 Document Registration [id number] 10/28/2017 04:59:58 Document Registration [id number] 10/27/2017 04:59:59 Document Registration [id number] 10/26/2017 05:00:01 Document Registration [id number] 10/25/2017 04:59:59 Document Registration [id number] 10/24/2017 05:00:00 Document Registration [id number] 10/23/2017 05:00:06 Document Registration [id number] 10/22/2017 05:00:04 Document Registration [id number] 10/21/2017 05:00:04 Document Registration [id number] 10/20/2017 05:00:07 Document Registration [id number] 10/19/2017 05:00:09 Document Registration [id number] 10/18/2017 05:00:04 Document Registration [id number] 10/17/2017 05:00:08 Document Registration [id number] 10/16/2017 05:00:04 Document Registration [id number] 10/15/2017 05:00:08 Document Registration [id number] 10/14/2017 05:00:07 Document Registration [id number] 10/13/2017 05:00:04 Document Registration [id number] 10/12/2017 05:00:08 Document Registration [id number] 10/11/2017 05:00:07 Document Registration [id number] 10/10/2017 05:00:04 Document Registration [id number] 10/09/2017 05:00:04 Document Registration [id number] 10/08/2017 05:00:08 Document Registration [id number] 10/07/2017 05:00:04 Document Registration [id number] 10/06/2017 05:00:04 Document Registration [id number] 10/05/2017 05:00:07 Document Registration [id number] 10/04/2017 05:00:04 Document Registration [id number] 10/03/2017 05:00:04 Document Registration [id number] 10/02/2017 05:00:08 Document Registration [id number] 10/01/2017 05:00:07 Document Registration [id number] 10/01/2017 05:00:06 Document Registration [id number] 09/30/2017 05:00:04 Document Registration [id number] 09/29/2017 05:00:07 Document Registration [id number] 09/28/2017 05:00:04 Document Registration [id number] 09/27/2017 05:00:08 Document Registration [id number] 09/26/2017 05:00:07 Document Registration [id number] 09/25/2017 05:00:04 Document Registration [id number] 09/24/2017 05:00:05 Document Registration [id number] 09/23/2017 05:00:07 Document Registration [id number] 09/22/2017 05:00:03 Document Registration [id number] 09/21/2017 05:00:04 Document Registration [id number] 09/20/2017 05:00:07 Document Registration [id number] 09/19/2017 05:00:04 Document Registration [id number] 09/18/2017 05:00:04 Document Registration [id number] 09/17/2017 05:00:08 Document Registration [id number] 09/17/2017 05:00:07 Document Registration [id number] 09/16/2017 05:00:05 Document Registration [id number] 09/16/2017 05:00:04 Document Registration [id number] 09/15/2017 05:00:04 Document Registration [id number] 09/14/2017 05:00:08 Document Registration [id number] 09/13/2017 05:00:05 Document Registration [id number] 09/12/2017 05:00:04 Document Registration [id number] 09/11/2017 05:00:08 Document Registration [id number] 09/10/2017 05:00:04 Document Registration [id number] 09/09/2017 05:00:03 Document Registration [id number] 09/08/2017 05:00:08 Document Registration [id number] 09/07/2017 05:00:08 Document Registration [id number] 09/06/2017 05:00:04 Document Registration [id number] 09/05/2017 05:00:10 Document Registration [id number] 09/05/2017 05:00:09 Document Registration [id number] 09/04/2017 05:00:04 Document Registration [id number] 09/03/2017 05:00:04 Document Registration [id number] 09/02/2017 05:00:08 Document Registration [id number] 09/01/2017 05:00:04 Document Registration [id number] 08/31/2017 05:00:04 Document Registration [id number] 08/30/2017 05:00:07 Document Registration [id number] 08/29/2017 05:00:04 Document Registration [id number] 08/29/2017 05:00:03 Document Registration [id number] 08/28/2017 05:00:05 Document Registration [id number] 08/27/2017 05:00:07 Document Registration [id number] 08/26/2017 05:00:04 Document Registration [id number] 08/25/2017 05:00:05 Document Registration [id number] 08/24/2017 05:00:08 Document Registration [id number] 08/23/2017 05:00:07 Document Registration [id number] 08/22/2017 05:00:09 Document Registration [id number] 08/21/2017 05:00:08 Document Registration [id number] 08/21/2017 05:00:07 Document Registration [id number] 08/20/2017 05:00:04 Document Registration [id number] 08/19/2017 05:00:04 Document Registration [id number] 08/18/2017 05:00:08 Document Registration [id number] 08/17/2017 05:00:04 Document Registration [id number] 08/16/2017 05:00:08 Document Registration [id number] 08/15/2017 05:00:08 Document Registration [id number] 08/14/2017 05:00:04 Document Registration [id number] 08/14/2017 05:00:03 Document Registration [id number] 08/13/2017 05:00:04 Document Registration [id number] 08/12/2017 05:00:08 Document Registration [id number] 08/11/2017 05:00:03 Document Registration [id number] 08/10/2017 05:00:05 Document Registration [id number] 08/09/2017 05:00:08 Document Registration [id number] 08/08/2017 05:00:04 Document Registration [id number] 08/07/2017 05:00:03 Document Registration [id number] 08/06/2017 05:00:08 Document Registration [id number] 08/05/2017 05:00:03 Document Registration [id number] 08/04/2017 05:00:06 Document Registration [id number] 08/03/2017 05:00:07 Document Registration [id number] 08/02/2017 05:00:08 Document Registration [id number] 08/01/2017 05:00:04 Document Registration [id number] 07/31/2017 05:00:07 Document Registration [id number] 07/30/2017 05:00:04 Document Registration [id number] 07/29/2017 05:00:03 Document Registration [id number] 07/28/2017 05:00:07 Document Registration [id number] 07/27/2017 05:00:09 Document Registration [id number] 07/26/2017 05:00:04 Document Registration [id number] 07/25/2017 05:00:07 Document Registration [id number] 07/24/2017 05:00:04 Document Registration [id number] 07/23/2017 05:00:07 Document Registration [id number] 07/22/2017 05:00:07 Document Registration [id number] 07/21/2017 05:00:04 Document Registration [id number] 07/20/2017 05:00:04 Document Registration [id number] 07/19/2017 05:00:07 Document Registration [id number] 07/18/2017 05:00:04 Document Registration [id number] 07/17/2017 05:00:04 Document Registration [id number] 07/16/2017 05:00:07 Document Registration [id number] 07/15/2017 05:00:08 Document Registration [id number] 07/14/2017 05:00:04 Document Registration [id number] 07/13/2017 05:00:07 Document Registration [id number] 07/12/2017 05:00:05 Document Registration [id number] 07/12/2017 05:00:04 Document Registration [id number] 07/11/2017 05:00:08 Document Registration [id number] 07/10/2017 05:00:08 Document Registration [id number] 07/09/2017 05:00:03 Document Registration [id number] 07/08/2017 05:00:07 Document Registration [id number] 07/07/2017 05:00:07 Document Registration [id number] 07/06/2017 05:00:03 Document Registration [id number] 07/05/2017 05:00:04 Document Registration [id number] 07/04/2017 05:00:08 Document Registration [id number] 07/03/2017 05:00:08 Document Registration [id number] 07/02/2017 05:00:04 Document Registration [id number] 07/01/2017 05:00:07 Document Registration [id number] 06/30/2017 05:00:08 Document Registration [id number] 06/29/2017 05:00:04 Document Registration [id number] 06/28/2017 05:00:08 Document Registration [id number] 06/27/2017 05:00:05 Document Registration [id number] 12/08/2012 06:00:00 Document Registration [id number] 12/03/2012 12:28:00 Document Registration [id number] 11/18/2012 10:37:00 Document Registration [id number] 10/29/2011 14:42:00 Document Registration
[2018-04-22] MEDS: ceFAZolin 2 GM IV Premixed 50 ML IV SCH (18:09)
[2018-04-22] MEDS ORDERED: ALLOPURINOL 100 MG (ZYLOPRIM) TAB ONE (20:22)
[2018-04-22] MEDS: MONTELUKAST 10 MG (SINGULAIR) TAB PO SCH (20:26)
[2018-04-22] MEDS: PHENYTOIN 100 MG (DILANTIN) CAP PO SCH (20:26)
[2018-04-22 20:30] VITALS: BP 126/67
[2018-04-22] MEDS ORDERED: METOPROLOL SUCCINATE 12.5 MG PO SCH (21:00)
[2018-04-22] MEDS ORDERED: NON-FORMULARY MEDICATION 1 EA EA (Montelukast Sodium (Singulair) 10 MG) PO SCH (21:00)
[2018-04-22] MEDS ORDERED: NON-FORMULARY MEDICATION 1 EA EA (Phenytoin Sodium Extended 200 MG) PO SCH (21:00)
[2018-04-22] MEDS ORDERED: ALLOPURINOL 300 MG (ZYLOPRIM) TAB ONE (21:45)
[2018-04-22] MEDS: ALLOPURINOL 300 MG (ZYLOPRIM) TAB PO SCH (21:52)
[2018-04-23 00:14] VITALS: BP 130/68
[2018-04-23] MEDS: ceFAZolin 2 GM IV Premixed 50 ML IV SCH (02:05)
--- NOTE | 2018-04-23 02:10 | OPERATIVE REPORT ---
DATE OF SERVICE: 04/22/2018 PREOPERATIVE DIAGNOSIS: Primary osteoarthritis, left knee. POSTOPERATIVE DIAGNOSIS: Primary osteoarthritis, left knee. PROCEDURE: Left total knee arthroplasty. SURGEON: Juan Zavaleta DO MORTGAGE PROCESSING CLERK: CHRISTINE Alvarado. SURGICAL PARTS CLASSIFIER DUTIES: Thad Greenberg, surgical physician assistant was utilized throughout the entire procedure for soft tissue retraction, placement of metallic implants, wound closure, dressing application and the patient transfer. ANESTHESIA: General with a femoral and IPACK nerve block. ESTIMATED BLOOD LOSS: 100 mL. COMPLICATIONS: None. INDICATIONS AND FINDINGS: The patient is a 67-year-old male seen with chief complaint of progressive left knee pain, catching, locking, popping and loss of motion. X-rays demonstrated collapse of the lateral compartment in the patellofemoral compartment of the left knee with a valgus deformity. The patient was taken to surgery where a total knee arthroplasty was performed on the left without complication utilizing the Biomet Contixguard total knee system with a 62.5 mm press fit femoral component, a 75 mm cemented fixed I-beam tibial component, a 34 mm 3-pronged all polyethylene cemented thin patellar component with a 10 mm anterior stabilized tibial bearing implant. Palacos bone cement was utilized as well. PROCEDURE IN DETAIL: The patient was seen by anesthesia preoperatively under ultrasound guidance, a femoral and IPACK nerve block was performed on the left to decrease postop pain and decreased amount of medication required during the surgical procedure. The patient was transferred to the operating room where general inhalation anesthetic was administered. A well-padded pneumatic tourniquet was placed about the upper aspect of the left thigh. A ChloraPrep and sterile drape of the left lower extremity was performed. The left leg was elevated, exsanguinated and the tourniquet was inflated to 300 mmHg pressure. An anterior longitudinal midline incision was made over the anterior surface of the left knee. The incision was deepened through medial parapatellar incision. Subperiosteal dissection was performed over the proximal medial tibia. The patella was subluxed laterally. Osteophytes from the distal femur were removed with a bone rongeur. A pilot plant supervisor hole was then drilled in the distal femur. An intramedullary allyson was inserted utilizing a 6-degree valgus cutting angle, a distal femoral cutting guide was assembled and distal femoral osteotomy was completed. The distal femur was sized to a 62.5 mm femoral component. A 4-way cutting block was assembled. Anterior, posterior and chamfer cuts of the distal femur made. Remnants of the medial and lateral menisci were excised. The anterior cruciate ligament was excised. The tibia was subluxed anteriorly. A pilot plant supervisor hole then drilled the proximal tibia. The intramedullary allyson was inserted. A proximal tibial cutting guide was assembled and the proximal tibial osteotomy was completed. Knee was taken into extension with a 10 mm spacer and found to be stable with full extension obtained. The patient had significant osteophyte formation of the patella with elongation of the patella and the medial lateral direction. Osteophytes from the patella removed with bone rongeur. The posterior aspect of patella was resected through a cutting guide and drilled through the drill guide. Provisional components were inserted. The knee was cycled through a range of motion. Rotation of the tibial component was noted marked on the proximal tibia. The proximal tibia was then broached to accept the I-beam stem portion of the tibial component. Bony surfaces were irrigated extensively with normal saline solution. Palacos bone cement was then mixed. This was pressurized into the proximal tibia. The tibial component was cemented in place. The femoral component was press fit into place. The knee was taken in full extension with a provisional tibial bearing implant. The patellar component was cemented into place and held with a clamp. Excess cement was removed. The cement was allowed to set. Knee was cycled through a range of motion and found to be stable with a 10 mm spacer and 10 mm anterior stabilized tibial bearing was then inserted and locked anteriorly with a locking bar. Knee again was cycled through a range of motion with full extension obtained with 125 degrees of knee flexion obtained. The tourniquet was released. Hemostasis was obtained with electrocautery. The knee was placed in 90 degrees of flexion. The medial retinaculum was closed with multiple interrupted [id number] sutures reinforced with a running suture of #1 Stratafix. The subcutaneous tissues were closed in layers with 2-0 and 3-0 Monocryl suture and the skin closed with stainless steel rohith and Adaptic Neosporin bulky dressing was placed about the left knee. The patient was awakened and was transferred to postoperative recovery with anesthesia personnel present in satisfactory condition. Job ID: [id number] DocumentID: [id number] Dictated Date: 04/22/2018 22:51:12 Felt Hat Flanging Operator Date: 04/23/2018 02:09:46 Dictated By: JUAN ZAVALETA DO
[2018-04-23] MEDS: D5 1/2 NS 1000 ML IV SOLUTION 1,000 ML IV SCH (04:03)
[2018-04-23] MEDS: morphine INJ 10 MG/ML 1ML (SYR OR VIAL) IVP PRN ×2 (04:36→20:55)
[2018-04-23 04:44] VITALS: BP 131/72
[2018-04-23] MEDS: inSUlin ASPART (NovoLOG) 1 UNIT/0.01 ML (CHARGE PER UNIT) SC SCH ×4 (05:43→20:54)
[2018-04-23 06:46] LABS: HEMOGLOBIN 11.3 G/DL (13.3-17.7); MEAN PLATELET VOLUME 9.4 FL (7.4-10.4); RED BLOOD COUNT 3.59 10^6/uL (4.35-5.85); WHITE BLOOD COUNT 4.9 10^3/uL (4.3-11.0)
[2018-04-23 07:07] LABS: BUN/CREATININE RATIO 16; CALCIUM 8.5 MG/DL (8.5-10.1); CARBON DIOXIDE 27 MMOL/L (21-32); CHLORIDE 98 MMOL/L (98-107); CREATININE SERUM 0.83 MG/DL (0.60-1.30); GFR ESTIMATED > 60; GLUCOSE 106 MG/DL (70-105); POTASSIUM 4.2 MMOL/L (3.6-5.0); SODIUM 131 MMOL/L (135-145)
[2018-04-23 08:32] VITALS: BP 133/74
--- NOTE | 2018-04-23 08:43 | Consultation ---
History of Present Illness History of Present Illness Patient Consulted On(simone/time) 04/23/18 08:37 Date Seen by Provider: Apr 23, 2018 Time Seen by Provider: 11:40 Reason for Visit: medical management consult History of Present Illness 67 yo M admitted for left knee replacement-due to left knee osteoarthritis. Patient has a history of well controlled diabetes, hypertension, coronary artery disease. I have been consulted as pcp. Patient's ability to walk and exercise has been limited due to knee pain. Appears the surgery was successful. Patient also has morbid obesity that hopefully with improve with lifestyle changes to include more exercising (walking). Diabetes Mellitus II- dx 1999 last hga1c 5.9, last eye exam October 2017 at the [place]. Monitors his feet. HTN controlled. Patient did have some urinary retention after the surgery- so he started drinking a lot of water to help urinate- post surgery labs demonstrated mild hyponatremia. He has since voided a couple times. No issues urinating. Allergies and Home Medications Allergies Coded Allergies: hydrocodone (Verified Allergy, Mild, RASH (NO REACTION TO MORPHINE/ PERCOCET), 10/29/11) Sulfa (Sulfonamide Antibiotics) (Verified Allergy, Unknown, 12/08/12) Home Medications 5-Hydroxytryptophan 100 Mg Capsule, 100 MG PO DAILY, (Reported) Allopurinol 300 Mg Tablet, 300 MG PO DAILY, (Reported) Aspirin 81 Mg Tablet.dr, 81 MG PO DAILY, (Reported) Atorvastatin Calcium 40 Mg Tablet, 40 MG PO HS, (Reported) Cetirizine HCl 10 Mg Tablet, 10 MG PO DAILY, (Reported) Cyanocobalamin (Vitamin B-12) 1,000 Mcg Tablet, 1,000 MCG PO DAILY, (Reported) Gabapentin 300 Mg Capsule, 300 MG PO TID, (Reported) Isosorbide Mononitrate 10 Mg Tablet, 10 MG PO DAILY, (Reported) Liraglutide 0.6 Mg/0.1 Ml Pen.injctr, 1.2 MG SC DAILY, (Reported) Metoprolol Succinate 25 Mg Tab.er.24h, 12.5 MG PO BID, (Reported) take 1/2 of 25mg tab Montelukast Sodium 10 Mg Tablet, 10 MG PO HS, (Reported) Multivitamin 1 Each Tablet, 1 TAB PO DAILY, (Reported) Edgar-3 Fatty Acids/Fish Oil 1 Each Capsule, 2,400 MG PO DAILY, (Reported) Phenytoin Sodium Extended 100 Mg Capsule, 200 MG PO BID, (Reported) take 2 (100mg) tabs Patient Home Medication List Home Medication List Reviewed: Yes Past Xitcbev-Mafqgl-Qlpndg Hx Patient Social History Alcohol Use: Occasionally Uses Number of Drinks Today: AA Alcohol Beverage of Choice: Beer Recreational Drug Use: No Smoking Status: Former Smoker Type Used: Cigars Former Smoker, Quit: Apr 16, 1992 2nd Hand Smoke Exposure: No Recent Foreign Travel: No Contact w/Someone Who Travel: No Recent Infectious Disease Expo: No Recent Hopitalizations: No Immunizations Up To Date Tetanus Booster (TDap): Unknown Date of Pneumonia Vaccine: Jun 02, 2016 Date of Influenza Vaccine: Jun 03, 2017 Seasonal Allergies Seasonal Allergies: Yes Past Medical History Surgeries: Yes (BILAT HIP REPLACED, TMJ, RIGHT KNEE SX X5, TOES X3 AMPUTATED, R SHOULDER SX) Appendectomy, Cardiac, Coronary Stent, Joint Replacement, Orthopedic Respiratory: Yes (GETS SOB-DX "RESTRICTIVE LUNG DISEASE",) Sleep Apnea Currently Using CPAP: Yes Cardiac: Yes (X2 STENTS) Chronic Edema/Swelling, Coronary Artery Disease, Heart Attack, High Cholesterol , Hypertension, Peripheral Vascular Neurological: Yes (SILENT SEIZURES-TOLD BY ) Neuropathy, Seizure Disorder Reproductive Disorders: No Sexually Transmitted Disease: No HIV/AIDS: No Genitourinary: No Gastrointestinal: Yes (GI BLEED 12/2016) Gastrointestinal Bleed Musculoskeletal: Yes Arthritis, Fractures, Gout Endocrine: Yes (OBESITY) Diabetes, Non-Insulin dep HEENT: Yes (GLASSES, DENTURES) Loss of Vision: Denies Hearing Impairment: Hearing Aide Right, Hearing Aide Left, Bilateral Hearing Aide Cancer: No Psychosocial: No Integumentary: No Blood Disorders: No Adverse Reaction/Blood Tranf: No Family Medical History Not obtainable due to adoption unknown Diabetes, Other Conditions/Hx Review of Systems Review of Systems General: No Chills, No Night Sweats HEENT: No Head Aches, No Visual Changes, No Eye Pain Pulmonary: No Dyspnea, No Cough Cardiovascular: No: Chest Pain, Palpitations, Orthopnea Gastrointestinal: No: Nausea (did have some nausea after the surgery but not now.), Vomiting Genitourinary: No Dysuria, No Frequency, No Retention (resolved) Musculoskeletal: No: neck pain, shoulder pain Neurological: No: Weakness, Numbness, Change in speech, Confusion Physical Exam Vital Signs Vital Signs - First Documented 04/22/18 04/22/18 09:09 14:00 Temp 97.5 Pulse 87 Resp 18 B/P (MAP) 142/91 (108) Pulse Ox 93 O2 Delivery Room Air O2 Flow Rate 3.00 Capillary Refill : Height, Weight, BMI Height: 5'3.00" Weight: 230lbs. 0.0oz. 104.914827rh; 40.7 BMI Method:Stated General Appearance: No Apparent Distress, WD/WN HEENT: PERRL/EOMI Neck: Non Tender, Supple Respiratory: Chest Non Tender, Lungs Clear, Normal Breath Sounds, No Accessory Muscle Use, No Respiratory Distress, Accessory Muscle Use Cardiovascular: Regular Rate, Rhythm Gastrointestinal: Non Tender, Soft Rectal: Deferred Back: Normal Inspection, No CVA Tenderness Extremity: Non Tender, No Calf Tenderness Neurologic/Psychiatric: Alert, Oriented x3, Normal Mood/Affect Skin: Normal Color, Warm/Dry Assessment/Plan Assessment/Plan Admission Status: Inpatient Order (span 2 midnights) Reason for Inpatient Admission: status post left knee replacement for progressing osteoarthritis Assessment and Plan 67 yo M Left knee osteoarthritis- s/p total knee replacement- Dr. Ferrer Diabetes Mellitus II- under good control last hga1c really good at 5.9 last year; continue sliding scale insulin- monitor blood sugars. HTN- blood pressure under good control-with current regimen. Gout -under good control with allopurinol. CAD- history of 2 stents- follows with Dr. Sandoval- last ECHO Oct 2016- LVEF 60% Dispo: appears to be doing well from medical standpoint- will monitor blood sugars to promote healing- Will follow along while pt is admitted. Problems: (1) Primary osteoarthritis of left knee (2) Non-insulin dependent type 2 diabetes mellitus (3) Essential (primary) hypertension (4) Gout (5) CAD (coronary artery disease) Qualifiers: (6) Normocytic anemia (7) Hyponatremia Assessment & Plan: decrease fluid intake/water -will recheck Na level in AM. Clinical Quality Measures DVT/VTE Risk/Contraindication: Risk Factor Score Per Nursin RFS Level Per Nursing on Admit: 4+=Very High HARRIET DE LOS SANTOS MD Apr 23, 2018 08:43
[2018-04-23] MEDS: PHENYTOIN 100 MG (DILANTIN) CAP PO SCH ×2 (08:59→20:29)
[2018-04-23] MEDS ORDERED: NON-FORMULARY MEDICATION 1 EA EA (Cetirizine HCl 10 MG) PO SCH (09:00)
[2018-04-23] MEDS ORDERED: ALLOPURINOL 300 MG (ZYLOPRIM) TAB PO SCH (09:00)
[2018-04-23] MEDS ORDERED: NON-FORMULARY MEDICATION 1 EA EA (Liraglutide (Victoza 3-Pak) 1.2 MG) SC SCH (09:00)
[2018-04-23] MEDS: ASPIRIN E.C. 81 MG (ECOTRIN) TAB PO SCH (09:01)
[2018-04-23] MEDS: ISOSORBIDE MONONITRATE 20 MG PO SCH (09:01)
[2018-04-23] MEDS: ENOXAPARIN 40 MG/0.4 ML (LOVENOX) SYR SC SCH (09:01)
[2018-04-23] MEDS: LORATADINE (CLARITIN) 10 MG TAB PO SCH (09:02)
[2018-04-23] MEDS: GABAPENTIN 300 MG (NEURONTIN) CAP PO SCH ×3 (09:03→20:29)
--- NOTE | 2018-04-23 09:23 | Physical Therapy Evaluation ---
PT Evaluation-General Medical Diagnosis Admission Date Apr 22, 2018 at 08:36 Medical Diagnosis: left TKA Onset Date: Apr 22, 2018 Therapy Diagnosis Therapy Diagnosis: impaired mobility, strength, endurane, ROM Height/Weight Height (Feet): 5 Height (Inches): 3.00 Weight (Pounds): 230 Weight (Ounces): 0.0 Precautions Precautions/Isolations: Standard Precautions Weight Bear Status Right Lower Extremity: Right Full Weight Bearing Left Lower Extremity: Left Weight Bearing/Tolerated Referral Physician: Thad Greenberg APRN Reason for Referral: Evaluation/Treatment Social History Home: Single Level Current Living Status: Spouse Entry Into Home: Stairs With Railing PT Steps Into Home: 3 Prior/Core FIM Prior Level of Function Functional [place] Measure 0=Not Assessed/NA 4=Minimal Assistance 1=Total Assistance 5=Supervision or Setup 2=Maximal Assistance 6=Modified [place] 3=Moderate Assistance 7=Complete [place] Bed Mobility: 7 Transfers (B,C,W/C) (FIM): 7 Gait: 7 PT Evaluation-Current Subjective Patient in bed pre tx, agrees to PT, patient states he has very little pain in his left knee but has significant pain on his bottom and would like to get out of bed to get some relief. Pt/Family Goals to be independent at home Objective Patient Orientation: Person, Place, Situation Attachments: SCD's, Polar Pack ROM/Strength ROM Lower Extremities left knee extension +3 degrees, flexion 60 degrees Strength Lower Extremities NT Neuromuscular (Tone, Coordination, Reflexes) NT Sensory Vision: Functional Hearing: Hearing Aid/Aides Sensation Right Lower Extremit: Intact Sensation Left Lower Extremity: Impaired Sensation Lower Extremities Patient has areas of numbness on left leg below the knee just below the patella and on medial calf. Transfers Functional [place] Measure 0=Not Assessed/NA 4=Minimal Assistance 1=Total Assistance 5=Supervision or Setup 2=Maximal Assistance 6=Modified [place] 3=Moderate Assistance 7=Complete [place] Transfers (B, C, W/C) (FIM): 4 Scootin Rollin Supine to/from Sit: 4 Sit to/from Stand: 5 bed t/f WC(FIM only if WC use): 5 Patient needed min assist for supine to sit and help with rolling Gait Mode of Locomotion: Walk Anticipated Mode of Locomotion: Walk Gait (FIM): 1 Distance: 40' Gait Level of Assist: 4 Gait Persons Needed: 1 Gait Assistive Device: FWW Comments/Gait Description Patient ambulated 40' with a rolling walker with CGA, gait is antalgic with decreased stance time on left leg and a slightly flexed left knee. Balance Sitting Static: Normal Sitting Dynamic: Normal Standing Static: Good Standing Dynamic: Good Treatment TKA protocol left knee x10 (AP, QS, HS, SAQ, SLR), CPM applied and set to -2/50 degrees, SCD's donned as well as polar care. Patient in bed post tx with nurse call, phone, tray, all needs met. Assessment/Needs Patient has impaired mobility ,strength, endurance, ROM post left TKA. Rehab Potential: Fair PT Short Term Goals Short Term Goals Time Frame: Apr 30, 2018 Transfers (B,C,W/C) (FIM): 5 Gait (FIM): 2 Gait Distance Comment: 100' Gait Level of Assist: 5 Gait Assistive Device: FWW PT Plan Problem List Problem List: Activity Tolerance, Functional Strength, Safety, Balance, Gait, Transfer, Bed Mobility, ROM Treatment/Plan Treatment Plan: Continue Plan of Care Treatment Plan: Bed Mobility, Education, Functional Activity Isa, Functional Strength, Gait, Safety, Therapeutic Exercise, Transfers Treatment Duration: Apr 30, 2018 Frequency: 11 times per week Estimated Hrs Per Day: .25 hour per day (15-30') Patient and/or Family Agrees t: Yes Safety Risks/Education Patient Education: Gait Training, Transfer Techniques, Reviewed Precautions, Reviewed Use of Ice, Correct Positioning, Safety Issues Teaching Recipient: Patient Teaching Methods: Demonstration, Discussion Response to Teaching: Reinforcement Needed Discharge Recommendations Plan Patient will perform bed mobility and transfer training, balance and endurance training, functional strengthening, stair training, gait training, and education , to improve functional mobility and independence at home. Therapy D/C Recommendations: Home w/ Family Support Time/GCodes Time In: 0850 Time Out: 0915 Total Billed Treatment Time: 25 Total Billed Treatment 1 visit EVL 15' GT 10' MARCO A BLANTON PT Apr 23, 2018 09:23
[2018-04-23] MEDS ORDERED: PATIENT MAY USE OWN MED,SINGLE MED PO SCH (10:00)
--- NOTE | 2018-04-23 10:12 | Anesthesia-General Post-Op ---
General Post Op Complications Complications None Follow Up Care/Instructions Patient Instructions None needed. Anesthesia/Patient Condition Patient Condition Patient is doing well, no complaints, stable vital signs, no apparent adverse anesthesia problems. No complications reported per nursing. No regional block complications, pt reports effective for pain relief. SALVADOR MEYERS CRNA Apr 23, 2018 10:12
[2018-04-23] MEDS: Liraglutide (Victoza 3-Pak) 1.2 MG SC SCH (10:58)
--- NOTE | 2018-04-23 12:02 | Progress Note (SOAP) ---
Subjective Date Seen by Provider: Apr 23, 2018 Time Seen by Provider: 12:00 Subjective/Events-last exam complaints of urinary retention, doing well with therapy, ambulating with assist. minimal pain Objective Exam Vital Signs Date Time Temp Pulse Resp B/P (MAP) Pulse Ox O2 Delivery O2 Flow Rate FiO2 04/23/18 08:32 98.4 92 18 133/74 (93) 93 Room Air 04/23/18 04:44 98.0 83 19 131/72 (91) 93 Nasal Cannula 3.00 04/23/18 00:14 98.4 91 19 130/68 (88) 93 Nasal Cannula 3.00 04/22/18 20:30 99.3 93 16 126/67 (86) 95 Nasal Cannula 3.00 04/22/18 16:30 98.3 96 16 134/65 (88) 95 Nasal Cannula 3.00 04/22/18 14:39 Nasal Cannula 3.00 04/22/18 14:10 Nasal Cannula 3.00 04/22/18 14:00 97.8 92 16 128/62 (84) 95 Nasal Cannula 3.00 I & O 04/23/18 07:00 Intake Total 3670 ml Output Total 1200 ml Balance 2470 ml Capillary Refill : General Appearance: No Apparent Distress Extremity: Normal Capillary Refill, No Calf Tenderness, No Pedal Edema Neurologic/Psychiatric: Alert, Oriented x3, No Motor/Sensory Deficits, Normal Mood/Affect Skin: Normal Color, Warm/Dry (dressing CDI) Results Lab Laboratory Tests 04/22/18 16:56: Glucometer 156H 04/22/18 20:12: Glucometer 189H 04/23/18 05:35: Glucometer 104 04/23/18 06:20: White Blood Count 4.9, Red Blood Count 3.59L, Hemoglobin 11.3L, Hematocrit 34L, Mean Corpuscular Volume 93, Mean Corpuscular Hemoglobin 31, Mean Corpuscular Hemoglobin Concent 34, Red Cell Distribution Width 15.0H, Platelet Count 159, Mean Platelet Volume 9.4, Sodium Level 131L, Potassium Level 4.2, Chloride Level 98, Carbon Dioxide Level 27, Anion Gap 6, Blood Urea Nitrogen 13, Creatinine 0.83, Estimat Glomerular Filtration Rate > 60, BUN/Creatinine Ratio 16, Glucose Level 106H, Calcium Level 8.5 04/23/18 10:52: Glucometer 140H Assessment/Plan Assessment/Plan Assess & Plan/Chief Complaint A: s/p L TKA, hyponatremia, urinary retention (post op) P: Cont treatment, fluid restrictions, flomax. plan to DC to home with home health saturday Clinical Quality Measures DVT/VTE Risk/Contraindication: Risk Factor Score Per Nursin RFS Level Per Nursing on Admit: 4+=Very High GRUPO NICHOLSON APRN Apr 23, 2018 12:02 pm
[2018-04-23 12:25] VITALS: BP 148/75
[2018-04-23] MEDS: TAMSULOSIN 0.4 MG (FLOMAX) CAP PO SCH (12:53)
--- NOTE | 2018-04-23 15:33 | Physical Therapy Daily Note ---
PT Daily Note-Current Subjective Patient in bed pre tx, agrees to PT, has little to no pain. Patient state he is willing to ambulate but says he has been up in a chair for a long time doing his exercises and doesn't want to do those again. Appearance Patient in bed post tx with nurse call, phone, tray, all needs met. Donned SCD' s, CPM, and polar care. Mental Status Patient Orientation: Person, Place, Situation Attachments: IV Transfers Functional [place] Measure 0=Not Assessed/NA 4=Minimal Assistance 1=Total Assistance 5=Supervision or Setup 2=Maximal Assistance 6=Modified [place] 3=Moderate Assistance 7=Complete IndependenceIRFPAI Quality Coding Scale 6 Independent with activity with or without an assistive device 5 Patient requires set up or clean up by helper. Patient completes activity by themselves 4 Supervision or touching assist (CGA). [place] provide cues , steadying assist 3 The helper provides less than half the effort to complete the activity 2 The helper provides more than half the effort to complete the activity 1 Dependent. The helper does all the effort to complete an activity 7 Patient refused to complete or attempt activity 9 The patient did not perform the activity before the current illness or injury 88 Not attempted due to Medical conditions or safety concerns Transfers (B, C, W/C) (FIM): 4 Scootin Rollin Supine to/from Sit: 4 Sit to/from Stand: 4 Bed to/from Chair: 4 Weight Bearing Right Lower Extremity: Right Full Weight Bearing Left Lower Extremity: Left Weight Bearing/Tolerated Gait Training Gait (FIM): 2 Distance: 60' Gait Level of Assist: 4 Gait Persons Needed: 1 Gait Assistive Device: FWW CGA Treatments bed mobility and transfers, ambulation Assessment Current Status: Fair Progress improved distance with ambulation PT Short Term Goals Short Term Goals Time Frame: Apr 30, 2018 Transfers (B,C,W/C) (FIM): 5 Gait (FIM): 2 Gait Distance Comment: 100' Gait Level of Assist: 5 Gait Assistive Device: FWW PT Plan Problem List Problem List: Activity Tolerance, Functional Strength, Safety, Balance, Gait, Transfer, Bed Mobility, ROM Treatment/Plan Treatment Plan: Continue Plan of Care Treatment Plan: Bed Mobility, Education, Functional Activity Isa, Functional Strength, Gait, Safety, Therapeutic Exercise, Transfers Treatment Duration: Apr 30, 2018 Frequency: 11 times per week Estimated Hrs Per Day: .25 hour per day (15-30') Patient and/or Family Agrees t: Yes Safety Risks/Education Patient Education: Gait Training, Transfer Techniques, Correct Positioning, Safety Issues Teaching Recipient: Patient Teaching Methods: Demonstration, Discussion Response to Teaching: Reinforcement Needed Time/GCodes Time In: 1513 Time Out: 1530 Total Billed Treatment Time: 17 Total Billed Treatment 1 visit GT 17' MARCO A BLANTON PT Apr 23, 2018 15:33
[2018-04-23 16:00] VITALS: BP 149/81
--- NOTE | 2018-04-23 16:02 | Occupational Therapy Eval ---
OT Evaluation-General/PLF Medical Diagnosis Admission Date Apr 22, 2018 at 08:36 Medical Diagnosis: left TKA Onset Date: Apr 22, 2018 Therapy Diagnosis Therapy Diagnosis: Weakness Height/Weight Height (Feet): 5 Height (Inches): 3.00 Weight (Pounds): 230 Weight (Ounces): 0.0 Precautions Precautions/Isolations: Standard Precautions Safety Interventions: None Weight Bear Status Weight Bearing Restriction: Weight Bearing/Tolerated Referral Physician: Thad Greenberg APRN Referral Reason: Activity Tolerance, Self Care, Evaluation/Treatment, Strengthening/ROM Medical History Pertinent Medical History: OA Additional Medical History bilateral hip replacements Current History Pt. had elective knee surgery. Reviewed History: Yes Social History Home: Single Level Current Living Status: Spouse Entry Into Home: Stairs With Railing Steps Into Home: 4 ADL-Prior Level of Function ADL PLOF Comments Pt. is independent with driving and ADLs. DME/Equipment: Bath Chair, Tub/Shower DME/Equipment Comments Pt. has a walker but does not use it. Occupation: Ret[employer] Self: Yes OT Current Status Subjective No pain reported. Appearance Pt. in bed. Agrees to treatment. Mental Status/Objective Patient Orientation: Person, Place, Time, Situation Current Upper Extremity ROM WFL ADL-Treatment Functional [place] Measure 0=Not Assessed/NA 4=Minimal Assistance 1=Total Assistance 5=Supervision or Setup 2=Maximal Assistance 6=Modified [place] 3=Moderate Assistance 7=Complete IndependenceIRFPAI Quality Coding Scale 6 Independent with activity with or without an assistive device 5 Patient requires set up or clean up by helper. Patient completes activity by themselves 4 Supervision or touching assist (CGA). [place] provide cues , steadying assist 3 The helper provides less than half the effort to complete the activity 2 The helper provides more than half the effort to complete the activity 1 Dependent. The helper does all the effort to complete an activity 7 Patient refused to complete or attempt activity 9 The patient did not perform the activity before the current illness or injury 88 Not attempted due to Medical conditions or safety concerns Bathing (FIM): 5 (SBA while seated on side of bed. Pt. declined doffing HONEY hose, but able to wash vanita area and upper body.) Transfers (B, C, W/C) (FIM): 4 (Min assist supine-sit and sit-stand.) Other Treatments Pt. declines showering this date stating that he took one yesterday morning. Agrees to spongebathe. Transferred supine-sit with min assist. Completed spongebath on side of bed and donned fresh gown. Transferred to chair with min assist. All needs met in room. Education OT Patient Education: Correct positioning, Modified ADL techniques, Progress toward Goal/Update tx plan, Purpose of tx/functional activities, Reviewed precautions, Rehab process, Transfer techniques Teaching Recipient: Patient Teaching Methods: Demonstration Response to Teaching: Verbalize Understanding, Return Demonstration OT Short Term Goals Short Term Goals Transfers (B,C,W/C) (FIM): 5 1=Demonstrate adherence to instructed precautions during ADL tasks. 2=Patient will verbalize/demonstrate understanding of assistive devices/ modifications for ADL. 3=Patient will improve strength/tolerance for activity to enable patient to perform ADL's. OT Skilled Nursing Goals Handstitching Machine Collar Feller Goals Time Frame: Apr 30, 2018 Eating (FIM): 6 Grooming(FIM): 6 Bathing(FIM): 5 Upper Body Dressing(FIM): 6 Lower Body Dressing(FIM): 6 Toileting(FIM): 6 Transfers (B,C,W/C) (FIM): 6 Toilet/Commode Transfer(FIM): 6 Shower Transfer(FIM): 5 Additional Goals: 1-Demonstrate ADL Tasks, 2-Verbalize Understanding, 3- ImproveStrength/Isa 1=Demonstrate adherence to instructed precautions during ADL tasks. 2=Patient will verbalize/demonstrate understanding of assistive devices/ modifications for ADL. 3=Patient will improve strength/tolerance for activity to enable patient to perform ADL's. OT Education/Plan Problem List/Assessment Assessment: Decreased Activ Tolerance, Dependent Transfers, Impaired Bed Mobility, Impaired I ADL's, Impaired Self-Care Skills Discharge Recommendations Plan/Recommendations: Continue POC Therapy D/C Recommendations: Home w/ Family Support, Occupational Therapy Home Care Comment Pt. states that he uses a sock aide at home. Treatment Plan/Plan of Care Treatment,Training & Education: Yes Patient would benefit from OT for education, treatment and training to promote independence in ADL's, mobility, safety and/or upper extremity function for ADL' s. Plan of Care: ADL Retraining, Functional Mobility Treatment Duration: Apr 30, 2018 Frequency: 5 times per week Estimated Hrs Per Day: .25 hour per day Agreement: Yes Rehab Potential: Fair Time/GCodes Start Time: 11:10 Stop Time: 11:40 Total Time Billed (hr/min): 30 Billed Treatment Time 1, EVM x 15minutes, ADL x 15minutes AMIRA POTTER OT Apr 23, 2018 16:02
[2018-04-23 20:00] VITALS: BP 162/83
[2018-04-23] MEDS: SENNA W/DOCUSATE (SENOKOT S) TABLET PO SCH (20:29)
[2018-04-23] MEDS: ALLOPURINOL 300 MG (ZYLOPRIM) TAB PO SCH (20:29)
[2018-04-23] MEDS: MONTELUKAST 10 MG (SINGULAIR) TAB PO SCH (20:29)
[2018-04-24 00:14] VITALS: BP 163/76
[2018-04-24 05:00] LABS: HEMOGLOBIN 11.5 G/DL (13.3-17.7); MEAN PLATELET VOLUME 9.2 FL (7.4-10.4); RED BLOOD COUNT 3.69 10^6/uL (4.35-5.85); WHITE BLOOD COUNT 5.3 10^3/uL (4.3-11.0)
[2018-04-24 05:42] LABS: BUN/CREATININE RATIO 12; CALCIUM 8.8 MG/DL (8.5-10.1); CARBON DIOXIDE 26 MMOL/L (21-32); CHLORIDE 102 MMOL/L (98-107); CREATININE SERUM 0.82 MG/DL (0.60-1.30); GFR ESTIMATED > 60; GLUCOSE 129 MG/DL (70-105); POTASSIUM 3.9 MMOL/L (3.6-5.0); SODIUM 137 MMOL/L (135-145)
[2018-04-24] MEDS: inSUlin ASPART (NovoLOG) 1 UNIT/0.01 ML (CHARGE PER UNIT) SC SCH ×4 (06:37→21:03)
--- NOTE | 2018-04-24 06:49 | Progress Note (SOAP) ---
Subjective Date Seen by Provider: Apr 24, 2018 Time Seen by Provider: 06:48 Subjective/Events-last exam POD 2 s/p left TKA, doing well and verbalizes no complaints. Ambulated to nursing station and back x2 yesterday with P.T. Reports urinary retention issues resolved. Objective Exam Vital Signs Date Time Temp Pulse Resp B/P (MAP) Pulse Ox O2 Delivery O2 Flow Rate FiO2 04/24/18 00:14 98.4 102 19 163/76 (105) 93 Room Air 04/23/18 20:02 Nasal Cannula 3.00 04/23/18 20:00 99.6 107 18 162/83 (109) 96 Room Air 04/23/18 16:00 98.4 86 20 149/81 (103) 96 Room Air 04/23/18 12:25 99.6 94 20 148/75 (99) 92 Room Air 04/23/18 08:32 98.4 92 18 133/74 (93) 93 Room Air I & O 04/24/18 07:00 Intake Total 1990 ml Output Total 3550 ml Balance -1560 ml Capillary Refill : General Appearance: No Apparent Distress Extremity: Normal Capillary Refill, Non Tender, No Calf Tenderness, No Pedal Edema Neurologic/Psychiatric: Alert, Oriented x3, No Motor/Sensory Deficits, Normal Mood/Affect Skin: Normal Color, Warm/Dry (dressing left leg CDI) Results Lab Laboratory Tests 04/23/18 10:52: Glucometer 140H 04/23/18 16:07: Glucometer 125H 04/23/18 20:40: Glucometer 150H 04/24/18 04:40: White Blood Count 5.3, Red Blood Count 3.69L, Hemoglobin 11.5L, Hematocrit 34L, Mean Corpuscular Volume 93, Mean Corpuscular Hemoglobin 31, Mean Corpuscular Hemoglobin Concent 33, Red Cell Distribution Width 15.0H, Platelet Count 165, Mean Platelet Volume 9.2, Sodium Level 137, Potassium Level 3.9, Chloride Level 102, Carbon Dioxide Level 26, Anion Gap 9, Blood Urea Nitrogen 10, Creatinine 0.82, Estimat Glomerular Filtration Rate > 60, BUN/Creatinine Ratio 12, Glucose Level 129H, Calcium Level 8.8 04/24/18 05:43: Glucometer 135H Assessment/Plan Assessment/Plan Assess & Plan/Chief Complaint A: s/p L TKA, hyponatremia, urinary retention (post op), HTN P: Cont treatment, plan to DC to home with home health saturday Clinical Quality Measures DVT/VTE Risk/Contraindication: Risk Factor Score Per Nursin RFS Level Per Nursing on Admit: 4+=Very High GRUPO NICHOLSON APRN Apr 24, 2018 6:49 am
--- NOTE | 2018-04-24 06:55 | D/C HH Face to Face Order ---
D/C Face to Face Orders Instructions for Patient Patient Instructions/FollowUp: see Dr. Ferrer's TKA DC instructions f/u in [place] office in 2 weeks Physician to follow Patient: Dr. Ferrer Discharge Diet for Home: Cardiac Diet Patient Problems: s/p left TKA HTN urinary retention Goals for Patient: independence with ADLs Patient Data-Allergies,Ht & Wt Patient Allergies: Coded Allergies: hydrocodone (Verified Allergy, Mild, RASH (NO REACTION TO MORPHINE/ PERCOCET), 10/29/11) Sulfa (Sulfonamide Antibiotics) (Verified Allergy, Unknown, 12/08/12) Height (Feet): 5 Height (Inches): 3.00 Weight (Pounds): 230 Weight (Ounces): 0.0 Home Health Need/Face to Face Date of Face to Face: Apr 24, 2018 Clinical Findings: Generalized weakness and fatigue, Muscle weakness, Pain with ambulation, Unsteady gait I have seen Pt [id number]: Yes Discharged To: Home Diagnosis/Conditions: s/p left TKA Primary OA left knee HTN urinary retention Problems/Diagnosis/Condition: (1) Primary osteoarthritis of left knee Patient is Homebound due to: Jose fall risk due to instabilty, Pain w/ ambulation Homebound Status Due to the above stated illness, injury or surgical procedure (medical condition or diagnosis) and associated clinical findings, the patient is homebound because of his/her inability to leave home except with aid of a supportive device and/or person AND leaving the home requires a considerable and taxing effort or is medically contraindicated. Pt req the following assistanc: Walker Home Health Nursing Orders Home Health Services Order: Physical Therapy-Evaluate & Treat Physical therapy 5x/week x 2 weeks to assist with ambulation and treat ROM CPM machine 6 hrs per day, advance 10 deg per day as iliana remove rohith POD 10 and apply steri strips daily island dressing changes may remove dressing and shower with incision uncovered Continue HONEY [facility] care unit off and on throughout day Home Health Infusion Therapy Site Location: Hand Therapy Orders Therapy Orders: Physical Therapy Therapy Specific Orders: Gait training, Increase strength/endurance, Restore ROM remove rohith and apply steri strips POD #10 WBAT with Front wheeled walker Certify Stmt I certify that this patient is under my care and that I, a nurse practitioner or a physician; a visitor information assistant working with me, had a face to face encounter that - meets the physician face to face encounter requirements with this patient as dated. GRUPO NICHOLSON APRN Apr 24, 2018 6:55 am
[2018-04-24] MEDS ORDERED: TRAM50TA2 PO (06:59)
[2018-04-24] MEDS ORDERED: OXYC-465 PO (06:59)
[2018-04-24] MEDS ORDERED: SENN-20 PO (06:59)
[2018-04-24 08:10] VITALS: BP 164/84
[2018-04-24] MEDS: PHENYTOIN 100 MG (DILANTIN) CAP PO SCH ×2 (08:29→20:58)
[2018-04-24] MEDS: ASPIRIN E.C. 81 MG (ECOTRIN) TAB PO SCH (08:29)
[2018-04-24] MEDS: ISOSORBIDE MONONITRATE 20 MG PO SCH (08:29)
[2018-04-24] MEDS: ENOXAPARIN 40 MG/0.4 ML (LOVENOX) SYR SC SCH (08:29)
[2018-04-24] MEDS: LORATADINE (CLARITIN) 10 MG TAB PO SCH (08:30)
[2018-04-24] MEDS: TAMSULOSIN 0.4 MG (FLOMAX) CAP PO SCH (08:30)
[2018-04-24] MEDS: Liraglutide (Victoza 3-Pak) 1.2 MG SC SCH (08:30)
[2018-04-24] MEDS: SENNA W/DOCUSATE (SENOKOT S) TABLET PO SCH ×2 (08:30→20:59)
[2018-04-24] MEDS: GABAPENTIN 300 MG (NEURONTIN) CAP PO SCH ×3 (08:30→21:01)
--- NOTE | 2018-04-24 08:59 | Progress Note (SOAP) ---
Subjective Subjective Date Seen by Provider: Apr 24, 2018 Time Seen by Provider: 08:00 No overnight events Doing well. No issues with urination, bowel movements. Tolerating diet ambulating with PT He likes the machine that moves his left leg for him. Review of Systems General: No Chills, No Night Sweats HEENT: No Head Aches, No Visual Changes, No Eye Pain Pulmonary: No Dyspnea, No Cough Cardiovascular: No: Chest Pain, Palpitations, Orthopnea Gastrointestinal: No: Nausea, Vomiting Genitourinary: No Dysuria, No Frequency; Retention (resolved) Musculoskeletal: No: neck pain, shoulder pain Neurological: No: Weakness, Numbness, Change in speech, Confusion Objective Exam Vital Signs Vital Signs Date Time Temp Pulse Resp B/P (MAP) Pulse Ox O2 Delivery O2 Flow Rate FiO2 04/24/18 08:10 99.1 101 18 164/84 (110) 97 NIV CPAP 04/24/18 07:37 Nasal Cannula 3.00 04/24/18 00:14 98.4 102 19 163/76 (105) 93 Room Air 04/23/18 20:02 Nasal Cannula 3.00 04/23/18 20:00 99.6 107 18 162/83 (109) 96 Room Air 04/23/18 16:00 98.4 86 20 149/81 (103) 96 Room Air 04/23/18 12:25 99.6 94 20 148/75 (99) 92 Room Air I & O 04/24/18 07:00 Intake Total 1990 ml Output Total 3550 ml Balance -1560 ml General Appearance: No Apparent Distress HEENT: PERRL/EOMI Neck: Non Tender, Supple Respiratory: Chest Non Tender, Lungs Clear, Normal Breath Sounds, No Accessory Muscle Use, No Respiratory Distress, Accessory Muscle Use Cardiovascular: Regular Rate, Rhythm Gastrointestinal: Non Tender, Soft Rectal: Deferred Back: Normal Inspection, No CVA Tenderness Extremity: Normal Capillary Refill, Non Tender, No Calf Tenderness, No Pedal Edema Neurologic/Psychiatric: Alert, Oriented x3, No Motor/Sensory Deficits, Normal Mood/Affect Skin: Normal Color, Warm/Dry (dressing left leg CDI) Results Lab Laboratory Tests 04/23/18 10:52: Glucometer 140H 04/23/18 16:07: Glucometer 125H 04/23/18 20:40: Glucometer 150H 04/24/18 04:40: White Blood Count 5.3, Red Blood Count 3.69L, Hemoglobin 11.5L, Hematocrit 34L, Mean Corpuscular Volume 93, Mean Corpuscular Hemoglobin 31, Mean Corpuscular Hemoglobin Concent 33, Red Cell Distribution Width 15.0H, Platelet Count 165, Mean Platelet Volume 9.2, Sodium Level 137, Potassium Level 3.9, Chloride Level 102, Carbon Dioxide Level 26, Anion Gap 9, Blood Urea Nitrogen 10, Creatinine 0.82, Estimat Glomerular Filtration Rate > 60, BUN/Creatinine Ratio 12, Glucose Level 129H, Calcium Level 8.8 04/24/18 05:43: Glucometer 135H Assessment/Plan Assessment/Plan Assessment and Plan 67 yo M Left knee osteoarthritis- s/p total knee replacement- Dr. Ferrer Diabetes Mellitus II- under good control last hga1c really good at 5.9 last year; continue sliding scale insulin- monitor blood sugars. HTN- blood pressure under good control-with current regimen. Gout -under good control with allopurinol. CAD- history of 2 stents- follows with Dr. Sandoval- last ECHO Oct 2016- LVEF 60% Dispo: appears to be doing well from medical standpoint- will monitor blood sugars to promote healing- Will follow along while pt is admitted. Problems: (1) Primary osteoarthritis of left knee (2) Non-insulin dependent type 2 diabetes mellitus (3) Essential (primary) hypertension (4) Gout (5) CAD (coronary artery disease) Qualifiers: (6) Normocytic anemia (7) Hyponatremia Assessment & Plan: resolved Clinical Quality Measures DVT/VTE Risk/Contraindication: Risk Factor Score Per Nursin RFS Level Per Nursing on Admit: 4+=Very High HARRIET DE LOS SANTOS MD Apr 24, 2018 08:59
--- NOTE | 2018-04-24 10:08 | Physical Therapy Daily Note ---
PT Daily Note-Current Subjective Patient agrees to PT. Pain Numeric Pain Scale: 7 Location: Left Location Body Site: Knee Pain Description: Acute Mental Status Patient Orientation: Normal For Age Transfers Functional [place] Measure 0=Not Assessed/NA 4=Minimal Assistance 1=Total Assistance 5=Supervision or Setup 2=Maximal Assistance 6=Modified [place] 3=Moderate Assistance 7=Complete IndependenceIRFPAI Quality Coding Scale 6 Independent with activity with or without an assistive device 5 Patient requires set up or clean up by helper. Patient completes activity by themselves 4 Supervision or touching assist (CGA). [place] provide cues , steadying assist 3 The helper provides less than half the effort to complete the activity 2 The helper provides more than half the effort to complete the activity 1 Dependent. The helper does all the effort to complete an activity 7 Patient refused to complete or attempt activity 9 The patient did not perform the activity before the current illness or injury 88 Not attempted due to Medical conditions or safety concerns Transfers (B, C, W/C) (FIM): 6 Scootin Rollin Supine to/from Sit: 6 Sit to/from Stand: 6 Bed to/from Chair: 6 Weight Bearing Right Lower Extremity: Right Full Weight Bearing Left Lower Extremity: Left Weight Bearing/Tolerated Gait Training Gait (FIM): 5 Distance (FIM): 3=150 ft Distance: 155' Gait Level of Assist: 5 Gait Assistive Device: FWW slow, antalgic, step to gait sequence Exercises Supine Ex: Ankle pumps, Quad Set, Heel Slides, Straight leg raise Supine Reps: 10 (2 sets ) Seated Therapy Exercises: Long arc quads Seated Reps: 15 (2 sets) Assessment Patient is up in recliner with needs met. Patient progressing with treatment plan and will dismiss to home tomorrow with home health intervention. PT Short Term Goals Short Term Goals Time Frame: Apr 30, 2018 Transfers (B,C,W/C) (FIM): 5 Gait (FIM): 2 Gait Distance Comment: 100' Gait Level of Assist: 5 Gait Assistive Device: FWW PT Plan Treatment/Plan Treatment Plan: Continue Plan of Care Treatment Plan: Bed Mobility, Education, Functional Activity Isa, Functional Strength, Gait, Safety, Therapeutic Exercise, Transfers Treatment Duration: Apr 30, 2018 Frequency: 11 times per week Estimated Hrs Per Day: .25 hour per day (15-30') Patient and/or Family Agrees t: Yes Time/GCodes Time In: 917 Time Out: 940 Total Billed Treatment Time: 23 Total Billed Treatment 1 visit EX 13 min GT 10 min DEEPALI TORRES PT Apr 24, 2018 10:08
--- NOTE | 2018-04-24 14:53 | Occupational Ther Daily Note ---
OT Current Status-Daily Note Subjective No pain reported. Appearance Pt. up in chair. Finishing lunch. Agrees to work with OT. Mental Status/Objective Patient Orientation: Person, Place, Time, Situation Functional [place] Measure 0=Not Assessed/NA 4=Minimal Assistance 1=Total Assistance 5=Supervision or Setup 2=Maximal Assistance 6=Modified [place] 3=Moderate Assistance 7=Complete [place] Attachments: IV ADL-Treatment Bathing (FIM): 5 (SBA in shower. Pt. states that spouse will be with him at home.) Upper Body (FIM): 5 Lower Body Dressing (FIM): 2 (Max assist as pt. uses sock aide at home. Pt. educated on dressing stick. However, states that his spouse can assist him.) Transfers (B, C, W/C) (FIM): 5 (SBA with walker to ambulate into bathroom.) Toilet/Commode Transfer (FIM): 5 Shower Transfer(FIM): 5 Education OT Patient Education: Modified ADL techniques, Progress toward Goal/Update tx plan, Purpose of tx/functional activities, Reviewed precautions, Rehab process, Transfer techniques Teaching Recipient: Patient Teaching Methods: Demonstration, Discussion Response to Teaching: Verbalize Understanding, Return Demonstration OT Short Term Goals Short Term Goals Transfers (B,C,W/C) (FIM): 5 1=Demonstrate adherence to instructed precautions during ADL tasks. 2=Patient will verbalize/demonstrate understanding of assistive devices/ modifications for ADL. 3=Patient will improve strength/tolerance for activity to enable patient to perform ADL's. OT Mangle Tender Goals Shelter Goals Time Frame: Apr 30, 2018 Eating (FIM): 6 Grooming(FIM): 6 Bathing(FIM): 5 Upper Body Dressing(FIM): 6 Lower Body Dressing(FIM): 6 Toileting(FIM): 6 Transfers (B,C,W/C) (FIM): 6 Toilet/Commode Transfer(FIM): 6 Shower Transfer(FIM): 5 Additional Goals: 1-Demonstrate ADL Tasks, 2-Verbalize Understanding, 3- ImproveStrength/Isa 1=Demonstrate adherence to instructed precautions during ADL tasks. 2=Patient will verbalize/demonstrate understanding of assistive devices/ modifications for ADL. 3=Patient will improve strength/tolerance for activity to enable patient to perform ADL's. OT Education/Plan Problem List/Assessment Assessment: Decreased Activ Tolerance, Impaired I ADL's Discharge Recommendations Plan/Recommendations: Discharge/Goals Met Therapy D/C Recommendations: Home w/ Family Support Equpiment Recommendations-D/C: Hip Kit Target Placement Home with spouse assist. Pt. reports that spouse will help him with whatever he needs assistance with. No further OT training at this time. Treatment Plan/Plan of Care Treatment,Training & Education: Yes Plan of Care: ADL Retraining, Functional Mobility Treatment Duration: Apr 30, 2018 Frequency: 1 time per week Estimated Hrs Per Day: .25 hour per day Agreement: Yes Rehab Potential: Good Time/GCodes Start Time: 13:10 Stop Time: 13:35 Total Time Billed (hr/min): 25 Billed Treatment Time 1, ADL x 2 AMIRA POTTER OT Apr 24, 2018 14:52
--- NOTE | 2018-04-24 14:53 | Physical Therapy Daily Note ---
PT Daily Note-Current Subjective Patient agrees to PT. Reports he is feeling better this afternoon. Pain Numeric Pain Scale: 5-Moderate Pain Location: Left Location Body Site: Knee Pain Description: Acute Mental Status Patient Orientation: Normal For Age Transfers Functional [place] Measure 0=Not Assessed/NA 4=Minimal Assistance 1=Total Assistance 5=Supervision or Setup 2=Maximal Assistance 6=Modified [place] 3=Moderate Assistance 7=Complete IndependenceIRFPAI Quality Coding Scale 6 Independent with activity with or without an assistive device 5 Patient requires set up or clean up by helper. Patient completes activity by themselves 4 Supervision or touching assist (CGA). [place] provide cues , steadying assist 3 The helper provides less than half the effort to complete the activity 2 The helper provides more than half the effort to complete the activity 1 Dependent. The helper does all the effort to complete an activity 7 Patient refused to complete or attempt activity 9 The patient did not perform the activity before the current illness or injury 88 Not attempted due to Medical conditions or safety concerns Transfers (B, C, W/C) (FIM): 6 Rollin Sit to/from Stand: 6 Weight Bearing Right Lower Extremity: Right Full Weight Bearing Left Lower Extremity: Left Weight Bearing/Tolerated Gait Training Gait (FIM): 6 Distance (FIM): 3=150 ft Distance: 275' Gait Level of Assist: 6 Gait Assistive Device: FWW reciprocal pattern/functional gait sequence Exercises Seated Therapy Exercises: Ankle pumps, Long arc quads, Hip flexion Seated Reps: 25 (3 sets) Assessment Patient remains up in recliner with needs met. He will dismiss to home tomorrow with home health. PT Short Term Goals Short Term Goals Time Frame: Apr 30, 2018 Transfers (B,C,W/C) (FIM): 5 Gait (FIM): 2 Gait Distance Comment: 100' Gait Level of Assist: 5 Gait Assistive Device: FWW PT Plan Treatment/Plan Treatment Plan: Continue Plan of Care Treatment Plan: Bed Mobility, Education, Functional Activity Isa, Functional Strength, Gait, Safety, Therapeutic Exercise, Transfers Treatment Duration: Apr 30, 2018 Frequency: 11 times per week Estimated Hrs Per Day: .25 hour per day (15-30') Patient and/or Family Agrees t: Yes Time/GCodes Time In: 1350 Time Out: 1400 Total Billed Treatment Time: 10 Total Billed Treatment 1 visit FA 10 min DEEPALI TORRES PT Apr 24, 2018 14:53
[2018-04-24 16:30] VITALS: BP_SYST 167; BP_DIAS 79; BP_DIAS 9
[2018-04-24] MEDS: ALLOPURINOL 300 MG (ZYLOPRIM) TAB PO SCH (20:58)
[2018-04-24] MEDS: MONTELUKAST 10 MG (SINGULAIR) TAB PO SCH (20:59)
[2018-04-24] MEDS: oxyCODONE/APAP 10/325MG (PERCOCET 10) TABLET PO PRN (20:59)
[2018-04-25 00:16] VITALS: BP 160/76
[2018-04-25] MEDS: inSUlin ASPART (NovoLOG) 1 UNIT/0.01 ML (CHARGE PER UNIT) SC SCH ×2 (06:11→11:15)
[2018-04-25 06:25] LABS: HEMOGLOBIN 11.8 G/DL (13.3-17.7)
--- NOTE | 2018-04-25 07:02 | Progress Note (SOAP) ---
Subjective Date Seen by Provider: Apr 25, 2018 Time Seen by Provider: 07:00 Subjective/Events-last exam No complaints, wants to be discharged today, ambulating well with P.T. Objective Exam Vital Signs Date Time Temp Pulse Resp B/P (MAP) Pulse Ox O2 Delivery O2 Flow Rate FiO2 04/25/18 00:16 97.7 92 20 160/76 (104) 96 Room Air 04/24/18 21:05 97 Room Air 04/24/18 16:30 99.5 98 16 167/79 (108) 95 Room Air 04/24/18 08:10 99.1 101 18 164/84 (110) 97 NIV CPAP 04/24/18 08:00 97 Room Air 04/24/18 07:37 Nasal Cannula 3.00 I & O 04/25/18 07:00 Intake Total 2100 ml Output Total 775 ml Balance 1325 ml Capillary Refill : General Appearance: No Apparent Distress HEENT: PERRL/EOMI Neck: Full Range of Motion Respiratory: Lungs Clear, Normal Breath Sounds Cardiovascular: Regular Rate, Rhythm Gastrointestinal: non tender, soft Extremity: Normal Capillary Refill, No Calf Tenderness, No Pedal Edema Neurologic/Psychiatric: Alert, Oriented x3, No Motor/Sensory Deficits, Normal Mood/Affect Skin: Normal Color, Warm/Dry (dressing to left knee CDI) Results Lab Laboratory Tests 04/24/18 11:12: Glucometer 130H 04/24/18 16:24: Glucometer 122H 04/24/18 20:28: Glucometer 103 04/25/18 05:50: Hemoglobin 11.8L, Hematocrit 34L 04/25/18 06:03: Glucometer 100 Assessment/Plan Assessment/Plan Assess & Plan/Chief Complaint A: s/p L TKA, hyponatremia, urinary retention (post op), HTN P: DC to home with [facility] today Clinical Quality Measures DVT/VTE Risk/Contraindication: Risk Factor Score Per Nursin RFS Level Per Nursing on Admit: 4+=Very High GRUPO NICHOLSON APRN Apr 25, 2018 7:02 am
--- NOTE | 2018-04-25 07:09 | Discharge Summary ---
Diagnosis/Chief Complaint Date of Admission Apr 22, 2018 at 8:36 am Date of Discharge Discharge Date: Apr 25, 2018 Discharge Time: 1100 Admission Diagnosis Admission Diagnosis Primary OA left knee Discharge Diagnosis Primary OA left knee s/p left TKA urinary retention HTN Reason Hospital Visit Left total knee arthroplasty Discharge Summary Procedures: Left Total Knee Arthroplasty on date of admission Consultations Jensen Brown MD Discharge Physical Examination Allergies: Coded Allergies: hydrocodone (Verified Allergy, Mild, RASH (NO REACTION TO MORPHINE/ PERCOCET), 10/29/11) Sulfa (Sulfonamide Antibiotics) (Verified Allergy, Unknown, 12/08/12) Vitals & I&Os Vital Signs Date Time Temp Pulse Resp B/P (MAP) Pulse Ox O2 Delivery O2 Flow Rate FiO2 04/25/18 00:16 97.7 92 20 160/76 (104) 96 Room Air 04/24/18 07:37 3.00 General Appearance: Alert, Oriented X3 HEENT: PERRLA Respiratory: Clear to Auscultation Cardiovascular: Regular Rate Abdominal: Normal Bowel Sounds, Soft Extremities: No Clubbing, No Cyanosis, No Edema, Normal Pulses Skin: No Rashes, Other (dressing to left knee CDI) Neuro: Reflexes 2+ Psych/Mental Status: Mental Status NL Hospital Course The patient had failed conservative treatment for OA of the left knee, He was admitted to the hospital for a left TKA. Overall his hospital course was uneventful and he was progressed until discharge. Pending Labs Laboratory Tests 04/25/18 05:50: Hemoglobin 11.8, Hematocrit 34 04/25/18 06:03: Glucometer 100 Discharge Condition at discharge good Instructions to patient/family Please see electronic discharge instructions given to patient. Discharge Medications Reviewed and agree with Discharge Medication list on patient's Discharge Instruction sheet Clinical Quality Measures DVT/VTE Risk/Contraindication: VTE Addressed: Yes VTE Present on Admission: Yes Risk Factor Score Per Nursin RFS Level Per Nursing on Admit: 4+=Very High GRUPO NICHOLSON APRN Apr 25, 2018 7:09 am
[2018-04-25 08:42] VITALS: BP 163/77
[2018-04-25] MEDS: ENOXAPARIN 40 MG/0.4 ML (LOVENOX) SYR SC SCH (08:54)
[2018-04-25] MEDS: TAMSULOSIN 0.4 MG (FLOMAX) CAP PO SCH (08:55)
[2018-04-25] MEDS: SENNA W/DOCUSATE (SENOKOT S) TABLET PO SCH (08:55)
[2018-04-25] MEDS: PHENYTOIN 100 MG (DILANTIN) CAP PO SCH (08:55)
[2018-04-25] MEDS: oxyCODONE/APAP 10/325MG (PERCOCET 10) TABLET PO PRN (08:55)
[2018-04-25] MEDS: GABAPENTIN 300 MG (NEURONTIN) CAP PO SCH (08:56)
[2018-04-25] MEDS: ASPIRIN E.C. 81 MG (ECOTRIN) TAB PO SCH (08:56)
[2018-04-25] MEDS: ISOSORBIDE MONONITRATE 20 MG PO SCH (08:56)
[2018-04-25] MEDS: LORATADINE (CLARITIN) 10 MG TAB PO SCH (08:57)
[2018-04-25] MEDS: Liraglutide (Victoza 3-Pak) 1.2 MG SC SCH (09:04)
--- NOTE | 2018-04-25 11:57 | Physical Therapy Daily Note ---
PT Daily Note-Current Subjective Pt. up in chair and readily agrees to therapy. Pt. says he is being discharged today and is ready to go as soon as possible. Pt. reports he has already walked today. Verbalizes good understanding of completing stairs and HEP. Mental Status Patient Orientation: Normal For Age Transfers Functional [place] Measure 0=Not Assessed/NA 4=Minimal Assistance 1=Total Assistance 5=Supervision or Setup 2=Maximal Assistance 6=Modified [place] 3=Moderate Assistance 7=Complete IndependenceIRFPAI Quality Coding Scale 6 Independent with activity with or without an assistive device 5 Patient requires set up or clean up by helper. Patient completes activity by themselves 4 Supervision or touching assist (CGA). Henriette provide cues , steadying assist 3 The helper provides less than half the effort to complete the activity 2 The helper provides more than half the effort to complete the activity 1 Dependent. The helper does all the effort to complete an activity 7 Patient refused to complete or attempt activity 9 The patient did not perform the activity before the current illness or injury 88 Not attempted due to Medical conditions or safety concerns Transfers (B, C, W/C) (FIM): 6 Sit to/from Stand: 6 Weight Bearing Right Lower Extremity: Right Full Weight Bearing Left Lower Extremity: Left Weight Bearing/Tolerated Gait Training Gait (FIM): 6 Distance (FIM): 3=150 ft Distance: 200 ft Gait Level of Assist: 6 Gait Persons Needed: 1 Gait Assistive Device: FWW Pt. has good gait speed and normal heel toe pattern. Exercises Seated Therapy Exercises: Ankle pumps, Long arc quads, Hamstring Curls Seated Reps: 15 Treatments gait training, reviewed HEP Assessment Current Status: Good Progress Pt. did very well with ambulation, all questions answered from patient and he is ready for discharge. He verbalizes good understanding of ascending/ descending stairs and HEP. Planning D/C this PM. PT Short Term Goals Short Term Goals Time Frame: Apr 30, 2018 Transfers (B,C,W/C) (FIM): 5 Gait (FIM): 2 Gait Distance Comment: 100' Gait Level of Assist: 5 Gait Assistive Device: FWW PT Plan Treatment/Plan Treatment Plan: Continue Plan of Care Treatment Plan: Bed Mobility, Education, Functional Activity Isa, Functional Strength, Gait, Safety, Therapeutic Exercise, Transfers Treatment Duration: Apr 30, 2018 Frequency: 11 times per week Estimated Hrs Per Day: .25 hour per day (15-30') Patient and/or Family Agrees t: Yes Time/GCodes Time In: 1130 Time Out: 1141 Total Billed Treatment Time: 11 Total Billed Treatment 1, GT 11' TYRELL SAUNDERS PT Apr 25, 2018 11:57
[2018-04-25 13:45] VITALS: BP 148/77
== END 2018-04-25 13:45 | disposition home health service (06) | DRG 470 ==
LOC: 4TH 08:36 → SURG 08:37 → 4TH 14:00
PROVIDERS: ADMIT Orthopaedic Surgery; ATTEND Orthopaedic Surgery
PROC: 0SRD0J9 Replacement of Left Knee Joint with Synthetic Substitute, Cemented, Open Approach (ICD-10-PCS; principal; 2018-04-22 10:45)
DX: M17.12 Unilateral primary osteoarthritis, left knee (principal); E87.1 Hypo-osmolality and hyponatremia; E66.01 Morbid (severe) obesity due to excess calories; Z68.41 Body mass index [BMI] 40.0-44.9, adult; R33.9 Retention of urine, unspecified; E11.40 Type 2 diabetes mellitus with diabetic neuropathy, unspecified; I10 Essential (primary) hypertension; I25.10 Atherosclerotic heart disease of native coronary artery without angina pectoris; G47.30 Sleep apnea, unspecified; E78.00 Pure hypercholesterolemia, unspecified; I73.9 Peripheral vascular disease, unspecified; M10.9 Gout, unspecified; D64.9 Anemia, unspecified; Z96.643 Presence of artificial hip joint, bilateral; Z79.82 Long term (current) use of aspirin; Z95.5 Presence of coronary angioplasty implant and graft; Z87.891 Personal history of nicotine dependence
CPT/HCPCS: 36415; 73560; 80048; 82962; 85014; 85018; 85027; 86850; 86900; 86901; 94664

== ENCOUNTER → 2018-07-04 | Outpatient (CLI) | payer MEDICARE, OTHER ==
[~2018-07-04] MED LIST changes: +OXYC-465 PO; +SENN-20 PO
[2018-07-04 08:47] LABS: ALANINE AMINOTRANSFERASE 34 U/L (0-55); ALBUMIN 4.1 GM/DL (3.2-4.5); ALKALINE PHOSPHATASE 56 U/L (40-136); BILIRUBIN,TOTAL 0.5 MG/DL (0.1-1.0); BUN/CREATININE RATIO 26; CALCIUM 9.6 MG/DL (8.5-10.1); CARBON DIOXIDE 22 MMOL/L (21-32); CHLORIDE 104 MMOL/L (98-107); CHOLESTEROL 142 MG/DL (< 200); CREATININE SERUM 0.92 MG/DL (0.60-1.30); GFR ESTIMATED > 60; GLUCOSE 112 MG/DL (70-105); HDL CHOLESTEROL 57 MG/DL (40-60); POTASSIUM 4.2 MMOL/L (3.6-5.0); SODIUM 139 MMOL/L (135-145); TOTAL PROTEIN 6.7 GM/DL (6.4-8.2); TRIGLYCERIDES 61 MG/DL (<150); VLDL CHOLESTEROL 12 MG/DL (5-40)
== END ==
LOC: LAB 08:10
PROVIDERS: ATTEND Physician Assistant
DX: I25.10 Atherosclerotic heart disease of native coronary artery without angina pectoris (principal); I65.29 Occlusion and stenosis of unspecified carotid artery; R07.9 Chest pain, unspecified; R06.02 Shortness of breath
CPT/HCPCS: 36415; 80053; 80061

== ENCOUNTER 2018-08-09 12:36 | Emergency (ER) | payer MEDICARE, OTHER ==
[~2018-08-09] VITALS: Ht 160 cm; Wt 99.8 kg
--- OUTSIDE RECORDS SUMMARY | 2018-08-09 12:45 | XMS REPORT | Continuity of Care Document ---
Author Author [facility] Organization [facility] Address Unknown Phone Unavailable Allergies Active Description Code Type Severity Reaction Onset Reported/Identified Relationship to Patient Clinical Status Yes hydrocodone [id number] Drug Allergy Mild RASH (NO REACTI 01/02/2017 Yes Sulfa (Sulfonamide Antibiotics) [id number] Drug Allergy Unknown N/A 2016 Medications Medication [...] 1 CAP TID THREE TIMES A DAY Atorvastatin Calcium TABLET 2017 ORAL 40 MG HS BEDTIME Senna-Time S Tablet TABLET 2017 ORAL 1 EA BID TWICE A DAY Oxycodone-Acetaminophen 10-325 TABLET 04/24/2018 ORAL 1 TAB Q4HR GIVE EVERY 4 HRS ON SCHEDULE Tramadol HCl TABLET 04/24/2018 ORAL 50 MG Q6H EVERY 6 HOURS Problems Date Dx Coded Attending Type Code [...] Q Ot V58.69 OT MED,LT,CURRENT USE 01/04/2015 DIABLO SONIDO DUARTE Ot 715.36 01/04/2015 DIABLO SONIDO DUARTE Ot 717.2 01/04/2015 DIABLO SONIDO DUARTE Ot 717.3 01/04/2015 CARTWRIGHTSONIDO SNYDER DO Ot 998.59 01/26/2015 DIABLO SONIDO DUARTE Ot 715.36 01/26/2015 DIABLO SONIDO DUARTE Ot 717.2 01/26/2015 DIABLO SONIDO DUARTE Ot 717.3 01/26/2015 DIABLO SONIDO DUARTE Ot 998.59 01/29/2015 RIN DPM, [...] BOYKIN MD Ot 414.01 CORONARY ATHEROSCLEROSIS OF [place] CORON 02/24/2015 GENE BOYKIN MD Ot 585.9 CHRONIC KIDNEY DISEASE, UNSPECIFIED 02/24/2015 GENE BOYKIN MD Ot V15.82 HISTORY OF TOBACCO USE 02/24/2015 GENE BOYKIN MD Ot V45.82 PERCUTANEOUS TRANSLUM CORON ANGIOPLASTY 02/24/2015 GENE BOYKIN MD Ot V58.69 OT MED,LT,CURRENT USE 02/24/2015 GENE [...] 06/04/2015 GENE BOYKIN MD Ot V45.82 06/04/2015 ASHUTOSH TUCKER, GENE Melendez Ot V57.89 06/07/2015 RIN DPM, JACK Q Ot 707.15 06/07/2015 RIN DPM, JACK Q Ot 730.27 06/07/2015 RIN DPM, JACK Q Ot V72.63 06/07/2015 RIN DPM, JACK Q Ot V74.8 06/07/2015 ASHUTOSH TUCKER, GENE Melendez Ot 250.00 06/07/2015 ASHUTOSH TUCKER, GENE Melendez Ot 403.90 06/07/2015 GENE BOYKIN MD Ot 413.9 06/07/2015 GENE BOYKIN MD Ot 414.01 06/07/2015 GENE BOYKIN MD Ot 585.9 06/07/2015 GENE BOYKIN MD Ot V45.82 06/07/2015 GENE BOYKIN MD Ot V57.89 06/07/2015 GENE BOYKIN MD Ot V45.82 06/07/2015 GENE BOYKIN MD Ot V57.89 06/07/2015 GENE BOYKIN MD Ot V45.82 06/07/2015 ASHUTOSH TUCKER, GENE Melendez Ot V57.89 06/08/2015 RIN DPM, JACK Q Ot 707.15 06/08/2015 RIN DPM, JACK Q Ot 730.27 06/08/2015 RIN DPM, JACK Q Ot V72.63 06/08/2015 RIN DPM, JACK Q Ot V74.8 06/08/2015 GENE BOYKIN MD Ot 250.00 06/08/2015 GENE BOYKIN MD Ot 403.90 06/08/2015 ASHUTOSH TUCKER, GENE Melendez Ot 413.9 06/08/2015 GENE BOYKIN MD Ot 414.01 06/08/2015 GENE BOYKIN MD Ot 585.9 06/08/2015 GENE BOYKIN MD Ot V45.82 06/08/2015 GENE BOYKIN MD Ot V57.89 06/17/2015 GENE BOYKIN MD Ot V45.82 06/17/2015 GENE BOYKIN MD Ot V57.89 06/22/2015 LORIN BURCH MD P Ot R94.4 06/29/2015 GENE BOYKIN MD Ot Z48.812 ENCNTR FOR SURGICAL AFTCR FOLLOWING SURG 06/29/2015 GENE BOYKIN MD Ot Z95.5 PRESENCE OF CORONARY ANGIOPLASTY IMPLANT 07/06/2015 LORIN BURCH MD Ot R94.4 08/27/2015 NEVAEH STEVE APRN Ot E11.9 TYPE 2 DIABETES MELLITUS WITHOUT COMPLIC 08/27/2015 NEVAEH STEVE APRN Ot S61.215A LACERATION W/O FB OF L RNG FNGR W/O SAM 08/27/2015 NEVAEH STEVE APRN Ot W01.0XXA FALL SAME LEV FROM SLIP/TRIP W/O STRIKE 08/27/2015 NEVAEH STEVE APRN Ot Y92.017 GARDEN OR YARD IN SINGLE-FAMILY (PRIVATE 08/27/2015 NEVAEH STEVE APRN Ot Y99.8 OTHER EXTERNAL CAUSE STATUS 08/27/2015 NEVAEH STEVE APRN Ot Z23 ENCOUNTER FOR IMMUNIZATION 08/27/2015 NEVAEH STEVE APRN Ot Z79.899 OTHER PROCUREMENT PROFESSIONAL (CURRENT) DRUG THERAPY 04/11/2016 MICHELLE REA MD R Ot M25.552 PAIN IN LEFT HIP 04/11/2016 MICHELLE REA MD R Ot R06.00 DYSPNEA, UNSPECIFIED 04/20/2016 MICHELLE REA MD R Ot M25.552 PAIN IN LEFT HIP 04/20/2016 MICHELLE REA MD R Ot R06.00 DYSPNEA, UNSPECIFIED 05/01/2016 MICHELLE REA MD R Ot M25.552 PAIN IN LEFT HIP 05/01/2016 MICHELLE REA MD R Ot R06.00 DYSPNEA, UNSPECIFIED 05/21/2016 MICHELLE REA MD R Ot M25.552 PAIN IN LEFT HIP 05/21/2016 MICHELLE REA MD R Ot R06.00 DYSPNEA, UNSPECIFIED 08/15/2016 RIN [...] DIS, UNSPEC, W CHR KD ST 08/15/2016 GEEN BOYKIN MD Ot 413.9 ANGINA PECTORIS NEC/NOS 08/15/2016 GENE BOYKIN MD Ot 414.01 CORONARY ATHEROSCLEROSIS OF [place] CORON 08/15/2016 GENE BOYKIN MD Ot 585.9 CHRONIC KIDNEY DISEASE, UNSPECIFIED 08/15/2016 MARCIN TUCKER, LORIN P Ot R94.4 ABNORMAL RESULTS OF KIDNEY FUNCTION STUD 08/15/2016 RONA TUCKER, MICHELLE Evans Ot M25.552 PAIN IN LEFT HIP 08/15/2016 MICHELLE REA MD Ot R06.00 DYSPNEA, UNSPECIFIED 08/15/2016 THOMAS ESPINOSA DO Ot E11.9 TYPE 2 DIABETES MELLITUS WITHOUT COMPLIC 08/15/2016 THOMAS ESPINOSA DO Ot I10 ESSENTIAL (PRIMARY) HYPERTENSION 08/15/2016 THOMAS ESPINOSA DO, Ot K43.9 VENTRAL HERNIA WITHOUT OBSTRUCTION OR GA 08/15/2016 THOMAS ESPINOSA DO, Ot N28.1 CYST OF KIDNEY, ACQUIRED 08/15/2016 THOMAS ESPINOSA DO Ot R10.32 LEFT LOWER QUADRANT PAIN 08/15/2016 THOMAS ESPINOSA DO, Ot 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 08/15/2016 THOMAS ESPINOSA DO, Ot Z79.899 OTHER PROCUREMENT PROFESSIONAL (CURRENT) DRUG THERAPY 08/22/2016 THOMAS ESPINOSA DO Ot E11.9 TYPE 2 DIABETES MELLITUS WITHOUT COMPLIC 08/22/2016 THOMAS ESPINOSA DO Ot I10 ESSENTIAL (PRIMARY) HYPERTENSION 08/22/2016 THOMAS ESPINOSA DO, Ot K43.9 VENTRAL HERNIA WITHOUT OBSTRUCTION OR GA 08/22/2016 THOMAS ESPINOSA DO Ot N28.1 CYST OF KIDNEY, ACQUIRED 08/22/2016 THOMAS ESPINOSA DO Ot R10.32 LEFT LOWER QUADRANT PAIN 08/22/2016 THOMAS ESPINOSA DO Ot 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 08/22/2016 THOMAS ESPINOSA DO Ot Z79.899 OTHER LONG-TERM (CURRENT) DRUG THERAPY 09/10/2016 RIN DPM, JACK [...] BOYKIN MD Ot 414.01 CORONARY ATHEROSCLEROSIS OF [place] CORON 09/10/2016 GENE BOYKIN MD Ot 585.9 CHRONIC KIDNEY DISEASE, UNSPECIFIED 09/10/2016 MARCIN TUCKER, LORIN P Ot R94.4 ABNORMAL [...] Ot E000.8 OTHER EXTERNAL CAUSE STATUS 10/10/2016 RONA TUCKER, MICHELLE R Ot E849.0 ACCIDENT IN HOME 10/10/2016 RONA TUCKER, MICHELLE R Ot E928.9 ACCIDENT NOS 10/10/2016 RONA TUCKER, MICHELLE R Ot 715.37 LOC OSTEOARTH NOS-ANKLE 10/10/2016 RONA TUCKER, MICHELLE R Ot 733.20 CYST OF BONE NOS 10/10/2016 RONA TUCKER, MICHELLE R Ot 734 FLAT FOOT 10/10/2016 RONA TUCKER, MICHELLE R Ot 250.00 DIAB KARRIE WO COMPL, TYPE II OR UNSPEC TY 10/10/2016 SONIDO CARTWRIGHT DO Ot 715.36 LOC OSTEOARTH NOS-L/LEG 10/10/2016 SONIDO CARTWRIGHT DO Ot 717.2 DERANG POST MED MENISCUS 10/10/2016 SONIDO CARTWRIGHT DO Ot 717.3 DERANG MED MENISCUS NEC 10/10/2016 SONIDO CARTWRIGHT DO Ot 998.59 OTH POSTOPER INFECTION 10/11/2016 MAGGY TUCKER, KACI Parr Ot R56.9 UNSPECIFIED CONVULSIONS 10/11/2016 MAGGY TUCKER, KACI Parr Ot Z79.899 OTHER LONG-TERM (CURRENT) DRUG THERAPY 10/16/2016 MARTIN ALEMAN Ot E66.01 MORBID (SEVERE) OBESITY DUE TO EXCESS CA 10/16/2016 MARTIN ALEMAN Ot I10 ESSENTIAL (PRIMARY) HYPERTENSION 10/16/2016 MARTIN ALEMAN Ot I25.10 ATHSCL HEART DISEASE OF [place] CORONARY 10/16/2016 MARTIN ALEMAN Ot I65.23 OCCLUSION AND STENOSIS OF [place] 10/16/2016 MARTIN ALEMNA Ot E66.01 MORBID (SEVERE) OBESITY DUE TO EXCESS CA 10/16/2016 MARTIN ALEMAN Ot I10 ESSENTIAL (PRIMARY) HYPERTENSION 10/16/2016 MARTIN ALEMAN Ot I25.10 ATHSCL HEART DISEASE OF [place] CORONARY 10/16/2016 MARTIN ALEMAN Ot I65.23 OCCLUSION AND STENOSIS OF [place] 10/17/2016 MARTIN ALEMAN Ot E66.01 MORBID (SEVERE) OBESITY DUE TO EXCESS CA 10/17/2016 MARTIN ALEMAN Ot I10 ESSENTIAL (PRIMARY) HYPERTENSION 10/17/2016 MARTIN ALEMAN Ot I25.10 ATHSCL HEART DISEASE OF [place] CORONARY 10/17/2016 MARTIN ALEMAN Ot I65.23 OCCLUSION AND STENOSIS OF [place] 10/26/2016 KELLY CRESPO MD, Ot E11.40 TYPE 2 DIABETES MELLITUS [...] MD, Ot I25.10 ATHSCL HEART DISEASE OF [place] CORONARY 10/26/2016 KELLY CRESPO MD, Ot I25.2 [...] 11/07/2016 KACI WINTER MD, Ot Z79.899 OTHER LONG-TERM (CURRENT) DRUG THERAPY 11/07/2016 FLEMING-CANDELARIA PA, MARTIN K Ot E66.01 MORBID (SEVERE) OBESITY DUE TO EXCESS CA 11/07/2016 FLEMING-CANDELARIA PA, MARTIN K Ot I10 ESSENTIAL (PRIMARY) HYPERTENSION 11/07/2016 FLEMING-CANDELARIA PA, MARTIN K Ot I25.10 ATHSCL HEART DISEASE OF [place] CORONARY 11/07/2016 BERNADETTE-CANDELARIA PA, MARTIN K Ot I65.23 OCCLUSION AND STENOSIS OF [place] 11/14/2016 BERNADETTE-CANDELARIA PA, MARTIN K Ot E66.01 MORBID (SEVERE) OBESITY DUE TO EXCESS CA 11/14/2016 FLEMING-CANDELARIA PA, MARTIN K Ot I10 ESSENTIAL (PRIMARY) HYPERTENSION 11/14/2016 FLEMING-CANDELARIA PA, MARTIN K Ot I25.10 ATHSCL HEART DISEASE OF [place] CORONARY 11/14/2016 FLEMING-CANDELARIA PA, MARTIN K Ot I65.23 OCCLUSION AND STENOSIS OF [place] 11/15/2016 BERNADETTE-CANDELARIA PA, MARTIN K Ot E66.01 MORBID (SEVERE) OBESITY DUE TO EXCESS CA 11/15/2016 FLEMING-CANDELARIA PA, MARTIN K Ot I10 ESSENTIAL (PRIMARY) HYPERTENSION 11/15/2016 FLEMING-CANDELARIA PA, MARTIN K Ot I25.10 ATHSCL HEART DISEASE OF [place] CORONARY 11/15/2016 BERNADETTE-CANDELARIA PA, MARTIN K Ot I65.23 OCCLUSION AND STENOSIS OF [place] 11/20/2016 BERNADETTE-CANDELARIA PA, MARTIN K Ot E66.01 MORBID (SEVERE) OBESITY DUE TO EXCESS CA 11/20/2016 FLEMING-CANDELARIA PA, MARTIN K Ot I10 ESSENTIAL (PRIMARY) HYPERTENSION 11/20/2016 FLEMING-CANDELARIA PA, MARTIN K Ot I25.10 ATHSCL HEART DISEASE OF [place] CORONARY 11/20/2016 FLEMING-CANDELARIA PA, MARTIN K Ot I65.23 OCCLUSION AND STENOSIS OF [place] 11/22/2016 KACIE VELEZ APRN Ot R06.02 SHORTNESS OF BREATH 11/28/2016 FLEMING-CANDELARIA PA, MARTIN K Ot E66.01 MORBID (SEVERE) OBESITY DUE TO EXCESS CA 11/28/2016 FLEMING-CANDELARIA PA, MARTIN K Ot I10 ESSENTIAL (PRIMARY) HYPERTENSION 11/28/2016 MARTIN ALEMAN Ot I25.10 ATHSCL HEART DISEASE OF [place] CORONARY 11/28/2016 MARTIN ALEMAN Ot I65.23 OCCLUSION AND STENOSIS OF [place] 11/29/2016 KACI WINTER MD, Ot 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, 11/29/2016 KACI WINTER MD, Ot Z79.899 OTHER PROCUREMENT PROFESSIONAL (CURRENT) DRUG THERAPY 12/05/2016 MARTIN ALEMAN Ot E66.01 MORBID (SEVERE) OBESITY DUE TO EXCESS CA 12/05/2016 MARTIN ALEMAN Ot I10 ESSENTIAL (PRIMARY) HYPERTENSION 12/05/2016 MARTIN ALEMAN Ot I25.10 ATHSCL HEART DISEASE OF [place] CORONARY 12/05/2016 MARTIN ALEMAN Ot I65.23 OCCLUSION [...] MD Ot I25.10 ATHSCL HEART DISEASE OF [place] CORONARY 01/01/2017 MICHELLE REA MD Ot I25.2 [...] ADULT 01/01/2017 MICHELLE REA MD, Ot Z79.84 LONG-TERM (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 OF ORAL HYPOGLYC 01/01/2017 MICHELLE REA MD, Ot Z87.891 PERSONAL HISTORY OF NICOTINE DEPENDENCE 01/01/2017 MICHELLE REA MD, Ot Z95.5 PRESENCE OF CORONARY ANGIOPLASTY IMPLANT 01/01/2017 MICHELLE REA MD Ot Z96.641 PRESENCE OF RIGHT ARTIFICIAL HIP JOINT 01/01/2017 MICHELLE REA MD, Ot Z96.642 PRESENCE OF LEFT ARTIFICIAL HIP JOINT 01/01/2017 MICHELLE REA MD Ot E11.40 TYPE [...] MD Ot I25.10 ATHSCL HEART DISEASE OF [place] CORONARY 01/01/2017 MICHELLE REA MD Ot I25.2 [...] ADULT 01/01/2017 MICHELLE REA MD, Ot Z79.84 PROCUREMENT PROFESSIONAL (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 OF ORAL HYPOGLYC 01/01/2017 MICHELLE [...] BOYKIN MD Ot 414.01 CORONARY ATHEROSCLEROSIS OF [place] CORON 01/01/2017 GENE BOYKIN MD Ot 585.9 CHRONIC KIDNEY DISEASE, UNSPECIFIED 01/01/2017 MARCIN TUCKER, LORIN Butler Ot R94.4 ABNORMAL RESULTS OF KIDNEY FUNCTION STUD 01/01/2017 MICHELLE REA MD, Ot M25.552 PAIN IN LEFT HIP 01/01/2017 SEGLIE MD, MICHELLE R Ot R06.00 DYSPNEA, UNSPECIFIED 01/01/2017 KACI WINTER MD Ot R56.9 UNSPECIFIED CONVULSIONS 01/01/2017 KACI WINTER MD Ot R56.9 UNSPECIFIED CONVULSIONS 01/01/2017 KACI WINTER MD Ot Z79.899 OTHER PROCUREMENT PROFESSIONAL (CURRENT) DRUG THERAPY 01/01/2017 MARTIN ALEMAN Ot E66.01 MORBID (SEVERE) OBESITY DUE TO EXCESS CA 01/01/2017 MARTIN ALEMAN Ot I10 ESSENTIAL (PRIMARY) HYPERTENSION 01/01/2017 MARTIN ALEMAN Ot I25.10 ATHSCL HEART DISEASE OF [place] CORONARY 01/01/2017 MARTIN ALEMAN Ot I65.23 OCCLUSION AND STENOSIS OF [place] 01/01/2017 MARTIN ALEMAN Ot E66.01 MORBID (SEVERE) OBESITY DUE TO EXCESS CA 01/01/2017 MARTIN ALEMAN Ot I10 ESSENTIAL (PRIMARY) HYPERTENSION 01/01/2017 MARTIN ALEMAN Ot I25.10 ATHSCL HEART DISEASE OF [place] CORONARY 01/01/2017 MARTIN ALEMAN Ot I65.23 OCCLUSION AND STENOSIS OF [place] 01/01/2017 KACI WINTER MD Ot G40.219 [facility], 01/01/2017 KACI WINTER MD Ot Z79.899 OTHER PROCUREMENT PROFESSIONAL (CURRENT) DRUG THERAPY 01/01/2017 KACIE VELEZ APRN [...] I10 ESSENTIAL (PRIMARY) HYPERTENSION 01/01/2017 MICHELLE REA MD, Ot I25.10 ATHSCL HEART DISEASE OF [place] CORONARY 01/01/2017 MICHELLE REA MD, Ot I25.2 OLD MYOCARDIAL INFARCTION 01/01/2017 MICHELLE [...] INDEX (BMI) 39.0-39.9, ADULT 01/01/2017 MICHELLE REA MD Ot Z79.84 PROCUREMENT PROFESSIONAL (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 OF ORAL HYPOGLYC 01/01/2017 MICHELLE REA MD Ot Z87.891 PERSONAL HISTORY OF NICOTINE DEPENDENCE 01/01/2017 MICHELLE REA MD Ot Z95.5 PRESENCE OF CORONARY ANGIOPLASTY IMPLANT 01/01/2017 MICHELLE REA MD Ot Z96.641 PRESENCE OF [...] I10 ESSENTIAL (PRIMARY) HYPERTENSION 01/02/2017 MICHELLE REA MD, Ot I25.10 ATHSCL HEART DISEASE OF [place] CORONARY 01/02/2017 MICHELLE REA MD, Ot I25.2 OLD MYOCARDIAL INFARCTION 01/02/2017 MICHELLE REA MD, Ot J98.4 OTHER DISORDERS OF LUNG 01/02/2017 MICHELLE REA MD, Ot K92.2 GASTROINTESTINAL HEMORRHAGE, UNSPECIFIED 01/02/2017 MICHELLE REA MD Ot M10.9 GOUT, UNSPECIFIED 01/02/2017 MICHELLE REA MD, Ot M19.91 PRIMARY OSTEOARTHRITIS, UNSPECIFIED SITE 01/02/2017 MICHELLE REA MD, Ot Y36.7X0S WAR OP W CHEM WEAPONS AND OTH UNCONVTL W 01/02/2017 MICHELLE REA MD Ot Z68.39 BODY MASS INDEX (BMI) 39.0-39.9, ADULT 01/02/2017 MICHELLE REA MD, Ot Z79.84 LONG-TERM (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 OF ORAL HYPOGLYC 01/02/2017 MICHELLE REA MD Ot Z87.891 PERSONAL HISTORY OF NICOTINE DEPENDENCE 01/02/2017 MICHELLE REA MD, Ot Z95.5 PRESENCE OF CORONARY ANGIOPLASTY IMPLANT 01/02/2017 MICHELLE REA MD Ot Z96.641 PRESENCE OF RIGHT ARTIFICIAL HIP JOINT 01/02/2017 MICHELLE REA MD Ot Z96.642 PRESENCE OF LEFT ARTIFICIAL HIP JOINT 01/03/2017 MICHELLE REA MD Ot D12.6 BENIGN NEOPLASM OF COLON, UNSPECIFIED 01/03/2017 MICHELLE REA MD Ot E11.40 TYPE 2 DIABETES MELLITUS WITH DIABETIC N 01/03/2017 MICHELLE REA MD Ot E66.9 OBESITY, UNSPECIFIED 01/03/2017 MICHELLE REA MD Ot E78.00 PURE HYPERCHOLESTEROLEMIA, UNSPECIFIED 01/03/2017 MICHELLE REA MD Ot F10.188 ALCOHOL ABUSE WITH OTHER ALCOHOL-INDUCED 01/03/2017 MICHELLE REA MD Ot G40.89 OTHER SEIZURES 01/03/2017 MICHELLE REA MD Ot G47.30 SLEEP APNEA, UNSPECIFIED 01/03/2017 MICHELLE REA MD, Ot I10 ESSENTIAL (PRIMARY) HYPERTENSION 01/03/2017 MICHELLE REA MD, Ot I25.10 ATHSCL HEART DISEASE OF [place] CORONARY 01/03/2017 MICHELLE REA MD, Ot I25.2 OLD MYOCARDIAL INFARCTION 01/03/2017 MICHELLE [...] ADULT 01/03/2017 MICHELLE REA MD, Ot Z79.84 PROCUREMENT PROFESSIONAL (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 OF ORAL HYPOGLYC 01/03/2017 MICHELLE REA MD, Ot Z87.891 PERSONAL HISTORY OF NICOTINE DEPENDENCE 01/03/2017 MICHELLE REA MD, Ot Z95.5 PRESENCE OF CORONARY ANGIOPLASTY IMPLANT 01/03/2017 MICHELLE REA MD, Ot Z96.641 PRESENCE OF RIGHT ARTIFICIAL HIP JOINT 01/03/2017 MICHELLE REA MD, Ot Z96.642 PRESENCE OF LEFT ARTIFICIAL HIP JOINT 02/20/2017 ISABEL MCDERMOTT, MARTIN Parr Ot E66.01 MORBID (SEVERE) OBESITY DUE TO EXCESS CA 02/20/2017 MARTIN ALEMAN Ot I10 ESSENTIAL (PRIMARY) HYPERTENSION 02/20/2017 MARTIN ALEMAN Ot I25.10 ATHSCL HEART DISEASE OF [place] CORONARY 02/20/2017 MARTIN ALEMAN Ot I65.23 OCCLUSION AND STENOSIS OF [place] 02/21/2017 KACIE VELEZ 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 Ot R06.02 SHORTNESS OF BREATH 02/27/2017 KACIE VELEZ 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 Ot J98.4 OTHER DISORDERS OF LUNG 02/27/2017 KACIE VELEZ 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 Ot R06.02 SHORTNESS OF BREATH 03/25/2017 KACIE VELEZ 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 Ot J98.4 OTHER DISORDERS OF LUNG 03/25/2017 KACIE VELEZ 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 Ot R06.02 SHORTNESS OF BREATH 04/15/2017 KACIE VELEZ 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 Ot J98.4 OTHER DISORDERS OF LUNG 04/15/2017 ROSIEKACIE CRAWFORD 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 Ot R06.02 SHORTNESS OF BREATH 05/15/2017 KACIE VELEZ 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 Ot J98.4 OTHER DISORDERS OF LUNG 05/15/2017 ROSIEKACIE CRAWFORD 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 Ot R06.02 SHORTNESS OF BREATH 05/26/2017 KACIE VELEZ 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 Ot J98.4 OTHER DISORDERS OF LUNG 05/26/2017 KACIE VELEZ 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 Ot R06.02 SHORTNESS OF BREATH 05/30/2017 KACIE VELEZ 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 Ot J98.4 OTHER DISORDERS OF LUNG 05/30/2017 KACIE VELEZ 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 Ot R06.02 SHORTNESS OF BREATH 05/30/2017 KACIE VELEZ 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 Ot J98.4 OTHER DISORDERS OF LUNG 05/30/2017 KACIE VELEZ 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 Ot R06.02 SHORTNESS OF BREATH 05/31/2017 KACIE VELEZ 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 Ot J98.4 OTHER DISORDERS OF LUNG 05/31/2017 KACIE VELEZ 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 Ot R06.02 SHORTNESS OF BREATH 06/01/2017 KACIE VELEZ 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 Ot J98.4 OTHER DISORDERS OF LUNG 06/01/2017 KACIE VELEZ 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 Ot R06.02 SHORTNESS OF BREATH 06/03/2017 KACIE VELEZ 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 Ot J98.4 OTHER DISORDERS OF LUNG 06/03/2017 KACIE VELEZ APRN Ot R06.02 SHORTNESS OF BREATH 06/04/2017 KACIE VELEZ 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 Ot J98.4 OTHER DISORDERS OF LUNG 06/04/2017 KACIE VELEZ 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 Ot R06.02 SHORTNESS OF BREATH 06/05/2017 KACIE VELEZ APRN Ot J98.4 OTHER DISORDERS OF LUNG 06/05/2017 KACIE VELEZ APRN Ot R06.02 SHORTNESS OF BREATH 06/06/2017 GENE BOYKIN MD Ot G40.909 EPILEPSY, UNSP, NOT INTRACTABLE, WITHOUT 06/06/2017 GENE BOYKIN MD Ot I10 ESSENTIAL (PRIMARY) HYPERTENSION 06/06/2017 GENE BOYKIN MD Ot I25.10 ATHSCL HEART DISEASE OF [place] CORONARY 06/06/2017 GENE BOYKIN MD Ot I51.7 CARDIOMEGALY 06/06/2017 GENE BOYKIN MD Ot I65.23 OCCLUSION AND STENOSIS OF [place] 06/06/2017 GENE BOYKIN MD Ot R06.02 SHORTNESS OF BREATH 06/06/2017 GENE BOYKIN MD Ot R07.89 OTHER CHEST PAIN 06/06/2017 GENE BOYKIN MD Ot Z51.81 ENCOUNTER FOR THERAPEUTIC DRUG LEVEL MON 06/06/2017 GENE BOYKIN MD, Ot Z79.899 OTHER PROCUREMENT PROFESSIONAL (CURRENT) DRUG THERAPY 06/07/2017 KACIE VELEZ APRN Ot J98.4 OTHER DISORDERS OF LUNG 06/07/2017 KACIE VELEZ APRN Ot R06.02 SHORTNESS OF BREATH 06/25/2017 MICHELLE REA MD R Ot D64.9 ANEMIA, UNSPECIFIED 06/25/2017 MICHELLE REA MD R Ot E11.51 TYPE 2 DIABETES W DIABETIC PERIPHERAL AN 06/25/2017 MICHELLE REA MD R Ot E66.9 OBESITY, UNSPECIFIED 06/25/2017 MICHELLE REA MD R Ot E78.5 HYPERLIPIDEMIA, UNSPECIFIED 06/25/2017 MICHELLE REA MD R Ot G40.909 EPILEPSY, UNSP, NOT INTRACTABLE, WITHOUT 06/25/2017 RONA TUCKER MICHELLE R Ot G47.30 SLEEP APNEA, UNSPECIFIED 06/25/2017 RONA TUCKER MICHELLE R Ot I10 ESSENTIAL (PRIMARY) HYPERTENSION 06/25/2017 RONA TUCKER MICHELLE R Ot I25.10 ATHSCL HEART DISEASE OF [place] CORONARY 06/25/2017 RONA TUCKER MICHELLE R Ot I25.119 ATHSCL HEART DISEASE OF [place] COR ART W 06/25/2017 RONA TUCKER MICHELLE R Ot I25.2 OLD MYOCARDIAL INFARCTION 06/25/2017 RONA TUCKER MICHELLE R Ot I87.8 OTHER SPECIFIED DISORDERS OF VEINS 06/25/2017 MICHELLE REA MD R Ot J30.2 OTHER SEASONAL ALLERGIC RHINITIS 06/25/2017 RONA TUCKER MICHELLE R Ot 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 06/25/2017 RONA TUCKER MICHELLE R Ot L03.115 CELLULITIS OF RIGHT LOWER LIMB 06/25/2017 RONA TUCKER MICHELLE R Ot M10.9 GOUT, UNSPECIFIED 06/25/2017 RONA TUCKER MICHELLE R Ot Z68.41 BODY MASS INDEX (BMI) 40.0-44.9, ADULT 06/25/2017 RONA TUCKER MICHELLE R Ot Z95.5 PRESENCE OF CORONARY ANGIOPLASTY IMPLANT 06/25/2017 RONA TUCKER MICHELLE R Ot Z96.643 PRESENCE OF ARTIFICIAL HIP JOINT, BILATE 09/02/2017 KACIE VELEZ 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 Ot J98.4 OTHER DISORDERS OF LUNG 09/02/2017 KACIE VELEZ 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 Ot R06.02 SHORTNESS OF BREATH 09/04/2017 KACIE VELEZ 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 Ot J98.4 OTHER DISORDERS OF LUNG 09/04/2017 KACIE VELEZ 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 Ot R06.02 SHORTNESS OF BREATH 09/06/2017 RIN DPM, JACK Q Ot E11.9 TYPE 2 DIABETES MELLITUS WITHOUT COMPLIC 09/06/2017 RIN DPM, JACK Q Ot E78.5 HYPERLIPIDEMIA, UNSPECIFIED 09/06/2017 RIN DPM, JACK Q Ot G47.33 OBSTRUCTIVE SLEEP APNEA (ADULT) (PEDIATR 09/06/2017 RIN DPM, JACK Q Ot I10 ESSENTIAL (PRIMARY) HYPERTENSION 09/06/2017 RIN DPM, JACK Q Ot I25.10 ATHSCL HEART DISEASE OF [place] CORONARY 09/06/2017 RIN DPM, JACK Q Ot M20.41 OTHER HAMMER TOE(S) (ACQUIRED), RIGHT FO 09/06/2017 RIN DPM, JACK Q Ot R56.9 UNSPECIFIED CONVULSIONS 09/06/2017 RIN DPM, JACK Q Ot 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 09/06/2017 RIN DPM, JACK Q Ot Z79.899 OTHER PROCUREMENT PROFESSIONAL (CURRENT) DRUG THERAPY 09/06/2017 RIN DPM, JACK [...] Q Ot I25.10 ATHSCL HEART DISEASE OF [place] CORONARY 09/09/2017 RIN DPM, JACK Q Ot M20.41 OTHER HAMMER TOE(S) (ACQUIRED), RIGHT FO 09/09/2017 RIN DPM, JACK Q Ot R56.9 UNSPECIFIED CONVULSIONS 09/09/2017 RIN DPM, JACK Q Ot Z79.82 LONG-TERM (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 OF ASPIRIN 09/09/2017 RIN DPM, JACK Q Ot Z79.899 OTHER PROCUREMENT PROFESSIONAL (CURRENT) DRUG THERAPY 09/09/2017 RIN DPM, JACK [...] Q Ot I25.10 ATHSCL HEART DISEASE OF [place] CORONARY 09/12/2017 RIN DPM, JACK Q Ot M20.41 OTHER HAMMER TOE(S) (ACQUIRED), RIGHT FO 09/12/2017 RIN DPM, JACK Q Ot R56.9 UNSPECIFIED CONVULSIONS 09/12/2017 RIN DPM, JACK Q Ot 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 09/12/2017 RIN DPM, JACK Q Ot Z79.899 OTHER LONG-TERM (CURRENT) DRUG THERAPY 09/12/2017 RIN DPM, JACK Q Ot Z95.5 PRESENCE OF CORONARY ANGIOPLASTY IMPLANT 12/20/2017 RIN DPM, JACK Q Ot E11.42 TYPE 2 DIABETES MELLITUS WITH DIABETIC P 12/26/2017 RONA TUCKER MICHELLE R Ot M43.17 SPONDYLOLISTHESIS, LUMBOSACRAL REGION 12/26/2017 MICHELLE REA MD R Ot M46.87 OT INFLAMMATORY SPONDYLOPATHIES, LUMBOS 12/26/2017 RONA TUCKER MICHELLE R Ot M48.02 SPINAL STENOSIS, CERVICAL REGION 12/26/2017 BENEDICTO REA MDYD R Ot M51.17 INTVRT DISC DISORDERS W RADICULOPATHY, L 12/26/2017 RONA TUCKER MICHELLE R Ot M99.83 OTHER BIOMECHANICAL LESIONS OF LUMBAR RE 12/26/2017 MICHELLE REA MD R Ot M43.17 SPONDYLOLISTHESIS, LUMBOSACRAL REGION 12/26/2017 RONA TUCKER MICHELLE R Ot M46.87 OTH INFLAMMATORY SPONDYLOPATHIES, LUMBOS 12/26/2017 RONA TUCKER MICHELLE R Ot M48.02 SPINAL STENOSIS, CERVICAL REGION 12/26/2017 RONA TUCKER MICHELLE R Ot M51.17 INTVRT DISC DISORDERS W RADICULOPATHY, L 12/26/2017 RONA TUCKER MICHELLE R Ot M99.83 OTHER BIOMECHANICAL LESIONS OF LUMBAR RE 01/09/2018 RIN DPM, JACK Q Ot E11.42 TYPE 2 DIABETES MELLITUS WITH DIABETIC P 01/15/2018 MICHELLE REA MD R Ot M43.17 SPONDYLOLISTHESIS, LUMBOSACRAL REGION 01/15/2018 MICHELLE REA MD Ot M46.87 OTH INFLAMMATORY SPONDYLOPATHIES, LUMBOS 01/15/2018 MICHELLE REA MD Ot M48.02 SPINAL STENOSIS, CERVICAL REGION 01/15/2018 MICHELLE REA MD Ot M51.17 INTVRT DISC DISORDERS W RADICULOPATHY, [...] ACCIDENT IN HOME 01/31/2018 MICHELLE REA MD Ot E928.9 ACCIDENT NOS 01/31/2018 MICHELLE REA MD Ot 715.37 LOC OSTEOARTH NOS-ANKLE 01/31/2018 MICHELLE REA MD Ot 733.20 CYST OF BONE NOS 01/31/2018 MICHELLE REA MD Ot 734 FLAT FOOT 01/31/2018 MICHELLE REA MD Ot 250.00 DIAB KARRIE WO COMPL, TYPE II OR UNSPEC TY 01/31/2018 SONIDO CARTWRIGHT DO Ot 715.36 LOC OSTEOARTH NOS-L/LEG 01/31/2018 SONIDO CARTWRIGHT DO Ot 717.2 DERANG POST MED MENISCUS 01/31/2018 SONIDO CARTWRIGHT DO Ot 717.3 DERANG MED MENISCUS NEC 01/31/2018 SONIDO CARTWRIGHT DO D Ot 998.59 OTH POSTOPER INFECTION 02/05/2018 RONA TUCKER, MICHELLE R Ot M43.17 SPONDYLOLISTHESIS, LUMBOSACRAL REGION 02/05/2018 RONA TUCKER, MICHELLE R Ot M46.87 OTH INFLAMMATORY SPONDYLOPATHIES, LUMBOS 02/05/2018 RONA TUCKER, MICHELLE R Ot M48.02 SPINAL STENOSIS, CERVICAL REGION 02/05/2018 RONA TUCKER, MICHELLE R Ot M51.17 INTVRT DISC DISORDERS W RADICULOPATHY, L 02/05/2018 RONA TUCKER, MICHELLE Evans Ot M99.83 OTHER BIOMECHANICAL LESIONS OF LUMBAR RE 04/16/2018 Ot E11.9 TYPE 2 DIABETES MELLITUS WITHOUT COMPLIC 04/16/2018 Ot I10 ESSENTIAL ( PRIMARY) HYPERTENSION 04/16/2018 Ot M17.12 UNILATERAL PRIMARY OSTEOARTHRITIS, LEFT 04/16/2018 Ot Z01.810 ENCOUNTER FOR PREPROCEDURAL CARDIOVASCUL 04/16/2018 Ot Z01.811 ENCOUNTER FOR PREPROCEDURAL RESPIRATORY 04/16/2018 Ot Z01.812 ENCOUNTER FOR PREPROCEDURAL LABORATORY E 04/16/2018 Ot Z11.2 ENCOUNTER FOR SCREENING FOR OTHER BACTER 04/22/2018 Ot E11.9 TYPE 2 DIABETES MELLITUS WITHOUT COMPLIC 04/22/2018 Ot I10 ESSENTIAL ( PRIMARY) HYPERTENSION 04/22/2018 Ot M17.12 UNILATERAL PRIMARY OSTEOARTHRITIS, LEFT 04/22/2018 Ot Z01.810 ENCOUNTER FOR PREPROCEDURAL CARDIOVASCUL 04/22/2018 Ot Z01.811 ENCOUNTER FOR PREPROCEDURAL RESPIRATORY 04/22/2018 Ot Z01.812 ENCOUNTER FOR PREPROCEDURAL LABORATORY E 04/22/2018 Ot Z11.2 ENCOUNTER FOR SCREENING FOR OTHER BACTER 04/25/2018 JUAN ZAVALETA DO Ot D64.9 ANEMIA, UNSPECIFIED 04/25/2018 JUAN ZAVALETA DO Ot E11.40 TYPE 2 DIABETES MELLITUS WITH DIABETIC N 04/25/2018 JUAN ZAVALETA DO Ot E66.01 MORBID (SEVERE) OBESITY DUE TO EXCESS CA 04/25/2018 JUAN ZAVALETA DO Ot E78.00 PURE HYPERCHOLESTEROLEMIA, UNSPECIFIED 04/25/2018 JUAN ZAVALETA DO Ot E87.1 HYPO-OSMOLALITY AND HYPONATREMIA 04/25/2018 JUAN ZAVALETA DO Ot G47.30 SLEEP APNEA, UNSPECIFIED 04/25/2018 WAQAR DUARTE JUAN rCockett Ot I10 ESSENTIAL (PRIMARY) HYPERTENSION 04/25/2018 WAQAR DUARTE JUAN [place] Ot I25.10 ATHSCL HEART DISEASE OF [place] CORONARY 04/25/2018 WAQAR DUARTE JUAN [place] Ot I73.9 PERIPHERAL VASCULAR DISEASE, UNSPECIFIED 04/25/2018 WAQAR DUARTE JUAN [place] Ot M10.9 GOUT, UNSPECIFIED 04/25/2018 WAQAR DUARTE JUAN [place] Ot M17.12 UNILATERAL PRIMARY OSTEOARTHRITIS, LEFT 04/25/2018 WAQAR DUARTE JUAN [place] Ot R33.9 RETENTION OF URINE, UNSPECIFIED 04/25/2018 WAQAR DUARTE JUAN [place] Ot Z68.41 BODY MASS INDEX (BMI) 40.0-44.9, ADULT 04/25/2018 WAQAR DUARTE JUAN [place] Ot 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 04/25/2018 WAQAR DUARTE JUAN [place] Ot Z87.891 PERSONAL HISTORY OF NICOTINE DEPENDENCE 04/25/2018 WAQAR DUARTE JUAN [place] Ot Z95.5 PRESENCE OF CORONARY ANGIOPLASTY IMPLANT 04/25/2018 WAQAR DUARTE JUAN [place] Ot Z96.643 PRESENCE OF ARTIFICIAL HIP JOINT, BILATE 07/07/2018 MARTIN ALEMAN Ot I25.10 ATHSCL HEART DISEASE OF [place] CORONARY 07/07/2018 MARTIN ALEMAN Ot I65.29 OCCLUSION AND STENOSIS OF UNSPECIFIED CA 07/07/2018 MARTIN ALEMAN Ot R06.02 SHORTNESS OF BREATH 07/07/2018 MARTIN ALEMAN Ot R07.9 CHEST PAIN, UNSPECIFIED Procedures Code Description Performed By Performed On [id number] EXCISION OF ASCENDING COLON, ENDO, DIAGN 01/01/2017 [id number] EXCISION OF DESCENDING COLON, ENDO, DIAG 01/01/2017 [id number] EXCISION OF STOMACH, PYLORUS, ENDO, DIAG 01/02/2017 [id number] 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, CRESCENCIO 04/22/2018 Results Test Result Range Complete urinalysis with [...] Manual eosinophils/100 leukocytes in nose 0 % NR Manual blood basophils/100 leukocytes 0 % NRG Blood lymphocytes variant/100 leukocytes 2 % NRG Blood erythrocyte morphology finding identification NORMAL [facility] Blood lactic acid measurement (moles/volume) - 10/23/16 [...] INFLUENZA A AND B ANTIGENS BY IA [facility] Bacterial blood culture - 10/23/16 23:49 Bacterial blood culture NG [facility] Sputum Gram stain - 10/23/16 23:53 GRAM STAIN SPUTUM AND MIXED BACTERIAL NIKO NR Bacterial sputum culture - 10/23/16 23:53 Bacterial sputum culture NORMAL NR Complete blood count (CBC) with automated [...] 10/25/16 06:50 Blood monocytes/100 leukocytes 1 % NR Manual blood segmented neutrophils/100 leukocytes 96 % NRG Manual blood lymphocytes/100 leukocytes 2 % NR Manual blood basophils/100 leukocytes 1 % NR Blood erythrocyte morphology finding identification NORMAL NR Capillary blood glucose measurement by glucometer (mass/volume) [...] panel - 12/31/16 01:55 ABO+Rh group OP NR Transfusion band number [id number] [facility] Blood group antibody screen NEGATIVE NR Serum or plasma phenytoin measurement (mass/volume) - [...] 06/22/17 01:40 FREE TEXT EXTERNAL SEE COMMENT NR QUANTITY OF GROWTH Isolated [facility] Bacterial blood culture [id number] [facility] Complete blood count (CBC) with automated white [...] culture - 06/22/17 23:40 Bacterial blood culture NG NRG Complete blood count (CBC) with automated [...] 5.6 MEAN BLOOD GLUCOSE 105 % <=126 Capillary blood glucose measurement by glucometer (mass/volume) - 04/25/18 10: 47 Capillary blood glucose measurement by glucometer (mass/volume) 98 mg/dL 70-110 Encounters ACCT No. Visit Date/Time Discharge Status Pt. Type Provider Facility Loc./Unit Complaint [id number] 07/21/2018 08:15:00 07/21/2018 23:59:59 CLS Preadmit MARTIN ALEMAN [facility] CARD I25.10 CAD [id number] 07/18/2018 13:00:00 07/18/2018 23:59:59 CLS Preadmit MARTIN ALEMAN [facility] CARD CAD [id number] 07/04/2018 08:10:00 07/04/2018 23:59:59 CLS Outpatient MARTIN ALEMAN [facility] LAB I25.10 [id number] 04/22/2018 08:36:00 04/25/2018 13:45:00 DIS Inpatient JUAN ZAVALETA DO [facility] 4TH LEFT PRIMARY OSTEOARTHRITIS [id number] 01/22/2018 12:05:00 01/22/2018 23:59:59 CLS Preadmit KASSIDY ADDISON [facility] REHAB LUMBAR RADICULOPATHY; STENOSIS;SPONDYLOLESTHESIS [id number] 12/25/2017 11:25:00 12/25/2017 23:59:59 CLS Outpatient MICHELLE REA MD [facility] RAD BILAT LEG PAIN [id number] 12/19/2017 09:23:00 12/19/2017 23:59:59 CLS Outpatient RIN DPM, JACK Q [facility] LAB DIABETES,PERIPERAL NEUROPATHY [id number] 09/06/2017 11:21:00 09/06/2017 13:40:00 DIS Out[facility] [facility] [id number] 09/03/2017 10:15:00 09/03/2017 23:59:59 CLS Preadmit 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 J98.4,R06.02 [id number] 06/04/2017 13:13:00 09/02/2017 00:01:00 DIS Outpatient KACIE VELEZ E 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 [facility] PUL J98.4,R06.02 [id number] 08/15/2017 09:45:00 08/15/2017 10:17:00 DIS Outpatient RIN DPM, JACK Q [facility] PREOP [place] RIGHT FOOT [id number] 06/23/2017 01:20:00 06/25/2017 13:15:00 DIS Inpatient MICHELLE REA MD [facility] 4TH CELLULITIS R LEG; DIABETES [id number] 05/30/2017 10:15:00 06/01/2017 00:01:00 DIS Outpatient KACIE VELEZ APRN [facility] PUL J98.4,R06.02 [id number] 05/23/2017 10:00:00 05/26/2017 00:01:00 DIS Outpatient KACIE VELEZ APRN [facility] PUL J98.4,R06.02 [id number] 05/16/2017 10:41:00 05/16/2017 23:59:59 CLS Outpatient ASHUTOSH TUCKER, GENE Melendez [facility] LAB Z51.81, SEIZURE [id number] 12/31/2016 04:20:00 01/03/2017 14:30:00 DIS Inpatient MICHELLE REA MD [facility] 4TH ACUTE LOWER GI BLEED [id number] 11/21/2016 15:19:00 11/21/2016 23:59:59 CLS Outpatient KACIE VELEZ APRN [facility] RT SOB [id number] 11/14/2016 07:27:00 11/14/2016 23:59:59 CLS Outpatient MARTIN ALEMAN [facility] CARD CAD,CAROTID ARTERY STENOSIS,HTN [id number] 11/06/2016 09:55:00 11/06/2016 23:59:59 CLS Outpatient KACI WINTER MD [facility] LAB SEIZURE,G40.219 [id number] 10/24/2016 00:44:00 10/26/2016 12:30:00 DIS Inpatient KELLY CRESPO MD [facility] 4TH RT SIDE PNA [id number] 10/15/2016 13:42:00 10/15/2016 23:59:59 CLS Outpatient MARTIN ALEMAN [facility] CARD CAD,HTN, CAROTID ARTERY STENOSIS [id number] 09/20/2016 10:14:00 09/20/2016 23:59:59 CLS Outpatient KACI WINTER MD [facility] LAB SEIZURES [id number] 09/10/2016 09:24:00 09/10/2016 23:59:59 CLS Outpatient KACI WINTER MD [facility] RT SEIZURE-NEW ONSET [id number] 08/15/2016 11:52:00 08/15/2016 13:37:00 DIS Emergency JESÚS DUARTE THOMAS Tosin [facility] ER LEFT FLANK PAIN [id number] 04/10/2016 11:06:00 04/10/2016 23:59:59 CLS Outpatient RONA TUCKER, MICHELLE Evans [facility] RAD PAIN L FEMUR,L HIP [id number] 08/27/2015 18:18:00 08/27/2015 19:38:00 DIS Emergency NEVAEH STEVE 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 [facility] ER L HAND FINGER LAC [id number] 06/15/2015 12:14:00 06/29/2015 12:28:00 DIS Outpatient GENE BOYKIN MD [facility] CR STENT [id number] 06/08/2015 11:53:00 06/08/2015 23:59:59 CLS Outpatient LORIN BURCH MD [facility] LAB KIDNEY FUNCTION [id number] 06/01/2015 11:44:00 06/01/2015 00:01:00 DIS Outpatient GENE BOYKIN MD [facility] CR STENT [id number] 02/23/2015 07:11:00 02/24/2015 09:20:00 DIS Outpatient GENE BOYKIN MD [facility] CATH CAD HTN ANGINA DIABETES [id number] 02/22/2015 08:05:00 02/22/2015 23:59:59 CLS Outpatient GENE BOYKIN MD [facility] LAB PRE OP LAB WORK FOR HEART CATH [id number] 12/31/2014 06:00:00 12/31/2014 08:35:00 DIS Outpatient JACK GAR DPM Q [facility] SDC OSTEOMYLITIS RIGHT FOOT [id number] 12/30/2014 11:50:00 12/30/2014 23:59:59 CLS Outpatient RIN DPM, JACK Q [facility] PREOP OSTEOMYLITIS RIGHT FOOT [id number] 12/02/2014 11:10:00 12/02/2014 23:59:59 CLS Outpatient SONIDO CARTWRIGHT DO D [facility] RAD ABSCESS RT KNEE INCISION [id number] 11/20/2013 10:24:00 11/20/2013 23:59:59 CLS Outpatient MICHELLE REA MD [facility] LAB DM [id number] 06/04/2013 08:40:00 06/04/2013 23:59:59 CLS Outpatient MICHELLE REA MD [facility] RAD POP W/SUDDEN ONSET PAIN/ SWELLING [id number] 06/02/2013 10:06:00 06/02/2013 23:59:59 CLS Outpatient MICHELLE REA MD [facility] RAD L FOOT/ANKLE PAIN/ SWELLING [id number] 08/07/2018 04:59:50 Document Registration [id number] 08/06/2018 04:59:45 Document Registration [id number] 08/05/2018 04:59:45 Document Registration [id number] 08/04/2018 04:59:45 Document Registration [id number] 08/03/2018 04:59:45 Document Registration [id number] 08/02/2018 04:59:46 Document Registration [id number] 08/01/2018 04:59:46 Document Registration [id number] 07/31/2018 04:59:46 Document Registration [id number] 07/30/2018 04:59:47 Document Registration [id number] 07/29/2018 04:59:47 Document Registration [id number] 07/28/2018 04:59:47 Document Registration [id number] 07/27/2018 04:59:48 Document Registration [id number] 07/26/2018 04:59:48 Document Registration [id number] 07/25/2018 04:59:47 Document Registration [id number] 07/24/2018 04:59:48 Document Registration [id number] 07/23/2018 04:59:48 Document Registration [id number] 07/22/2018 04:59:49 Document Registration [id number] 07/21/2018 04:59:48 Document Registration [id number] 07/20/2018 04:59:49 Document Registration [id number] 07/19/2018 04:59:49 Document Registration [id number] 07/18/2018 04:59:50 Document Registration [id number] 07/17/2018 04:59:49 Document Registration [id number] 07/16/2018 04:59:50 Document Registration [id number] 07/15/2018 04:59:49 Document Registration [id number] 07/14/2018 04:59:50 Document Registration [id number] 07/13/2018 04:59:54 Document Registration [id number] 07/12/2018 04:59:50 Document Registration [id number] 07/10/2018 04:59:50 Document Registration [id number] 07/09/2018 04:59:50 Document Registration [id number] 07/08/2018 04:59:51 Document Registration [id number] 07/07/2018 04:59:50 Document Registration [id number] 07/06/2018 04:59:50 Document Registration [id number] 07/05/2018 04:59:51 Document Registration [id number] 07/04/2018 04:59:50 Document Registration [id number] 07/03/2018 04:59:50 Document Registration [id number] 07/02/2018 04:59:47 Document Registration [id number] 07/01/2018 04:59:47 Document Registration [id number] 06/30/2018 04:59:48 Document Registration [id number] 06/29/2018 04:59:49 Document Registration [id number] 06/28/2018 04:59:48 Document Registration [id number] 06/27/2018 04:59:48 Document Registration [id number] 06/26/2018 04:59:47 Document Registration [id number] 06/25/2018 04:59:47 Document Registration [id number] 06/24/2018 04:59:47 Document Registration [id number] 06/23/2018 04:59:47 Document Registration [id number] 06/22/2018 04:59:48 Document Registration [id number] 06/21/2018 04:59:47 Document Registration [id number] 06/19/2018 04:59:48 Document Registration [id number] 06/18/2018 04:59:48 Document Registration [id number] 06/17/2018 04:59:48 Document Registration [id number] 06/15/2018 04:59:48 Document Registration [id number] 06/14/2018 04:59:48 Document Registration [id number] 06/13/2018 04:59:49 Document Registration [id number] 06/12/2018 04:59:48 Document Registration [id number] 06/11/2018 04:59:48 Document Registration [id number] 06/10/2018 04:59:48 Document Registration [id number] 06/09/2018 04:59:48 Document Registration [id number] 06/08/2018 04:59:49 Document Registration [id number] 06/07/2018 04:59:49 Document Registration [id number] 06/06/2018 04:59:49 Document Registration [id number] 06/05/2018 04:59:49 Document Registration [id number] 06/04/2018 04:59:48 Document Registration [id number] 06/03/2018 04:59:49 Document Registration [id number] 06/02/2018 04:59:48 Document Registration [id number] 06/01/2018 04:59:49 Document Registration [id number] 05/31/2018 04:59:49 Document Registration [id number] 05/30/2018 04:59:48 Document Registration [id number] 05/29/2018 04:59:50 Document Registration [id number] 05/28/2018 04:59:46 Document Registration [id number] 05/27/2018 04:59:46 Document Registration [id number] 05/26/2018 04:59:46 Document Registration [id number] 05/25/2018 04:59:51 Document Registration [id number] 05/24/2018 04:59:46 Document Registration [id number] 05/23/2018 04:59:46 Document Registration [id number] 05/22/2018 04:59:46 Document Registration [id number] 05/21/2018 04:59:46 Document Registration [id number] 05/20/2018 04:59:46 Document Registration [id number] 05/18/2018 04:59:47 Document Registration [id number] 05/17/2018 04:59:47 Document Registration [id number] 05/16/2018 04:59:47 Document Registration [id number] 05/15/2018 04:59:48 Document Registration [id number] 05/14/2018 04:59:47 Document Registration [id number] 05/12/2018 04:59:47 Document Registration [id number] 05/11/2018 04:59:47 Document Registration [id number] 05/10/2018 04:59:49 Document Registration [id number] 05/08/2018 04:59:48 Document Registration [id number] 05/07/2018 04:59:48 Document Registration [id number] 2018 04:59:49 Document Registration [id number] 05/05/2018 04:59:50 Document Registration [id number] 05/04/2018 04:59:49 Document Registration [id number] 05/03/2018 04:59:49 Document Registration [id number] 05/02/2018 04:59:50 Document Registration [id number] 05/02/2018 04:59:49 Document Registration [id number] 05/01/2018 04:59:50 Document Registration [id number] 04/30/2018 04:59:34 Document Registration [id number] 04/29/2018 04:59:35 Document Registration [id number] 04/28/2018 04:59:34 Document Registration [id number] 04/27/2018 04:59:35 Document Registration [id number] 04/27/2018 04:59:34 Document Registration [id number] 04/26/2018 04:59:35 Document Registration [id number] 04/25/2018 04:59:34 Document Registration [id number] 04/16/2018 11:58:00 Document Registration [id number] 04/14/2018 04:59:45 Document Registration [id number] 04/13/2018 04:59:46 Document Registration [id number] 04/12/2018 04:59:47 Document Registration [id number] 04/11/2018 04:59:44 Document Registration [id number] 04/10/2018 04:59:49 Document Registration [id number] 04/08/2018 04:59:27 Document Registration [id number] 04/07/2018 04:59:28 Document Registration [id number] 04/06/2018 04:59:30 Document Registration [id number] 04/05/2018 04:59:30 Document Registration [id number] 04/04/2018 04:59:27 Document Registration [id number] 04/03/2018 04:59:32 Document Registration [id number] 04/02/2018 04:59:33 Document Registration [id number] 04/01/2018 04:59:34 Document Registration [id number] 03/31/2018 04:59:36 Document Registration [id number] 03/30/2018 04:59:36 Document Registration [id number] 03/29/2018 04:59:37 Document Registration [id number] 03/28/2018 04:59:38 Document Registration [id number] 03/27/2018 04:59:39 Document Registration [id number] 03/26/2018 04:59:40 Document Registration [id number] 03/25/2018 04:59:41 Document Registration [id number] 03/24/2018 04:59:42 Document Registration [id number] 03/23/2018 04:59:39 Document Registration [id number] 03/22/2018 04:59:44 Document Registration [id number] 03/21/2018 04:59:45 Document Registration [id number] 03/20/2018 04:59:46 Document Registration [id number] 03/19/2018 04:59:47 Document Registration [id number] 03/18/2018 04:59:48 Document Registration [id number] 03/17/2018 04:59:45 Document Registration [id number] 03/17/2018 04:59:44 Document Registration [id number] 03/16/2018 04:59:48 Document Registration [id number] 03/15/2018 04:59:46 Document Registration [id number] 03/14/2018 04:59:50 Document Registration [id number] 03/13/2018 04:59:49 Document Registration [id number] 03/12/2018 04:59:34 Document Registration [id number] 03/11/2018 04:59:37 Document Registration [id number] 03/10/2018 04:59:38 Document Registration [id number] 03/09/2018 04:59:38 Document Registration [id number] 03/08/2018 04:59:35 Document Registration [id number] 03/07/2018 04:59:39 Document Registration [id number] 03/06/2018 04:59:39 Document Registration [id number] 03/05/2018 04:59:40 Document Registration [id number] 03/04/2018 04:59:39 Document Registration [id number] 03/03/2018 04:59:40 Document Registration [id number] 03/02/2018 04:59:40 Document Registration [id number] 03/01/2018 04:59:40 Document Registration [id number] 02/28/2018 04:59:41 Document Registration [id number] 02/27/2018 04:59:41 Document Registration [id number] 02/26/2018 04:59:42 Document Registration [id number] 02/25/2018 04:59:42 Document Registration [id number] 02/23/2018 04:59:42 Document Registration [id number] 02/22/2018 04:59:43 Document Registration [id number] 02/21/2018 04:59:43 Document Registration [id number] 02/20/2018 04:59:43 Document Registration [id number] 02/19/2018 04:59:43 Document Registration [id number] 02/18/2018 04:59:44 Document Registration [id number] 02/17/2018 04:59:44 Document Registration [id number] 02/16/2018 04:59:44 Document Registration [id number] 02/15/2018 04:59:44 Document Registration [id number] 02/14/2018 04:59:44 Document Registration [id number] 02/13/2018 04:59:45 Document Registration [id number] 02/12/2018 04:59:45 Document Registration [id number] 02/11/2018 04:59:46 Document Registration [id number] 02/10/2018 04:59:42 Document Registration [id number] 02/09/2018 04:59:46 Document Registration [id number] 02/08/2018 04:59:47 Document Registration [id number] 02/07/2018 04:59:46 Document Registration [id number] 02/06/2018 04:59:48 Document Registration [id number] 02/05/2018 04:59:47 Document Registration [id number] 02/04/2018 04:59:48 Document Registration [id number] 02/03/2018 04:59:47 Document Registration [id number] 02/02/2018 04:59:48 Document Registration [id number] 02/01/2018 04:59:49 Document Registration [id number] 01/31/2018 04:59:48 Document Registration [id number] 01/30/2018 04:59:49 Document Registration [id number] 01/29/2018 04:59:43 Document Registration [id number] 01/28/2018 04:59:43 Document Registration [id number] 01/27/2018 04:59:43 Document Registration [id number] 01/26/2018 04:59:44 Document Registration [id number] 01/25/2018 04:59:44 Document Registration [id number] 01/24/2018 04:59:44 Document Registration [id number] 01/23/2018 04:59:45 Document Registration [id number] 01/22/2018 04:59:45 Document Registration [id number] 01/21/2018 04:59:46 Document Registration [id number] 01/20/2018 04:59:45 Document Registration [id number] 01/19/2018 04:59:46 Document Registration [id number] 01/18/2018 04:59:46 Document Registration [id number] 01/17/2018 04:59:47 Document Registration [id number] 01/16/2018 04:59:47 Document Registration [id number] 01/15/2018 04:59:47 Document Registration [id number] 01/14/2018 04:59:47 Document Registration [id number] 01/13/2018 04:59:44 Document Registration [id number] 01/12/2018 04:59:48 Document Registration [id number] 01/11/2018 04:59:45 Document Registration [id number] 01/10/2018 04:59:50 Document Registration [id number] 01/09/2018 04:59:50 Document Registration [id number] 01/08/2018 04:59:43 Document Registration [id number] 01/07/2018 04:59:40 Document Registration [id number] 01/06/2018 04:59:43 Document Registration [id number] 01/05/2018 04:59:45 Document Registration [id number] 01/04/2018 04:59:45 Document Registration [id number] 01/03/2018 04:59:46 Document Registration [id number] 01/02/2018 04:59:42 Document Registration [id number] 01/01/2018 04:59:45 Document Registration [id number] 12/31/2017 04:59:46 Document Registration [id number] 12/30/2017 04:59:46 Document Registration [id number] 12/29/2017 04:59:46 Document Registration [id number] 12/28/2017 04:59:47 Document Registration [id number] 12/27/2017 04:59:47 Document Registration [id number] 12/26/2017 04:59:44 Document Registration [id number] 12/25/2017 04:59:47 Document Registration [id number] 12/24/2017 04:59:48 Document Registration [id number] 12/23/2017 04:59:48 Document Registration [id number] 12/22/2017 04:59:48 Document Registration [id number] 12/21/2017 04:59:45 Document Registration [id number] 12/20/2017 04:59:45 Document Registration [id number] 12/19/2017 04:59:49 Document Registration [id number] 12/18/2017 04:59:44 Document Registration [id number] 12/17/2017 04:59:44 Document Registration [id number] 12/16/2017 04:59:45 Document Registration [id number] 12/15/2017 04:59:45 Document Registration [id number] 12/14/2017 04:59:46 Document Registration [id number] 12/13/2017 04:59:46 Document Registration [id number] 12/13/2017 04:59:45 Document Registration [id number] 12/12/2017 04:59:45 Document Registration [id number] 12/11/2017 04:59:46 Document Registration [id number] 12/10/2017 04:59:46 Document Registration [id number] 12/09/2017 04:59:46 Document Registration [id number] 12/08/2017 04:59:46 Document Registration [id number] 12/07/2017 04:59:47 Document Registration [id number] 12/06/2017 04:59:44 Document Registration [id number] 12/05/2017 04:59:47 Document Registration [id number] 12/04/2017 04:59:48 Document Registration [id number] 12/03/2017 04:59:45 Document Registration [id number] 12/02/2017 04:59:49 Document Registration [id number] 12/01/2017 04:59:49 Document Registration [id number] 11/30/2017 04:59:49 Document Registration [id number] 11/29/2017 04:59:46 Document Registration [id number] 11/28/2017 04:59:46 Document Registration [id number] 11/27/2017 04:59:47 Document Registration [id number] 11/26/2017 04:59:43 Document Registration [id number] 11/25/2017 04:59:46 Document Registration [id number] 11/24/2017 04:59:47 Document Registration [id number] 11/23/2017 04:59:48 Document Registration [id number] 11/22/2017 04:59:47 Document Registration [id number] 11/21/2017 04:59:44 Document Registration [id number] 11/20/2017 04:59:44 Document Registration [id number] 11/19/2017 04:59:49 Document Registration [id number] 11/18/2017 04:59:45 Document Registration [id number] 11/17/2017 04:59:45 Document Registration [id number] 11/16/2017 04:59:49 Document Registration [id number] 11/15/2017 04:59:50 Document Registration [id number] 11/14/2017 04:59:46 Document Registration [id number] 11/13/2017 04:59:49 Document Registration [id number] 11/12/2017 04:59:45 Document Registration [id number] 11/11/2017 04:59:46 Document Registration [id number] 11/10/2017 04:59:50 Document Registration [id number] 11/09/2017 04:59:47 Document Registration [id number] 11/08/2017 04:59:47 Document Registration [id number] 11/07/2017 04:59:51 Document Registration [id number] 11/06/2017 04:59:47 Document Registration [id number] 11/05/2017 04:59:48 Document Registration [id number] 11/04/2017 04:59:51 Document Registration [id number] 11/03/2017 04:59:48 Document Registration [id number] 11/02/2017 04:59:48 Document Registration [id number] 11/01/2017 04:59:52 Document Registration [id number] 10/31/2017 04:59:49 Document Registration [id number] 10/30/2017 04:59:54 Document Registration [id number] 10/29/2017 04:59:56 Document Registration [id number] 10/28/2017 04:59:58 Document Registration [id number] 10/27/2017 04:59:59 Document Registration [id number] 10/26/2017 05:00:01 Document Registration [id number] 10/25/2017 04:59:59 Document Registration [id number] 10/24/2017 05:00:00 Document Registration [id number] 10/23/2017 05:00:06 Document Registration [id number] 10/22/2017 05:00:04 Document Registration [id number] 10/21/2017 05:00:04 Document Registration [id number] 10/20/2017 05:00:07 Document Registration [id number] 10/19/2017 05:00:09 Document Registration [id number] 10/18/2017 05:00:04 Document Registration [id number] 10/17/2017 05:00:08 Document Registration [id number] 10/16/2017 05:00:04 Document Registration [id number] 10/15/2017 05:00:08 Document Registration [id number] 10/14/2017 05:00:07 Document Registration [id number] 10/13/2017 05:00:04 Document Registration [id number] 10/12/2017 05:00:08 Document Registration [id number] 10/11/2017 05:00:07 Document Registration [id number] 10/10/2017 05:00:04 Document Registration [id number] 10/09/2017 05:00:04 Document Registration [id number] 10/08/2017 05:00:08 Document Registration [id number] 10/07/2017 05:00:04 Document Registration [id number] 10/06/2017 05:00:04 Document Registration [id number] 10/05/2017 05:00:07 Document Registration [id number] 10/04/2017 05:00:04 Document Registration [id number] 10/03/2017 05:00:04 Document Registration [id number] 10/02/2017 05:00:08 Document Registration [id number] 10/01/2017 05:00:07 Document Registration [id number] 10/01/2017 05:00:06 Document Registration [id number] 09/30/2017 05:00:04 Document Registration [id number] 09/29/2017 05:00:07 Document Registration [id number] 09/28/2017 05:00:04 Document Registration [id number] 09/27/2017 05:00:08 Document Registration [id number] 09/26/2017 05:00:07 Document Registration [id number] 09/25/2017 05:00:04 Document Registration [id number] 09/24/2017 05:00:05 Document Registration [id number] 09/23/2017 05:00:07 Document Registration [id number] 09/22/2017 05:00:03 Document Registration [id number] 09/21/2017 05:00:04 Document Registration [id number] 09/20/2017 05:00:07 Document Registration [id number] 09/19/2017 05:00:04 Document Registration [id number] 09/18/2017 05:00:04 Document Registration [id number] 09/17/2017 05:00:08 Document Registration [id number] 09/17/2017 05:00:07 Document Registration [id number] 09/16/2017 05:00:05 Document Registration [id number] 09/16/2017 05:00:04 Document Registration [id number] 09/15/2017 05:00:04 Document Registration [id number] 09/14/2017 05:00:08 Document Registration [id number] 09/13/2017 05:00:05 Document Registration [id number] 09/12/2017 05:00:04 Document Registration [id number] 09/11/2017 05:00:08 Document Registration [id number] 09/10/2017 05:00:04 Document Registration [id number] 09/09/2017 05:00:03 Document Registration [id number] 09/08/2017 05:00:08 Document Registration [id number] 09/07/2017 05:00:08 Document Registration [id number] 09/06/2017 05:00:04 Document Registration [id number] 09/05/2017 05:00:10 Document Registration [id number] 09/05/2017 05:00:09 Document Registration [id number] 09/04/2017 05:00:04 Document Registration [id number] 09/03/2017 05:00:04 Document Registration [id number] 09/02/2017 05:00:08 Document Registration [id number] 09/01/2017 05:00:04 Document Registration [id number] 08/31/2017 05:00:04 Document Registration [id number] 08/30/2017 05:00:07 Document Registration [id number] 08/29/2017 05:00:04 Document Registration [id number] 08/29/2017 05:00:03 Document Registration [id number] 08/28/2017 05:00:05 Document Registration [id number] 08/27/2017 05:00:07 Document Registration [id number] 08/26/2017 05:00:04 Document Registration [id number] 08/25/2017 05:00:05 Document Registration [id number] 08/24/2017 05:00:08 Document Registration [id number] 08/23/2017 05:00:07 Document Registration [id number] 08/22/2017 05:00:09 Document Registration [id number] 08/21/2017 05:00:08 Document Registration [id number] 08/21/2017 05:00:07 Document Registration [id number] 08/20/2017 05:00:04 Document Registration [id number] 08/19/2017 05:00:04 Document Registration [id number] 08/18/2017 05:00:08 Document Registration [id number] 08/17/2017 05:00:04 Document Registration [id number] 08/16/2017 05:00:08 Document Registration [id number] 08/15/2017 05:00:08 Document Registration [id number] 08/14/2017 05:00:04 Document Registration [id number] 08/14/2017 05:00:03 Document Registration [id number] 08/13/2017 05:00:04 Document Registration [id number] 08/12/2017 05:00:08 Document Registration [id number] 08/11/2017 05:00:03 Document Registration [id number] 08/10/2017 05:00:05 Document Registration [id number] 08/09/2017 05:00:08 Document Registration [id number] 08/08/2017 05:00:04 Document Registration [id number] 08/07/2017 05:00:03 Document Registration [id number] 08/06/2017 05:00:08 Document Registration [id number] 08/05/2017 05:00:03 Document Registration [id number] 08/04/2017 05:00:06 Document Registration [id number] 08/03/2017 05:00:07 Document Registration [id number] 08/02/2017 05:00:08 Document Registration [id number] 08/01/2017 05:00:04 Document Registration [id number] 07/31/2017 05:00:07 Document Registration [id number] 07/30/2017 05:00:04 Document Registration [id number] 07/29/2017 05:00:03 Document Registration [id number] 07/28/2017 05:00:07 Document Registration [id number] 07/27/2017 05:00:09 Document Registration [id number] 07/26/2017 05:00:04 Document Registration [id number] 07/25/2017 05:00:07 Document Registration [id number] 07/24/2017 05:00:04 Document Registration [id number] 07/23/2017 05:00:07 Document Registration [id number] 07/22/2017 05:00:07 Document Registration [id number] 07/21/2017 05:00:04 Document Registration [id number] 07/20/2017 05:00:04 Document Registration [id number] 07/19/2017 05:00:07 Document Registration [id number] 07/18/2017 05:00:04 Document Registration [id number] 07/17/2017 05:00:04 Document Registration [id number] 07/16/2017 05:00:07 Document Registration [id number] 07/15/2017 05:00:08 Document Registration [id number] 07/14/2017 05:00:04 Document Registration [id number] 07/13/2017 05:00:07 Document Registration [id number] 07/12/2017 05:00:05 Document Registration [id number] 07/12/2017 05:00:04 Document Registration [id number] 07/11/2017 05:00:08 Document Registration [id number] 07/10/2017 05:00:08 Document Registration [id number] 07/09/2017 05:00:03 Document Registration [id number] 07/08/2017 05:00:07 Document Registration [id number] 07/07/2017 05:00:07 Document Registration [id number] 07/06/2017 05:00:03 Document Registration [id number] 07/05/2017 05:00:04 Document Registration [id number] 07/04/2017 05:00:08 Document Registration [id number] 07/03/2017 05:00:08 Document Registration [id number] 07/02/2017 05:00:04 Document Registration [id number] 07/01/2017 05:00:07 Document Registration [id number] 06/30/2017 05:00:08 Document Registration [id number] 06/29/2017 05:00:04 Document Registration [id number] 06/28/2017 05:00:08 Document Registration [id number] 06/27/2017 05:00:05 Document Registration [id number] 12/08/2012 06:00:00 Document Registration [id number] 12/03/2012 12:28:00 Document Registration [id number] 11/18/2012 10:37:00 Document Registration [id number] 10/29/2011 14:42:00 Document Registration
--- NOTE | 2018-08-09 12:57 | ED GU-Male ---
General Chief Complaint: -Male Stated Complaint: UNABLE TO URINATE/ABD PAIN Nursing Triage Note: ARRIVED VIA AMB TO ROOM 08. STATES HE HAS NOT BEEN ABLE TO PEE FOR OVER 24 HOURS AND IT FEELS LIKE THERE IS A "GOLF BALL IN MY BUTT". Source: patient Exam Limitations: no limitations History of Present Illness Date Seen by Provider: Aug 09, 2018 Time Seen by Provider: 12:54 Initial Comments To ER with reports of inability to urinate for 24 hours. States "feels like there is a golf ball in my butt". He has a history of "dribbling" for the past few days. He is already on Flomax. He's never had have a catheter before Timing/Duration: constant Severity/Quality: moderate Location: suprapubic Radiation: none Associated Symptoms: dysuria Allergies and Home Medications Allergies Coded Allergies: hydrocodone (Verified Allergy, Mild, RASH (NO REACTION TO MORPHINE/ PERCOCET), 10/29/11) Sulfa (Sulfonamide Antibiotics) (Verified Allergy, Unknown, 12/08/12) Home Medications 5-Hydroxytryptophan 100 Mg Capsule, 100 MG PO DAILY, (Reported) Allopurinol 300 Mg Tablet, 300 MG PO DAILY, (Reported) Aspirin 81 Mg Tablet.dr, 81 MG PO DAILY, (Reported) Atorvastatin Calcium 40 Mg Tablet, 40 MG PO HS, (Reported) Cetirizine HCl 10 Mg Tablet, 10 MG PO DAILY, (Reported) Ciprofloxacin HCl 250 Mg Tablet, 250 MG PO BID Prescribed by: NEVAEH STEVE on 08/09/18 1347 Cyanocobalamin (Vitamin B-12) 1,000 Mcg Tablet, 1,000 MCG PO DAILY, (Reported) Gabapentin 300 Mg Capsule, 300 MG PO TID, (Reported) Isosorbide Mononitrate 10 Mg Tablet, 10 MG PO DAILY, (Reported) Liraglutide 0.6 Mg/0.1 Ml Pen.injctr, 1.2 MG SC DAILY, (Reported) Metoprolol Succinate 25 Mg Tab.er.24h, 12.5 MG PO BID, (Reported) take 1/2 of 25mg tab Montelukast Sodium 10 Mg Tablet, 10 MG PO HS, (Reported) Multivitamin 1 Each Tablet, 1 TAB PO DAILY, (Reported) [place]lin-3 Fatty Acids/Fish Oil 1 Each Capsule, 2,400 MG PO DAILY, (Reported) Oxycodone HCl/Acetaminophen 1 Each Tablet, 1 TAB PO Q4HR PRN for PAIN-MODERATE Prescribed by: GRUPO NICHOLSON on 04/24/18658 Phenytoin Sodium Extended 100 Mg Capsule, 200 MG PO BID, (Reported) take 2 (100mg) tabs Sennosides/Docusate Sodium 1 Each Tablet, 1 EA PO BID Prescribed by: GRUPO NICHOLSON on 04/24/18658 Tramadol HCl 50 Mg Tablet, 50 MG PO Q6H PRN for PAIN-MILD Prescribed by: GRUPO NICHOLSON on 04/24/18658 Patient Home Medication List Home Medication List Reviewed: Yes Review of Systems Review of Systems Constitutional: see HPI; No chills EENTM: see HPI Respiratory: no symptoms reported Cardiovascular: no symptoms reported Genitourinary: see HPI, dysuria Musculoskeletal: no symptoms reported Skin: no symptoms reported Psychiatric/Neurological: No Symptoms Reported Past Sojxcml-Yoyxau-Yspfed Hx Patient Social History Alcohol Use: Occasionally Uses Alcohol Beverage of Choice: Beer Recreational Drug Use: No Smoking Status: Former Smoker Type Used: Cigars Former Smoker, Quit: Apr 16, 1992 2nd Hand Smoke Exposure: No Recent Foreign Travel: No Contact w/Someone Who Travel: No Recent Infectious Disease Expo: No Recent Hopitalizations: No Immunizations Up To Date Tetanus Booster (TDap): Unknown Date of Pneumonia Vaccine: Jun 02, 2016 Date of Influenza Vaccine: Jun 03, 2017 Seasonal Allergies Seasonal Allergies: Yes Past Medical History Surgeries: Yes (BILAT HIP REPLACED, TMJ, RIGHT KNEE SX X5, TOES X3 AMPUTATED, R SHOULDER SX) Appendectomy, Cardiac, Coronary Stent, Joint Replacement, Orthopedic Respiratory: Yes (GETS SOB-DX "RESTRICTIVE LUNG DISEASE",) Sleep Apnea Currently Using CPAP: Yes Cardiac: Yes (X2 STENTS) Chronic Edema/Swelling, Coronary Artery Disease, Heart Attack, High Cholesterol , Hypertension, Peripheral Vascular Neurological: Yes (SILENT SEIZURES-TOLD BY ) Neuropathy, Seizure Disorder Reproductive Disorders: No Sexually Transmitted Disease: No HIV/AIDS: No Genitourinary: No Gastrointestinal: Yes (GI BLEED 12/2016) Gastrointestinal Bleed Musculoskeletal: Yes Arthritis, Fractures, Gout Endocrine: Yes (OBESITY) Diabetes, Non-Insulin dep HEENT: Yes (GLASSES, DENTURES) Loss of Vision: Denies Hearing Impairment: Hearing Aide Right, Hearing Aide Left, Bilateral Hearing Aide Cancer: No Psychosocial: No Integumentary: No Blood Disorders: No Adverse Reaction/Blood Tranf: No Family Medical History Not obtainable due to adoption unknown Diabetes, Other Conditions/Hx Physical Exam Vital Signs Vital Signs - First Documented 08/09/18 12:39 Temp 98.0 Pulse 104 Resp 16 B/P (MAP) 173/123 (140) Pulse Ox 99 O2 Delivery Room Air Capillary Refill : Less Than 3 Seconds Height, Weight, BMI Height: 5'3.00" Weight: 220lbs. 0.0oz. 99.082826kt; 40.7 BMI Method:Stated General Appearance: WD/WN, no apparent distress HEENT: PERRL/EOMI, normal ENT inspection Respiratory: no respiratory distress, no accessory muscle use Gastrointestinal: normal bowel sounds, soft, tenderness (suprapubic) Rectal: other (digital rectal exam done with Lucía MCBRIDE at the bedside. There is prostatic enlargement and tenderness to palpation but no fecal impaction.) Extremities: normal range of motion, non-tender Neurologic/Psychiatric: alert, normal mood/affect, oriented x 3 Skin: normal color, warm/dry Procedures/Interventions Suture Size: 5-0 Progress/Results/Core Measures Suspected Sepsis Recent Fever Within 48 Hours: No Infection Criteria Present: None New/Unexplained Altered Menta: No Sepsis Screen: No Definite Risk SIRS Temperature:98.0 Pulse: 104 Respiratory Rate: 16 Laboratory Tests 08/09/18 13:06: White Blood Count 10.3 Blood Pressure 173 /123 Mean: 140 Laboratory Tests 08/09/18 13:06: Creatinine 0.99, Platelet Count 199 Results/Orders Lab Results Laboratory Tests Test 08/09/18 12:48 08/09/18 13:06 Range/Units Urine Color YELLOW Urine Clarity SLIGHTLY CLOUDY Urine pH 6 5-9 Urine Specific [place] 1.015 L 1.016-1.022 Urine Protein 3+ H NEGATIVE Urine Glucose (UA) NEGATIVE NEGATIVE Urine Ketones NEGATIVE NEGATIVE Urine Nitrite NEGATIVE NEGATIVE Urine Bilirubin NEGATIVE NEGATIVE Urine Urobilinogen NORMAL NORMAL MG/DL Urine Leukocyte Esterase NEGATIVE NEGATIVE Urine RBC (Auto) NEGATIVE NEGATIVE Urine RBC RARE /HPF Urine WBC RARE /HPF Urine Squamous Epithelial Cells RARE /HPF Urine Crystals NONE /LPF Urine Bacteria NEGATIVE /HPF Urine Casts NONE /LPF Urine Mucus NEGATIVE /LPF Urine Culture Indicated NO White Blood Count 10.3 4.3-11.0 10^3/uL Red Blood Count 4.37 4.35-5.85 10^6/uL Hemoglobin 13.4 13.3-17.7 G/DL Hematocrit 39 L 40-54 % Mean Corpuscular Volume 90 80-99 FL Mean Corpuscular Hemoglobin 31 25-34 PG Mean Corpuscular Hemoglobin Concent 34 32-36 G/DL Red Cell Distribution Width 14.4 10.0-14.5 % Platelet Count 199 130-400 10^3/uL Mean Platelet Volume 9.3 7.4-10.4 FL Neutrophils (%) (Auto) 82 H 42-75 % Lymphocytes (%) (Auto) 10 L 12-44 % Monocytes (%) (Auto) 7 0-12 % Eosinophils (%) (Auto) 1 0-10 % Basophils (%) (Auto) 0 0-10 % Neutrophils # (Auto) 8.5 H 1.8-7.8 X 10^3 Lymphocytes # (Auto) 1.0 1.0-4.0 X 10^3 Monocytes # (Auto) 0.8 0.0-1.0 X 10^3 Eosinophils # (Auto) 0.1 0.0-0.3 10^3/uL Basophils # (Auto) 0.0 0.0-0.1 10^3/uL Sodium Level 139 135-145 MMOL/L Potassium Level 3.7 3.6-5.0 MMOL/L Chloride Level 103 98-107 MMOL/L Carbon Dioxide Level 25 21-32 MMOL/L Anion Gap 11 5-14 MMOL/L Blood Urea Nitrogen 15 7-18 MG/DL Creatinine 0.99 0.60-1.30 MG/DL Estimat Glomerular Filtration Rate > 60 BUN/Creatinine Ratio 15 Glucose Level 138 H 70-105 MG/DL Calcium Level 9.7 8.5-10.1 MG/DL My Orders Orders - NEVAEH STEVE [employer] Cbc With Automated Diff (08/09/18 12:51) Basic Metabolic Panel (08/09/18 12:51) Ua Culture If Indicated (08/09/18 12:51) Catheter(Urinary) Care .0300, 1500 (08/09/18 12:51) Vital Signs/I&O 08/09/18 12:39 Temp 98.0 Pulse 104 Resp 16 B/P (MAP) 173/123 (140) Pulse Ox 99 O2 Delivery Room Air Capillary Refill : Less Than 3 Seconds Blood Pressure Mean: 140 Departure Communication (Admissions) 16 Romans[place] Maurice catheter was inserted by me without difficulty returned nearly 2 L of clear yellow urine without clots or sediment. Tremendous improvement in his abdominal pain. He is scheduled to see his [place] primary care provider on Saturday of this upcoming week in [place] and will mention the troubles to them. I did also provide him with information to follow-up with Dr. Pizarro. Maurice catheter was attached to a leg bag. Impression Primary Impression: Urinary retention Disposition: HOME, SELF-CARE Condition: Stable Departure-Patient Inst. Decision time for Depature: 12:56 Referrals: HARRIET DE LOS SANTOS MD (PCP/Family) Primary Care Physician Patient Instructions: Urinary Retention Add. Discharge Instructions: 1. Leave the Maurice catheter in place. Empty the bag as needed. Call Dr. Pizarro on Saturday morning to make an appointment to be seen this week. All discharge instructions reviewed with patient and/or family. Voiced understanding. Scripts Ciprofloxacin HCl (Cipro) 250 Mg Tablet 250 MG PO BID, #10 TAB Prov: NEVAEH STEVE APRN 08/09/18 NEVAEH STEVE APRN Aug 09, 2018 12:57
[2018-08-09 13:06] LABS: BILIRUBIN,URINE NEGATIVE (NEGATIVE); CLARITY,URINE SLIGHTLY CLOUDY; COLOR,URINE YELLOW; GLUCOSE, URINE (UA) NEGATIVE (NEGATIVE); KETONES,URINE NEGATIVE (NEGATIVE); LEUKOCYTE ESTERASE ,URINE NEGATIVE (NEGATIVE); NITRITE,URINE NEGATIVE (NEGATIVE); PH,URINE 6 (5-9); PROTEIN,URINE 3+ (NEGATIVE); UROBILINOGEN,URINE NORMAL (NORMAL)
[2018-08-09 13:15] LABS: BASOPHILS % (AUTO) 0 % (0-10); EOSINOPHILS # (AUTO) 0.1 10^3/uL (0.0-0.3); EOSINOPHILS % (AUTO) 1 % (0-10); HEMATOCRIT 39 % (40-54); HEMOGLOBIN 13.4 G/DL (13.3-17.7); LYMPHOCYTES % (AUTO) 10 % (12-44); MEAN CORPUSCULAR HEMOGLOBIN 31 PG (25-34); MEAN CORPUSCULAR HGB CONC 34 G/DL (32-36); MEAN CORPUSCULAR VOLUME 90 FL (80-99); MEAN PLATELET VOLUME 9.3 FL (7.4-10.4); MONOCYTES # (AUTO) 0.8 X 10^3 (0.0-1.0); MONOCYTES % (AUTO) 7 % (0-12); NEUTROPHILS # (AUTO) 8.5 X 10^3 (1.8-7.8); NEUTROPHILS % (AUTO) 82 % (42-75); PLATELET COUNT 199 10^3/uL (130-400); RED BLOOD COUNT 4.37 10^6/uL (4.35-5.85); RED CELL DISTRIBUTION WIDTH 14.4 % (10.0-14.5); WHITE BLOOD COUNT 10.3 10^3/uL (4.3-11.0)
[2018-08-09 13:15] LABS: BACTERIA,URINE NEGATIVE /HPF; RBC,URINE RARE /HPF; SQUAMOUS EPITHELIAL CELL,UR RARE /HPF; WBC,URINE RARE /HPF
[2018-08-09 13:33] LABS: BUN/CREATININE RATIO 15; CALCIUM 9.7 MG/DL (8.5-10.1); CARBON DIOXIDE 25 MMOL/L (21-32); CHLORIDE 103 MMOL/L (98-107); CREATININE SERUM 0.99 MG/DL (0.60-1.30); GFR ESTIMATED > 60; GLUCOSE 138 MG/DL (70-105); POTASSIUM 3.7 MMOL/L (3.6-5.0); SODIUM 139 MMOL/L (135-145)
[2018-08-09] MEDS ORDERED: CIPR-226 PO (13:47)
[2018-08-09 14:04] VITALS: BP 169/82
== END 2018-08-09 14:04 | disposition home or self-care (01) ==
LOC: EDUNIT# 12:36 → ER 12:37
DX: R33.9 Retention of urine, unspecified (principal); G47.30 Sleep apnea, unspecified; I25.10 Atherosclerotic heart disease of native coronary artery without angina pectoris; I25.2 Old myocardial infarction; E78.00 Pure hypercholesterolemia, unspecified; I10 Essential (primary) hypertension; E11.59 Type 2 diabetes mellitus with other circulatory complications; I73.9 Peripheral vascular disease, unspecified; G40.909 Epilepsy, unspecified, not intractable, without status epilepticus; E66.9 Obesity, unspecified; E11.40 Type 2 diabetes mellitus with diabetic neuropathy, unspecified; Z68.41 Body mass index [BMI] 40.0-44.9, adult; Z87.19 Personal history of other diseases of the digestive system; Z88.5 Allergy status to narcotic agent; Z88.2 Allergy status to sulfonamides; Z79.82 Long term (current) use of aspirin; Z87.891 Personal history of nicotine dependence; Z96.643 Presence of artificial hip joint, bilateral; Z90.49 Acquired absence of other specified parts of digestive tract; Z95.5 Presence of coronary angioplasty implant and graft
CPT/HCPCS: 36415; 51702; 80048; 81000; 85025

== ENCOUNTER → 2018-10-28 | Outpatient (CLI) | payer MEDICARE, OTHER ==
[~2018-10-28] MED LIST changes: +CIPR-226 PO; +LOSA50TA63 PO; -LOSA50TA7 PO
== END ==
LOC: CARD 12:49
PROVIDERS: ATTEND Physician Assistant
DX: I25.10 Atherosclerotic heart disease of native coronary artery without angina pectoris (principal); I65.29 Occlusion and stenosis of unspecified carotid artery; R07.9 Chest pain, unspecified; R06.02 Shortness of breath
CPT/HCPCS: 93306

== ENCOUNTER → 2018-10-29 | Outpatient (CLI) | payer MEDICARE, OTHER ==
[~2018-10-29] MED LIST changes: +CATHETER FLUSH 10 ML SYR IV PRN; +REGADENOSON 0.4 MG/5 ML SYR (LEXISCAN) IV ONE
[2018-10-29 09:42] VITALS: BP 175/105
[2018-10-29 09:45] VITALS: BP 189/114
--- NOTE | 2018-10-29 17:56 | STRESS TEST ---
DATE OF SERVICE: 10/29/2018 LEXISCAN MYOVIEW STRESS TEST REPORT REFERRING PHYSICIAN: Dr. Jensen Brown. Baseline heart rate is 98, baseline blood pressure 179/107. Baseline EKG is sinus rhythm with no ischemic changes. In summary, the patient was injected with 10.84 mCi of technetium-99 Myoview and the resting images were obtained. Then, the patient received 0.4 mg of Lexiscan followed by 28.3 mCi of technetium-99 Myoview. Throughout the test, there were no EKG changes. The resting and stress images were reviewed and compared in the short axis, horizontal long axis, and vertical long axis views. Review of the images showed diaphragmatic attenuation with mild decreased uptake at the inferoapical and inferolateral wall with subtle reversibility, no significant ischemia was noted. SSS is 3, SDS 3, TID value 0.83. On the gated images, the left ventricle appeared to be normal size with normal contractility. Calculated ejection fraction 56%. CONCLUSION: 1. The patient tolerated Lexiscan well. 2. Typical male pattern with no significant ischemia or infarction on SPECT images. 3. Normal left ventricular size with normal contractility. Calculated ejection fraction 56%. Job ID: [id number] DocumentID: [id number] Dictated Date: 10/29/2018 15:32:35 Zipper Trimmer Date: 10/29/2018 17:55:41 Dictated By: GENE BOYKIN MD
== END ==
LOC: CARD 08:03
PROVIDERS: ATTEND Physician Assistant
DX: I25.10 Atherosclerotic heart disease of native coronary artery without angina pectoris (principal); R07.89 Other chest pain; R06.02 Shortness of breath
CPT/HCPCS: 78452; 93017

== ENCOUNTER → 2018-11-05 | Outpatient (CLI) | payer MEDICARE, OTHER ==
[~2018-11-05] MED LIST changes: -CATHETER FLUSH 10 ML SYR IV PRN; -REGADENOSON 0.4 MG/5 ML SYR (LEXISCAN) IV ONE
[2018-11-05 08:27] LABS: HEMOGLOBIN 14.1 G/DL (13.3-17.7); MEAN PLATELET VOLUME 9.1 FL (7.4-10.4); RED CELL DISTRIBUTION WIDTH 15.4 % (10.0-14.5); WHITE BLOOD COUNT 3.4 10^3/uL (4.3-11.0)
[2018-11-05 08:47] LABS: ALANINE AMINOTRANSFERASE 30 U/L (0-55); ALKALINE PHOSPHATASE 54 U/L (40-136); BILIRUBIN,TOTAL 0.4 MG/DL (0.1-1.0); BUN/CREATININE RATIO 22; CALCIUM 9.6 MG/DL (8.5-10.1); CARBON DIOXIDE 28 MMOL/L (21-32); CHLORIDE 102 MMOL/L (98-107); CREATININE SERUM 0.89 MG/DL (0.60-1.30); GFR ESTIMATED > 60; GLUCOSE 116 MG/DL (70-105); POTASSIUM 4.4 MMOL/L (3.6-5.0); SODIUM 137 MMOL/L (135-145); TOTAL PROTEIN 6.6 GM/DL (6.4-8.2)
== END ==
LOC: LAB 08:14
PROVIDERS: ATTEND Psychiatry & Neurology Neurology
DX: R56.9 Unspecified convulsions (principal); Z79.899 Other long term (current) drug therapy
CPT/HCPCS: 36415; 80053; 80185; 85027

== ENCOUNTER → 2018-12-05 | Outpatient (CLI) | payer MEDICARE, OTHER ==
[2018-12-05 13:39] LABS: ALANINE AMINOTRANSFERASE 32 U/L (0-55); ALBUMIN 3.8 GM/DL (3.2-4.5); ALKALINE PHOSPHATASE 60 U/L (40-136); BILIRUBIN,TOTAL 0.5 MG/DL (0.1-1.0); BUN/CREATININE RATIO 22; CALCIUM 9.4 MG/DL (8.5-10.1); CARBON DIOXIDE 26 MMOL/L (21-32); CHLORIDE 103 MMOL/L (98-107); CREATININE SERUM 0.92 MG/DL (0.60-1.30); GFR ESTIMATED > 60; GLUCOSE 84 MG/DL (70-105); POTASSIUM 3.9 MMOL/L (3.6-5.0); SODIUM 137 MMOL/L (135-145); TOTAL PROTEIN 6.5 GM/DL (6.4-8.2)
== END ==
LOC: LAB 13:09
PROVIDERS: ATTEND Family Medicine
DX: E11.40 Type 2 diabetes mellitus with diabetic neuropathy, unspecified (principal); I10 Essential (primary) hypertension
CPT/HCPCS: 36415; 80053; 83036

== ENCOUNTER 2019-02-03 09:47 | Outpatient (CLI) | payer MEDICARE, OTHER ==
[~2019-02-03] VITALS: Ht 160 cm; Wt 103.9 kg
[2019-02-03] MEDS ORDERED: VITA1TAB33 PO (10:12)
[2019-02-03] MEDS ORDERED: LOSA50TA63 PO (10:12)
[2019-02-03] MEDS ORDERED: ATOR80TA76 PO (10:12)
[2019-02-03] MEDS ORDERED: TAMS0.4C98 PO (10:12)
[2019-02-03 10:30] VITALS: BP 122/73
[2019-02-03 10:50] LABS: BASOPHILS % (AUTO) 1 % (0-10); EOSINOPHILS # (AUTO) 0.2 10^3/uL (0.0-0.3); EOSINOPHILS % (AUTO) 4 % (0-10); HEMATOCRIT 38 % (40-54); LYMPHOCYTES # (AUTO) 1.2 X 10^3 (1.0-4.0); LYMPHOCYTES % (AUTO) 29 % (12-44); MEAN CORPUSCULAR HEMOGLOBIN 32 PG (25-34); MEAN CORPUSCULAR HGB CONC 34 G/DL (32-36); MEAN CORPUSCULAR VOLUME 94 FL (80-99); MEAN PLATELET VOLUME 9.3 FL (7.4-10.4); MONOCYTES # (AUTO) 0.4 X 10^3 (0.0-1.0); MONOCYTES % (AUTO) 11 % (0-12); NEUTROPHILS # (AUTO) 2.2 X 10^3 (1.8-7.8); NEUTROPHILS % (AUTO) 56 % (42-75); PLATELET COUNT 213 10^3/uL (130-400); RED CELL DISTRIBUTION WIDTH 14.1 % (10.0-14.5)
[2019-02-03 11:27] LABS: BUN/CREATININE RATIO 22; CALCIUM 9.3 MG/DL (8.5-10.1); CARBON DIOXIDE 25 MMOL/L (21-32); CHLORIDE 103 MMOL/L (98-107); CREATININE SERUM 0.91 MG/DL (0.60-1.30); GFR ESTIMATED > 60; GLUCOSE 91 MG/DL (70-105); POTASSIUM 4.2 MMOL/L (3.6-5.0); SODIUM 136 MMOL/L (135-145)
[2019-02-03] MEDS ORDERED: ISOS30TA3 PO (14:42)
[2019-02-03] MEDS ORDERED: ATOR40TA70 PO (14:42)
[2019-02-03] MEDS ORDERED: LOSA50TA2 PO (15:21)
== END 2019-02-03 10:40 | disposition home or self-care (01) ==
LOC: PREOP 09:47
PROVIDERS: ATTEND Orthopaedic Surgery
DX: Z01.812 Encounter for preprocedural laboratory examination (principal); Z11.2 Encounter for screening for other bacterial diseases; M48.061 Spinal stenosis, lumbar region without neurogenic claudication; M43.16 Spondylolisthesis, lumbar region
CPT/HCPCS: 36415; 80048; 85025; 86850; 86900; 86901; 87081

== ENCOUNTER 2019-05-11 09:26 | Outpatient (CLI) | payer MEDICARE, OTHER ==
[~2019-05-11] VITALS: Ht 160 cm; Wt 100.7 kg
[~2019-05-11 09:26] MED LIST changes: +ATOR80TA76 PO; +CYAN-41 PO; -CYAN10006 PO; +OXYC1TAB87 PO; +TAMS0.4C98 PO; +VITA1TAB33 PO
[2019-05-11 09:38] VITALS: BP 147/89
[2019-05-11 10:05] LABS: BASOPHILS % (AUTO) 0 % (0-10); EOSINOPHILS # (AUTO) 0.2 10^3/uL (0.0-0.3); EOSINOPHILS % (AUTO) 5 % (0-10); HEMATOCRIT 39 % (40-54); HEMOGLOBIN 13.2 G/DL (13.3-17.7); LYMPHOCYTES # (AUTO) 1.3 X 10^3 (1.0-4.0); LYMPHOCYTES % (AUTO) 31 % (12-44); MEAN CORPUSCULAR HEMOGLOBIN 31 PG (25-34); MEAN CORPUSCULAR HGB CONC 34 G/DL (32-36); MEAN CORPUSCULAR VOLUME 92 FL (80-99); MEAN PLATELET VOLUME 9.3 FL (7.4-10.4); MONOCYTES # (AUTO) 0.3 X 10^3 (0.0-1.0); MONOCYTES % (AUTO) 8 % (0-12); NEUTROPHILS # (AUTO) 2.3 X 10^3 (1.8-7.8); NEUTROPHILS % (AUTO) 55 % (42-75); PLATELET COUNT 179 10^3/uL (130-400); RED CELL DISTRIBUTION WIDTH 14.4 % (10.0-14.5); WHITE BLOOD COUNT 4.1 10^3/uL (4.3-11.0)
[2019-05-11 10:22] LABS: BUN/CREATININE RATIO 19; CALCIUM 9.4 MG/DL (8.5-10.1); CARBON DIOXIDE 25 MMOL/L (21-32); CHLORIDE 102 MMOL/L (98-107); CREATININE SERUM 0.85 MG/DL (0.60-1.30); GFR ESTIMATED > 60; GLUCOSE 99 MG/DL (70-105); POTASSIUM 4.5 MMOL/L (3.6-5.0); SODIUM 136 MMOL/L (135-145)
[2019-05-11] MEDS ORDERED: ASPI-983 PO (11:14)
== END 2019-05-11 10:00 | disposition home or self-care (01) ==
LOC: PREOP 09:26
PROVIDERS: ATTEND Orthopaedic Surgery
DX: Z01.812 Encounter for preprocedural laboratory examination (principal); M43.10 Spondylolisthesis, site unspecified; M48.00 Spinal stenosis, site unspecified
CPT/HCPCS: 36415; 80048; 85025; 86850; 86900; 86901; 87081

== ENCOUNTER 2019-05-18 05:58 | Inpatient (IN) | payer MEDICARE, OTHER | END 2019-05-21 12:28 | disposition other institution (70) | LOC: 4TH 05:58 → SURG 06:59 → 4TH 13:20 | PROC: 0SG30AJ Fusion of Lumbosacral Joint with Interbody Fusion Device, Posterior Approach, Anterior Column, Open Approach (ICD-10-PCS; principal; 2019-05-18 07:55) | PROC: 0SG0071 Fusion of Lumbar Vertebral Joint with Autologous Tissue Substitute, Posterior Approach, Posterior Column, Open Approach (ICD-10-PCS; 2019-05-18 07:55) | PROC: 0SG3071 Fusion of Lumbosacral Joint with Autologous Tissue Substitute, Posterior Approach, Posterior Column, Open Approach (ICD-10-PCS; 2019-05-18 07:55) | PROC: 0ST20ZZ Resection of Lumbar Vertebral Disc, Open Approach (ICD-10-PCS; 2019-05-18 07:55) | PROC: 0ST40ZZ Resection of Lumbosacral Disc, Open Approach (ICD-10-PCS; 2019-05-18 07:55) | PROC: 0SG00A0 Fusion of Lumbar Vertebral Joint with Interbody Fusion Device, Anterior Approach, Anterior Column, Open Approach (ICD-10-PCS; 2019-05-18 07:55) | DX: M48.062 Spinal stenosis, lumbar region with neurogenic claudication (principal); M48.07 Spinal stenosis, lumbosacral region; M54.16 Radiculopathy, lumbar region; M43.16 Spondylolisthesis, lumbar region; I10 Essential (primary) hypertension; I95.81 Postprocedural hypotension; T41.205A Adverse effect of unspecified general anesthetics, initial encounter; I25.10 Atherosclerotic heart disease of native coronary artery without angina pectoris; I25.2 Old myocardial infarction; J44.9 Chronic obstructive pulmonary disease, unspecified; G47.33 Obstructive sleep apnea (adult) (pediatric); G40.909 Epilepsy, unspecified, not intractable, without status epilepticus; E11.40 Type 2 diabetes mellitus with diabetic neuropathy, unspecified; E11.51 Type 2 diabetes mellitus with diabetic peripheral angiopathy without gangrene; E78.00 Pure hypercholesterolemia, unspecified; N40.0 Benign prostatic hyperplasia without lower urinary tract symptoms; J30.2 Other seasonal allergic rhinitis; E66.9 Obesity, unspecified; K21.9 Gastro-esophageal reflux disease without esophagitis; M19.91 Primary osteoarthritis, unspecified site; M10.9 Gout, unspecified; Z95.5 Presence of coronary angioplasty implant and graft; Z87.891 Personal history of nicotine dependence; Z68.39 Body mass index [BMI] 39.0-39.9, adult; Z97.4 Presence of external hearing-aid ==

== ENCOUNTER 2019-05-21 10:47 | Inpatient (IN) | payer MEDICARE, OTHER ==
[~2019-05-21] VITALS: Ht 162.6 cm; Wt 105.0 kg
[2019-05-21] MEDS ORDERED: OXYC1TAB87 PO (11:02)
[2019-05-21] MEDS ORDERED: ACET325T49 PO (11:02)
--- NOTE | 2019-05-21 11:50 | NUR ---
Ricardo Bearden admitted to room 225-1, with an admitting diagnosis of Spinal Stenosis, on 05/21/19 from 4th floor Medical via wheelchair, accompanied by staff.RICARDO BEARDEN introduced to surroundings, call light, bed controls, phone, TV, temperature control, lights, meal times, smoking policy, visitor policy, side rail policy, bathrooms and showers. Patient Rights given to patient in the handbook.RICARDO BEARDEN verbalizes understanding that [facility] is not responsible for the loss or damage to any personal effects or valuables that are kept in the patients possession during their hospitalization. The following Patient Care Plans were discussed with the patient: Discharge Planning, Impaired Mobility, and Laminectomy. RICARDO BEARDEN verbalizes understanding of Interdisciplinary Patient Education. Patient received Patient Rights Booklet, which includes Privacy Act Statement and Data Collection Information Summary.
[2019-05-21 12:00] VITALS: BP 171/91
--- NOTE | 2019-05-21 12:13 | Physical Therapy Evaluation ---
PT Evaluation-General Medical Diagnosis Admission Date 05/21/2019 Medical Diagnosis: spinal stenosis Onset Date: May 21, 2019 Therapy Diagnosis Therapy Diagnosis: abnormal gait Height/Weight Height (Feet): 5 Height (Inches): 3.00 Weight (Pounds): 222 Weight (Ounces): 0.0 Precautions Precautions/Isolations: Standard Precautions Weight Bear Status Right Lower Extremity: Right Weight Bearing/Tolerated Left Lower Extremity: Left Weight Bearing/Tolerated Pt does have a lumbar support to wear when up. Referral Physician: Mukund Reason for Referral: Evaluation/Treatment Medical History Pertinent Medical History: Arthritis, CAD, DM, GERD, HTN, [place], Neuropathy, OA, PVD Additional Medical History B THR; TKR Current History Elective surgery L4-5 laminectomy and PSIF. Reviewed History: Yes Social History Home: Single Level Current Living Status: Spouse Entry Into Home: Stairs With Railing PT Steps Into Home: 3 PT Steps Inside Home: 0 Prior/Core FIM Prior Level of Function Therapy Code Descriptions/Definitions Functional [place] Measure: 0=Not Assessed/NA 4=Minimal Assistance 1=Total Assistance 5=Supervision or Setup 2=Maximal Assistance 6=Modified [place] 3=Moderate Assistance 7=Complete [place] Therapy Quality Codes: 6 Independent with activity with or without an assistive device 5 Patient requires set up or clean up by helper. Patient completes activity by themselves 4 Supervision or touching assist (CGA). [place] provide cues , steadying assist 3 The helper provides less than half the effort to complete the activity 2 The helper provides more than half the effort to complete the activity 1 Dependent. The helper does all the effort to complete an activity 7 Patient refused to complete or attempt activity 9 The patient did not perform the activity before the current illness or injury 88 Not attempted due to Medical conditions or safety concerns Functional Abilities and Goals: Independent: Patient completed the activities by him/herself, with or without an assistive device, with no assistance from a helper. Needed Some Help: Patient needed partial assistance from another person to complete activities. Dependent: A helper completed the activities for the patient. Unknown: Not Applicable: Bed Mobility: 7 Transfers (B,C,W/C) (FIM): 7 Gait: 6 (intermittent use of a cane or FWW) Stairs: 6 Indoor Mobility (Ambulation): Independent Stairs: Independent Prior Devices Use: Walker (or cane) Pt reports he is active in the community; drives. PT Evaluation-Current Subjective Pt agreeable to PT. Reports he is having much difficulty with mobility, "that is why I want to be here." Pain Numeric Pain Scale: 9 Location: Posterior Location Body Site: Back (central LB) Pain Description: Ache Pt/Family Goals "I want to be able to walk to and from the bathroom without difficulty and move around like I did before." Objective Patient Orientation: Person, Place, Time, Situation Problem Solving: Good ROM/Strength ROM Lower Extremities WFL Strenght Lower Extremities B LE strength is grossly 4-/5 Integumentary/Posture Integumentary Intact Bowel Incontinence: No Bladder Incontinence: No Posture forward flexed at hips; rounded shoulders; feet in ER Neuromuscular (Tone, Coordination, Reflexes) intact and functional Sensory Vision: Functional Hearing: Hearing Aid/Aides Hand Dominance: Right Sensation Right Lower Extremit: Intact Sensation Left Lower Extremity: Intact Transfers Therapy Code Descriptions/Definitions Functional [place] Measure: 0=Not Assessed/NA 4=Minimal Assistance 1=Total Assistance 5=Supervision or Setup 2=Maximal Assistance 6=Modified [place] 3=Moderate Assistance 7=Complete [place] Therapy Quality Codes: 6 Independent with activity with or without an assistive device 5 Patient requires set up or clean up by helper. Patient completes activity by themselves 4 Supervision or touching assist (CGA). [place] provide cues , steadying assist 3 The helper provides less than half the effort to complete the activity 2 The helper provides more than half the effort to complete the activity 1 Dependent. The helper does all the effort to complete an activity 7 Patient refused to complete or attempt activity 9 The patient did not perform the activity before the current illness or injury 88 Not attempted due to Medical conditions or safety concerns Transfers (B, C, W/C) (FIM): 2 Scootin Rollin Roll Left to Right (QC): 3 Supine to/from Sit: 4 Sit to/from Stand: 2 Sit to Lying (QC): 3 (assist with both legs) Lying to Sitting/Side of Bed(Q: 3 Sit to Stand (QC): 2 (assist of 2 to come to a full stand) Chair/Jrs-xr-Qzwne Xfer(QC): 3 Car Transfer (QC): 3 (assist to get his left leg out and assist to stand up; skilled cues for sequencing. ) Pt takes extra time to complete tasks and has difficulty engaging his core for functional transfers and mobility; transfers take much effort on the patient's part. Gait Does the Patient Walk?: Yes Mode of Locomotion: Walk Anticipated Mode of Locomotion: Walk Gait (FIM): 2 Distance (FIM): 1=up to 49 ft Walk 10 feet (QC): 4 Walk 50 ft with 2 Turns(QC): 88 Walk 150 ft (QC): 88 (unable to walk this distance) Walking 10ft/uneven surface-QC: 4 Distance: 25 ft x 3 reps Gait Level of Assist: 4 Gait Assistive Device: FWW Comments/Gait Description CGA with gait wth skilled cues for posture and safety; tends to walk forward flexed at hips, wide ALEXANDER with decreased step length and feet in ER; his feet clear the floor but barely. Gait takes much exertion on his part. Wheelchair Training Does the Pt Use a Wheelchair?: No Stairs Stairs (FIM): 0 (unsafe to attempt; fall risk) 1 Step (curb) (QC): 88 4 Steps (QC): 88 12 Steps (QC): 88 If not tested on admit;explain pt is not safe enough to attempt; fall risk Balance Sitting Static: Fair Sitting Dynamic: Fair Standing Static: Fair Standing Dynamic: Fair Picking up an Object (QC): 88 Treatment Functional sit to stand transfers x several attempts; static balance to apply brace; gait training. Pt was seen a second time for continued assessement and functional training. Worked on bed mobility, gait training and transfer training. Pt required assist with all. Educated pt on PT POC and what to expect on ARU> Pt in chair post treatment with needs met. Assessment/Needs Post elective lumbar surgery. Pt presents with a significant decline in functional strength, balance, and mobility. He needs max assist with transfers and bed mobility and much assist with gait. He is unable to care for himself at home at this time. He will beneift from skilled PT services to address functional strength and mobility to allow him to return home as before at a mod indep level. Rehab Potential: Good PT Short Term Goals Short Term Goals Time Frame: May 28, 2019 Transfers (B,C,W/C) (FIM): 4 Gait (FIM): 4 PT Therapeutic Recreation Specialist Goals Senior Living Goals PT Therapeutic Recreation Specialist Goals Time Frame: Jun 12, 2019 Transfers (B,C,W/C) (FIM): 6 Sit to Lying (QC): 6 Lying-Sitting on Side/Bed(QC): 6 Sit to Stand (QC): 6 Roll Left to Right (QC): 6 Chair/Btd-vj-Eirim Xfer(QC): 6 Car Transfer (QC): 6 Does the Patient Walk: Yes Gait (FIM): 6 Gait distance (FIM): 3=150 ft Walk 10 feet (QC): 6 Walk 10ft-Uneven Surface(QC): 6 Walk 50ft with 2 Turns (QC): 6 Walk 150 ft (QC): 6 Stairs (FIM): 5 1 Step (curb) (QC): 6 4 Steps (QC): 6 12 Steps (QC): 88 Picking up an Object (QC): 88 Goal is for patient to return home at a mod indep level. PT Plan Problem List Problem List: Activity Tolerance, Functional Strength, Safety, Balance, Gait, Transfer, Bed Mobility, ROM Treatment/Plan Treatment Plan: Continue Plan of Care Treatment Plan: Bed Mobility, Education, Functional Activity Isa, Functional Strength, Group Therapy, Gait, Safety, Therapeutic Exercise, Transfers Frequency: At least 5 of 7 days/Wk (IRF) Estimated Hrs Per Day: 1.5 hours per day Patient and/or Family Agrees t: Yes Safety Risks/Education Patient Education: Transfer Techniques, Safety Issues Teaching Recipient: Patient Teaching Methods: Demonstration, Discussion Response to Teaching: Reinforcement Needed Time/GCodes Time In: 1145 Time Out: 1230 ([id number]) Total Billed Treatment Time: 90 Total Billed Treatment visit x 2 EVM 15 FA 60 EX 15 LURDES HARRINGTON PT May 21, 2019 12:13
--- NOTE | 2019-05-21 12:26 | PM&R H&P / Post Admit Assess ---
History of Present Illness HPI/Chief Complaint Chief complaint: Debility following extensive lumbar stenosis surgery HPI: This is a 69yoWM clinic Pt of Dr. Jensen Brown with a past medical history of HTN and heart disease who presents with severe debility and inability to walk well enough to return home after undergoing an extensive lumbar spine surgery by Dr. Monet which was uncomplicated. At this current time bowels have not moved since admission so we will aggressively work on that. He will continuing working with PT to ambulate and improve status in order to ultimately return home. At this current time Pt denies any chest pain or SOB and he overall is feeling much better. Source: patient, RN/MD, old records Exam Limitations: no limitations Date Seen 05/21/19 Time Seen by a Provider: 12:30 Attending Physician Dayami Holden DO PCP Jensen Brown MD Referring Physician Date of Admission May 21, 2019 at 12:11 Home Medications & Allergies Home Medications Reviewed patient Home Medication Reconciliation performed by pharmacy medication reconciliations industrial maintenance technician and/or nursing. Patients Allergies have been reviewed. Allergies Allergies Coded Allergies hydrocodone (Verified Allergy, Mild, RASH (NO REACTION TO MORPHINE/PERCOCET), 10/29/11) Sulfa (Sulfonamide Antibiotics) (Verified Allergy, Unknown, 12/08/12) Past Hfkmekp-Nvjxyc-Xectfs Hx Past Med/Social Hx: Reviewed Nursing Past Med/Soc Hx, Reviewed and Corrections made Patient Social History Alcohol Beverage of Choice: Beer Former Smoker, Quit: Apr 16, 1992 Type Used: Cigars 2nd Hand Smoke Exposure: No Recent Hopitalizations: No Immunizations Up To Date Tetanus Booster (TDap): Unknown Date of Pneumonia Vaccine: Jun 02, 2018 Date of Influenza Vaccine: Jun 03, 2017 Seasonal Allergies Seasonal Allergies: Yes Past Medical History Surgeries: Appendectomy, Cardiac, Coronary Stent, Joint Replacement, Orthopedic Respiratory: Sleep Apnea Currently Using CPAP: Yes Cardiac: Chronic Edema/Swelling, Coronary Artery Disease, Heart Attack, High Cholesterol, Hypertension, Peripheral Vascular Neurological: Neuropathy, Seizure Disorder Reproductive: No Sexually Transmitted Disease: No HIV/AIDS: No Genitourinary: Benign Prostatic Hyperpl Gastrointestinal: Gastrointestinal Bleed Musculoskeletal: Arthritis, Fractures, Gout Endocrine: Diabetes, Non-Insulin dep Loss of Vision: Denies Hearing Impairment: Hearing Aide Right, Hearing Aide Left, Bilateral Hearing Aide History of Blood Disorders: No Adverse Reaction to Blood Farris: No Family History Alcoholism Diabetes mellitus Drug abuse Not obtainable due to adoption unknown Diabetes, Other Conditions/Hx Review of Systems Constitutional: see HPI, malaise, weakness EENTM: no symptoms reported Respiratory: no symptoms reported Cardiovascular: no symptoms reported Gastrointestinal: constipation Genitourinary: no symptoms reported Musculoskeletal: back pain Skin: no symptoms reported Psychiatric/Neurological: No Symptoms Reported All Other Systems Reviewed Negative Unless Noted: Yes Physical Exam Exam Vital Signs Vital Signs Date Time Temp Pulse Resp B/P (MAP) Pulse Ox O2 Delivery O2 Flow Rate FiO2 05/21/19 16:34 Room Air 05/21/19 16:09 36.8 95 16 123/73 (90) 95 Capillary Refill : General Appearance: No Apparent Distress, WD/WN, Chronically ill, Obese HEENT: PERRL/EOMI, Normal ENT Inspection, Pharynx Normal, Moist Mucous Membranes Neck: Full Range of Motion, Normal Inspection, Non Tender, Supple Respiratory: Chest Non Tender, Lungs Clear, Normal Breath Sounds, No Accessory Muscle Use, No Respiratory Distress Cardiovascular: Regular Rate, Rhythm, No Edema, No Gallop, No JVD, No Murmur Gastrointestinal: Normal Bowel Sounds, No Organomegaly, No Pulsatile Mass, Non Tender, Soft Back: Decreased Range of Motion, Muscle Spasm, Vertebral Tenderness, Other (brace in place) Extremity: Normal Capillary Refill, Normal Inspection, Normal Range of Motion, Non Tender, No Calf Tenderness, No Pedal Edema Neurologic/Psychiatric: Alert, Oriented x3, No Motor/Sensory Deficits, Normal Mood/Affect, ladies' hat trimmer II-XII Norm as Tested Skin: Normal Color, Warm/Dry Lymphatic: No Adenopathy Results Results/Procedures Labs Patient resulted labs reviewed. Assessment/Plan Assessment and Plan Assess & Plan/Chief Complaint Plan: IRF protocol BM regimen Home meds Monitor BP (1) Lumbar stenosis with neurogenic claudication Status: Acute (2) Constipation Status: Acute Qualifiers: Constipation type: slow transit constipation Qualified Codes: K59.01 - Slow transit constipation (3) ELLY on CPAP Status: Chronic (4) Obesity Status: Chronic Qualifiers: Obesity type: due to excess calories Obesity classification: adult class 3 (BMI >= 40) Body mass index: BMI 50.0-59.9 (5) CAD (coronary artery disease) Status: Chronic Qualifiers: Coronary Disease-Associated Artery/Lesion type: [place] artery [place] vs. transplanted heart: shawnee heart Associated angina: with stable angina Qualified Codes: I25.118 - Atherosclerotic heart disease of [place] coronary artery with other forms of angina pectoris (6) Non-insulin dependent type 2 diabetes mellitus Status: Chronic (7) Essential (primary) hypertension Status: Chronic (8) Primary osteoarthritis of left knee Status: Chronic (9) Gout Status: Chronic Qualifiers: Gout site: unspecified site Gout etiology: unspecified cause Chronicity: unspecified Qualified Codes: M10.9 - Gout, unspecified (10) Peripheral neuropathy Status: Chronic Qualifiers: Peripheral neuropathy type: polyneuropathy, unspecified Qualified Codes: G62.9 - Polyneuropathy, unspecified (11) Peripheral vascular disease Status: Chronic (12) BPH (benign prostatic hyperplasia) (13) Hypotension Status: Resolved Resolution Date/Time: 05/21/19 @ 21:59 Post Admission Physician Asses Date seen by provider: May 21, 2019 Time seen by provider: 12:30 Admisison Dx: (1) Lumbar stenosis with neurogenic claudication Status: Acute The preadmission screen agrees with the post admission assessment that the patient is a good candidate for inpatient rehabilitation. The patient will have a comprehensive program of inpatient rehabilitation with a goal of maximizing level of functional independence prior to discharge home with family. The patient will have PT/OT ninety minutes per day, each discipline, five days a week for gait, strengthening, conditioning, balance, ADLs, any patient/family/caregiver training as necessary. Speech therapy to do cognitive assessment and treat as indicated. Rehabilitation nursing to assist with bowel, bladder, skin, wound care, medication administration, pain management. Manager Rfid to assist with discharge planning, community reentry. SCD's for DVT prophylaxis. He appears to be well motivated to participate in three hours of therapy a day. He should be able to tolerate three hours of therapy a day from a medical standpoint. He should benefit from the three hours of therapy a day. He has a reasonable discharge plan, reasonable discharge rehabilitation goals and a supportive family. He has various comorbidities that need to be closely monitored with medications and treatments adjusted on a daily basis as needed. These include: Barriers to discharge for this patient who had been independent prior to this are for him to be modified independent to supervision for ADLs and mobility skills prior to discharge home with family, so as to lessen the burden of the caregivers. Risks for this patient include: 1. Fall 2. Fracture 3. DVT 4. Pulmonary embolism 5. Wound infection 6. Skin breakdown 7. Contractures 8. Poorly controlled pain 9. Urinary retention 10. UTI 11. Respiratory infection 12. Aspiration Estimated Length of Stay: 7 days Prognosis: Rehab prognosis appears good for goal of discharge home with family modified independent to supervision for ADLs and mobility skills. DAYAMI HOLDEN DO May 21, 2019 12:26
--- NOTE | 2019-05-21 14:18 | Occupational Ther Daily Note ---
OT Current Status-Daily Note Subjective Pt alert, sitting in recliner. Pt agrees to therapy. CHRISTENSEN/L took over care from OTR/L. No c/o pain at this time. Pt worried about tape allergy nrsg notified. Mental Status/Objective Patient Orientation: Person, Place, Time, Situation Therapy Code Descriptions/Definitions Functional [place] Measure: 0=Not Assessed/NA 4=Minimal Assistance 1=Total Assistance 5=Supervision or Setup 2=Maximal Assistance 6=Modified [place] 3=Moderate Assistance 7=Complete [place] Attachments: Other-See Comments (back brace) ADL-Treatment Pt agrees to shower. Sit to stand min A due to pt "getting stuck" in the middle of standing up. CGA to ambulate into bathroom using FWW. CGA to transfer into/out of shower and toilet transfer using BSC. Pt requires assist to complete lower body bathing, dressing and toileting hygiene due to back precautions. Pt has AE equipment for lower body dressing at home but not AE to assist with toileting after bowel movement. Pt completed shower using grabbars, hand held shower and shower bench with assist to complete lower body bathing. Pt able to complete upper body dressing by self after set up, assist to complete lower body dressing. Pt sat and completed grooming except oral care after shower. Pt then ambulated back to room sitting in room chair with handles. After therapy, pt sitting in room with call light/phone in reach. All needs met in room. Therapy Code Descriptions/Definitions Functional [place] Measure: 0=Not Assessed/NA 4=Minimal Assistance 1=Total Assistance 5=Supervision or Setup 2=Maximal Assistance 6=Modified [place] 3=Moderate Assistance 7=Complete [place] Therapy Quality Codes: 6 Independent with activity with or without an assistive device 5 Patient requires set up or clean up by helper. Patient completes activity by themselves 4 Supervision or touching assist (CGA). [place] provide cues , steadying assist 3 The helper provides less than half the effort to complete the activity 2 The helper provides more than half the effort to complete the activity 1 Dependent. The helper does all the effort to complete an activity 7 Patient refused to complete or attempt activity 9 The patient did not perform the activity before the current illness or injury 88 Not attempted due to Medical conditions or safety concerns Grooming (FIM): 5 Bathing (FIM): 3 Bathing Location: L Arm, R Arm, L Upper Leg, R Upper Leg, Chest, Abdomen, Perineal Area Shower/Bathe Self (QC): 3 Upper Body (FIM): 5 Upper Body Dressing (QC): 5 Lower Body Dressing (FIM): 2 Lower Body Dressing (QC): 2 On/Off Footwear (QC): 2 Toileting (FIM): 2 Toileting Hygiene (QC): 2 Transfers (B, C, W/C) (FIM): 4 Toilet/Commode Transfer (FIM): 4 Toilet Transfer (QC): 4 Shower Transfer(FIM): 4 OT Short Term Goals Short Term Goals 1=Demonstrate adherence to instructed precautions during ADL tasks. 2=Patient will verbalize/demonstrate understanding of assistive devices/modifications for ADL. 3=Patient will improve strength/tolerance for activity to enable patient to perform ADL's. OT Manager Collection Goals Alf Goals 1=Demonstrate adherence to instructed precautions during ADL tasks. 2=Patient will verbalize/demonstrate understanding of assistive devices/modifications for ADL. 3=Patient will improve strength/tolerance for activity to enable patient to perform ADL's. OT Education/Plan Problem List/Assessment Assessment: Decreased UE Strength, Impaired Self-Care Skills, Restricted Funct UE ROM Discharge Recommendations Plan/Recommendations: Continue POC Treatment Plan/Plan of Care Patient would benefit from OT for education, treatment and training to promote independence in ADL's, mobility, safety and/or upper extremity function for ADL's. Time/GCodes Start Time: 12:55 Stop Time: 13:55 Total Time Billed (hr/min): 60 Billed Treatment Time 1 visit-ADL 4 (60 min) LURDES PENA May 21, 2019 14:18
--- NOTE | 2019-05-21 14:30 | ST Cognitive Linguistic Eval ---
Speech Evaluation-General Medical Diagnosis Spinal Stenosis Onset Date: May 21, 2019 Therapy Diagnosis Therapy Diagnosis: Cognitive-communication Precautions Precautions: Fall Precautions/Isolations: Fall Prevention, Standard Precautions Referral Referring Physician: Dr. Duval Reason for Referral: Evaluation/Treatment Medical History Pertinent Medical History: Arthritis, CAD, DM, GERD, HTN, [place], Neuropathy, OA, PVD Arthritis, CAD, DM, SD, Neuropathy, GERD, OA, HTN, PVD Current History Spinal Stenosis Reviewed History: Yes Social History Home: Single Level Current Living Status: Spouse Speech PLF-Current Status Prior Level of Function Patient lived at home with his and was independent for most of his daily needs. Subjective Patient was cooperative and pleasant with the cognitive assessment. Language Eval: Auditory Comprehends Simple Yes/No Ques: Functional Indent/Objects Multiple Snyder: Functional Ident/Pics in Multiple Snyder: Functional Follows 1-Step Commands: Functional Follows Complex Directions: Functional Follows General Conversations: Functional Language Eval: Verbal Language Completes Spontaneous Greeting: Functional Produces Auto, Serial Info: Functional Imitates Simple Words/Phrases: Functional Word Finding: Functional Requests Basic Needs: Functional States Basic Personal Info: Functional Expresses Complex Ideas: Functional Objective Cognitive Domain Attention: WNL Memory: Mild Problem Solving: Functional Executive Functions: WNL Visuospatial Skills: WNL Composite Severity Rating: WNL Clock Drawing Severity Rating: WNL Objective Formal/Standardized Tests [facility] Mental Status ([facility]) Results 27/30, within normal function Oral Motor/Speech Production Within Normal Limits Impression The patient is a pleasant 69 year old man who was admitted to the ARU s/p spine surgery. The patient was given the UMS with a score of 27/30. This score falls in the normal range of function so the patient does not require skilled ST at th is time. Communication/Social Cognition Comprehension: 7 Expression: 7 Social Interaction: 7 Problem Solvin Memory: 6 Speech Patient Assess Expression of Ideas/Wants: Expression (4) Understanding Verbal Content: Understands (4) Brief Interview-Mental Status: Yes Repetition of Three Words: Three (3) Temporal Orientation: Year: Correct (3) Temporal Orientation: Month: Accurate within 5 days(2) Temporal Orientation: Day: Correct (1) Recall : Wear to say "Sock": Yes, no cue required (2) Recall : Color: Yes, after cueing (1) Recall : Bed: Yes, no cue required (2) Memory/Recall Ability: Current season, Location of own room, Staff names and f aces, That he or she is in a hsp/hsp unit Speech-Plan Patient/Family Goals Patient/Family Goals: The patient plans on returning home with his post rehab. Treatment Plan Speech Therapy Treatment Plan: Discontinue ST The patient does not require skilled ST at this time. Treatment Duration: May 21, 2019 Frequency: 1 time per week Estimated Hrs Per Day: .25 hour per day Rehab Potential: Good Barriers to Learning: None identified Pt/Family Agrees to Plan: Yes Safety Risks/Education Teaching Recipient: Patient Teaching Methods: Discussion Response to Teaching: Verbalize Understanding Education Topics Provided: Safety within his room and utilization of his call light as needed. Time Speech Therapy Time In: 14:10 Speech Therapy Time Out: 14:25 Total Billed Time: 15 Billed Treatment Time 1, APRILNDDIEGO Shrestha May 21, 2019 14:30
--- NOTE | 2019-05-21 14:45 | NUR ---
REVIEWED MED REC IT WAS REPORTED UPON ADMISSION TO 4TH FLOOR. NOTE THE FOLLOWING CHANGES WERE MADE WHEN THE PATIENT DISCHARGED TO REHAB THAT ARE NOT CURRENTLY REFLECTED ON THE HOME MED REC: START TAKING: TYLENOL 325MG 2 TABS Q4H PRN PERCOCET 5-325MG 1-2 TABS Q4H PRN I REMOVED BOTH NEW MEDICATIONS FROM THE MED REC AT THIS TIME.
--- NOTE | 2019-05-21 14:46 | Occupational Therapy Eval ---
OT Evaluation-General/PLF Medical Diagnosis Admission Date May 21, 2019 at 12:11 Medical Diagnosis: Spinal Stenosis/L5-S1 laminectomy, L4-5 fusion, L3 kyphoplasty Onset Date: May 19, 2019 Therapy Diagnosis Therapy Diagnosis: Decreased ADL skills Height/Weight Height (Feet): 5 Height (Inches): 3.00 Weight (Pounds): 222 Weight (Ounces): 0.0 Precautions Precautions/Isolations: Fall Prevention, Standard Precautions Weight Bear Status Weight Bearing Restriction: Weight Bearing/Tolerated Back precautions, back brace on when up. Referral Physician: Dr. Duval Referral Reason: Activity Tolerance, Self Care, Evaluation/Treatment, Strengthening/ROM Medical History Pertinent Medical History: Arthritis, CAD, DM, GERD, HTN, [place], Neuropathy, OA, PVD Additional Medical History Heart stents, right knee surgery, cervical surgery Current History Pt. had elective back surgery due to pain. Reviewed History: Yes Social History Home: Single Level Current Living Status: Spouse Entry Into Home: Stairs With Railing Steps Into Home: 3 ADL-Prior Level of Function Therapy Code Descriptions/Definitions Functional [place] Measure: 0=Not Assessed/NA 4=Minimal Assistance 1=Total Assistance 5=Supervision or Setup 2=Maximal Assistance 6=Modified [place] 3=Moderate Assistance 7=Complete [place] Therapy Quality Codes: 6 Independent with activity with or without an assistive device 5 Patient requires set up or clean up by helper. Patient completes activity by themselves 4 Supervision or touching assist (CGA). [place] provide cues , steadying assist 3 The helper provides less than half the effort to complete the activity 2 The helper provides more than half the effort to complete the activity 1 Dependent. The helper does all the effort to complete an activity 7 Patient refused to complete or attempt activity 9 The patient did not perform the activity before the current illness or injury 88 Not attempted due to Medical conditions or safety concerns Functional Abilities and Goals: Independent: Patient completed the activities by him/herself, with or without an assistive device, with no assistance from a helper. Needed Some Help: Patient needed partial assistance from another person to complete activities. Dependent: A helper completed the activities for the patient. Unknown: Not Applicable: ADL PLOF Comments Pt. was independent with daily tasks prior to this hospitalization. Self Care: Independent Functional Cognition: Independent DME/Equipment: Bath Chair, Tub/Shower DME/Equipment Comments Pt. uses a cane but also has a walker. Uses ADL equipment at home. 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 Drive Self: Yes OT Current Status Subjective No pain reported seated. Reports pain in back of legs with standing, and so sits quickly. Reports that feet are numb in stance due to neuropathy. Appearance Pt. up in chair. Agrees to work with OT. Mental Status/Objective Patient Orientation: Person, Place, Time, Situation Current Hearing Aids: Yes Hand Dominance: Right Upper Extremity ROM WFL. However, movements are slow. ADL-Treatment Lower Body Dressing (FIM): 2 (At eval, pt. unable to reach his feet. He uses ADL equipment at home, so during full ADL activity, pt. will use this equipment.) Lower Body Dressing (QC): 2 On/Off Footwear (QC): 2 Transfers (B, C, W/C) (FIM): 4 (Min assist sit-stand. Pt. stood approximately 1 minute and then sat down, stating that his legs were sore.) Education OT Patient Education: Correct positioning, Modified ADL techniques, Progress toward Goal/Update tx plan, Purpose of tx/functional activities, Reviewed precautions, Rehab process, Transfer techniques Teaching Recipient: Patient Teaching Methods: Demonstration, Discussion Response to Teaching: Verbalize Understanding, Return Demonstration OT Short Term Goals Short Term Goals Time Frame: May 28, 2019 Eating(FIM): 5 Grooming(FIM): 5 Bathing(FIM): 4 Upper Body Dressing(FIM): 4 Lower Body Dressing(FIM): 4 Toileting(FIM): 4 Transfers (B,C,W/C) (FIM): 5 Toilet/Commode Transfer(FIM): 5 Shower Transfer(FIM): 4 Additional Short Term Goals: 1-Demonstrate ADL Tasks, 2-Verbalize Understanding, 3-ImproveStrength/Isa 1=Demonstrate adherence to instructed precautions during ADL tasks. 2=Patient will verbalize/demonstrate understanding of assistive devices/modifications for ADL. 3=Patient will improve strength/tolerance for activity to enable patient to perform ADL's. OT Patient Service Specialist Goals [facility] Goals Time Frame: Jun 04, 2019 Eating (FIM): 6 Eating (QC): 6 Groomin Oral Hygiene (QC): 6 Bathing(FIM): 5 Shower/Bathe Self (QC): 4 Upper Body Dressing(FIM): 6 Upper Body Dressing (QC): 6 Lower Body Dressing(FIM): 6 Lower Body Dressing (QC): 6 On/Off Footwear (QC): 6 Toileting(FIM): 6 Toileting Hygiene (QC): 6 Transfers (B,C,W/C) (FIM): 6 Toilet/Commode Transfer(FIM): 6 Toilet/Commode Transfer (QC): 6 Shower Transfer(FIM): 5 Additional Goals: 1-Demonstrate ADL Tasks, 2-Verbalize Understanding, 3- ImproveStrength/Isa 1=Demonstrate adherence to instructed precautions during ADL tasks. 2=Patient will verbalize/demonstrate understanding of assistive devices/modifications for ADL. 3=Patient will improve strength/tolerance for activity to enable patient to perform ADL's. OT Education/Plan Problem List/Assessment Assessment: Decreased Activ Tolerance, Decreased UE Strength, Dependent Transfers, Impaired Bed Mobility, Impaired Funct Balance, Impaired I ADL's, Impaired Self-Care Skills, Restricted Funct UE ROM Discharge Recommendations Plan/Recommendations: Continue POC Therapy Discharge Recommendati: Post Acute OT Comment Equipment needs to be determined. Treatment Plan/Plan of Care Treatment,Training & Education: Yes Patient would benefit from OT for education, treatment and training to promote independence in ADL's, mobility, safety and/or upper extremity function for ADL's. Plan of Care: ADL Retraining, Functional Mobility, Group Exercise/Act as Ind, UE Funct Exercise/Act Treatment Duration: Jun 04, 2019 Frequency: At least 5 of 7 days/Wk (IRF) Estimated Hrs Per Day: 1.5 hours per day Agreement: Yes Rehab Potential: Good Time/GCodes Start Time: 12:30 Stop Time: 12:55 Total Time Billed (hr/min): 25 Billed Treatment Time 1, EVM x 10minutes, FA x 15minutes AMIRA POTTER OT May 21, 2019 14:46
[2019-05-21] MEDS: oxyCODONE/APAP 5/325MG (PERCOCET 5) TABLET PO PRN (15:55)
[2019-05-21 16:09] VITALS: BP 123/73
--- NOTE | 2019-05-21 16:24 | NUR ---
Met with patient to complete initial assessment. Patient admitted to ARU with Lumbar Radiculopathy, Neurogenic Claudication, Lumbar Spondylolisthesis and Lumbar Stenosis; s/p L4-5 direct lateral interbody fusion; L5-S1 transforaminal lumbar interbody fusion; L4-S1 laminectomy and posterior spinal interbody fusion. This procedure was completed at [facility] by Dr. Daniele Monet. Prior to hospitalization the patient was living with his spouse in [place], [place]. He was reportedly independent with ADLs and functionally mobile without an AD. Patient reports he has a cane, FWW, and bath chair. He was reportedly active in the community and driving. Patient's home is single-level with three steps and railing, at the entrance. Patient identifies spouse, Amina Aj as his primary contact. She can be reached at . Patient confirms his PCP is Dr. Jensen Brown. Patient's primary insurance provider is [facility], with supplemental coverage provided by [employer]. The purpose of Weekly Team Conference was reviewed and patient agreeable with no concerns. Will continue to follow for ongoing discharge planning.
[2019-05-21] MEDS ORDERED: METOCLOPRAMIDE INJ 10 MG/2 ML (REGLAN) IVP PRN (16:45)
[2019-05-21] MEDS ORDERED: BISACODYL 5 MG (DULCOLAX) TABLET PO PRN (16:45)
[2019-05-21] MEDS ORDERED: BISACODYL 10 MG SUPP (DULCOLAX) PR PRN (16:45)
[2019-05-21] MEDS ORDERED: METOCLOPRAMIDE 10 MG (REGLAN) TAB PO PRN (16:45)
[2019-05-21] MEDS ORDERED: ONDANSETRON 4 MG/2 ML (SDV) Z0FRAN IVP PRN (16:45)
[2019-05-21] MEDS: FAMOTIDINE 20 MG (PEPCID) TABLET PO SCH (20:08)
[2019-05-21] MEDS: PHENYTOIN 100 MG (DILANTIN) CAP PO SCH (20:09)
[2019-05-21] MEDS: GABAPENTIN 300 MG (NEURONTIN) CAP PO SCH (20:09)
[2019-05-21] MEDS: LACTULOSE SYRUP 10GM/15ML (ENULOSE) 30ML UDC PO SCH (21:00)
[2019-05-21] MEDS: DOCUSATE SODIUM 100 MG (COLACE) CAP PO SCH (21:00)
[2019-05-21] MEDS: MONTELUKAST 10 MG (SINGULAIR) TAB PO SCH (21:00)
[2019-05-21] MEDS: SENNA W/DOCUSATE (SENOKOT S) TABLET PO SCH (21:00)
[2019-05-21] MEDS ORDERED: PHENYTOIN 100 MG (DILANTIN) CAP PO SCH (21:00)
[2019-05-22 05:55] VITALS: BP 151/87
[2019-05-22] MEDS: MULTIVIT W/MINERALS TAB (THERAGRAN M) PO SCH (06:00)
[2019-05-22] MEDS: oxyCODONE/APAP 5/325MG (PERCOCET 5) TABLET PO PRN ×4 (06:01→20:12)
[2019-05-22 06:30] LABS: BASOPHILS % (AUTO) 0 % (0-10); EOSINOPHILS # (AUTO) 0.2 10^3/uL (0.0-0.3); EOSINOPHILS % (AUTO) 4 % (0-10); HEMATOCRIT 28 % (40-54); HEMOGLOBIN 9.4 G/DL (13.3-17.7); LYMPHOCYTES # (AUTO) 0.9 X 10^3 (1.0-4.0); LYMPHOCYTES % (AUTO) 21 % (12-44); MEAN CORPUSCULAR HEMOGLOBIN 32 PG (25-34); MEAN CORPUSCULAR HGB CONC 34 G/DL (32-36); MEAN CORPUSCULAR VOLUME 94 FL (80-99); MEAN PLATELET VOLUME 8.6 FL (7.4-10.4); MONOCYTES # (AUTO) 0.4 X 10^3 (0.0-1.0); MONOCYTES % (AUTO) 10 % (0-12); NEUTROPHILS # (AUTO) 2.9 X 10^3 (1.8-7.8); NEUTROPHILS % (AUTO) 66 % (42-75); PLATELET COUNT 195 10^3/uL (130-400); RED CELL DISTRIBUTION WIDTH 14.6 % (10.0-14.5); WHITE BLOOD COUNT 4.4 10^3/uL (4.3-11.0)
[2019-05-22 06:56] LABS: ALANINE AMINOTRANSFERASE 49 U/L (0-55); ALBUMIN 3.1 GM/DL (3.2-4.5); ALKALINE PHOSPHATASE 52 U/L (40-136); BILIRUBIN,TOTAL 0.3 MG/DL (0.1-1.0); BUN/CREATININE RATIO 13; CALCIUM 9.1 MG/DL (8.5-10.1); CARBON DIOXIDE 27 MMOL/L (21-32); CHLORIDE 102 MMOL/L (98-107); CREATININE SERUM 0.77 MG/DL (0.60-1.30); GFR ESTIMATED > 60; GLUCOSE 120 MG/DL (70-105); POTASSIUM 3.7 MMOL/L (3.6-5.0); SODIUM 137 MMOL/L (135-145); TOTAL PROTEIN 5.7 GM/DL (6.4-8.2)
[2019-05-22] MEDS: ALLOPURINOL 300 MG (ZYLOPRIM) TAB PO SCH (08:32)
[2019-05-22] MEDS: DOCUSATE SODIUM 100 MG (COLACE) CAP PO SCH ×2 (08:32→20:12)
[2019-05-22] MEDS: ISOSORBIDE MONONITRATE 30 MG (IMDUR) TAB PO SCH (08:32)
[2019-05-22] MEDS: LORATADINE (CLARITIN) 10 MG TAB PO SCH (08:32)
[2019-05-22] MEDS: TAMSULOSIN 0.4 MG (FLOMAX) CAP PO SCH (08:32)
[2019-05-22] MEDS: FAMOTIDINE 20 MG (PEPCID) TABLET PO SCH ×2 (08:32→20:13)
[2019-05-22] MEDS: LACTULOSE SYRUP 10GM/15ML (ENULOSE) 30ML UDC PO SCH ×2 (08:33→20:13)
[2019-05-22] MEDS: SENNA W/DOCUSATE (SENOKOT S) TABLET PO SCH ×2 (08:33→20:13)
[2019-05-22] MEDS: PHENYTOIN 100 MG (DILANTIN) CAP PO SCH ×2 (08:33→20:21)
[2019-05-22] MEDS: GABAPENTIN 300 MG (NEURONTIN) CAP PO SCH ×3 (08:33→20:13)
--- NOTE | 2019-05-22 10:50 | Physical Therapy Daily Note ---
PT Daily Note-Current Subjective Patient in chair at bedside pre tx, agrees to PT, has no complaints of pain at rest. Appearance Patient in chair at bedside post tx with nurse call, phone, tray, all needs met. Mental Status Patient Orientation: Person, Place, Situation LSO Transfers Therapy Code Descriptions/Definitions Functional [place] Measure: 0=Not Assessed/NA 4=Minimal Assistance 1=Total Assistance 5=Supervision or Setup 2=Maximal Assistance 6=Modified [place] 3=Moderate Assistance 7=Complete [place] Therapy Quality Codes: 6 Independent with activity with or without an assistive device 5 Patient requires set up or clean up by helper. Patient completes activity by themselves 4 Supervision or touching assist (CGA). [place] provide cues , steadying assist 3 The helper provides less than half the effort to complete the activity 2 The helper provides more than half the effort to complete the activity 1 Dependent. The helper does all the effort to complete an activity 7 Patient refused to complete or attempt activity 9 The patient did not perform the activity before the current illness or injury 88 Not attempted due to Medical conditions or safety concerns Transfers (B, C, W/C) (FIM): 5 Sit to/from Stand: 5 Bed to/from Chair: 5 Weight Bearing Right Lower Extremity: Right Full Weight Bearing Left Lower Extremity: Left Full Weight Bearing Pt does have a lumbar support to wear when up. Gait Training Gait (FIM): 2 Distance: 100', 50', 120' Gait Level of Assist: 5 Gait Persons Needed: 1 Gait Assistive Device: FWW SBA, slow but steady, wide ALEXANDER Exercises Standing: Hamstring curls, Heel/toe raises, 3 way Ex=Flex, Abd, Ext (not extension), Marching, Mini squats NuStep Minutes: 15 NuStep Workload: 4 Treatments transfers, ambulation, LE exercise Assessment Current Status: Fair Progress improved endurance PT Short Term Goals Short Term Goals Time Frame: May 28, 2019 Transfers (B,C,W/C) (FIM): 4 Gait (FIM): 4 PT Clinical Rn Liaison Goals Detention Goals PT Clinical Rn Liaison Goals Time Frame: Jun 12, 2019 Transfers (B,C,W/C) (FIM): 6 Sit to Lying (QC): 6 Lying-Sitting on Side/Bed(QC): 6 Sit to Stand (QC): 6 Rollin Roll Left to Right (QC): 6 Chair/Ves-eu-Vfofa Xfer(QC): 6 Car Transfer (QC): 6 Does the Patient Walk: Yes Gait (FIM): 6 Gait distance (FIM): 3=150 ft Walk 10 feet (QC): 6 Walk 10ft-Uneven Surface(QC): 6 Walk 50ft with 2 Turns (QC): 6 Walk 150 ft (QC): 6 Stairs (FIM): 5 1 Step (curb) (QC): 6 4 Steps (QC): 6 12 Steps (QC): 88 Picking up an Object (QC): 88 PT Plan Problem List Problem List: Activity Tolerance, Functional Strength, Safety, Balance, Gait, Transfer, Bed Mobility Treatment/Plan Treatment Plan: Continue Plan of Care Treatment Plan: Bed Mobility, Education, Functional Activity Isa, Functional Strength, Group Therapy, Gait, Safety, Therapeutic Exercise, Transfers Frequency: At least 5 of 7 days/Wk (IRF) Estimated Hrs Per Day: 1.5 hours per day Patient and/or Family Agrees t: Yes Safety Risks/Education Patient Education: Gait Training, Transfer Techniques, Correct Positioning, Safety Issues Teaching Recipient: Patient Teaching Methods: Demonstration, Discussion Response to Teaching: Reinforcement Needed Time/GCodes Time In: 1000 Time Out: 1100 Total Billed Treatment Time: 60 Total Billed Treatment 1 visit EX 30' GT 30' MARCO A BLANTON PT May 22, 2019 10:50
[2019-05-22] MEDS: ACETAMINOPHEN 325 MG TABLET PO PRN (12:00)
--- NOTE | 2019-05-22 12:00 | Occupational Ther Daily Note ---
OT Current Status-Daily Note Subjective Pt sitting in chair upon OT arrival. Nrsg in room. Mental Status/Objective Patient Orientation: Person, Place, Time, Situation Therapy Code Descriptions/Definitions Functional [place] Measure: 0=Not Assessed/NA 4=Minimal Assistance 1=Total Assistance 5=Supervision or Setup 2=Maximal Assistance 6=Modified [place] 3=Moderate Assistance 7=Complete [place] ADL-Treatment Pt declined shower. Pt takes increased time to complete all tasks due to decreased activity tolerance and need for recovery breaks. Pt completed sponge bath sitting in chair. Pt only wanted to wash upper body today. Pt able to wash upper body by self. Pt required assist to wash and dry back. Therapy Code Descriptions/Definitions Functional [place] Measure: 0=Not Assessed/NA 4=Minimal Assistance 1=Total Assistance 5=Supervision or Setup 2=Maximal Assistance 6=Modified [place] 3=Moderate Assistance 7=Complete [place] Therapy Quality Codes: 6 Independent with activity with or without an assistive device 5 Patient requires set up or clean up by helper. Patient completes activity by themselves 4 Supervision or touching assist (CGA). [place] provide cues , steadying assist 3 The helper provides less than half the effort to complete the activity 2 The helper provides more than half the effort to complete the activity 1 Dependent. The helper does all the effort to complete an activity 7 Patient refused to complete or attempt activity 9 The patient did not perform the activity before the current illness or injury 88 Not attempted due to Medical conditions or safety concerns Upper Body (FIM): 4 (Pt able to doff/don shirt sitting in chair. Pt requires assist to don/doff back brace. ) Transfers (B, C, W/C) (FIM): 4 (Pt requires arm rests and FWW. Min assist to li ft from sit to stand. ) Other Treatment Pt ambulated to therapy gym using FWW. Pt required 1 rest break due to decreased activity tolerance. Pt participated in arm bike exercise for duration 15 min to increase UE strength for daily activity tasks. Pt reported 7/10 pain in legs. Nrsg notified. Pt ambulated back to room. Call light and phone with in reach. Pts needs met. OT Short Term Goals Short Term Goals Time Frame: May 28, 2019 Eating(FIM): 5 Grooming(FIM): 5 Bathing(FIM): 4 Upper Body Dressing(FIM): 4 Lower Body Dressing(FIM): 4 Toileting(FIM): 4 Transfers (B,C,W/C) (FIM): 4 Toilet/Commode Transfer(FIM): 5 Shower Transfer(FIM): 4 Additional Short Term Goals: 1-Demonstrate ADL Tasks, 2-Verbalize Understanding, 3-ImproveStrength/Isa 1=Demonstrate adherence to instructed precautions during ADL tasks. 2=Patient will verbalize/demonstrate understanding of assistive devices/modifications for ADL. 3=Patient will improve strength/tolerance for activity to enable patient to perform ADL's. OT Care Home Goals Care Home Goals Time Frame: Jun 04, 2019 Eating (FIM): 7 Eating (QC): 6 Groomin Oral Hygiene (QC): 6 Bathing(FIM): 6 Shower/Bathe Self (QC): 4 Upper Body Dressing(FIM): 6 Upper Body Dressing (QC): 6 Lower Body Dressing(FIM): 6 Lower Body Dressing (QC): 6 On/Off Footwear (QC): 6 Toileting(FIM): 6 Toileting Hygiene (QC): 6 Transfers (B,C,W/C) (FIM): 6 Toilet/Commode Transfer(FIM): 6 Toilet/Commode Transfer (QC): 6 Shower Transfer(FIM): 5 Social Interaction(FIM): 5 Additional Goals: 1-Demonstrate ADL Tasks, 2-Verbalize Understanding, 3- ImproveStrength/Isa 1=Demonstrate adherence to instructed precautions during ADL tasks. 2=Patient will verbalize/demonstrate understanding of assistive devices/modifications for ADL. 3=Patient will improve strength/tolerance for activity to enable patient to perform ADL's. OT Education/Plan Problem List/Assessment Assessment: Decreased Activ Tolerance, Decreased UE Strength, Impaired Self- Care Skills Discharge Recommendations Plan/Recommendations: Continue POC Treatment Plan/Plan of Care Patient would benefit from OT for education, treatment and training to promote independence in ADL's, mobility, safety and/or upper extremity function for ADL's. Plan of Care: ADL Retraining, Functional Mobility, Group Exercise/Act as Ind, UE Funct Exercise/Act Treatment Duration: Jun 04, 2019 Frequency: At least 5 of 7 days/Wk (IRF) Estimated Hrs Per Day: 1.5 hours per day Agreement: Yes Rehab Potential: Good Time/GCodes Start Time: 11:00 Stop Time: 12:00 Total Time Billed (hr/min): 60 Billed Treatment Time 1 visit- ADL 3 (45 min) EX 1 (15 min) LURDES PENA May 22, 2019 12:00
--- NOTE | 2019-05-22 12:09 | PM&R Progress Note ---
Subjective HPI/CC On Admission Date Seen by Provider: May 22, 2019 Time Seen by Provider: 09:00 Chief complaint: Debility following extensive lumbar stenosis surgery HPI: This is a 69yoWM clinic Pt of Dr. Jensen Brown with a past medical history of HTN and heart disease who presents with severe debility and inability to walk well enough to return home after undergoing an extensive lumbar spine surgery by Dr. Monet which was uncomplicated. At this current time bowels have not moved since admission so we will aggressively work on that. He will continuing working with PT to ambulate and improve status in order to ultimately return home. At this current time Pt denies any chest pain or SOB and he overall is feeling much better. Subjective/Events-last exam Hemoglobin stable at 9.4 for postoperative anemia Accu-Cheks will be changed every morning Dr. 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 Overall very motivated to improve and discharge home Review of Systems General: Fatigue Gastrointestinal: Constipation Objective Exam Vital Signs Vital Signs Date Time Temp Pulse Resp B/P (MAP) Pulse Ox O2 Delivery O2 Flow Rate FiO2 05/23/19 06:00 36.7 81 16 138/80 (99) 97 Room Air Capillary Refill : General Appearance: No Apparent Distress, WD/WN, Chronically ill, Obese HEENT: PERRL/EOMI, Normal ENT Inspection, Pharynx Normal, Moist Mucous Membranes Neck: Full Range of Motion, Normal Inspection, Non Tender, Supple Respiratory: Chest Non Tender, Lungs Clear, Normal Breath Sounds, No Accessory Muscle Use, No Respiratory Distress Cardiovascular: Regular Rate, Rhythm, No Edema, No Gallop, No JVD, No Murmur Gastrointestinal: Normal Bowel Sounds, No Organomegaly, No Pulsatile Mass, Non Tender, Soft Back: Decreased Range of Motion, Muscle Spasm, Vertebral Tenderness, Other (brace in place) Extremity: Normal Capillary Refill, Normal Inspection, Normal Range of Motion, Non Tender, No Calf Tenderness, No Pedal Edema Neurologic/Psychiatric: Alert, Oriented x3, No Motor/Sensory Deficits, Normal Mood/Affect, stack supervisor II-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 FIM Transfers Therapy Code Descriptions/Definitions Functional [place] Measure: 0=Not Assessed/NA 4=Minimal Assistance 1=Total Assistance 5=Supervision or Setup 2=Maximal Assistance 6=Modified [place] 3=Moderate Assistance 7=Complete [place] Therapy Quality Codes: 6 Independent with activity with or without an assistive device 5 Patient requires set up or clean up by helper. Patient completes activity by themselves 4 Supervision or touching assist (CGA). [place] provide cues , steadying assist 3 The helper provides less than half the effort to complete the activity 2 The helper provides more than half the effort to complete the activity 1 Dependent. The helper does all the effort to complete an activity 7 Patient refused to complete or attempt activity 9 The patient did not perform the activity before the current illness or injury 88 Not attempted due to Medical conditions or safety concerns Transfers (B, C, W/C) (FIM): 4 (Pt requires arm rests and FWW. Min assist to lift from sit to stand. ) Scootin Rollin Roll Left to Right (QC): 3 Supine to/from Sit: 4 Sit to/from Stand: 5 Sit to Lying (QC): 3 (assist with both legs) Sit to Stand (QC): 2 (assist of 2 to come to a full stand) Chair/[id number]-wp-[id number] Xfer(QC): 3 Bed to/from Chair: 5 Car Transfer (QC): 3 (assist to get his left leg out and assist to stand up; skilled cues for sequencing. ) Gait Training Does the Patient Walk?: Yes Gait (FIM): 2 Distance (FIM): 1=up to 49 ft Distance: 100', 50', 120' Walk 10 feet (QC): 4 Walk 50 ft with 2 Turns(QC): 88 Walk 150 ft (QC): 88 (unable to walk this distance) Walking 10ft/uneven surface-QC: 4 Gait Level of Assist: 5 Gait Persons Needed: 1 Gait Assistive Device: FWW Wheelchair Training Does the Pt Use a Wheelchair?: No Stair Training Stairs (FIM): 0 (unsafe to attempt; fall risk) 1 Step (curb) (QC): 88 4 Steps (QC): 88 12 Steps (QC): 88 Balance Picking up an Object (QC): 88 Mental Status/Objective Comprehension: 7 Expression: 7 Social Interaction: 7 Problem Solvin Memory: 6 ADL-Treatment Groomin Bathin Bathing Location: L Arm, R Arm, L Upper Leg, R Upper Leg, Chest, Abdomen, Perineal Area Shower/Bathe Self (QC): 3 Upper Extremity Dressin Upper Body Dressing (QC): 5 Lower Extremity Dressin (Pt able to doff/don shirt sitting in chair. Pt requires assist to don/doff back brace. ) Lower Body Dressing (QC): 2 On/Off Footwear (QC): 2 Toiletin Toileting Hygiene (QC): 2 Toilet/Commode Transfer: 4 Toilet Transfer (QC): 4 Shower: 4 Assessment/Plan Assessment and Plan Assess & Plan/Chief Complaint Plan: IRF protocol BM regimen Home meds Monitor BP DVT prophylaxis per Dr. Monet Monitor hemoglobin postop anemia Monitor sugar every morning Use hypoallergenic tape (1) Lumbar stenosis with neurogenic claudication Status: Acute (2) EMPHYSEMA, UNSPECIFIED Status: Acute (3) Normocytic anemia Status: Chronic (4) Hyponatremia (5) Spondylolisthesis (6) Essential (primary) hypertension Status: Chronic (7) Non-insulin dependent type 2 diabetes mellitus Status: Chronic (8) Constipation Status: Acute Qualifiers: Constipation type: slow transit constipation Qualified Codes: K59.01 - Slow transit constipation (9) Gout Status: Chronic Qualifiers: Gout site: unspecified site Gout etiology: unspecified cause Chronicity: unspecified Qualified Codes: M10.9 - Gout, unspecified (10) CAD (coronary artery disease) Status: Chronic Qualifiers: Coronary Disease-Associated Artery/Lesion type: [place] artery [place] vs. transplanted heart: [place] heart Associated angina: with stable angina Qualified Codes: I25.118 - Atherosclerotic heart disease of [place] coronary artery with other forms of angina pectoris (11) Hypotension Status: Resolved Resolution Date/Time: 05/21/19 @ 21:59 (12) Obesity Status: Chronic Qualifiers: Obesity type: due to excess calories Obesity classification: adult class 3 (BMI >= 40) Body mass index: BMI 50.0-59.9 (13) BPH (benign prostatic hyperplasia) (14) Primary osteoarthritis of left knee Status: Chronic (15) ELLY on CPAP Status: Chronic (16) Peripheral vascular disease Status: Chronic (17) Urinary retention Status: Acute (18) Peripheral neuropathy Status: Chronic Qualifiers: Peripheral neuropathy type: polyneuropathy, unspecified Qualified Codes: G62.9 - Polyneuropathy, unspecified GWEN HOLDEN DO May 22, 2019 12:09
--- NOTE | 2019-05-22 12:09 | Individualized Plan of Care ---
Individualized Plan of Care Rehab Nursing IPOC Order Admission Date May 21, 2019 at 12:11 Current Orders Orders Admission Order(Inpt,Obs,Sdc) (05/21/19 11:49) Vital Signs: Per Unit Policy ( 08,16,00 (05/21/19 11:49) [employer] Filler Cigar Roller Machine-Inpt Rehab Con (05/21/19 11:49) Rehab Nursing Orders-Ipoc (05/21/19 11:49) Physical Therapy Rehab Orders (05/21/19 11:49) Occupational Therapy Rehab Ord (05/21/19 11:49) Speech Therapy Rehab Orders (05/21/19 11:49) Intake & Output 06,14,22 (05/21/19 11:49) Precautions (Aru) (05/21/19 11:49) Weekly Weight (Lbs) WEEK (05/21/19 11:49) Rehab-Intensity Of Therapy (05/21/19 11:49) Initiate Admission Nursing Pro .admission (05/21/19 11:49) Initiate Admission Nursing Pro .admission (05/21/19 11:49) Patient Visit (05/21/19 ) Pt Eval Moderate Complexity (05/21/19 ) Functional Activities, Ea 15 (05/21/19 ) Exercise Therap, Ea 15 Min (05/21/19 ) Oxycodone/Apap 5/325mg Tablet (Percocet (05/21/19 14:45) Patient Visit (05/21/19 ) Functional Activities, Ea 15 (05/21/19 ) Exercise Therap, Ea 15 Min (05/21/19 ) Patient Visit (05/21/19 ) Speech Sound Lang Comp (05/21/19 ) Lactulose Oral Solution (Enulose Oral So (05/21/19 21:00) Senna S Tablet (Senokot S Tablet) (05/21/19 21:00) Ondansetron Injection (Zofran Injectio (05/21/19 16:45) Metoclopramide Injection (Reglan Injecti (05/21/19 16:45) Gabapentin Capsule/Tablet (Neurontin Cap (05/21/19 21:00) Isosorbide Mononitrate Tablet (Imdur Tab (05/22/19 09:00) Tamsulosin Capsule (Flomax Capsule) (05/22/19 09:00) Famotidine Tablet (Pepcid Tablet) (05/21/19 21:00) Metoclopramide Tablet (Reglan Tablet) (05/21/19 16:45) Acetaminophen Tablet/Caplet (Tylenol T (05/21/19 16:45) Therapeutic Multivitamin Tab (Vitamins, (05/22/19 07:00) Bisacodyl Tablet (Dulcolax Tablet) (05/21/19 16:45) Allopurinol Tablet (Zyloprim Tablet) (05/22/19 09:00) Loratadine Tablet (Claritin Tablet) (05/22/19 09:00) Montelukast Tablet (Singulair Tablet) (05/21/19 21:00) Phenytoin Capsule (Dilantin Capsule) (05/21/19 21:00) Docusate Sodium Capsule (Colace Capsule) (05/21/19 21:00) Bisacodyl Suppository (Dulcolax Supposit (05/21/19 16:45) Cho 75g/M 3snack (21-2400 Umang) (05/21/19 Dinner) Incentive Spirometry (Nursing) Q2H (05/21/19 16:54) Weight Bearing Status (05/21/19 16:54) Phenytoin Capsule (Dilantin Capsule) (05/21/19 21:00) Atorvastatin Tablet (Lipitor Tablet) (05/21/19 21:00) Cbc With Automated Diff (05/22/19 06:00) Comprehensive Metabolic Panel (05/22/19 06:00) Functional Activities, Ea 15 (05/21/19 ) Consult Podiatry (05/22/19 08:06) Accucheck Daily DAILY (05/23/19 06:00) Patient Visit (05/22/19 ) Exercise Therap, Ea 15 Min (05/22/19 ) Gait Training, Ea 15 Min (05/22/19 ) Functional Activities, Ea 15 (05/22/19 ) Patient Visit (05/23/19 ) Gait Training, Ea 15 Min (05/23/19 ) Rehab Nursing Orders: Ongoing Assess. of Cognitive Status, Ongoing Assess. of Function Status, Bladder Training, Bowel Management, Disease Management & Educai ton, DVT Prophylaxis, Fall Prevention, Fluid/Electrolyte/Nutrition Mgmt, Infection Prevention, Management of Risks & Complications, Nutrition Management, Pain Management, Patient/Family Support, Safety Management Intensity of Therapy to be met Patient to be seen: Min.3h per day/5 of 7d PT IPOC Problem List: Activity Tolerance, Functional Strength, Safety, Balance, Gait, Transfer, Bed Mobility Treatment Plan: Continue Plan of Care Bed Mobility, Education, Functional Activity Isa, Functional Strength, Group Therapy, Gait, Safety, Therapeutic Exercise, Transfers Treatment Duration: May 22, 2019 Frequency: At least 5 of 7 days/Wk (IRF) Estimated Hrs Per Day: 1.5 hours per day OT IPOC Problems: Decreased Activ Tolerance, Decreased UE Strength, Dependent Transfers, Impaired Bed Mobility, Impaired Funct Balance, Impaired I ADL's, Impaired Self-Care Skills, Restricted Funct UE ROM OT Treatment, Training and Edu: Yes Plan of Care: ADL Retraining, Functional Mobility, Group Exercise/Act as Ind, UE Funct Exercise/Act Treatment Duration: Jun 04, 2019 Frequency: At least 5 of 7 days/Wk (IRF) Estimated Hrs Per Day: 1.[address] IPOC Speech Therapy Treatment Plan: Discontinue ST Treatment Duration: May 21, 2019 Frequency: 1 time per week Estimated Hrs Per Day: .25 hour per day [employer]iller Cig[employer] Rol[employer] Machine/Case Mgmt [employer]ig[employer]/Case Managemen: Discharge Planning Dietitian/Finish Cleaner Dietitian/Finish Cleaner to monitor nutritional status and make changes and/or recommendations as needed and work with speech pathology on dietary upgrades as the occur. Physician IPOC Medical Issues being managed closely and that require the 24 hour availability of a physician: Patient with history of hypertension postoperatively will require close monitoring of narcotic use along with fall risk and will monitor hemoglobin closely due to postop anemia Medical Issues: Bowel/Bladder Function, DVT Prophylaxis, Falls Precautions, Fluid/Electrolyte/Nutrition Balance Brief Synthesis of Preadmission Screen, Post-Admission Evaluation, and Therapy Evaluations: Physical therapy for focus on regaining ambulatory ability with fall risk prevention Occupational therapy will help him regain his independent ADLs Medical Prognosis: good Anticipated Length of Stay: 7 days GWEN HOLDEN DO May 22, 2019 12:09
--- NOTE | 2019-05-22 13:30 | Occupational Ther Daily Note ---
OT Current Status-Daily Note Subjective Pt sitting in chair upon OT arrival. Pt agrees to therapy. brought pt new CPAP mask to try. Mental Status/Objective Patient Orientation: Person, Place, Time, Situation Therapy Code Descriptions/Definitions Functional [place] Measure: 0=Not Assessed/NA 4=Minimal Assistance 1=Total Assistance 5=Supervision or Setup 2=Maximal Assistance 6=Modified [place] 3=Moderate Assistance 7=Complete [place] ADL-Treatment Pt ambulated using FWW to bathroom to perform grooming tasks. Pt completed grooming sitting in chair at sink. Pt required increased time due to decrease in activity tolerance. Pt c/o of pain in legs. Nrsg notified. Pt sitting in chair, call light and phone in reach. Pts needs met in room. Therapy Code Descriptions/Definitions Functional [place] Measure: 0=Not Assessed/NA 4=Minimal Assistance 1=Total Assistance 5=Supervision or Setup 2=Maximal Assistance 6=Modified [place] 3=Moderate Assistance 7=Complete [place] Therapy Quality Codes: 6 Independent with activity with or without an assistive device 5 Patient requires set up or clean up by helper. Patient completes activity by themselves 4 Supervision or touching assist (CGA). Kelly provide cues , steadying assist 3 The helper provides less than half the effort to complete the activity 2 The helper provides more than half the effort to complete the activity 1 Dependent. The helper does all the effort to complete an activity 7 Patient refused to complete or attempt activity 9 The patient did not perform the activity before the current illness or injury 88 Not attempted due to Medical conditions or safety concerns Grooming (FIM): 6 (Pt able to brush teeth, hair, and shave face by self while sitting in chair. ) Transfers (B, C, W/C) (FIM): 4 (Pt requires arm rests on chair and FWW. Pt requires Min Assist lifting from sit to stand. ) OT Short Term Goals Short Term Goals Time Frame: May 28, 2019 Eating(FIM): 5 Grooming(FIM): 5 Bathing(FIM): 4 Upper Body Dressing(FIM): 4 Lower Body Dressing(FIM): 4 Toileting(FIM): 4 Transfers (B,C,W/C) (FIM): 4 Toilet/Commode Transfer(FIM): 5 Shower Transfer(FIM): 4 Additional Short Term Goals: 1-Demonstrate ADL Tasks, 2-Verbalize Understanding, 3-ImproveStrength/Isa 1=Demonstrate adherence to instructed precautions during ADL tasks. 2=Patient will verbalize/demonstrate understanding of assistive devices/modifications for ADL. 3=Patient will improve strength/tolerance for activity to enable patient to perform ADL's. OT Detention Goals Mica Laminating Machine Feeder Goals Time Frame: Jun 04, 2019 Eating (FIM): 7 Eating (QC): 6 Groomin Oral Hygiene (QC): 6 Bathing(FIM): 5 Shower/Bathe Self (QC): 4 Upper Body Dressing(FIM): 6 Upper Body Dressing (QC): 6 Lower Body Dressing(FIM): 6 Lower Body Dressing (QC): 6 On/Off Footwear (QC): 6 Toileting(FIM): 6 Toileting Hygiene (QC): 6 Transfers (B,C,W/C) (FIM): 6 Toilet/Commode Transfer(FIM): 6 Toilet/Commode Transfer (QC): 6 Shower Transfer(FIM): 5 Social Interaction(FIM): 5 Additional Goals: 1-Demonstrate ADL Tasks, 2-Verbalize Understanding, 3- ImproveStrength/Isa 1=Demonstrate adherence to instructed precautions during ADL tasks. 2=Patient will verbalize/demonstrate understanding of assistive devices/modifications for ADL. 3=Patient will improve strength/tolerance for activity to enable patient to perform ADL's. OT Education/Plan Problem List/Assessment Assessment: Decreased Activ Tolerance, Decreased UE Strength, Impaired Self- Care Skills Discharge Recommendations Plan/Recommendations: Continue POC Treatment Plan/Plan of Care Patient would benefit from OT for education, treatment and training to promote independence in ADL's, mobility, safety and/or upper extremity function for ADL's. Plan of Care: ADL Retraining, Functional Mobility, Group Exercise/Act as Ind, UE Funct Exercise/Act Treatment Duration: Jun 04, 2019 Frequency: At least 5 of 7 days/Wk (IRF) Estimated Hrs Per Day: 1.5 hours per day Agreement: Yes Rehab Potential: Good Time/GCodes Start Time: 13:00 Stop Time: 13:30 Total Time Billed (hr/min): 30 Billed Treatment Time 1 visit- ADL 2 (30 min) LURDES PENA May 22, 2019 13:29
--- NOTE | 2019-05-22 13:54 | Physical Therapy Daily Note ---
PT Daily Note-Current Subjective Patient in chair at bedside pre tx, agrees to PT, has 4/10 pain in back. Appearance Patient in chair at bedside post tx with nurse call, phone, tray, all needs met. Mental Status Patient Orientation: Person, Place, Situation back brace Transfers Therapy Code Descriptions/Definitions Functional [place] Measure: 0=Not Assessed/NA 4=Minimal Assistance 1=Total Assistance 5=Supervision or Setup 2=Maximal Assistance 6=Modified [place] 3=Moderate Assistance 7=Complete [place] Therapy Quality Codes: 6 Independent with activity with or without an assistive device 5 Patient requires set up or clean up by helper. Patient completes activity by themselves 4 Supervision or touching assist (CGA). Garrett provide cues , steadying assist 3 The helper provides less than half the effort to complete the activity 2 The helper provides more than half the effort to complete the activity 1 Dependent. The helper does all the effort to complete an activity 7 Patient refused to complete or attempt activity 9 The patient did not perform the activity before the current illness or injury 88 Not attempted due to Medical conditions or safety concerns Transfers (B, C, W/C) (FIM): 5 Sit to/from Stand: 5 Bed to/from Chair: 5 Weight Bearing Right Lower Extremity: Right Full Weight Bearing Left Lower Extremity: Left Full Weight Bearing Pt does have a lumbar support to wear when up. Gait Training Gait (FIM): 2 Distance: 130'x2 Gait Level of Assist: 5 Gait Persons Needed: 1 Gait Assistive Device: FWW slow but steady ambulation, wide ALEXANDER Stair Training Stair Training: Handrails/: 2 handrails Stairs (FIM): 2 #of Steps: 4 1 Step (curb) (QC): 4 4 Steps (QC): 4 Stairs: Pattern: Step to Level of Assist: 4 Exercises sit to stand 2 sets of 10 Treatments transfers, ambulation, LE exercise, stairs Assessment Current Status: Fair Progress improving ambulation and stairs PT Short Term Goals Short Term Goals Time Frame: May 28, 2019 Transfers (B,C,W/C) (FIM): 4 Gait (FIM): 4 PT Residential Goals Electrical [place] Goals PT Residential Goals Time Frame: Jun 12, 2019 Transfers (B,C,W/C) (FIM): 6 Sit to Lying (QC): 6 Lying-Sitting on Side/Bed(QC): 6 Sit to Stand (QC): 6 Rollin Roll Left to Right (QC): 6 Chair/[id number]-[id number] Xfer(QC): 6 Car Transfer (QC): 6 Does the Patient Walk: Yes Gait (FIM): 6 Gait distance (FIM): 3=150 ft Walk 10 feet (QC): 6 Walk 10ft-Uneven Surface(QC): 6 Walk 50ft with 2 Turns (QC): 6 Walk 150 ft (QC): 6 Stairs (FIM): 5 1 Step (curb) (QC): 6 4 Steps (QC): 6 12 Steps (QC): 88 Picking up an Object (QC): 88 PT Plan Problem List Problem List: Activity Tolerance, Functional Strength, Safety, Balance, Gait, Transfer, Bed Mobility, ROM Treatment/Plan Treatment Plan: Continue Plan of Care Treatment Plan: Bed Mobility, Education, Functional Activity Isa, Functional Strength, Group Therapy, Gait, Safety, Therapeutic Exercise, Transfers Frequency: At least 5 of 7 days/Wk (IRF) Estimated Hrs Per Day: 1.5 hours per day Patient and/or Family Agrees t: Yes Safety Risks/Education Patient Education: Gait Training, Transfer Techniques, Steps, Correct Positioning, Safety Issues Teaching Recipient: Patient Teaching Methods: Demonstration, Discussion Response to Teaching: Reinforcement Needed Time/GCodes Time In: 1325 Time Out: 1355 Total Billed Treatment Time: 30 Total Billed Treatment 1 visit GT 15' FA 15' MARCO A BLANTON PT May 22, 2019 13:54
--- NOTE | 2019-05-22 15:46 | NUR ---
Order for consult for Podiatry services with Dr. Brooks. Patient has been seen in Dr. Brooks's office for various issues. Message left with Dr. Brooks's office concerning consult.
[2019-05-22 16:35] VITALS: BP 123/73
[2019-05-22] MEDS: MONTELUKAST 10 MG (SINGULAIR) TAB PO SCH (20:13)
[2019-05-23 06:00] VITALS: BP 138/80
[2019-05-23] MEDS: MULTIVIT W/MINERALS TAB (THERAGRAN M) PO SCH (06:06)
[2019-05-23] MEDS: oxyCODONE/APAP 5/325MG (PERCOCET 5) TABLET PO PRN ×2 (06:07→20:18)
[2019-05-23] MEDS: TAMSULOSIN 0.4 MG (FLOMAX) CAP PO SCH (09:00)
[2019-05-23] MEDS: DOCUSATE SODIUM 100 MG (COLACE) CAP PO SCH ×2 (09:00→20:20)
[2019-05-23] MEDS: LORATADINE (CLARITIN) 10 MG TAB PO SCH (09:00)
[2019-05-23] MEDS: FAMOTIDINE 20 MG (PEPCID) TABLET PO SCH ×2 (09:00→20:16)
[2019-05-23] MEDS: ALLOPURINOL 300 MG (ZYLOPRIM) TAB PO SCH (09:00)
[2019-05-23] MEDS: ISOSORBIDE MONONITRATE 30 MG (IMDUR) TAB PO SCH (09:00)
[2019-05-23] MEDS: PHENYTOIN 100 MG (DILANTIN) CAP PO SCH ×2 (09:00→20:16)
[2019-05-23] MEDS: GABAPENTIN 300 MG (NEURONTIN) CAP PO SCH ×3 (09:00→20:16)
[2019-05-23] MEDS: ACETAMINOPHEN 325 MG TABLET PO PRN ×2 (09:01→16:37)
[2019-05-23] MEDS: SENNA W/DOCUSATE (SENOKOT S) TABLET PO SCH ×2 (09:01→20:20)
[2019-05-23] MEDS: LACTULOSE SYRUP 10GM/15ML (ENULOSE) 30ML UDC PO SCH ×2 (09:02→20:20)
--- NOTE | 2019-05-23 09:04 | PM&R Progress Note ---
Subjective HPI/CC On Admission Date Seen by Provider: May 23, 2019 Time Seen by Provider: 09:15 Chief complaint: Debility following extensive lumbar stenosis surgery HPI: This is a 69yoWM clinic Pt of Dr. Jensen Brown with a past medical history of HTN and heart disease who presents with severe debility and inability to walk well enough to return home after undergoing an extensive lumbar spine surgery by Dr. Monet which was uncomplicated. At this current time bowels have not moved since admission so we will aggressively work on that. He will continuing working with PT to ambulate and improve status in order to ultimately return home. At this current time Pt denies any chest pain or SOB and he overall is feeling much better. Subjective/Events-last exam Patient doing pretty well today Just started having bowel movements Ambulating around really well Pain is pretty well controlled Slept pretty well last night Checked meds and labs Reviewed therapy notes Conferred with medical librarian of Systems Gastrointestinal: Constipation Musculoskeletal: back pain Objective Exam Vital Signs Vital Signs Date Time Temp Pulse Resp B/P (MAP) Pulse Ox O2 Delivery O2 Flow Rate FiO2 05/23/19 06:00 36.7 81 16 138/80 (99) 97 Room Air Capillary Refill : General Appearance: No Apparent Distress, WD/WN, Chronically ill, Obese HEENT: PERRL/EOMI, Normal ENT Inspection, Pharynx Normal, Moist Mucous Membranes Neck: Full Range of Motion, Normal Inspection, Non Tender, Supple Respiratory: Chest Non Tender, Lungs Clear, Normal Breath Sounds, No Accessory Muscle Use, No Respiratory Distress Cardiovascular: Regular Rate, Rhythm, No Edema, No Gallop, No JVD, No Murmur Gastrointestinal: Normal Bowel Sounds, No Organomegaly, No Pulsatile Mass, Non Tender, Soft Back: Decreased Range of Motion, Muscle Spasm, Vertebral Tenderness, Other (brace in place) Extremity: Normal Capillary Refill, Normal Inspection, Normal Range of Motion, Non Tender, No Calf Tenderness, No Pedal Edema Neurologic/Psychiatric: Alert, Oriented x3, No Motor/Sensory Deficits, Normal 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 FIM Transfers Therapy Code Descriptions/Definitions Functional [place] Measure: 0=Not Assessed/NA 4=Minimal Assistance 1=Total Assistance 5=Supervision or Setup 2=Maximal Assistance 6=Modified [place] 3=Moderate Assistance 7=Complete [place] Therapy Quality Codes: 6 Independent with activity with or without an assistive device 5 Patient requires set up or clean up by helper. Patient completes activity by themselves 4 Supervision or touching assist (CGA). Brandon provide cues , steadying assist 3 The helper provides less than half the effort to complete the activity 2 The helper provides more than half the effort to complete the activity 1 Dependent. The helper does all the effort to complete an activity 7 Patient refused to complete or attempt activity 9 The patient did not perform the activity before the current illness or in jury 88 Not attempted due to Medical conditions or safety concerns Transfers (B, C, W/C) (FIM): 5 Scootin Rollin Roll Left to Right (QC): 3 Supine to/from Sit: 4 Sit to/from Stand: 5 Sit to Lying (QC): 3 (assist with both legs) Sit to Stand (QC): 2 (assist of 2 to come to a full stand) Chair/Bra-pi-Rzuka Xfer(QC): 3 Bed to/from Chair: 5 Car Transfer (QC): 3 (assist to get his left leg out and assist to stand up; skilled cues for sequencing. ) Gait Training Does the Patient Walk?: Yes Gait (FIM): 2 Distance (FIM): 1=up to 49 ft Distance: 130'x2 Walk 10 feet (QC): 4 Walk 50 ft with 2 Turns(QC): 88 Walk 150 ft (QC): 88 (unable to walk this distance) Walking 10ft/uneven surface-QC: 4 Gait Level of Assist: 5 Gait Persons Needed: 1 Gait Assistive Device: FWW Wheelchair Training Does the Pt Use a Wheelchair?: No Stair Training Stair Training: Handrails/: 2 handrails Stairs (FIM): 2 #of Steps: 4 1 Step (curb) (QC): 4 4 Steps (QC): 4 12 Steps (QC): 88 Stairs: Pattern: Step to Level of Assist: 4 Balance Picking up an Object (QC): 88 Mental Status/Objective Comprehension: 7 Expression: 7 Social Interaction: 7 Problem Solvin Memory: 6 ADL-Treatment Groomin (Pt able to brush teeth, hair, and shave face by self while sitting in chair. ) Bathin Bathing Location: L Arm, R Arm, L Upper Leg, R Upper Leg, Chest, Abdomen, Heather raquel Area Shower/Bathe Self (QC): 3 Upper Extremity Dressin (Pt able to doff/don shirt sitting in chair. Pt requires assist to don/doff back brace. ) Upper Body Dressing (QC): 5 Lower Body Dressing (QC): 2 On/Off Footwear (QC): 2 Toiletin Toileting Hygiene (QC): 2 Toilet/Commode Transfer: 4 Toilet Transfer (QC): 4 Shower: 4 Assessment/Plan Assessment and Plan Assess & Plan/Chief Complaint Plan: IRF protocol BM regimen Home meds Monitor BP Monitor blood sugar and blood pressure Pain control (1) Lumbar stenosis with neurogenic claudication Status: Acute (2) EMPHYSEMA, UNSPECIFIED Status: Acute (3) Normocytic anemia Status: Chronic (4) Spondylolisthesis (5) Hyponatremia (6) ELLY on CPAP Status: Chronic (7) Primary osteoarthritis of left knee Status: Chronic (8) Hypotension Status: Resolved Resolution Date/Time: 05/21/19 @ 21:59 (9) Obesity Status: Chronic Qualifiers: Obesity type: due to excess calories Obesity classification: adult class 3 (BMI >= 40) Body mass index: BMI 50.0-59.9 (10) BPH (benign prostatic hyperplasia) (11) CAD (coronary artery disease) Status: Chronic Qualifiers: Coronary Disease-Associated Artery/Lesion type: [place] artery [place] vs. transplanted heart: [place] heart Associated angina: with stable angina Qualified Codes: I25.118 - Atherosclerotic heart disease of [place] coronary artery with other forms of angina pectoris (12) Gout Status: Chronic Qualifiers: Gout site: unspecified site Gout etiology: unspecified cause Chronicity: unspecified Qualified Codes: M10.9 - Gout, unspecified (13) Constipation Status: Acute Qualifiers: Constipation type: slow transit constipation Qualified Codes: K59.01 - Slow transit constipation (14) Non-insulin dependent type 2 diabetes mellitus Status: Chronic (15) Essential (primary) hypertension Status: Chronic GWEN HOLDEN DO May 23, 2019 09:04
--- NOTE | 2019-05-23 12:00 | NUR ---
PATIENT AGREEABLE TO DINE WITH OTHER PATIENTS. PATIENT AMBULATED WITH SBA , GAIT BELT FOR SAFETY AND FWW. EVEN , STEADY GAIT DEMONSTRATED. PATIENT IN DINING AREA, APPEARS TO BE SOCIALIZING AND INTERACTING APPROPRIATELY WITH OTHER PATIENTS. DENIES NEEDS OR C/O. CONT TO MONITOR
--- NOTE | 2019-05-23 12:02 | Physical Therapy Daily Note ---
PT Daily Note-Current Subjective Pt agreeable to PT session, requesting to walk outside this session Pain Numeric Pain Scale: 0-No Pain Appearance Pt sitting up in chair upon arrival, back support brace on. At end of session, pt sitting up in chair with back support brace on, phone, call light and bedside table within reach Mental Status Patient Orientation: Person, Place, Time, Eyes Open, Situation Attachments: Other-See Comments (back support brace) Transfers Therapy Code Descriptions/Definitions Functional [place] Measure: 0=Not Assessed/NA 4=Minimal Assistance 1=Total Assistance 5=Supervision or Setup 2=Maximal Assistance 6=Modified [place] 3=Moderate Assistance 7=Complete [place] Therapy Quality Codes: 6 Independent with activity with or without an assistive device 5 Patient requires set up or clean up by helper. Patient completes activity by themselves 4 Supervision or touching assist (CGA). [place] provide cues , steadying assist 3 The helper provides less than half the effort to complete the activity 2 The helper provides more than half the effort to complete the activity 1 Dependent. The helper does all the effort to complete an activity 7 Patient refused to complete or attempt activity 9 The patient did not perform the activity before the current illness or injury 88 Not attempted due to Medical conditions or safety concerns Transfers (B, C, W/C) (FIM): 5 Sit to/from Stand: 5 (SBA, min skilled verb inst for hand, body, foot placement and safety) Weight Bearing Right Lower Extremity: Right Full Weight Bearing Left Lower Extremity: Left Full Weight Bearing Pt does have a lumbar support to wear when up. Gait Training Does the Patient Walk?: Yes Gait (FIM): 5 Distance (FIM): 3=150 ft Distance: 300 x3, 100 Gait Level of Assist: 5 (SBA provided) Gait Persons Needed: 1 Gait Assistive Device: FWW decreased step height, fair step length, occasional shuffling, able to follow skilled inst correcting posture and gait quality Treatments transfers, gait, safety, balance, strength, activity tolerance, functional mobility, education Assessment Current Status: Good Progress PT Short Term Goals Short Term Goals Time Frame: May 28, 2019 Transfers (B,C,W/C) (FIM): 4 Gait (FIM): 4 PT Manager Combination Goals Manager Combination Goals PT Mcfp Goals Time Frame: Jun 12, 2019 Transfers (B,C,W/C) (FIM): 6 Sit to Lying (QC): 6 Lying-Sitting on Side/Bed(QC): 6 Sit to Stand (QC): 6 Rollin Roll Left to Right (QC): 6 Chair/Xwf-zx-Jgtuw Xfer(QC): 6 Car Transfer (QC): 6 Does the Patient Walk: Yes Gait (FIM): 6 Gait distance (FIM): 3=150 ft Walk 10 feet (QC): 6 Walk 10ft-Uneven Surface(QC): 6 Walk 50ft with 2 Turns (QC): 6 Walk 150 ft (QC): 6 Stairs (FIM): 5 1 Step (curb) (QC): 6 4 Steps (QC): 6 12 Steps (QC): 88 Picking up an Object (QC): 88 PT Plan Treatment/Plan Treatment Plan: Continue Plan of Care Treatment Plan: Bed Mobility, Education, Functional Activity Isa, Functional Strength, Group Therapy, Gait, Safety, Therapeutic Exercise, Transfers Frequency: At least 5 of 7 days/Wk (IRF) Estimated Hrs Per Day: 1.5 hours per day Patient and/or Family Agrees t: Yes Safety Risks/Education Patient Education: Gait Training, Transfer Techniques, Reviewed Precautions, Safety Issues Teaching Recipient: Patient Teaching Methods: Demonstration, Discussion Response to Teaching: Verbalize Understanding, Return Demonstration Time/GCodes Time In: 1005 Time Out: 1027 Total Billed Treatment Time: 22 Total Billed Treatment 1 visit, GT x22min RADHA DURAN PTA May 23, 2019 12:02
--- NOTE | 2019-05-23 13:00 | NUR ---
BACK TO ROOM. MANEUVERED CLOTHING INDEPENDENTLY WHEN USING RESTROOM. SBA FOR SAFETY. BACK TO CHAIR IN ROOM. AT BEDSIDE. SCDS ON AT THIS TIME. NO C/O , CONT TO MONITOR
[2019-05-23 18:27] VITALS: BP 145/77
[2019-05-23] MEDS: MONTELUKAST 10 MG (SINGULAIR) TAB PO SCH (20:16)
[2019-05-24] MEDS: MULTIVIT W/MINERALS TAB (THERAGRAN M) PO SCH (05:32)
[2019-05-24 06:00] VITALS: BP 145/81
[2019-05-24] MEDS: LORATADINE (CLARITIN) 10 MG TAB PO SCH (08:54)
[2019-05-24] MEDS: DOCUSATE SODIUM 100 MG (COLACE) CAP PO SCH ×2 (08:54→20:07)
[2019-05-24] MEDS: FAMOTIDINE 20 MG (PEPCID) TABLET PO SCH ×2 (08:54→20:08)
[2019-05-24] MEDS: TAMSULOSIN 0.4 MG (FLOMAX) CAP PO SCH (08:54)
[2019-05-24] MEDS: GABAPENTIN 300 MG (NEURONTIN) CAP PO SCH ×3 (08:54→20:11)
[2019-05-24] MEDS: ALLOPURINOL 300 MG (ZYLOPRIM) TAB PO SCH (08:54)
[2019-05-24] MEDS: ISOSORBIDE MONONITRATE 30 MG (IMDUR) TAB PO SCH (08:54)
[2019-05-24] MEDS: PHENYTOIN 100 MG (DILANTIN) CAP PO SCH ×2 (08:54→20:07)
[2019-05-24] MEDS: LACTULOSE SYRUP 10GM/15ML (ENULOSE) 30ML UDC PO SCH ×2 (08:55→20:13)
[2019-05-24] MEDS: SENNA W/DOCUSATE (SENOKOT S) TABLET PO SCH ×2 (08:55→20:07)
[2019-05-24] MEDS: oxyCODONE/APAP 5/325MG (PERCOCET 5) TABLET PO PRN ×3 (09:01→20:09)
[2019-05-24 09:02] VITALS: BP 150/92
--- NOTE | 2019-05-24 11:35 | PM&R Progress Note ---
Subjective HPI/CC On Admission Date Seen by Provider: May 24, 2019 Time Seen by Provider: 09:30 Chief complaint: Debility following extensive lumbar stenosis surgery HPI: This is a 69yoWM clinic Pt of Dr. Jensen Brown with a past medical history of HTN and heart disease who presents with severe debility and inability to walk well enough to return home after undergoing an extensive lumbar spine surgery by Dr. Monet which was uncomplicated. At this current time bowels have not moved since admission so we will aggressively work on that. He will continuing working with PT to ambulate and improve status in order to ultimately return home. At this current time Pt denies any chest pain or SOB and he overall is feeling much better. Subjective/Events-last exam Had a bowel movement yesterday Blood pressure borderline elevated of 150/92 will monitor only Pain is well controlled Slept pretty well last night Used his CPAP Overall feels like he is much improved and gaining confidence by the day Checked meds and labs Reviewed therapy notes Conferred with supervisor reinforced steel placing of Systems General: Fatigue Musculoskeletal: back pain Objective Exam Vital Signs Vital Signs Date Time Temp Pulse Resp B/P (MAP) Pulse Ox O2 Delivery O2 Flow Rate FiO2 05/24/19 17:35 36.8 94 18 145/79 (101) 96 Room Air Capillary Refill : Less Than 3 Seconds General Appearance: No Apparent Distress, WD/WN, Chronically ill, Obese HEENT: PERRL/EOMI, Normal ENT Inspection, Pharynx Normal, Moist Mucous Membranes Neck: Full Range of Motion, Normal Inspection, Non Tender, Supple Respiratory: Chest Non Tender, Lungs Clear, Normal Breath Sounds, No Accessory Muscle Use, No Respiratory Distress Cardiovascular: Regular Rate, Rhythm, No Edema, No Gallop, No JVD, No Murmur Gastrointestinal: Normal Bowel Sounds, No Organomegaly, No Pulsatile Mass, Non Tender, Soft Back: Decreased Range of Motion, Muscle Spasm, Vertebral Tenderness, Other (brace in place) Extremity: Normal Capillary Refill, Normal Inspection, Normal Range of Motion, Non Tender, No Calf Tenderness, No Pedal Edema Neurologic/Psychiatric: Alert, Oriented x3, No Motor/Sensory Deficits, Normal Mood/Affect, it compliance manager II-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 FIM Transfers Therapy Code Descriptions/Definitions Functional [place] Measure: 0=Not Assessed/NA 4=Minimal Assistance 1=Total Assistance 5=Supervision or Setup 2=Maximal Assistance 6=Modified [place] 3=Moderate Assistance 7=Complete [place] Therapy Quality Codes: 6 Independent with activity with or without an assistive device 5 Patient requires set up or clean up by helper. Patient completes activity by themselves 4 Supervision or touching assist (CGA). [place] provide cues , steadying assist 3 The helper provides less than half the effort to complete the activity 2 The helper provides more than half the effort to complete the activity 1 Dependent. The helper does all the effort to complete an activity 7 Patient refused to complete or attempt activity 9 The patient did not perform the activity before the current illness or injury 88 Not attempted due to Medical conditions or safety concerns Transfers (B, C, W/C) (FIM): 5 Scootin Rollin Roll Left to Right (QC): 3 Supine to/from Sit: 4 Sit to/from Stand: 5 (SBA, min skilled verb inst for hand, body, foot placement and safety) Sit to Lying (QC): 3 (assist with both legs) Sit to Stand (QC): 2 (assist of 2 to come to a full stand) Chair/Lmz-nt-Owfxi Xfer(QC): 3 Bed to/from Chair: 5 Car Transfer (QC): 3 (assist to get his left leg out and assist to stand up; skilled cues for sequencing. ) Gait Training Does the Patient Walk?: Yes Gait (FIM): 5 Distance (FIM): 3=150 ft Distance: 300 x3, 100 Walk 10 feet (QC): 4 Walk 50 ft with 2 Turns(QC): 88 Walk 150 ft (QC): 88 (unable to walk this distance) Walking 10ft/uneven surface-QC: 4 Gait Level of Assist: 5 (SBA provided) Gait Persons Needed: 1 Gait Assistive Device: FWW Wheelchair Training Does the Pt Use a Wheelchair?: No Stair Training Stair Training: Handrails/: 2 handrails Stairs (FIM): 2 #of Steps: 4 1 Step (curb) (QC): 4 4 Steps (QC): 4 12 Steps (QC): 88 Stairs: Pattern: Step to Level of Assist: 4 Balance Picking up an Object (QC): 88 Mental Status/Objective Comprehension: 7 Expression: 7 Social Interaction: 7 Problem Solvin Memory: 6 ADL-Treatment Groomin (Pt able to brush teeth, hair, and shave face by self while sitting in chair. ) Bathin Bathing Location: L Arm, R Arm, L Upper Leg, R Upper Leg, Chest, Abdomen, Perineal Area Shower/Bathe Self (QC): 3 Upper Extremity Dressin (Pt able to doff/don shirt sitting in chair. Pt requires assist to don/doff back brace. ) Upper Body Dressing (QC): 5 Lower Body Dressing (QC): 2 On/Off Footwear (QC): 2 Toiletin Toileting Hygiene (QC): 2 Toilet/Commode Transfer: 4 Toilet Transfer (QC): 4 Shower: 4 Assessment/Plan Assessment and Plan Assess & Plan/Chief Complaint Plan: IRF protocol BM regimen Home meds Monitor BP Monitor blood sugar and blood pressure Pain control (1) Lumbar stenosis with neurogenic claudication Status: Acute (2) EMPHYSEMA, UNSPECIFIED Status: Acute (3) Normocytic anemia Status: Chronic (4) Spondylolisthesis (5) Hyponatremia (6) ELLY on CPAP Status: Chronic (7) Primary osteoarthritis of left knee Status: Chronic (8) Hypotension Status: Resolved Resolution Date/Time: 05/21/19 @ 21:59 (9) Obesity Status: Chronic Qualifiers: Obesity type: due to excess calories Obesity classification: adult class 3 (BMI >= 40) Body mass index: BMI 50.0-59.9 (10) BPH (benign prostatic hyperplasia) (11) CAD (coronary artery disease) Status: Chronic Qualifiers: Coronary Disease-Associated Artery/Lesion type: [place] artery [place] vs. transplanted heart: [place] heart Associated angina: with stable angina Qualified Codes: I25.118 - Atherosclerotic heart disease of [place] coronary artery with other forms of angina pectoris (12) Gout Status: Chronic Qualifiers: Gout site: unspecified site Gout etiology: unspecified cause Chronicity: unspecified Qualified Codes: M10.9 - Gout, unspecified (13) Constipation Status: Acute Qualifiers: Constipation type: slow transit constipation Qualified Codes: K59.01 - Slow transit constipation (14) Non-insulin dependent type 2 diabetes mellitus Status: Chronic (15) Essential (primary) hypertension Status: Chronic GWEN HOLDEN DO May 24, 2019 11:35
--- NOTE | 2019-05-24 14:57 | NUR ---
Dressing change to back incision. Cleansed with Alcohol pads. Covered with Telfa and secured with hypoallergenic tape.
[2019-05-24 17:35] VITALS: BP 145/79
[2019-05-24] MEDS: ENOXAPARIN 30 MG/0.3 ML (LOVENOX) SYR SC SCH (18:19)
[2019-05-24] MEDS: MONTELUKAST 10 MG (SINGULAIR) TAB PO SCH (20:08)
[2019-05-25] MEDS: MULTIVIT W/MINERALS TAB (THERAGRAN M) PO SCH (05:09)
[2019-05-25] MEDS: ENOXAPARIN 30 MG/0.3 ML (LOVENOX) SYR SC SCH ×2 (05:09→17:47)
[2019-05-25 05:21] VITALS: BP 138/86
[2019-05-25 05:21] LABS: BASOPHILS % (AUTO) 1 % (0-10); EOSINOPHILS # (AUTO) 0.2 10^3/uL (0.0-0.3); EOSINOPHILS % (AUTO) 5 % (0-10); HEMATOCRIT 28 % (40-54); HEMOGLOBIN 9.1 G/DL (13.3-17.7); LYMPHOCYTES # (AUTO) 1.2 X 10^3 (1.0-4.0); LYMPHOCYTES % (AUTO) 30 % (12-44); MEAN CORPUSCULAR HEMOGLOBIN 31 PG (25-34); MEAN CORPUSCULAR HGB CONC 33 G/DL (32-36); MEAN CORPUSCULAR VOLUME 94 FL (80-99); MONOCYTES # (AUTO) 0.4 X 10^3 (0.0-1.0); MONOCYTES % (AUTO) 11 % (0-12); NEUTROPHILS # (AUTO) 2.1 X 10^3 (1.8-7.8); NEUTROPHILS % (AUTO) 54 % (42-75); PLATELET COUNT 252 10^3/uL (130-400); RED CELL DISTRIBUTION WIDTH 14.4 % (10.0-14.5); WHITE BLOOD COUNT 3.9 10^3/uL (4.3-11.0)
[2019-05-25 05:42] LABS: ALANINE AMINOTRANSFERASE 54 U/L (0-55); ALBUMIN 3.1 GM/DL (3.2-4.5); ALKALINE PHOSPHATASE 53 U/L (40-136); BILIRUBIN,TOTAL 0.2 MG/DL (0.1-1.0); BUN/CREATININE RATIO 20; CALCIUM 9.1 MG/DL (8.5-10.1); CARBON DIOXIDE 26 MMOL/L (21-32); CHLORIDE 103 MMOL/L (98-107); CREATININE SERUM 0.81 MG/DL (0.60-1.30); GFR ESTIMATED > 60; GLUCOSE 132 MG/DL (70-105); POTASSIUM 4.2 MMOL/L (3.6-5.0); SODIUM 140 MMOL/L (135-145); TOTAL PROTEIN 5.7 GM/DL (6.4-8.2)
[2019-05-25] MEDS: SENNA W/DOCUSATE (SENOKOT S) TABLET PO SCH ×2 (09:20→20:58)
[2019-05-25] MEDS: ALLOPURINOL 300 MG (ZYLOPRIM) TAB PO SCH (09:20)
[2019-05-25] MEDS: TAMSULOSIN 0.4 MG (FLOMAX) CAP PO SCH (09:21)
[2019-05-25] MEDS: GABAPENTIN 300 MG (NEURONTIN) CAP PO SCH ×3 (09:21→20:56)
[2019-05-25] MEDS: LACTULOSE SYRUP 10GM/15ML (ENULOSE) 30ML UDC PO SCH ×2 (09:21→20:59)
[2019-05-25] MEDS: FAMOTIDINE 20 MG (PEPCID) TABLET PO SCH ×2 (09:21→20:56)
[2019-05-25] MEDS: PHENYTOIN 100 MG (DILANTIN) CAP PO SCH ×2 (09:21→20:56)
[2019-05-25] MEDS: ISOSORBIDE MONONITRATE 30 MG (IMDUR) TAB PO SCH (09:21)
[2019-05-25] MEDS: LORATADINE (CLARITIN) 10 MG TAB PO SCH (09:21)
[2019-05-25] MEDS: DOCUSATE SODIUM 100 MG (COLACE) CAP PO SCH ×2 (09:21→20:56)
[2019-05-25] MEDS: oxyCODONE/APAP 5/325MG (PERCOCET 5) TABLET PO PRN ×2 (09:22→20:57)
--- NOTE | 2019-05-25 09:42 | Occupational Ther Daily Note ---
OT Current Status-Daily Note Subjective Pt alert sitting in chair. Pt agrees to therapy. Pt c/o pain, did not rate, nrsg in to give pain meds. Mental Status/Objective Patient Orientation: Person, Place, Time, Situation Therapy Code Descriptions/Definitions Functional [place] Measure: 0=Not Assessed/NA 4=Minimal Assistance 1=Total Assistance 5=Supervision or Setup 2=Maximal Assistance 6=Modified [place] 3=Moderate Assistance 7=Complete [place] Attachments: Other-See Comments (back brace) ADL-Treatment Pt declined brushing teeth. Pt brushed hair sitting in chair in room. Nrsg in room to take vitals,change bandage, and give pts meds during OT session. Pt demonstrated understanding of sock aide though due to feet being damp, pt decided to wait until feet air dried more. Therapy Code Descriptions/Definitions Functional [place] Measure: 0=Not Assessed/NA 4=Minimal Assistance 1=Total Assistance 5=Supervision or Setup 2=Maximal Assistance 6=Modified [place] 3=Moderate Assistance 7=Complete [place] Therapy Quality Codes: 6 Independent with activity with or without an assistive device 5 Patient requires set up or clean up by helper. Patient completes activity by themselves 4 Supervision or touching assist (CGA). [place] provide cues , steadying assist 3 The helper provides less than half the effort to complete the activity 2 The helper provides more than half the effort to complete the activity 1 Dependent. The helper does all the effort to complete an activity 7 Patient refused to complete or attempt activity 9 The patient did not perform the activity before the current illness or injury 88 Not attempted due to Medical conditions or safety concerns Eating (FIM): 6 (Pt able to open containers and packages by self and use regular utensils.) Eating (QC): 6 Bathing (FIM): 4 (Pt requires shower bench, long handled sponge, grab bar and FWW. Pt able to wash upper body by self. Pt required AE to wash LE. Pt able to rinse self. Pt able to wash upper body by self. Pt required assist to dry LE. ) Bathing Location: L Arm, R Arm, L Upper Leg, R Upper Leg, L Lower Leg (including foot), R Lower Leg (including foot), Chest, Abdomen, Buttocks, Perineal Area Shower/Bathe Self (QC): 3 Upper Body (FIM): 4 (Pt able to doff shirt by self sitting on shower bench. Pt requires assist to don/doff back brace. Pt able to don shirt by self. Set up. ) Upper Body Dressing (QC): 3 Lower Body Dressing (FIM): 5 (Pt able to doff shorts to knees. Pt requires AE to doff shorts rest of the way. Pt requires AE to don shorts over heels to knees. Pt able to stand using FWW to hike pants above waist. Pt requires AE to doff/don socks. Set up. ) Lower Body Dressing (QC): 4 Toileting (FIM): 5 (Pt requires FWW and grab bar while standing to void. Pt able to manipulate clothing by self. ) Toileting Hygiene (QC): 4 Transfers (B, C, W/C) (FIM): 5 (Pt requires arms rest and FWW. Supervision due to pts pain. ) Other Treatment Pt ambulated using FWW to therapy gym. Pt participated in arm bike exercise duration 15 min with no resistance to increase UE strength for daily functional tasks. Pt ambulated back to room. Pt sitting in chair, call light and phone within reach. Pts needs met. OT Short Term Goals Short Term Goals Time Frame: May 28, 2019 Eating(FIM): 5 Grooming(FIM): 5 Bathing(FIM): 4 Upper Body Dressing(FIM): 4 Lower Body Dressing(FIM): 4 Toileting(FIM): 4 Transfers (B,C,W/C) (FIM): 4 Toilet/Commode Transfer(FIM): 5 Shower Transfer(FIM): 4 Additional Short Term Goals: 1-Demonstrate ADL Tasks, 2-Verbalize Understanding, 3-ImproveStrength/Isa 1=Demonstrate adherence to instructed precautions during ADL tasks. 2=Patient will verbalize/demonstrate understanding of assistive devices/modifications for ADL. 3=Patient will improve strength/tolerance for activity to enable patient to perform ADL's. OT Clinical Training Coordinator Goals Clinical Training Coordinator Goals Time Frame: Jun 04, 2019 Eating (FIM): 7 Eating (QC): 6 Groomin Oral Hygiene (QC): 6 Bathing(FIM): 5 Shower/Bathe Self (QC): 4 Upper Body Dressing(FIM): 6 Upper Body Dressing (QC): 6 Lower Body Dressing(FIM): 6 Lower Body Dressing (QC): 6 On/Off Footwear (QC): 6 Toileting(FIM): 6 Toileting Hygiene (QC): 6 Transfers (B,C,W/C) (FIM): 6 Toilet/Commode Transfer(FIM): 6 Toilet/Commode Transfer (QC): 6 Shower Transfer(FIM): 5 Social Interaction(FIM): 5 Additional Goals: 1-Demonstrate ADL Tasks, 2-Verbalize Understanding, 3-I mproveStrength/Isa 1=Demonstrate adherence to instructed precautions during ADL tasks. 2=Patient will verbalize/demonstrate understanding of assistive devices/modifications for ADL. 3=Patient will improve strength/tolerance for activity to enable patient to perform ADL's. OT Education/Plan Problem List/Assessment Assessment: Decreased Activ Tolerance, Decreased UE Strength, Impaired Self- Care Skills Discharge Recommendations Plan/Recommendations: Continue POC Treatment Plan/Plan of Care Patient would benefit from OT for education, treatment and training to promote independence in ADL's, mobility, safety and/or upper extremity function for ADL's. Plan of Care: ADL Retraining, Functional Mobility, Group Exercise/Act as Ind, UE Funct Exercise/Act Treatment Duration: Jun 04, 2019 Frequency: At least 5 of 7 days/Wk (IRF) Estimated Hrs Per Day: 1.5 hours per day Agreement: Yes Rehab Potential: Good Time/GCodes Start Time: 08:15 Stop Time: 09:45 Total Time Billed (hr/min): 90 Billed Treatment Time 1 visit- ADL 5 (75 min) EX 1 (15 min) LURDES PENA May 25, 2019 09:42
--- NOTE | 2019-05-25 10:03 | PM&R Progress Note ---
Subjective HPI/CC On Admission Date Seen by Provider: May 25, 2019 Time Seen by Provider: 09:00 Chief complaint: Debility following extensive lumbar stenosis surgery HPI: This is a 69yoWM clinic Pt of Dr. Jensen Brown with a past medical history of HTN and heart disease who presents with severe debility and inability to walk well enough to return home after undergoing an extensive lumbar spine surgery by Dr. Monet which was uncomplicated. At this current time bowels have not moved since admission so we will aggressively work on that. He will continuing working with PT to ambulate and improve status in order to ultimately return home. At this current time Pt denies any chest pain or SOB and he overall is feeling much better. Subjective/Events-last exam Pt probably going home on Saturday White count 3.9, Hgb 3.[address] Brooks will be consulted for toenails Overall feels sore but getting around better Checked meds and labs Reviewed therapy notes Conferred with concrete craftsman of Systems General: Fatigue Musculoskeletal: back pain Objective Exam Vital Signs Vital Signs Date Time Temp Pulse Resp B/P (MAP) Pulse Ox O2 Delivery O2 Flow Rate FiO2 05/25/19 15:53 36.5 103 16 126/76 (93) 95 Room Air Capillary Refill : Less Than 3 Seconds General Appearance: No Apparent Distress, WD/WN, Chronically ill, Obese HEENT: PERRL/EOMI, Normal ENT Inspection, Pharynx Normal, Moist Mucous Membranes Neck: Full Range of Motion, Normal Inspection, Non Tender, Supple Respiratory: Chest Non Tender, Lungs Clear, Normal Breath Sounds, No Accessory Muscle Use, No Respiratory Distress Cardiovascular: Regular Rate, Rhythm, No Edema, No Gallop, No JVD, No Murmur Gastrointestinal: Normal Bowel Sounds, No Organomegaly, No Pulsatile Mass, Non Tender, Soft Back: Decreased Range of Motion, Muscle Spasm, Vertebral Tenderness, Other (brace in place) Extremity: Normal Capillary Refill, Normal Inspection, Normal Range of Motion, Non Tender, No Calf Tenderness, No Pedal Edema Neurologic/Psychiatric: Alert, Oriented x3, No Motor/Sensory Deficits, Normal Mood/Affect, sample cutter II-XII Norm as Tested Skin: Normal Color, Warm/Dry Lymphatic: No Adenopathy Results/Procedures Lab Laboratory Tests 05/25/19 04:40 Patient resulted labs reviewed. FIM Transfers Therapy Code Descriptions/Definitions Functional [place] Measure: 0=Not Assessed/NA 4=Minimal Assistance 1=Total Assistance 5=Supervision or Setup 2=Maximal Assistance 6=Modified [place] 3=Moderate Assistance 7=Complete [place] Therapy Quality Codes: 6 Independent with activity with or without an assistive device 5 Patient requires set up or clean up by helper. Patient completes activity by themselves 4 Supervision or touching assist (CGA). [place] provide cues , steadying assist 3 The helper provides less than half the effort to complete the activity 2 The helper provides more than half the effort to complete the activity 1 Dependent. The helper does all the effort to complete an activity 7 Patient refused to complete or attempt activity 9 The patient did not perform the activity before the current illness or injury 88 Not attempted due to Medical conditions or safety concerns Transfers (B, C, W/C) (FIM): 5 (Pt requires arms rest and FWW. Supervision due to pts pain. ) Scootin Rollin Roll Left to Right (QC): 3 Supine to/from Sit: 4 Sit to/from Stand: 5 (SBA, min skilled verb inst for hand, body, foot placement and safety) Sit to Lying (QC): 3 (assist with both legs) Sit to Stand (QC): 2 (assist of 2 to come to a full stand) Chair/Arj-tm-Jswlk Xfer(QC): 3 Bed to/from Chair: 5 Car Transfer (QC): 3 (assist to get his left leg out and assist to stand up; skilled cues for sequencing. ) Gait Training Does the Patient Walk?: Yes Gait (FIM): 5 Distance (FIM): 3=150 ft Distance: 300 x3, 100 Walk 10 feet (QC): 4 Walk 50 ft with 2 Turns(QC): 88 Walk 150 ft (QC): 88 (unable to walk this distance) Walking 10ft/uneven surface-QC: 4 Gait Level of Assist: 5 (SBA provided) Gait Persons Needed: 1 Gait Assistive Device: FWW Wheelchair Training Does the Pt Use a Wheelchair?: No Stair Training Stair Training: Handrails/: 2 handrails Stairs (FIM): 2 #of Steps: 4 1 Step (curb) (QC): 4 4 Steps (QC): 4 12 Steps (QC): 88 Stairs: Pattern: Step to Level of Assist: 4 Balance Picking up an Object (QC): 88 Mental Status/Objective Comprehension: 7 Expression: 7 Social Interaction: 7 Problem Solvin Memory: 6 ADL-Treatment Groomin (Pt able to brush teeth, hair, and shave face by self while sitting in chair. ) Bathin (Pt requires shower bench, long handled sponge, grab bar and FWW. Pt able to wash upper body by self. Pt required AE to wash LE. Pt able to rinse self. Pt able to wash upper body by self. Pt required assist to dry LE. ) Bathing Location: L Arm, R Arm, L Upper Leg, R Upper Leg, L Lower Leg (including foot), R Lower Leg (including foot), Chest, Abdomen, Buttocks, Perineal Area Shower/Bathe Self (QC): 3 Upper Extremity Dressin (Pt able to doff shirt by self sitting on shower bench. Pt requires assist to don/doff back brace. Pt able to don shirt by self. Set up. ) Upper Body Dressing (QC): 3 Lower Extremity Dressin (Pt able to doff shorts to knees. Pt requires AE to doff shorts rest of the way. Pt requires AE to don shorts over heels to knees. Pt able to stand using FWW to hike pants above waist. Pt requires AE to doff/don socks. Set up. ) Lower Body Dressing (QC): 4 On/Off Footwear (QC): 2 Toiletin (Pt requires FWW and grab bar while standing to void. Pt able to manipulate clothing by self. ) Toileting Hygiene (QC): 4 Toilet/Commode Transfer: 4 Toilet Transfer (QC): 4 Shower: 4 Assessment/Plan Assessment and Plan Assess & Plan/Chief Complaint Plan: IRF protocol BM regimen Home meds Monitor BP Monitor blood sugar and blood pressure Pain control Labs reviewed DC home Wed (1) Lumbar stenosis with neurogenic claudication Status: Acute (2) EMPHYSEMA, UNSPECIFIED Status: Acute (3) Normocytic anemia Status: Chronic (4) Spondylolisthesis (5) Hyponatremia (6) ELLY on CPAP Status: Chronic (7) Primary osteoarthritis of left knee Status: Chronic (8) Hypotension Status: Resolved Resolution Date/Time: 05/21/19 @ 21:59 (9) Obesity Status: Chronic Qualifiers: Obesity type: due to excess calories Obesity classification: adult class 3 (BMI >= 40) Body mass index: BMI 50.0-59.9 (10) BPH (benign prostatic hyperplasia) (11) CAD (coronary artery disease) Status: Chronic Qualifiers: Coronary Disease-Associated Artery/Lesion type: [place] artery [place] vs. transplanted heart: [place] heart Associated angina: with stable angina Qualified Codes: I25.118 - Atherosclerotic heart disease of [place] coronary artery with other forms of angina pectoris (12) Gout Status: Chronic Qualifiers: Gout site: unspecified site Gout etiology: unspecified cause Chronicity: unspecified Qualified Codes: M10.9 - Gout, unspecified (13) Constipation Status: Acute Qualifiers: Constipation type: slow transit constipation Qualified Codes: K59.01 - Slow transit constipation (14) Non-insulin dependent type 2 diabetes mellitus Status: Chronic (15) Essential (primary) hypertension Status: Chronic GWEN HOLDEN DO May 25, 2019 10:03
--- NOTE | 2019-05-25 10:52 | Physical Therapy Daily Note ---
PT Daily Note-Current Subjective Patient in chair at bedside pre tx, agrees to PT, voices no complaints of pain. Appearance Patient in chair at bedside post tx with nurse call, phone, tray, all needs met. Mental Status Patient Orientation: Normal For Age back brace Transfers Therapy Code Descriptions/Definitions Functional [place] Measure: 0=Not Assessed/NA 4=Minimal Assistance 1=Total Assistance 5=Supervision or Setup 2=Maximal Assistance 6=Modified [place] 3=Moderate Assistance 7=Complete [place] Therapy Quality Codes: 6 Independent with activity with or without an assistive device 5 Patient requires set up or clean up by helper. Patient completes activity by themselves 4 Supervision or touching assist (CGA). [place] provide cues , steadying assist 3 The helper provides less than half the effort to complete the activity 2 The helper provides more than half the effort to complete the activity 1 Dependent. The helper does all the effort to complete an activity 7 Patient refused to complete or attempt activity 9 The patient did not perform the activity before the current illness or injury 88 Not attempted due to Medical conditions or safety concerns Transfers (B, C, W/C) (FIM): 6 Sit to/from Stand: 6 Sit to Stand (QC): 6 Chair/Ugo-wp-Obtjx Xfer(QC): 6 Bed to/from Chair: 6 Weight Bearing Right Lower Extremity: Right Full Weight Bearing Left Lower Extremity: Left Full Weight Bearing Pt does have a lumbar support to wear when up. Gait Training Gait (FIM): 6 Distance: 300'x2, 150' Walk 10 feet (QC): 6 Walk 50 ft with 2 Turns(QC): 6 Walk 150 ft (QC): 6 Walking 10ft/uneven surface-QC: 6 Gait Assistive Device: FWW slow but steady ambulation Stair Training Stair Training: Handrails/: 2 handrails Stairs (FIM): 2 #of Steps: 4 1 Step (curb) (QC): 4 4 Steps (QC): 4 Stairs: Pattern: Step to Level of Assist: 5 Exercises LAQ alternating for 5 min NuStep Minutes: 15 NuStep Workload: 4 Treatments LE exercise, ambulation, stairs Assessment Current Status: Fair Progress improving endurance and strength PT Short Term Goals Short Term Goals Time Frame: May 28, 2019 Transfers (B,C,W/C) (FIM): 4 Gait (FIM): 4 PT Mcfp Goals Leather Polisher Goals PT Leather Polisher Goals Time Frame: Jun 12, 2019 Transfers (B,C,W/C) (FIM): 6 Sit to Lying (QC): 6 Lying-Sitting on Side/Bed(QC): 6 Sit to Stand (QC): 6 Rollin Roll Left to Right (QC): 6 Chair/Bfv-jg-Flylm Xfer(QC): 6 Car Transfer (QC): 6 Does the Patient Walk: Yes Gait (FIM): 6 Gait distance (FIM): 3=150 ft Walk 10 feet (QC): 6 Walk 10ft-Uneven Surface(QC): 6 Walk 50ft with 2 Turns (QC): 6 Walk 150 ft (QC): 6 Stairs (FIM): 5 1 Step (curb) (QC): 6 4 Steps (QC): 6 12 Steps (QC): 88 Picking up an Object (QC): 88 PT Plan Problem List Problem List: Activity Tolerance, Functional Strength, Safety, Balance, Gait, Transfer, Bed Mobility, ROM Treatment/Plan Treatment Plan: Continue Plan of Care Treatment Plan: Bed Mobility, Education, Functional Activity Isa, Functional Strength, Group Therapy, Gait, Safety, Therapeutic Exercise, Transfers Treatment Duration: May 22, 2019 Frequency: At least 5 of 7 days/Wk (IRF) Estimated Hrs Per Day: 1.5 hours per day Patient and/or Family Agrees t: Yes Safety Risks/Education Patient Education: Gait Training, Transfer Techniques, Steps, Correct Positioning, Safety Issues Teaching Recipient: Patient Teaching Methods: Demonstration, Discussion Response to Teaching: Reinforcement Needed Time/GCodes Time In: 1000 Time Out: 1100 Total Billed Treatment Time: 60 Total Billed Treatment 1 visit EX 20' GT 40' MARCO A BLANTON PT May 25, 2019 10:52
--- NOTE | 2019-05-25 11:00 | NUR ---
Pastoral care visit.
--- NOTE | 2019-05-25 15:02 | Physical Therapy Daily Note ---
PT Daily Note-Current Subjective Agreeable to PT. Hopes to go home or Saturday. Reports he feels he can manage at home. Transfers Therapy Code Descriptions/Definitions Functional [place] Measure: 0=Not Assessed/NA 4=Minimal Assistance 1=Total Assistance 5=Supervision or Setup 2=Maximal Assistance 6=Modified [place] 3=Moderate Assistance 7=Complete [place] Therapy Quality Codes: 6 Independent with activity with or without an assistive device 5 Patient requires set up or clean up by helper. Patient completes activity by themselves 4 Supervision or touching assist (CGA). [place] provide cues , steadying assist 3 The helper provides less than half the effort to complete the activity 2 The helper provides more than half the effort to complete the activity 1 Dependent. The helper does all the effort to complete an activity 7 Patient refused to complete or attempt activity 9 The patient did not perform the activity before the current illness or injury 88 Not attempted due to Medical conditions or safety concerns Sit to stand x all attempts mod indep. Worked on transfers for functional strength with sit to stand x 5 reps mod indep. Weight Bearing Right Lower Extremity: Right Full Weight Bearing Left Lower Extremity: Left Full Weight Bearing Pt does have a lumbar support to wear when up. Gait Training Does the Patient Walk?: Yes Gait (FIM): 6 Distance (FIM): 3=150 ft Distance: 200 ft x 3 Gait Assistive Device: FWW Pt tends to walk in slight forward flexed posture with decreased step length, but steady and safe. Stair Training Stair Training: Handrails/: 2 handrails Stairs (FIM): 2 #of Steps: 4 Stairs: Pattern: Step to Assessment Current Status: Good Progress PT making functional progress towards goals and does seem near ready for dischar ge home. PT Short Term Goals Short Term Goals Time Frame: May 28, 2019 Transfers (B,C,W/C) (FIM): 4 (met) Gait (FIM): 4 (met) PT Sand Mixer Machine Goals Long-Term Goals PT Long-Term Goals Time Frame: Jun 12, 2019 Transfers (B,C,W/C) (FIM): 6 Sit to Lying (QC): 6 Lying-Sitting on Side/Bed(QC): 6 Sit to Stand (QC): 6 Rollin Roll Left to Right (QC): 6 Chair/Orp-wj-Fekta Xfer(QC): 6 Car Transfer (QC): 6 Does the Patient Walk: Yes Gait (FIM): 6 Gait distance (FIM): 3=150 ft Walk 10 feet (QC): 6 Walk 10ft-Uneven Surface(QC): 6 Walk 50ft with 2 Turns (QC): 6 Walk 150 ft (QC): 6 Stairs (FIM): 5 1 Step (curb) (QC): 6 4 Steps (QC): 6 12 Steps (QC): 88 Picking up an Object (QC): 88 PT Plan Problem List Problem List: Activity Tolerance, Functional Strength, Safety, Balance, Gait, Transfer, Bed Mobility Treatment/Plan Treatment Plan: Continue Plan of Care Treatment Plan: Bed Mobility, Education, Functional Activity Isa, Functional Strength, Group Therapy, Gait, Safety, Therapeutic Exercise, Transfers Treatment Duration: May 22, 2019 Frequency: At least 5 of 7 days/Wk (IRF) Estimated Hrs Per Day: 1.5 hours per day Patient and/or Family Agrees t: Yes Safety Risks/Education Patient Education: Safety Issues Teaching Recipient: Patient Teaching Methods: Discussion Response to Teaching: Return Demonstration Time/GCodes Time In: 1330 Time Out: 1400 Total Billed Treatment Time: 30 Total Billed Treatment visit Fa 30 LURDES HARRINGTON PT May 25, 2019 15:02
[2019-05-25 15:53] VITALS: BP 126/76
[2019-05-25] MEDS: MONTELUKAST 10 MG (SINGULAIR) TAB PO SCH (20:57)
[2019-05-26 06:00] VITALS: BP 111/69
[2019-05-26] MEDS: ENOXAPARIN 30 MG/0.3 ML (LOVENOX) SYR SC SCH ×2 (06:34→17:28)
[2019-05-26] MEDS: MULTIVIT W/MINERALS TAB (THERAGRAN M) PO SCH (06:35)
[2019-05-26] MEDS: oxyCODONE/APAP 5/325MG (PERCOCET 5) TABLET PO PRN ×3 (06:35→20:40)
--- NOTE | 2019-05-26 08:55 | Physical Therapy Daily Note ---
PT Daily Note-Current Subjective Patient in chair at bedside pre tx, agrees to PT, has no complaints of pain at rest. Appearance Patient in chair at bedside post tx with nurse call, phone, tray, all needs met. Mental Status Patient Orientation: Normal For Age back brace Transfers Therapy Code Descriptions/Definitions Functional [place] Measure: 0=Not Assessed/NA 4=Minimal Assistance 1=Total Assistance 5=Supervision or Setup 2=Maximal Assistance 6=Modified [place] 3=Moderate Assistance 7=Complete [place] Therapy Quality Codes: 6 Independent with activity with or without an assistive device 5 Patient requires set up or clean up by helper. Patient completes activity by themselves 4 Supervision or touching assist (CGA). [place] provide cues , steadying assist 3 The helper provides less than half the effort to complete the activity 2 The helper provides more than half the effort to complete the activity 1 Dependent. The helper does all the effort to complete an activity 7 Patient refused to complete or attempt activity 9 The patient did not perform the activity before the current illness or injury 88 Not attempted due to Medical conditions or safety concerns Transfers (B, C, W/C) (FIM): 6 Scootin Rollin Roll Left to Right (QC): 6 Supine to/from Sit: 6 Sit to/from Stand: 6 Sit to Lying (QC): 6 Sit to Stand (QC): 6 Chair/Msw-qp-Cfowq Xfer(QC): 6 Bed to/from Chair: 6 Car Transfer (QC): 4 Patient performs bed mobility with mod I, supine <-> sit with mod I, sit <-> stand with mod I, transfers with mod I, car transfer SBA. Patient has some difficulty with supine to sit and sit to stand from lower surfaces but can do it with extra effort and without assist. Weight Bearing Right Lower Extremity: Right Full Weight Bearing Left Lower Extremity: Left Full Weight Bearing Pt does have a lumbar support to wear when up. Gait Training Gait (FIM): 6 Distance: 300'x2 Walk 10 feet (QC): 6 Walk 50 ft with 2 Turns(QC): 6 Walk 150 ft (QC): 6 Walking 10ft/uneven surface-QC: 6 Gait Level of Assist: 6 Gait Assistive Device: FWW Patient can ambulate 300' with a rolling walker with mod I (including 50' with at least 2 turns of 90 degrees and 10' over an uneven surface). Slow but steady ambulation, wide ALEXANDER. Stair Training Stair Training: Handrails/: 2 handrails Stairs (FIM): 5 #of Steps: 4 1 Step (curb) (QC): 4 4 Steps (QC): 4 Stairs: Pattern: Step to Level of Assist: 5 Patient can go up and down 4 steps using 2 handrails with SBA. Household exception. Exercises NuStep Minutes: 15 NuStep Workload: 4 Treatments bed mobility and transfers, ambulation, stairs, LE exercise Assessment Current Status: Fair Progress improved general mobility, patient is mod I with transfers and ambulation PT Short Term Goals Short Term Goals Time Frame: May 28, 2019 Transfers (B,C,W/C) (FIM): 4 (met) Gait (FIM): 4 (met) PT Transportation Coordinator Goals Transportation Coordinator Goals PT Usp Goals Time Frame: Jun 12, 2019 Transfers (B,C,W/C) (FIM): 6 Sit to Lying (QC): 6 Lying-Sitting on Side/Bed(QC): 6 Sit to Stand (QC): 6 Rollin Roll Left to Right (QC): 6 Chair/Vbg-bn-Wttcf Xfer(QC): 6 Car Transfer (QC): 6 Does the Patient Walk: Yes Gait (FIM): 6 Gait distance (FIM): 3=150 ft Walk 10 feet (QC): 6 Walk 10ft-Uneven Surface(QC): 6 Walk 50ft with 2 Turns (QC): 6 Walk 150 ft (QC): 6 Stairs (FIM): 5 1 Step (curb) (QC): 6 4 Steps (QC): 6 12 Steps (QC): 88 Picking up an Object (QC): 88 PT Plan Problem List Problem List: Activity Tolerance, Functional Strength, Safety, Balance, Gait, Transfer Treatment/Plan Treatment Plan: Continue Plan of Care Treatment Plan: Bed Mobility, Education, Functional Activity Isa, Functional Strength, Group Therapy, Gait, Safety, Therapeutic Exercise, Transfers Treatment Duration: May 22, 2019 Frequency: At least 5 of 7 days/Wk (IRF) Estimated Hrs Per Day: 1.5 hours per day Patient and/or Family Agrees t: Yes Safety Risks/Education Patient Education: Gait Training, Transfer Techniques, Steps, Correct Positioning, Safety Issues Teaching Recipient: Patient Teaching Methods: Demonstration, Discussion Response to Teaching: Reinforcement Needed Time/GCodes Time In: 0800 Time Out: 0900 Total Billed Treatment Time: 60 Total Billed Treatment 1 visit FA 15' GT 30' EX 15' MARCO A BLANTON PT May 26, 2019 08:55
--- NOTE | 2019-05-26 09:26 | NUR ---
Patient scheduled to dismiss home, tomorrow. [facility] recommended. Patient states he has utilized [facility] [place], in the past and would like to again. Referral made for PT/OT/RN. Patient states he has a bath chair, tub transfer bench, and three walkers; therefore, he does not require additional medical equipment, at this time. Will continue to follow for discharge planning. Addendum: 05/26/19 at 1356 by SANDRO COLLINS SS According to RN, skilled RN services will not be required by home health care as they patient will not need dressing changes. [facility] [place] notified of this information.
--- NOTE | 2019-05-26 10:01 | PM&R Progress Note ---
Subjective HPI/CC On Admission Date Seen by Provider: May 26, 2019 Time Seen by Provider: 09:00 Chief complaint: Debility following extensive lumbar stenosis surgery HPI: This is a 69yoWM clinic Pt of Dr. Jensen Brown with a past medical history of HTN and heart disease who presents with severe debility and inability to walk well enough to return home after undergoing an extensive lumbar spine surgery by Dr. Monet which was uncomplicated. At this current time bowels have not moved since admission so we will aggressively work on that. He will continuing working with PT to ambulate and improve status in order to ultimately return home. At this current time Pt denies any chest pain or SOB and he overall is feeling much better. Subjective/Events-last exam Discharge tomorrow as planned. Doing well. Bowels are moving. Pain is well controlled. No SOB. Using IS. Checked meds and labs Reviewed therapy notes Conferred with play leader of Systems General: Fatigue Musculoskeletal: back pain Objective Exam Vital Signs Vital Signs Date Time Temp Pulse Resp B/P (MAP) Pulse Ox O2 Delivery O2 Flow Rate FiO2 05/26/19 17:21 36.3 84 18 111/66 (81) 97 Room Air Capillary Refill : Less Than 3 Seconds General Appearance: No Apparent Distress, WD/WN, Chronically ill, Obese HEENT: PERRL/EOMI, Normal ENT Inspection, Pharynx Normal, Moist Mucous Membranes Neck: Full Range of Motion, Normal Inspection, Non Tender, Supple Respiratory: Chest Non Tender, Lungs Clear, Normal Breath Sounds, No Accessory Muscle Use, No Respiratory Distress Cardiovascular: Regular Rate, Rhythm, No Edema, No Gallop, No JVD, No Murmur Gastrointestinal: Normal Bowel Sounds, No Organomegaly, No Pulsatile Mass, Non Tender, Soft Back: Decreased Range of Motion, Muscle Spasm, Vertebral Tenderness, Other (brace in place) Extremity: Normal Capillary Refill, Normal Inspection, Normal Range of Motion, Non Tender, No Calf Tenderness, No Pedal Edema Neurologic/Psychiatric: Alert, Oriented x3, No Motor/Sensory Deficits, Normal Mood/Affect, 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 FIM Transfers Therapy Code Descriptions/Definitions Functional [place] Measure: 0=Not Assessed/NA 4=Minimal Assistance 1=Total Assistance 5=Supervision or Setup 2=Maximal Assistance 6=Modified [place] 3=Moderate Assistance 7=Complete [place] Therapy Quality Codes: 6 Independent with activity with or without an assistive device 5 Patient requires set up or clean up by helper. Patient completes activity by themselves 4 Supervision or touching assist (CGA). [place] provide cues , steadying assist 3 The helper provides less than half the effort to complete the activity 2 The helper provides more than half the effort to complete the activity 1 Dependent. The helper does all the effort to complete an activity 7 Patient refused to complete or attempt activity 9 The patient did not perform the activity before the current illness or injury 88 Not attempted due to Medical conditions or safety concerns Transfers (B, C, W/C) (FIM): 6 Scootin Rollin Roll Left to Right (QC): 6 Supine to/from Sit: 6 Sit to/from Stand: 6 Sit to Lying (QC): 6 Sit to Stand (QC): 6 Chair/Vym-my-Jvcxl Xfer(QC): 6 Bed to/from Chair: 6 Car Transfer (QC): 4 Gait Training Does the Patient Walk?: Yes Gait (FIM): 6 Distance (FIM): 3=150 ft Distance: 300'x2 Walk 10 feet (QC): 6 Walk 50 ft with 2 Turns(QC): 6 Walk 150 ft (QC): 6 Walking 10ft/uneven surface-QC: 6 Gait Level of Assist: 6 Gait Persons Needed: 1 Gait Assistive Device: FWW Wheelchair Training Does the Pt Use a Wheelchair?: No Stair Training Stair Training: Handrails/: 2 handrails Stairs (FIM): 5 #of Steps: 4 1 Step (curb) (QC): 4 4 Steps (QC): 4 12 Steps (QC): 88 Stairs: Pattern: Step to Level of Assist: 5 Balance Picking up an Object (QC): 88 Mental Status/Objective Comprehension: 7 Expression: 7 Social Interaction: 7 Problem Solvin Memory: 6 ADL-Treatment Feedin (Pt able to open containers and packages by self and use regular utensils.) Eating (QC): 6 Groomin (Pt able to brush teeth, hair, and shave face by self while sitting in chair. ) Bathin (Pt requires shower bench, long handled sponge, grab bar and FWW. Pt able to wash upper body by self. Pt required AE to wash LE. Pt able to rinse self. Pt able to wash upper body by self. Pt required assist to dry LE. ) Bathing Location: L Arm, R Arm, L Upper Leg, R Upper Leg, L Lower Leg (including foot), R Lower Leg (including foot), Chest, Abdomen, Buttocks, Perineal Area Shower/Bathe Self (QC): 3 Upper Extremity Dressin (Pt able to doff shirt by self sitting on shower bench. Pt requires assist to don/doff back brace. Pt able to don shirt by self. Set up. ) Upper Body Dressing (QC): 3 Lower Extremity Dressin (Pt able to doff shorts to knees. Pt requires AE to doff shorts rest of the way. Pt requires AE to don shorts over heels to knees. Pt able to stand using FWW to hike pants above waist. Pt requires AE to doff/don socks. Set up. ) Lower Body Dressing (QC): 4 On/Off Footwear (QC): 2 Toiletin (Pt requires FWW and grab bar while standing to void. Pt able to manipulate clothing by self. ) Toileting Hygiene (QC): 4 Toilet/Commode Transfer: 4 Toilet Transfer (QC): 4 Shower: 4 Assessment/Plan Assessment and Plan Assess & Plan/Chief Complaint Plan: IRF protocol BM regimen Home meds Monitor BP Monitor blood sugar and blood pressure Pain control Labs reviewed DC home Wed (1) Lumbar stenosis with neurogenic claudication Status: Acute (2) EMPHYSEMA, UNSPECIFIED Status: Acute (3) Normocytic anemia Status: Chronic (4) Spondylolisthesis (5) Hyponatremia (6) ELLY on CPAP Status: Chronic (7) Primary osteoarthritis of left knee Status: Chronic (8) Hypotension Status: Resolved Resolution Date/Time: 05/21/19 @ 21:59 (9) Obesity Status: Chronic Qualifiers: Obesity type: due to excess calories Obesity classification: adult class 3 (BMI >= 40) Body mass index: BMI 50.0-59.9 (10) BPH (benign prostatic hyperplasia) (11) CAD (coronary artery disease) Status: Chronic Qualifiers: Coronary Disease-Associated Artery/Lesion type: [place] artery [place] vs. transplanted heart: [place] heart Associated angina: with stable angina Qualified Codes: I25.118 - Atherosclerotic heart disease of [place] coronary artery with other forms of angina pectoris (12) Gout Status: Chronic Qualifiers: Gout site: unspecified site Gout etiology: unspecified cause Chronicity: unspecified Qualified Codes: M10.9 - Gout, unspecified (13) Constipation Status: Acute Qualifiers: Constipation type: slow transit constipation Qualified Codes: K59.01 - Slow transit constipation (14) Non-insulin dependent type 2 diabetes mellitus Status: Chronic (15) Essential (primary) hypertension Status: Chronic GWEN HOLDEN DO May 26, 2019 10:01
[2019-05-26] MEDS: DOCUSATE SODIUM 100 MG (COLACE) CAP PO SCH ×2 (10:21→20:38)
[2019-05-26] MEDS: FAMOTIDINE 20 MG (PEPCID) TABLET PO SCH ×2 (10:21→20:40)
[2019-05-26] MEDS: LORATADINE (CLARITIN) 10 MG TAB PO SCH (10:21)
[2019-05-26] MEDS: GABAPENTIN 300 MG (NEURONTIN) CAP PO SCH ×3 (10:21→20:40)
[2019-05-26] MEDS: TAMSULOSIN 0.4 MG (FLOMAX) CAP PO SCH (10:21)
[2019-05-26] MEDS: ISOSORBIDE MONONITRATE 30 MG (IMDUR) TAB PO SCH (10:21)
[2019-05-26] MEDS: ALLOPURINOL 300 MG (ZYLOPRIM) TAB PO SCH (10:21)
[2019-05-26] MEDS: LACTULOSE SYRUP 10GM/15ML (ENULOSE) 30ML UDC PO SCH ×2 (10:22→21:03)
[2019-05-26] MEDS: SENNA W/DOCUSATE (SENOKOT S) TABLET PO SCH ×2 (10:22→20:40)
[2019-05-26] MEDS: PHENYTOIN 100 MG (DILANTIN) CAP PO SCH ×2 (10:24→20:38)
--- NOTE | 2019-05-26 13:05 | Occupational Ther Daily Note ---
OT Current Status-Daily Note Subjective Pt alert sitting in chair. Pt agrees to therapy. Pt c/o of R hip pain but does not rate it, reported to nrsg. Mental Status/Objective Patient Orientation: Person, Place, Time, Situation Therapy Code Descriptions/Definitions Functional [place] Measure: 0=Not Assessed/NA 4=Minimal Assistance 1=Total Assistance 5=Supervision or Setup 2=Maximal Assistance 6=Modified [place] 3=Moderate Assistance 7=Complete [place] ADL-Treatment During ADLs nrsg in room to change bandage. Pt required increased time due to R hip pain. Pt stated he thought it was because of the rainy weather. Nrsg notified. Therapy Code Descriptions/Definitions Functional [place] Measure: 0=Not Assessed/NA 4=Minimal Assistance 1=Total Assistance 5=Supervision or Setup 2=Maximal Assistance 6=Modified [place] 3=Moderate Assistance 7=Complete [place] Therapy Quality Codes: 6 Independent with activity with or without an assistive device 5 Patient requires set up or clean up by helper. Patient completes activity by themselves 4 Supervision or touching assist (CGA). [place] provide cues , steadying assist 3 The helper provides less than half the effort to complete the activity 2 The helper provides more than half the effort to complete the activity 1 Dependent. The helper does all the effort to complete an activity 7 Patient refused to complete or attempt activity 9 The patient did not perform the activity before the current illness or injury 88 Not attempted due to Medical conditions or safety concerns Eating (FIM): 6 (Pt demonstrated ability to open containers, uses utensils correctly, and able to bring food to mouth. ) Eating (QC): 6 Grooming (FIM): 6 (Pt stablized self at counter while standing at sink to brush teeth and hair. ) Oral Hygiene (QC): 6 Bathing (FIM): 4 (Pt requires shower bench, long handled sponge to wash LE, and hand held shower head. Pt able to wash and rinse by self. Pt required assist to dry LE. Pt states dries LE at home or lets LE air dry. ) Bathing Location: L Arm, R Arm, L Upper Leg, R Upper Leg, L Lower Leg (including foot), R Lower Leg (including foot), Chest, Abdomen, Buttocks, Perineal Area Shower/Bathe Self (QC): 3 Upper Body (FIM): 4 (Pt required FWW to obtain clothing from closet. Pt able to doff back brace by self. Pt able to don/doff shirt by self. Pt required assist to don back brace. Pt states will assist with back brace at home. ) Upper Body Dressing (QC): 3 Lower Body Dressing (FIM): 6 (Pt able to retrieve clothing from closet using FWW. Pt able to doff pants while standing. Pt required AE to don shorts over heels and above the knee. Pt requires arm rests from push to stand and FWW while standing to hike pants over waist. Pt requires AE to don/doff socks. ) Lower Body Dressing (QC): 6 Toileting (FIM): 6 (Pt able to cleanse self and manipulate clothing by self. Pt requires FWW and grab bar. ) Toileting Hygiene (QC): 6 Transfers (B, C, W/C) (FIM): 6 (Pt requires arm rest to push to stand and FWW. ) Toilet/Commode Transfer (FIM): 6 (Pt requires grab bar and FWW. ) Toilet Transfer (QC): 6 Shower Transfer(FIM): 6 (Pt requires FWW, grab bar, and shower bench. ) Other Treatment Pt participated in fine motor activity by unscrewing and screwing nuts and bolts using both hands 2x each to increase finger strength for functional daily activity tasks. Pt required 3 rest breaks due to decreased activity tolerance. Pt sitting in chair, call light and phone in reach, all needs met in room. OT Short Term Goals Short Term Goals Time Frame: May 28, 2019 Eating(FIM): 5 Grooming(FIM): 5 Bathing(FIM): 4 Upper Body Dressing(FIM): 4 Lower Body Dressing(FIM): 4 Toileting(FIM): 4 Transfers (B,C,W/C) (FIM): 4 (met) Toilet/Commode Transfer(FIM): 5 Shower Transfer(FIM): 4 Additional Short Term Goals: 1-Demonstrate ADL Tasks, 2-Verbalize Understanding, 3-ImproveStrength/Isa 1=Demonstrate adherence to instructed precautions during ADL tasks. 2=Patient will verbalize/demonstrate understanding of assistive devices/modifications for ADL. 3=Patient will improve strength/tolerance for activity to enable patient to perform ADL's. OT Preparation Room Manager Goals Preparation Room Manager Goals Time Frame: Jun 04, 2019 Eating (FIM): 6 (met-05/26/2019) Eating (QC): 6 (05/26/2019) Groomin (met05/26/2019) Oral Hygiene (QC): 6 (met-05/26/2019) Bathing(FIM): 5 (not met) Shower/Bathe Self (QC): 4 (not met) Upper Body Dressing(FIM): 6 (not met) Upper Body Dressing (QC): 6 (not met) Lower Body Dressing(FIM): 6 (met-05/26/2019) Lower Body Dressing (QC): 6 (met05/26/2019) On/Off Footwear (QC): 6 (05/26/2019) Toileting(FIM): 6 (05/26/2019) Toileting Hygiene (QC): 6 (met05/26/2019) Transfers (B,C,W/C) (FIM): 6 (met05/26/2019) Toilet/Commode Transfer(FIM): 6 (met-05/26/2019) Toilet/Commode Transfer (QC): 6 (met05/26/2019) Shower Transfer(FIM): 5 (05/26/2019) Social Interaction(FIM): 5 Additional Goals: 1-Demonstrate ADL Tasks, 2-Verbalize Understanding, 3-I mproveStrength/Isa 1=Demonstrate adherence to instructed precautions during ADL tasks. 2=Patient will verbalize/demonstrate understanding of assistive devices/modifications for ADL. 3=Patient will improve strength/tolerance for activity to enable patient to perform ADL's. OT Education/Plan Discharge Recommendations Plan/Recommendations: Continue POC Therapy Discharge Recommendati: Post Acute OT Treatment Plan/Plan of Care Patient would benefit from OT for education, treatment and training to promote independence in ADL's, mobility, safety and/or upper extremity function for ADL's. Plan of Care: ADL Retraining, Functional Mobility, Group Exercise/Act as Ind, UE Funct Exercise/Act Treatment Duration: Jun 04, 2019 Frequency: At least 5 of 7 days/Wk (IRF) Estimated Hrs Per Day: 1.5 hours per day Agreement: Yes Rehab Potential: Good Time/GCodes Start Time: 10:30 Stop Time: 12:00 Total Time Billed (hr/min): 90 Billed Treatment Time 1 visit- ADL 5 (75 min) EX 1 (15 min) LURDES PENA May 26, 2019 13:05
--- NOTE | 2019-05-26 13:37 | Physical Therapy Daily Note ---
PT Daily Note-Current Subjective Patient in chair at bedside pre tx, agrees to PT, has 7/10 pain at rest, nurse notified of pain. Appearance Patient in chair at bedside post tx with nurse call, phone, tray, all needs met. Mental Status Patient Orientation: Normal For Age back brace Transfers Therapy Code Descriptions/Definitions Functional [place] Measure: 0=Not Assessed/NA 4=Minimal Assistance 1=Total Assistance 5=Supervision or Setup 2=Maximal Assistance 6=Modified [place] 3=Moderate Assistance 7=Complete [place] Therapy Quality Codes: 6 Independent with activity with or without an assistive device 5 Patient requires set up or clean up by helper. Patient completes activity by themselves 4 Supervision or touching assist (CGA). Palmer provide cues , steadying assi st 3 The helper provides less than half the effort to complete the activity 2 The helper provides more than half the effort to complete the activity 1 Dependent. The helper does all the effort to complete an activity 7 Patient refused to complete or attempt activity 9 The patient did not perform the activity before the current illness or injury 88 Not attempted due to Medical conditions or safety concerns Sit to/from Stand: 6 Bed to/from Chair: 6 Patient made independent in his room, discussed with nurse and she is ok with this too. Weight Bearing Right Lower Extremity: Right Full Weight Bearing Left Lower Extremity: Left Full Weight Bearing Pt does have a lumbar support to wear when up. Gait Training Gait (FIM): 6 Distance: 150'x2 Gait Level of Assist: 6 Gait Assistive Device: FWW slow but steady ambulation Exercises Standing: Hip Abduction, Hamstring curls, Heel/toe raises, 3 way Ex=Flex, Abd, Ext (not extension), Marching, Mini squats LAQ alternating for 5 min Treatments LE exercise, ambulation Assessment Current Status: Fair Progress improved mobility PT Short Term Goals Short Term Goals Time Frame: May 28, 2019 Transfers (B,C,W/C) (FIM): 4 (met) Gait (FIM): 4 (met) PT Jail Goals Jail Goals PT [employer] Goals Time Frame: Jun 12, 2019 Transfers (B,C,W/C) (FIM): 6 Sit to Lying (QC): 6 Lying-Sitting on Side/Bed(QC): 6 Sit to Stand (QC): 6 Rollin Roll Left to Right (QC): 6 Chair/Dfi-nz-Hianr Xfer(QC): 6 Car Transfer (QC): 6 Does the Patient Walk: Yes Gait (FIM): 6 Gait distance (FIM): 3=150 ft Walk 10 feet (QC): 6 Walk 10ft-Uneven Surface(QC): 6 Walk 50ft with 2 Turns (QC): 6 Walk 150 ft (QC): 6 Stairs (FIM): 5 1 Step (curb) (QC): 6 4 Steps (QC): 6 12 Steps (QC): 88 Picking up an Object (QC): 88 PT Plan Problem List Problem List: Activity Tolerance, Functional Strength, Safety, Balance, Gait, Transfer, Bed Mobility Treatment/Plan Treatment Plan: Continue Plan of Care Treatment Plan: Bed Mobility, Education, Functional Activity Isa, Functional Strength, Group Therapy, Gait, Safety, Therapeutic Exercise, Transfers Treatment Duration: May 22, 2019 Frequency: At least 5 of 7 days/Wk (IRF) Estimated Hrs Per Day: 1.5 hours per day Patient and/or Family Agrees t: Yes Safety Risks/Education Patient Education: Gait Training, Transfer Techniques, Correct Positioning, Safety Issues Teaching Recipient: Patient Teaching Methods: Demonstration, Discussion Response to Teaching: Reinforcement Needed Time/GCodes Time In: 1315 Time Out: 1345 Total Billed Treatment Time: 30 Total Billed Treatment 1 visit EX 15' GT 15' MARCO A BLANTON PT May 26, 2019 13:37
[2019-05-26 17:21] VITALS: BP 111/66
[2019-05-26] MEDS ORDERED: FAMO20TA5 PO (20:18)
[2019-05-26] MEDS ORDERED: SENN-20 PO (20:18)
[2019-05-26] MEDS ORDERED: OXYC1TAB87 PO (20:18)
--- NOTE | 2019-05-26 20:20 | Discharge Summary ---
Discharge Summary Reconcile Patient Problems Problems Reviewed?: Yes Instructions for Patient Via [employer], Assessment/Instructions PCP [address] Jensen Brown Physician to follow Patient: Dr Jensen Brown Discharge Diet for Home: No Restrictions Hospital Course Date of Admission: May 21, 2019 at 12:11 Admission Diagnosis : Family Physician/Provider: Jensen Brown MD Date of Discharge: 05/26/19 Discharge Diagnosis: Lumbar spine surgery Labs and Pending Lab Test: Laboratory Tests 05/26/19 07:06: Glucometer 133H Home Meds Active Reported Aspirin EC (Aspirin) 81 Mg Tablet.dr 81 Mg PO DAILY Cozaar (Losartan Potassium) 50 Mg Tablet 25 Mg PO BID TAKES 1/2 (50MG) TABLET Atorvastatin Calcium 40 Mg Tablet 20 Mg PO HS TAKES 1/2 (40MG) TABLET Isosorbide Mononitrate ER (Isosorbide Mononitrate) 30 Mg Tab.er.24h 30 Mg PO DAILY Flomax (Tamsulosin HCl) 0.4 Mg Cap 0.4 Mg PO DAILY Super B Complex-Vitamin C (B Complex with Vitamin C) 1 Each Tablet 1 Tab PO DAILY Allopurinol 300 Mg Tablet 300 Mg PO DAILY 5-Htp (5-Hydroxytryptophan) 100 Mg Capsule 100 Mg PO DAILY Gabapentin 300 Mg Capsule 300 Mg PO TID Cetirizine HCl 10 Mg Tablet 10 Mg PO DAILY Multivitamins (Multivitamin) 1 Each Tablet 1 Tab PO DAILY Singulair (Montelukast Sodium) 10 Mg Tablet 10 Mg PO HS Victoza 3-Justin (Liraglutide) 0.6 Mg/0.1 Ml Pen.injctr 1.2 Mg SC DAILY Phenytoin Sodium Extended 100 Mg Capsule 200 Mg PO BID TAKES 2 (100MG) CAPSULES Fish Oil 1,200 mg Softgel ([place]-3 Fatty Acids/Fish Oil) 1 Each Capsule 2,400 Mg PO DAILY Patient Allergies: Coded Allergies: hydrocodone (Verified Allergy, Mild, RASH (NO REACTION TO MORPHINE/PERCOCET), 10/29/11) Sulfa (Sulfonamide Antibiotics) (Verified Allergy, Unknown, 12/08/12) Uncoded Allergies: TAPE (Allergy, Unknown, HIVES, 05/23/19) Height (Feet): 5 Height (Inches): 3.00 Weight (Pounds): 222 Weight (Ounces): 0.0 Home Health Need/Face to Face Date of Face to Face: May 26, 2019 Clinical Findings: Generalized weakness and fatigue, Instability, Pain with ambulation I have seen Pt [id number]: Yes Discharged To: Home Diagnosis/Conditions: Lumbar spine surgery Patient is Homebound due to: Jose fall risk due to instabilty, Muscle weakness, Pain w/ambulation Homebound Status Due to the above stated illness, injury or surgical procedure (medical condition or diagnosis) and associated clinical findings, the patient is homebound because of his/her inability to leave home except with aid of a supportive device and/or person AND leaving the home requires a considerable and taxing effort or is medically contraindicated. Pt req the following assistanc: Walker Home Health Nursing Orders Home Health Services Order: [employer]-Evaluate & Treat, Physical Therapy-Evaluate & Treat Certify Stmt I certify that this patient is under my care and that I, a nurse practitioner or a physician; a surgical first assistant working with me, had a face to face encounter that - meets the physician face to face encounter requirements with this patient as dated. GWEN HOLDEN DO May 26, 2019 20:19
[2019-05-26] MEDS: MONTELUKAST 10 MG (SINGULAIR) TAB PO SCH (20:40)
[2019-05-27] MEDS: MULTIVIT W/MINERALS TAB (THERAGRAN M) PO SCH (05:45)
[2019-05-27] MEDS: ENOXAPARIN 30 MG/0.3 ML (LOVENOX) SYR SC SCH (05:45)
[2019-05-27 05:53] VITALS: BP 111/71
--- NOTE | 2019-05-27 08:00 | NUR ---
DENIES PAIN AT REST. BACK PAIN A "4" WITH MOVEMENT. FEELS READY TO GO HOME TODAY.
[2019-05-27] MEDS: PHENYTOIN 100 MG (DILANTIN) CAP PO SCH (08:26)
[2019-05-27] MEDS: LORATADINE (CLARITIN) 10 MG TAB PO SCH (08:26)
[2019-05-27] MEDS: FAMOTIDINE 20 MG (PEPCID) TABLET PO SCH (08:27)
[2019-05-27] MEDS: ALLOPURINOL 300 MG (ZYLOPRIM) TAB PO SCH (08:27)
[2019-05-27] MEDS: DOCUSATE SODIUM 100 MG (COLACE) CAP PO SCH (08:27)
[2019-05-27] MEDS: GABAPENTIN 300 MG (NEURONTIN) CAP PO SCH (08:27)
[2019-05-27] MEDS: TAMSULOSIN 0.4 MG (FLOMAX) CAP PO SCH (08:27)
[2019-05-27] MEDS: SENNA W/DOCUSATE (SENOKOT S) TABLET PO SCH (08:27)
[2019-05-27] MEDS: ISOSORBIDE MONONITRATE 30 MG (IMDUR) TAB PO SCH (08:27)
[2019-05-27] MEDS: LACTULOSE SYRUP 10GM/15ML (ENULOSE) 30ML UDC PO SCH (08:29)
[2019-05-27] MEDS: oxyCODONE/APAP 5/325MG (PERCOCET 5) TABLET PO PRN (08:31)
--- NOTE | 2019-05-27 10:09 | Discharge Summary ---
Diagnosis/Chief Complaint Date of Admission May 21, 2019 at 12:11 Date of Discharge Discharge Date: May 27, 2019 Discharge Diagnosis Plan: IRF protocol BM regimen Home meds Monitor BP Monitor blood sugar and blood pressure Pain control Labs reviewed DC home Wed (1) Lumbar stenosis with neurogenic claudication Status: Acute (2) EMPHYSEMA, UNSPECIFIED Status: Acute (3) Normocytic anemia Status: Chronic (4) Spondylolisthesis (5) Hyponatremia (6) ELLY on CPAP Status: Chronic (7) Primary osteoarthritis of left knee Status: Chronic (8) Hypotension Status: Resolved Resolution Date/Time: 05/21/19 @ 21:59 (9) Obesity Status: Chronic Qualifiers: Obesity type: due to excess calories Obesity classification: adult class 3 (BMI >= 40) Body mass index: BMI 50.0-59.9 (10) BPH (benign prostatic hyperplasia) (11) CAD (coronary artery disease) Status: Chronic Qualifiers: Coronary Disease-Associated Artery/Lesion type: [place] artery [place] vs. transplanted heart: [place] heart Associated angina: with stable angina Qualified Codes: I25.118 - Atherosclerotic heart disease of [place] coronary artery with other forms of angina pectoris (12) Gout Status: Chronic Qualifiers: Gout site: unspecified site Gout etiology: unspecified cause Chronicity: unspecified Qualified Codes: M10.9 - Gout, unspecified (13) Constipation Status: Acute Qualifiers: Constipation type: slow transit constipation Qualified Codes: K59.01 - Slow transit constipation (14) Non-insulin dependent type 2 diabetes mellitus Status: Chronic (15) Essential (primary) hypertension Status: Chronic Discharge Summary Discharge Physical Examination Allergies: Coded Allergies: hydrocodone (Verified Allergy, Mild, RASH (NO REACTION TO MORPHINE/PERCOCET), 10/29/11) Sulfa (Sulfonamide Antibiotics) (Verified Allergy, Unknown, 12/08/12) Uncoded Allergies: TAPE (Allergy, Unknown, HIVES, 05/23/19) Vitals & I&Os Vital Signs Date Time Temp Pulse Resp B/P (MAP) Pulse Ox O2 Delivery O2 Flow Rate FiO2 05/27/19 13:58 35.9 63 18 111/71 93 Room Air General Appearance: Alert, Oriented X3, Cooperative Respiratory: Clear to Auscultation Cardiovascular: Regular Rate Neuro: Normal Gait, Normal Speech, Strength at 5/5 X4 Ext Psych/Mental Status: Mental Status NL Hospital Course Was the Problem List Reviewed?: Yes Hospital Course: Pt had an uneventful hospital course for 7 days when he was admitted after undergoing a very complex lumbar spinal surgery by Dr. Monet and was in need of intensive rehabilitation in order to return home. He was m aintained on pain medication and post-op constipation after multiple meds and enemas and he was maintained on a bowel regimen. Overall he improved enough, had no significant events, labs remained stable from post-op anemia and he was able to return to near prior level of functioning with the use of a walker and will maintain home health PT and OT at ID with close follow up with Dr. Monet and PCP Dr. Jensen Brown. Labs (last 24 hrs) Laboratory Tests 05/21/19 16:08: Glucometer 152H 05/21/19 20:14: Glucometer 176H 05/22/19 06:00: Glucometer 127H 05/22/19 06:20: White Blood Count 4.4, Red Blood Count 2.96L, Hemoglobin 9.4L, Hematocrit 28L, Mean Corpuscular Volume 94, Mean Corpuscular Hemoglobin 32, Mean Corpuscular Hemoglobin Concent 34, Red Cell Distribution Width 14.6H, Platelet Count 195, Mean Platelet Volume 8.6, Neutrophils (%) (Auto) 66, Lymphocytes (%) (Auto) 21, Monocytes (%) (Auto) 10, Eosinophils (%) (Auto) 4, Basophils (%) (Auto) 0, Neutrophils # (Auto) 2.9, Lymphocytes # (Auto) 0.9L, Monocytes # (Auto) 0.4, Eosinophils # (Auto) 0.2, Basophils # (Auto) 0.0, Sodium Level 137, Potassium Level 3.7, Chloride Level 102, Carbon Dioxide Level 27, Anion Gap 8, Blood Urea Nitrogen 10, Creatinine 0.77, Estimat Glomerular Filtration Rate > 60, BUN/Creatinine Ratio 13, Glucose Level 120H, Calcium Level 9.1, Corrected Calcium 9.8, Total Bilirubin 0.3, Aspartate Amino Transf (AST/SGOT) 56H, Alanine Aminotransferase (ALT/SGPT) 49, Alkaline Phosphatase 52, Total Protein 5.7L, Albumin 3.1L 05/22/19 10:51: Glucometer 198H 05/23/19 05:32: Glucometer 133H 05/24/19 05:26: Glucometer 147H 05/25/19 04:40: White Blood Count 3.9L, Red Blood Count 2.96L, Hemoglobin 9.1L, Hematocrit 28L, Mean Corpuscular Volume 94, Mean Corpuscular Hemoglobin 31, Mean Corpuscular Hemoglobin Concent 33, Red Cell Distribution Width 14.4, Platelet Count 252, Mean Platelet Volume 9.0, Neutrophils (%) (Auto) 54, Lymphocytes (%) (Auto) 30, Monocytes (%) (Auto) 11, Eosinophils (%) (Auto) 5, Basophils (%) (Auto) 1, Neutrophils # (Auto) 2.1, Lymphocytes # (Auto) 1.2, Monocytes # (Auto) 0.4, Eosinophils # (Auto) 0.2, Basophils # (Auto) 0.0, Sodium Level 140, Potassium Level 4.2, Chloride Level 103, Carbon Dioxide Level 26, Anion Gap 11, Blood Urea Nitrogen 16, Creatinine 0.81, Estimat Glomerular Filtration Rate > 60, BUN/Creatinine Ratio 20, Glucose Level 132H, Calcium Level 9.1, Corrected Calcium 9.8, Total Bilirubin 0.2, Aspartate Amino Transf (AST/SGOT) 34, Alanine Aminotransferase (ALT/SGPT) 54, Alkaline Phosphatase 53, Total Protein 5.7L, Albumin 3.1L 05/26/19 07:06: Glucometer 133H 05/27/19 05:48: Glucometer 141H Pending Labs Laboratory Tests 05/21/19 16:08: Glucometer 152 05/21/19 20:14: Glucometer 176 05/22/19 06:00: Glucometer 127 05/22/19 06:20: White Blood Count 4.4, Red Blood Count 2.96, Hemoglobin 9.4, Hematocrit 28, Mean Corpuscular Volume 94, Mean Corpuscular Hemoglobin 32, Mean Corpuscular Hemoglobin Concent 34, Red Cell Distribution Width 14.6, Platelet Count 195, Mean Platelet Volume 8.6, Neutrophils (%) (Auto) 66, Lymphocytes (%) (Auto) 21, Monocytes (%) (Auto) 10, Eosinophils (%) (Auto) 4, Basophils (%) (Auto) 0, Neutrophils # (Auto) 2.9, Lymphocytes # (Auto) 0.9, Monocytes # (Auto) 0.4, Eosinophils # (Auto) 0.2, Basophils # (Auto) 0.0, Sodium Level 137, Potassium Level 3.7, Chloride Level 102, Carbon Dioxide Level 27, Anion Gap 8, Blood Urea Nitrogen 10, Creatinine 0.77, Estimat Glomerular Filtration Rate > 60, BUN/Creatinine Ratio 13, Glucose Level 120, Calcium Level 9.1, Corrected Calcium 9.8, Total Bilirubin 0.3, Aspartate Amino Transf (AST/SGOT) 56, Alanine Aminotransferase (ALT/SGPT) 49, Alkaline Phosphatase 52, Total Protein 5.7, Albumin 3.1 05/22/19 10:51: Glucometer 198 05/23/19 05:32: Glucometer 133 05/24/19 05:26: Glucometer 147 05/25/19 04:40: White Blood Count 3.9, Red Blood Count 2.96, Hemoglobin 9.1, Hematocrit 28, Mean Corpuscular Volume 94, Mean Corpuscular Hemoglobin 31, Mean Corpuscular Hemoglobin Concent 33, Red Cell Distribution Width 14.4, Platelet Count 252, Mean Platelet Volume 9.0, Neutrophils (%) (Auto) 54, Lymphocytes (%) (Auto) 30, Monocytes (%) (Auto) 11, Eosinophils (%) (Auto) 5, Basophils (%) (Auto) 1, Neutrophils # (Auto) 2.1, Lymphocytes # (Auto) 1.2, Monocytes # (Auto) 0.4, Eosinophils # (Auto) 0.2, Basophils # (Auto) 0.0, Sodium Level 140, Potassium Level 4.2, Chloride Level 103, Carbon Dioxide Level 26, Anion Gap 11, Blood Urea Nitrogen 16, Creatinine 0.81, Estimat Glomerular Filtration Rate > 60, BUN/Creatinine Ratio 20, Glucose Level 132, Calcium Level 9.1, Corrected Calcium 9.8, Total Bilirubin 0.2, Aspartate Amino Transf (AST/SGOT) 34, Alanine Aminotransferase (ALT/SGPT) 54, Alkaline Phosphatase 53, Total Protein 5.7, Albumin 3.1 05/26/19 07:06: Glucometer 133 05/27/19 05:48: Glucometer 141 Discharge Home Medications: Active Scripts Active Famotidine 20 Mg Tablet 20 Mg PO BID Senna-Time S Tablet (Sennosides/Docusate Sodium) 1 Each Tablet 2 Ea PO BID Percocet 5-325 mg Tablet (Oxycodone HCl/Acetaminophen) 1 Each Tablet 1-2 Tab PO Q4H PRN Reported Aspirin EC (Aspirin) 81 Mg Tablet.dr 81 Mg PO DAILY Cozaar (Losartan Potassium) 50 Mg Tablet 25 Mg PO BID TAKES 1/2 (50MG) TABLET Atorvastatin Calcium 40 Mg Tablet 20 Mg PO HS TAKES 1/2 (40MG) TABLET Isosorbide Mononitrate ER (Isosorbide Mononitrate) 30 Mg Tab.er.24h 30 Mg PO DAILY Flomax (Tamsulosin HCl) 0.4 Mg Cap 0.4 Mg PO DAILY Super B Complex-Vitamin C (B Complex with Vitamin C) 1 Each Tablet 1 Tab PO DAILY Allopurinol 300 Mg Tablet 300 Mg PO DAILY 5-Htp (5-Hydroxytryptophan) 100 Mg Capsule 100 Mg PO DAILY Gabapentin 300 Mg Capsule 300 Mg PO TID Cetirizine HCl 10 Mg Tablet 10 Mg PO DAILY Multivitamins (Multivitamin) 1 Each Tablet 1 Tab PO DAILY Singulair (Montelukast Sodium) 10 Mg Tablet 10 Mg PO HS Victoza 3-Justin (Liraglutide) 0.6 Mg/0.1 Ml Pen.injctr 1.2 Mg SC DAILY Phenytoin Sodium Extended 100 Mg Capsule 200 Mg PO BID TAKES 2 (100MG) CAPSULES Fish Oil 1,200 mg Softgel ([place]-3 Fatty Acids/Fish Oil) 1 Each Capsule 2,400 Mg PO DAILY Instructions to patient/family Please see electronic discharge instructions given to patient. Diagnosis/Problems Diagnosis/Problems (1) Lumbar stenosis with neurogenic claudication Status: Acute (2) EMPHYSEMA, UNSPECIFIED Status: Acute (3) Normocytic anemia Status: Chronic (4) Spondylolisthesis (5) Hyponatremia (6) ELLY on CPAP Status: Chronic (7) Primary osteoarthritis of left knee Status: Chronic (8) Hypotension Status: Resolved Resolution Date/Time: 05/21/19 @ 21:59 (9) Obesity Status: Chronic Qualifiers: (10) BPH (benign prostatic hyperplasia) (11) CAD (coronary artery disease) Status: Chronic Qualifiers: Qualified Codes: I25.118 - Atherosclerotic heart disease of [place] coronary artery with other forms of angina pectoris (12) Gout Status: Chronic Qualifiers: Qualified Codes: M10.9 - Gout, unspecified (13) Constipation Status: Acute Qualifiers: Qualified Codes: K59.01 - Slow transit constipation (14) Non-insulin dependent type 2 diabetes mellitus Status: Chronic (15) Essential (primary) hypertension Status: Chronic Clinical Quality Measures DVT/VTE Risk/Contraindication: Risk Factor Score Per Nursin RFS Level Per Nursing on Admit: 4+=Very High GWEN HOLDEN DO May 27, 2019 10:09
[2019-05-27 13:58] VITALS: BP 111/71
--- NOTE | 2019-05-27 15:14 | Therapy Team Discharge Summary ---
Therapy Discharge Summary Discharge Recommendations Date of Discharge May 27, 2019 at 12:30 Occupational Therapy Pt admitted to ARU following lumbar spine surgery. On admission pt required mod assist for bathing, max assist for toileting and LE dressing, and min assist with transfers. Skilled OT intervention focused on ADL training, transfers, strengthening, and safety. Pt progress well with therapy and by discharge is completing bathing and UE dressing with min assist and other basic ADLs and transfers with modified independence. Pt did not meet bathing or UE dressing goals, but met all other OT LTG. Pt discharged home. D/C ARU OT at this time. Decreased Activ Tolerance, Decreased UE Strength, Impaired Self-Care Skills PT [facility] Goals Chair Mechanic Goals PT Chair Mechanic Goals Time Frame: Jun 12, 2019 Transfers (B,C,W/C) (FIM): 6 Roll Left to Right (QC): 6 Sit to Lying (QC): 6 Lying-Sitting on Side/Bed(QC): 6 Sit to Stand (QC): 6 Chair/Hbm-xh-Sumyg Xfer(QC): 6 Car Transfer (QC): 6 Does the Patient Walk: Yes Gait (FIM): 6 Gait distance (FIM): 3=150 ft Walk 10 feet (QC): 6 Walk 10ft-Uneven Surface(QC): 6 Walk 50ft with 2 Turns (QC): 6 Walk 150 ft (QC): 6 Stairs (FIM): 5 1 Step (curb) (QC): 6 4 Steps (QC): 6 12 Steps (QC): 88 Picking up an Object (QC): 88 OT Chair Mechanic Goals Chair Mechanic Goals Time Frame: Jun 04, 2019 Eating (FIM): 6 (met-05/26/2019) Eating (QC): 6 (met-05/26/2019) Oral Hygiene (QC): 6 (met-05/26/2019) Grooming(FIM): 6 (met-05/26/2019) Bathing(FIM): 5 (not met) Shower/Bathe Self (QC): 4 (not met) Upper Body Dressing(FIM): 6 (not met) Upper Body Dressing (QC): 6 (not met) Lower Body Dressing(FIM): 6 (met-05/26/2019) Lower Body Dressing (QC): 6 (met-05/26/2019) On/Off Footwear (QC): 6 (-05/26/2019) Toileting(FIM): 6 (05/26/2019) Toileting Hygiene (QC): 6 (-05/26/2019) Transfers (B,C,W/C) (FIM): 6 (-05/26/2019) Toilet/Commode Transfer(FIM): 6 (05/26/2019) Toilet/Commode Transfer (QC): 6 (05/26/2019) Shower Transfer(FIM): 5 (05/26/2019) Social Interaction(FIM): 5 Additional Goals: 1-Demonstrate ADL Tasks, 2-Verbalize Understanding, 3- ImproveStrength/Isa 1=Demonstrate adherence to instructed precautions during ADL tasks. 2=Patient will verbalize/demonstrate understanding of assistive devices/modifications for ADL. 3=Patient will improve strength/tolerance for activity to enable patient to perform ADL's. Speech Chair Mechanic Goals [facility]iary Goals Social Interaction: 5 ZACK KHAN OT May 27, 2019 15:14
--- NOTE | 2019-05-28 08:57 | Therapy Team Discharge Summary ---
Therapy Discharge Summary Discharge Recommendations Date of Discharge May 27, 2019 at 12:30 Therapy D/C Recommendations: Physical Therapy Home Care Physical Therapy This patient was transferred to ARU post acute stay after surgery due to lumbar spinal stenosis. Prior to surgery, he was indep with transfers and mod indep with gait. Upon admission, he was max assist with gait, walked less than 50 ft with assist and was unable to attempt stairs. Treatment focused on functional strength, balance and mobility to restore functionto a mod indep level. At discharge he was mod indep with giat, transfers and stairs, making excellent gains. He is to discharge home as all goals met. DC PT. Occupational Therapy Decreased Activ Tolerance, Decreased UE Strength, Impaired Self-Care Skills PT Mcc Goals [place] Electronic Goals PT [place] [employer] Goals Time Frame: Jun 12, 2019 Transfers (B,C,W/C) (FIM): 6 (met) Roll Left to Right (QC): 6 Sit to Lying (QC): 6 Lying-Sitting on Side/Bed(QC): 6 Sit to Stand (QC): 6 Chair/Bzc-xj-Cqsiu Xfer(QC): 6 Car Transfer (QC): 6 Does the Patient Walk: Yes Gait (FIM): 6 (jennifer) Gait distance (FIM): 3=150 ft Walk 10 feet (QC): 6 Walk 10ft-Uneven Surface(QC): 6 Walk 50ft with 2 Turns (QC): 6 Walk 150 ft (QC): 6 Stairs (FIM): 5 (met) 1 Step (curb) (QC): 6 4 Steps (QC): 6 12 Steps (QC): 88 Picking up an Object (QC): 88 OT [place] Goals Mcc Goals Time Frame: Jun 04, 2019 Eating (FIM): 6 (met-05/26/2019) Eating (QC): 6 (met-05/26/2019) Oral Hygiene (QC): 6 (met-05/26/2019) Grooming(FIM): 6 (met-05/26/2019) Bathing(FIM): 5 (not met) Shower/Bathe Self (QC): 4 (not met) Upper Body Dressing(FIM): 6 (not met) Upper Body Dressing (QC): 6 (not met) Lower Body Dressing(FIM): 6 (met-05/26/2019) Lower Body Dressing (QC): 6 (met-05/26/2019) On/Off Footwear (QC): 6 (05/26/2019) Toileting(FIM): 6 (05/26/2019) Toileting Hygiene (QC): 6 (05/26/2019) Transfers (B,C,W/C) (FIM): 6 (05/26/2019) Toilet/Commode Transfer(FIM): 6 (05/26/2019) Toilet/Commode Transfer (QC): 6 (05/26/2019) Shower Transfer(FIM): 5 (05/26/2019) Social Interaction(FIM): 5 Additional Goals: 1-Demonstrate ADL Tasks, 2-Verbalize Understanding, 3-Im proveStrength/Isa 1=Demonstrate adherence to instructed precautions during ADL tasks. 2=Patient will verbalize/demonstrate understanding of assistive devices/modifications for ADL. 3=Patient will improve strength/tolerance for activity to enable patient to perform ADL's. Speech Mcc Goals Mcc Goals Social Interaction: 5 LURDES HARRINGTON PT May 28, 2019 08:57
== END 2019-05-27 12:30 | disposition home or self-care (01) | DRG 560 ==
PROVIDERS: ADMIT Internal Medicine; ATTEND Internal Medicine
DX: Z47.89 Encounter for other orthopedic aftercare (principal); E87.1 Hypo-osmolality and hyponatremia; I10 Essential (primary) hypertension; J43.9 Emphysema, unspecified; N40.1 Benign prostatic hyperplasia with lower urinary tract symptoms; R33.9 Retention of urine, unspecified; K59.01 Slow transit constipation; M17.12 Unilateral primary osteoarthritis, left knee; Z68.43 Body mass index [BMI] 50.0-59.9, adult; E66.9 Obesity, unspecified; E11.42 Type 2 diabetes mellitus with diabetic polyneuropathy; D64.9 Anemia, unspecified; G40.909 Epilepsy, unspecified, not intractable, without status epilepticus; G47.33 Obstructive sleep apnea (adult) (pediatric); M43.10 Spondylolisthesis, site unspecified; I73.9 Peripheral vascular disease, unspecified; I25.118 Atherosclerotic heart disease of native coronary artery with other forms of angina pectoris; E78.00 Pure hypercholesterolemia, unspecified; M10.9 Gout, unspecified; I25.2 Old myocardial infarction; Z95.5 Presence of coronary angioplasty implant and graft; Z87.891 Personal history of nicotine dependence; Z97.4 Presence of external hearing-aid
CPT/HCPCS: 36415; 80053; 82962; 85025; 94664

== ENCOUNTER → 2019-10-30 | Outpatient (CLI) | payer MEDICARE, OTHER ==
[~2019-10-30] MED LIST changes: +ACET325T49 PO; +FAMO20TA5 PO; -TAMS0.4C98 PO; +TMSL.4C PO
--- NOTE | 2019-10-30 14:58 | Diagnostic Imaging Report ---
INDICATION: Palpable mass in right cheek. EXAMINATION: Sonographic interrogation of the area of palpable abnormality in the right cheek was performed. FINDINGS: There is a fairly homogeneous echogenic structure at this location measuring approximately 4.8 x 1.1 x 4.1 cm. This is nonspecific by ultrasound. This could potentially represent a portion of the parotid gland. No fluid collections are seen. IMPRESSION: Echogenic structure at the area of palpable abnormality, perhaps the right parotid gland. CT soft tissue neck with contrast would be recommended for better characterization. Dictated by: Dictated on workstation # [id number]
== END ==
LOC: RAD 13:22
PROVIDERS: ATTEND Family Medicine
DX: R22.0 Localized swelling, mass and lump, head (principal)
CPT/HCPCS: 76536

== ENCOUNTER → 2019-11-03 | Outpatient (CLI) | payer OTHER ==
--- NOTE | 2019-11-03 12:49 | Diagnostic Imaging Report ---
INDICATION: Screening for osteoporosis. COMPARISON: None FINDINGS: The bone mineral density of each forearm was measured. The bone mineral density of the hips and spine could not be obtained as the patient has had prior surgery involving the hips and spine. The T score for the right radius is -0.9 and for the left radius -1.0. These values are at the lowest end of normal. AP Spine L1-L4: [BMD (g/cm2): ] [T-Score: ] [Z-Score: ] [BMD Previous: ] [BMD % Change: ] LT Hip Neck: [BMD (g/cm2): ] [T-Score: ] [Z-Score: ] LT Hip Total: [BMD (g/cm2): ] [T-Score: ] [Z-Score: ] [BMD Previous: ] [BMD % Change: ] RT Hip Neck: [BMD (g/cm2): ] [T-Score: ] [Z-Score: ] RT Hip Total: [BMD (g/cm2): ] [T-score: ] [Z-Score: ] [BMD Previous: ] [BMD % Change: ] *Indicates significant change from prior examination based on 95% confidence level. World Health Organization criteria for BMD interpretation classify patients as Normal (T-score at or above -1.0), Osteopenic (T-score between -1.0 and -2.5) or Osteoporotic (T-score at or below -2.5). LIMITATIONS AND MODIFICATION: None. FRACTURE RISK (FRAX SCORE): The ten year probability of (%): Major Osteoporotic Fracture: [ ] Hip Fracture: [ ] IMPRESSION: 1. The T score values for the radii are at the lowest end of normal. 2. The bone mineral density of the spine and hips could not be calculated due to prior surgery. 3. See below National Osteoporosis Foundation guidelines on when to potentially initiate pharmacologic therapy. Based on the National Osteoporosis Foundation Guidelines, pharmacologic treatment should be initiated in any of the following, unless clinical conditions suggest otherwise: * Any patient with prior fragility fracture of the hip or vertebrae. A spine fracture indicates 5X risk for subsequent spine fracture and 2X risk for subsequent hip fracture. * Osteoporosis (T-score <-2.5). * Postmenopausal women and men age 50 and older with low bone mass/osteopenia (T-score between -1.0 and -2.5) by DXA and 10-year major osteoporotic fracture greater than 20% or a 10-year probability of hip fracture greater than 3%. These fracture risks are supplied above in the FRAX score, if applicable. * Clinician judgement and/or patient preferences may indicate treatment for people with 10-year fracture probabilities above or below these levels. Dictated by: Dictated on workstation # [id number]
== END ==
LOC: RAD 10:57
PROVIDERS: ATTEND Student in an Organized Health Care Education/Training Program
DX: Z13.820 Encounter for screening for osteoporosis (principal)
CPT/HCPCS: 77080

== ENCOUNTER 2019-11-07 16:38 | Emergency (ER) | payer MEDICARE, OTHER ==
[~2019-11-07] VITALS: Ht 162 cm; Wt 100.0 kg
[2019-11-07] MEDS ORDERED: TETANUS,DIPTH,PERTUSS P/F (BOOSTRIX) 0.5 ML VIAL IM ONE (17:30)
--- NOTE | 2019-11-07 18:07 | ED Upper Extremity ---
General Chief Complaint: Laceration Stated Complaint: L ELBOW LAC Nursing Triage Note: THE PT IS AMBULATORY TO THE ROOM WITHOUT DIFFICULTY. NO DISTRESS IS SEEN ON ARRIVAL. LOC IS NORMAL FOR THE PT. THE PTR HAS A LACERATION TO HIS LEFT FOREARM. Nursing Sepsis Screen: No Definite Risk Source: patient Exam Limitations: no limitations History of Present Illness Date Seen by Provider: Nov 07, 2019 Time Seen by Provider: 17:53 Initial Comments Patient and family present to the ER by private conveyance with chief complaint of having fallen against a fence lacerating his left posterior elbow against some sheet metal approximately one half hours prior to arrival. He is not on blood thinners. He is not up-to-date on vaccinations. He does take 81 mg aspirin daily. He's having no loss of range of motion to his left upper extremity nor numbness or paresthesias. Allergies and Home Medications Allergies Coded Allergies: hydrocodone (Verified Allergy, Mild, RASH (NO REACTION TO MORPHINE/PERCOCET), 10/29/11) Sulfa (Sulfonamide Antibiotics) (Verified Allergy, Unknown, 12/08/12) Uncoded Allergies: TAPE (Allergy, Unknown, HIVES, 05/23/19) Home Medications 5-Hydroxytryptophan 100 Mg Capsule, 100 MG PO DAILY, (Reported) Allopurinol 300 Mg Tablet, 300 MG PO DAILY, (Reported) Aspirin 81 Mg Tablet.dr, 81 MG PO DAILY, (Reported) Atorvastatin Calcium 40 Mg Tablet, 20 MG PO HS, (Reported) TAKES 1/2 (40MG) TABLET B Complex with Vitamin C 1 Each Tablet, 1 TAB PO DAILY, (Reported) Cetirizine HCl 10 Mg Tablet, 10 MG PO DAILY, (Reported) Famotidine 20 Mg Tablet, 20 MG PO BID Prescribed by: GWEN HOLDEN on 05/26/192017 Gabapentin 300 Mg Capsule, 300 MG PO TID, (Reported) Isosorbide Mononitrate 30 Mg Tab.er.24h, 30 MG PO DAILY, (Reported) Liraglutide 0.6 Mg/0.1 Ml Pen.injctr, 1.2 MG SC DAILY, (Reported) Losartan Potassium 50 Mg Tablet, 25 MG PO BID, (Reported) TAKES 1/2 (50MG) TABLET Montelukast Sodium 10 Mg Tablet, 10 MG PO HS, (Reported) Multivitamin 1 Each Tablet, 1 TAB PO DAILY, (Reported) [place]-3 Fatty Acids/Fish Oil 1 Each Capsule, 2,400 MG PO DAILY, (Reported) Oxycodone HCl/Acetaminophen 1 Each Tablet, 1-2 TAB PO Q4H PRN for PAIN-MODERATE Prescribed by: GWEN HOLDEN on 05/26/192017 Phenytoin Sodium Extended 100 Mg Capsule, 200 MG PO BID, (Reported) TAKES 2 (100MG) CAPSULES Sennosides/Docusate Sodium 1 Each Tablet, 2 EA PO BID Prescribed by: GWEN HOLDEN on 05/26/192017 Tamsulosin HCl 0.4 Mg Cap, 0.4 MG PO DAILY, (Reported) Patient Home Medication List Home Medication List Reviewed: Yes Review of Systems Constitutional: No chills, No diaphoresis EENTM: No ear discharge, No ear pain Respiratory: No cough, No dyspnea on exertion Cardiovascular: No chest pain, No edema Gastrointestinal: No abdominal pain, No constipation, No diarrhea Genitourinary: No discharge, No dysuria All Other Systems Reviewed Negative Unless Noted: Yes Past Fsqpnoe-Gjjgke-Nlsvhr Hx Patient Social History Alcohol Use: Regular Use Number of Drinks Today: AA Alcohol Beverage of Choice: Beer Recreational Drug Use: No Smoking Status: Former Smoker Type Used: Cigarettes Former Smoker, Quit: Apr 16, 1992 2nd Hand Smoke Exposure: No Recent Foreign Travel: No Contact w/Someone Who Travel: No Recent Infectious Disease Expo: No Recent Hopitalizations: No Immunizations Up To Date Tetanus Booster (TDap): More than 5yrs PED Vaccines UTD: Yes Date of Pneumonia Vaccine: Jun 02, 2018 Date of Influenza Vaccine: Jun 03, 2017 Seasonal Allergies Seasonal Allergies: Yes Past Medical History Surgeries: Yes (BILAT HIP REPL, TMJ, RIGHT KNEE SX X5, TOES X3 AMPUTATED R SHOULDER SX,LTKR) Appendectomy, Cardiac, Coronary Stent, Joint Replacement, Orthopedic Respiratory: Yes (GETS SOB-DX "RESTRICTIVE LUNG DISEASE",) Asthma, Sleep Apnea Currently Using CPAP: Yes Currently Using BIPAP: No Cardiac: Yes (X2 STENTS) Chronic Edema/Swelling, Coronary Artery Disease, Heart Attack, High Cholesterol, Hypertension, Peripheral Vascular Neurological: Yes (SILENT SEIZURES-TOLD BY DR Dumont) Neuropathy, Seizure Disorder Reproductive Disorders: No Sexually Transmitted Disease: No HIV/AIDS: No Genitourinary: Yes (cyst on kidney, found on MRI December 2018) Benign Prostatic Hyperpl Gastrointestinal: Yes (GI BLEED 12/2016) Gastrointestinal Bleed, Hiatal Hernia Musculoskeletal: Yes (spondyloisthesis) Arthritis, Fractures, Gout Endocrine: Yes Diabetes, Non-Insulin dep HEENT: Yes (GLASSES, DENTURES) Loss of Vision: Denies Hearing Impairment: Hearing Aide Right, Hearing Aide Left, Bilateral Hearing Aide Cancer: No Psychosocial: No Integumentary: No Blood Disorders: No Adverse Reaction/Blood Tranf: No Family Medical History Alcoholism Diabetes mellitus Drug abuse Not obtainable due to adoption unknown Diabetes, Other Conditions/Hx Physical Exam Vital Signs Vital Signs - First Documented 11/07/19 17:00 Temp 36.7 Pulse 93 Resp 18 B/P (MAP) 168/73 (104) Capillary Refill : Less Than 3 Seconds Height, Weight, BMI Height: 5'3.00" Weight: 222lbs. 0.0oz. 100.076722ly; 38.00 BMI Method:Stated General Appearance: WD/WN, no apparent distress HEENT: PERRL/EOMI, normal ENT inspection Neck: full range of motion, supple Cardiovascular: normal peripheral pulses, regular rate, rhythm Respiratory: no respiratory distress, no accessory muscle use Shoulder: normal inspection, non-tender, no evidence of injury, normal ROM Wrist: Yes non-tender, Yes normal ROM, Yes abrasions (left hand and wrist) Neurologic/Psychiatric: no motor/sensory deficits, alert, normal mood/affect, oriented x 3 Skin: normal color, warm/dry Procedures/Interventions Wound Location: Upper Extremities Other Wound Location Posterior left elbow Wound Length (cm): 10 Wound's Depth, Shape: linear, flap (L-shaped), sub Q Wound Explored: no foreign body removed Irrigated w/ Saline (ccs): 150 Anesthesia: 1% Lidocaine Volume Anesthetic (ccs): 7 Wound Debrided: minimal Suture: Prolene Suture Size: 4-0 Number of Sutures: 11 Sterile Dressing Applied?: Yes Progress/Results/Core Measures Results/Orders My Orders Orders - HOLLI ORTEGA Elbow, Left, 3 Views (11/07/19 18:02) Lidocaine 1% Inj 20 Ml (Xylocaine 1% Inj (11/07/19 18:15) Ct Head/Cervical Spine Wo (11/07/19 18:55) Medications Given in ED Current Medications Medications Dose Ordered Sig/Malissa Route Start Time Stop Time Status Last Admin Dose Admin Diphtheria/ Tetanus/Acell Pertussis 0.5 ml ONCE ONCE IM 11/07/19 17:30 11/07/19 17:31 DC 11/07/19 18:01 0.5 ML Lidocaine HCl 20 ml ONCE ONCE INJ 11/07/19 18:15 11/07/19 18:16 DC 11/07/19 18:07 20 ML Vital Signs/I&O 11/07/19 17:00 Temp 36.7 Pulse 93 Resp 18 B/P (MAP) 168/73 (104) Blood Pressure Mean: 104 Diagnostic Imaging Diagonstic Imaging: Xray Plain Films/CT/US/NM/MRI: elbow (left) Comments NAME: RICARDO BEARDEN [facility] REC#: [id number] PT STATUS: REG ER : 1950 PHYSICIAN: HOLLI ORTEGA MD ADMIT DATE: 11/07/19/ER Draft Date of Exam:11/07/19 ELBOW, LEFT, 3 VIEWS INDICATION: FINDINGS: Three views of the left elbow demonstrate laceration to the posterior aspect of the elbow. No fracture or foreign body is present. Osteophytes are present. There is no joint effusion. IMPRESSION: 1. There are degenerative changes of the left elbow 2. There is a laceration posteriorly along the left elbow. No foreign body is seen. Hit posterior left elbow working on a fence. Dictated on workstation # [id number] Dict: 11/07/19 1817 Trans: 11/07/19 1822 [facility] [phone] Interpreted by: KELLY NORIEGA MD Electronically signed by: Reviewed: Reviewed by Me Diagonstic Imaging: CT Plain Films/CT/US/NM/MRI: c-spine, head Comments No acute calvarial fracture, or intracranial hemorrhage, mass effect, tumor. C-spine without significant subluxation or fracture. Hardware appears to be in good placement. Reviewed: Reviewed by Me Departure Impression Primary Impression: Fall Qualified Codes: W19.XXXA - Unspecified fall, initial encounter Additional Impressions: Laceration of left elbow without complication Qualified Codes: S51.012A - Laceration without foreign body of left elbow, initial encounter Mild concussion Qualified Codes: S06.0X0A - Concussion without loss of consciousness, initial encounter Disposition: 01 HOME, SELF-CARE Condition: Stable Departure-Patient Inst. Decision time for Depature: 19:16 Referrals: HARRIET DE LOS SANTOS MD (PCP/Family) Primary Care Physician Patient Instructions: Laceration Repair With Stitches (DC), Concussion, Adult (DC) Add. Discharge Instructions: Keep the wound clean with regular soap and water. Showers are okay but do not submerse the wound under water until the sutures are out. Return to the ER in 10-14 days to have the sutures removed. Ibuprofen 400 mg every 8 hours as needed for pain. Tylenol 1000 mg every 8 hours as needed for pain. Keep a clean dressing on the wound and apply a thin dollop of Vaseline over the sutures to make it easier removed the dressing. Change the dressing daily or as often as it becomes soiled. If you have swelling you may apply an ice pack and elevate the elbow above the level of your heart. If you have headache, dizziness, nausea or other worrisome symptoms of a concussion and you need to get sleep. Keflex 3 times a day for the next 5 days to prevent infection. All discharge instructions reviewed with patient and/or family. Voiced understanding. Scripts Cephalexin (Cephalexin) 500 Mg Tablet 500 MG PO TID for 5 Days, #15 TAB 0 Refills Prov: HOLLI ORTEGA 11/07/19 HOLLI ORTEGA Nov 07, 2019 18:07
[2019-11-07] MEDS ORDERED: LIDOCAINE 1% INJ 20 ML 20 ML VIAL INJ ONE (18:15)
--- NOTE | 2019-11-07 18:23 | Diagnostic Imaging Report ---
INDICATION: Hit posterior left elbow working on a fence. FINDINGS: Three views of the left elbow demonstrate laceration to the posterior aspect of the elbow. No fracture or foreign body is present. Osteophytes are present. There is no joint effusion. IMPRESSION: 1. There are degenerative changes of the left elbow 2. There is a laceration posteriorly along the left elbow. No foreign body is seen. Dictated by: Dictated on workstation # [id number]
[2019-11-07] MEDS ORDERED: CEPH500T PO (19:18)
[2019-11-07 19:22] VITALS: BP 141/75
--- NOTE | 2019-11-07 19:44 | Diagnostic Imaging Report ---
PROCEDURE: CT head and CT cervical spine without contrast. TECHNIQUE: Multiple contiguous axial images were obtained through the brain and cervical spine without the use of intravenous contrast. Sagittal and coronal reformations through the cervical spine were then performed. Auto Exposure Controls were utilized during the CT exam to meet ALARA standards for radiation dose reduction. INDICATION: Fell this evening. Hit head, no loss of consciousness. Had C2-C7 cervical fusion 9 months ago. COMPARISON STUDY: There are no pertinent studies. FINDINGS: Noncontrast CT scan of the head demonstrates no mass effect, midline shift, hemorrhage, or extra-axial fluid collections. Martínez-white matter differentiation is normal. There is some calcification in the carotid siphons. Mild atrophy and white matter changes are present. There are no focal areas of infarction. Mastoid air cells and visualized portions of the paranasal sinuses are clear. No fractures are identified. Cervical spine: CT scan of the cervical spine demonstrates bi-pedicular fusion of C3-C7 with decompressive laminectomies. No evidence of hardware loosening or fracture is present. No fractures of the vertebral bodies. C2-C3 level demonstrates osteophytic ridging with mild narrowing of the neural foramina. C3-4 level demonstrates disc space narrowing with mild narrowing of the neural foramina. C4-C5 level demonstrates mild/moderate narrowing of the left neural foramina. C5-C6 level demonstrates mild narrowing of the left neural foramina. IMPRESSION: 1. No acute findings are present to the cervical spine. Postoperative changes demonstrate no complications. 2. There is mild atrophy and white matter disease with no acute or focal intracranial findings. Dictated by: Dictated on workstation # [id number]
== END 2019-11-07 19:26 | disposition home or self-care (01) ==
LOC: EDUNIT# 16:38 → ER 16:39
DX: S06.0X0A Concussion without loss of consciousness, initial encounter (principal); S51.012A Laceration without foreign body of left elbow, initial encounter; J45.909 Unspecified asthma, uncomplicated; I10 Essential (primary) hypertension; E11.40 Type 2 diabetes mellitus with diabetic neuropathy, unspecified; E78.00 Pure hypercholesterolemia, unspecified; I25.2 Old myocardial infarction; I25.10 Atherosclerotic heart disease of native coronary artery without angina pectoris; G40.909 Epilepsy, unspecified, not intractable, without status epilepticus; M10.9 Gout, unspecified; Z23 Encounter for immunization; Z79.82 Long term (current) use of aspirin; Z95.5 Presence of coronary angioplasty implant and graft; Z88.5 Allergy status to narcotic agent; Z96.652 Presence of left artificial knee joint; Z88.2 Allergy status to sulfonamides; Z88.8 Allergy status to other drugs, medicaments and biological substances; Z87.891 Personal history of nicotine dependence; W19.XXXA Unspecified fall, initial encounter
CPT/HCPCS: 12002; 70450; 72125; 73080; 90715

== ENCOUNTER → 2020-07-20 | Outpatient (CLI) | payer MEDICARE, OTHER ==
[~2020-07-20] VITALS: Ht 160 cm; Wt 109.0 kg
[~2020-07-20] MED LIST changes: +ASPI-1238 PO; -ASPI-983 PO; +CATHETER FLUSH 10 ML SYR IV PRN; +CEPH500T PO; +MULT-567 PO; -MULT1TAB69 PO; -OXYC-465 PO; +OXYC-556 PO; +REGADENOSON 0.4 MG/5 ML SYR (LEXISCAN) IV ONE
[2020-07-20 09:11] VITALS: BP 151/83
[2020-07-20 09:27] VITALS: BP 145/88
--- NOTE | 2020-07-20 13:20 | Cardiology Stress Test Report ---
Stress Test Report Date of Procedure/Referring: Date of Procedure: Jul 20, 2020 Jaymie Lee Admitting Physician Jensen Brown MD Indications: Chest pain Baseline Heart Rate: 60 Baseline Blood Pressure: Blood Pressure Systolic: 145 Blood Pressure Diastolic: 88 Baseline Vitals Vital Signs Date Time Temp Pulse Resp B/P (MAP) Pulse Ox O2 Delivery O2 Flow Rate FiO2 07/20/20 09:11 108 20 151/83 (105) 99 Room Air Baseline EKG: Baseline EKG: normal sinus rhythm Summary After explaining the procedure to the patient, he signed a consent and then brought to the stress nuclear laboratory. Patient received 0.4 mg Lexiscan for stress test, ECG, heart rate and blood pressure were monitored continuously. Resting and stress dose of radio tracer were injected, imaging was acquired and reviewed in short axis, horizontal long axis and vertical long axis views. TID: 1.09 SSS: 8 SDS: 5 EF: 41 1. Patient tolerated Lexiscan well 2. Reversible ischemia involving the whole inferior wall and basal to mid in ferolateral wall 3. Normal left ventricular size, inferior wall hypokinesia, EF 41 percent GENE BOYKIN MD Jul 20, 2020 13:20
== END ==
LOC: CARD 08:15
PROVIDERS: ATTEND Physician Assistant
DX: R07.9 Chest pain, unspecified (principal)
CPT/HCPCS: 78452; 93017; A9502

== ENCOUNTER → 2020-07-21 | Outpatient (CLI) | payer MEDICARE, OTHER ==
[~2020-07-21] MED LIST changes: -CATHETER FLUSH 10 ML SYR IV PRN; -REGADENOSON 0.4 MG/5 ML SYR (LEXISCAN) IV ONE
== END ==
LOC: CARD 10:36
PROVIDERS: ATTEND Physician Assistant
DX: I35.8 Other nonrheumatic aortic valve disorders (principal)
CPT/HCPCS: 93306

== ENCOUNTER → 2020-08-16 | Outpatient (CLI) | payer MEDICARE, OTHER ==
[~2020-08-16] MED LIST changes: +CATHETER FLUSH 10 ML SYR IV PRN; +HOLD METFORMIN - RECEIVED CONTRAST 20 ML VIAL IV SCH; +IOHEXOL 350 MG/ML 100 ML (OMNIPAQUE 350) VIAL IV ONE; +NS 100 ML (IVPB) BAG IV ONE
[2020-08-16 08:24] LABS: BUN/CREATININE RATIO 22; CALCIUM 9.1 MG/DL (8.5-10.1); CARBON DIOXIDE 22 MMOL/L (21-32); CHLORIDE 99 MMOL/L (98-107); CREATININE SERUM 0.98 MG/DL (0.60-1.30); GFR ESTIMATED > 60; GLUCOSE 131 MG/DL (70-105); POTASSIUM 4.7 MMOL/L (3.6-5.0); SODIUM 135 MMOL/L (135-145)
--- NOTE | 2020-08-16 09:35 | Diagnostic Imaging Report ---
PROCEDURE: CT maxillofacial with contrast. TECHNIQUE: After intravenous administration of contrast, axial images were obtained through the face and reformatted into coronal and sagittal planes. Auto Exposure Controls were utilized during the CT exam to meet ALARA standards for radiation dose reduction. INDICATION: Right facial swelling There are no prior CT studies available for comparison. The plain film examination of the facial bones performed on 08/31/2010 failed to show any sign of an acute bony abnormality. Reported, there is clinical concern regarding facial swelling on the right. On this exam there is very mild distortion of the subcutaneous fat on the right compared to the left. Most likely this is due to mild edema/inflammation. There is no focal mass or abscess identified in this area. There are a few small lymph nodes in this region but these are lymph nodes are not pathologically enlarged. Neither parotid gland is well imaged. Furthermore the right submandibular gland cannot be identified. The left submandibular gland appears normal. Reason for the poor visualization of the parotid and right submandibular glands is not certain. There is no mass or adenopathy involving the neck. The tracheal air shadow is not compressed or deviated. The intracranial contents where visualized are unremarkable. The bone windows show no sign of a fracture or destructive lesion. There has been a prior posterior fusion of the cervical spine study from C3 to C6. IMPRESSION: 1. There is very mild generalized edema/inflammation of the soft tissues over the right side of the face. There is no mass or abscess identified. 2. No other acute abnormality is identified. However neither parotid gland nor the right submandibular gland were well visualized. The reason for the poor visualization of the glands is not certain. An ENT consult should be considered. Dictated by: Dictated on workstation # [id number]
== END ==
LOC: RAD 08:45
PROVIDERS: ATTEND Family Medicine
DX: K11.8 Other diseases of salivary glands (principal)
CPT/HCPCS: 36415; 70487; 80048

== ENCOUNTER → 2020-08-16 | Outpatient (CLI) | payer MEDICARE, OTHER ==
[~2020-08-16] MED LIST changes: -CATHETER FLUSH 10 ML SYR IV PRN; -HOLD METFORMIN - RECEIVED CONTRAST 20 ML VIAL IV SCH; -IOHEXOL 350 MG/ML 100 ML (OMNIPAQUE 350) VIAL IV ONE; -NS 100 ML (IVPB) BAG IV ONE
[2020-08-16 08:26] LABS: CHOLESTEROL 200 MG/DL (< 200); HDL CHOLESTEROL 69 MG/DL (40-60); TRIGLYCERIDES 206 MG/DL (<150); VLDL CHOLESTEROL 41 MG/DL (5-40)
== END ==
LOC: LAB 07:58
PROVIDERS: ATTEND Physician Assistant
DX: E78.2 Mixed hyperlipidemia (principal)
CPT/HCPCS: 36415; 80061

== ENCOUNTER 2020-10-05 05:40 | Outpatient (RCR) | payer MEDICARE, OTHER ==
[~2020-10-05] VITALS: Ht 162.6 cm; Wt 100.0 kg
[~2020-10-05 05:40] MED LIST changes: +FENO145T26 PO; +FERR-84 PO; +GABA300C PO
== END 2020-10-05 14:07 | disposition home or self-care (01) ==
LOC: PREOP 05:40
PROVIDERS: ATTEND Specialist
DX: Z01.818 Encounter for other preprocedural examination (principal); H25.11 Age-related nuclear cataract, right eye; Z20.822 Contact with and (suspected) exposure to COVID-19
CPT/HCPCS: 87635

== ENCOUNTER 2020-10-07 08:23 | Day surgery (SDC) | payer MEDICARE, OTHER ==
[~2020-10-07] VITALS: Ht 162.6 cm; Wt 100.0 kg
[2020-10-07 08:40] VITALS: BP 146/78
[2020-10-07] MEDS: TETRACAINE 0.5% OPHTH SOLN 4 ML BTL (SINGLE DOSE ONLY) OU PRN ×4 (08:59→09:15)
[2020-10-07] MEDS ORDERED: POVIDONE (BETADINE) OPHTH SOLN 5% 30 ML OP ONE (09:00)
[2020-10-07] MEDS ORDERED: TIMOLOL MALEATE 0.5% 5 ML (TIMOPTIC) BTL OU PRN (09:00)
[2020-10-07] MEDS ORDERED: MOXIFLOXACIN OPHTH SOLN 5 MG/ML 0.3 ML SYRINGE OP ONE (09:00)
[2020-10-07] MEDS ORDERED: LIDOCAINE PF 1% 2 ML VIAL IR PRN (09:00)
[2020-10-07] MEDS: TROPICAMIDE 1% OPH SOLN (MYDRIACYL) 15 ML BTL OP SCH ×3 (09:05→09:15)
[2020-10-07] MEDS: PHENYLEPHRINE 10% OPHTH (NEO-SYN) 5 ML BTL OU SCH ×3 (09:06→09:16)
--- NOTE | 2020-10-07 09:24 | Ophthalmologist Pre-Op Note ---
Pre-Operative Progress Note H&P Reviewed The H&P was reviewed, patient examined and no changes noted. Date H&P Reviewed: Oct 07, 2020 Time H&P Reviewed: 09:23 Pre-Op Dx Cataract, Right Eye DINA MULLINS MD Oct 07, 2020 09:24
[2020-10-07] MEDS ORDERED: MIDAZOLAM 2 MG/2 ML (VERSED) VIAL ONE (09:26)
--- NOTE | 2020-10-07 09:52 | Ophthalmology Operative Report ---
Cataract removal/placement IOL PREOPERATIVE DIAGNOSIS: Cataract Right Eye POSTOPERATIVE DIAGNOSIS: Cataract Right Eye PROCEDURE: Cataract removal and placement of posterior chamber implant, right eye SURGEON: Jase Mullins ANESTHESIA: Topical with sedation COMPLICATIONS: None ESTIMATED BLOOD LOSS: Minimal DESCRIPTION OF PROCEDURE: After proper informed consent was obtained, the patient, a 70 male, was taken to the Operating Room and the right eye was anesthetized with tetracaine. The right eye was then prepped and draped in the usual manner. A wire lid speculum was placed. A paracentesis was made at the left hand position. Preservative free lidocaine was injected into the anterior chamber followed by viscoelastic. A clear corneal incision was made in the temporal position. A capsulorrhexis was preformed and the central nuclear and cortical material were removed. The posterior capsule was polished and Dominick 18.5 AU00T0 IOL was placed into the capsular bag. The residual viscoelastic was aspirated and balanced saline solution was injected into the anterior chamber. Moxifloxacin was injected into the anterior chamber. The wound was checked and found to be water tight. The patient tolerated the procedure well without complications. JASE MULLINS MD Oct 07, 2020 09:52
[2020-10-07 10:10] VITALS: BP 153/87
--- NOTE | 2020-10-07 10:18 | Ophthalmology Operative Report ---
Cataract, Miotic Pupil PREOPERATIVE DIAGNOSIS: 1. Cataract Right Eye 2. Miotic Pupil POSTOPERATIVE DIAGNOSIS: 1. Cataract Right Eye 2. Miotic Pupil PROCEDURE: 1. Cataract removal and placement of posterior chamber implant, right eye 2. Pupillary expansion with malyugin ring SURGEON: Jase Mullins ANESTHESIA: Topical with sedation COMPLICATIONS: None ESTIMATED BLOOD LOSS: Minimal DESCRIPTION OF PROCEDURE: After proper informed consent was obtained, the patient, a 70 male, was taken to the Operating Room and the right eye was anesthetized with Tetracaine. The eye was then prepped and draped in the usual manner. A wire lid speculum was placed. A paracentesis was made at the left hand position. Preservative free lidocaine was injected into anterior chamber followed by viscoelastic. A clear corneal incision was made in the temporal position. The malyugin ring was injected into the anterior chamber and the pupil was dilated. A capsulorrhexis was preformed and the central nuclear and cortical material were removed. The posterior capsule was polished and Dominick 18.5 AU00T0 IOL was placed into the capsular bag. The malyugin ring was removed. The residual viscoelastic was aspirated and the balanced saline solution was injected into the anterior chamber. Moxifloxacin was injected into the anterior chamber. The wound was checked and found to be water tight. The patient tolerated the procedure well without complications. JASE MULLINS MD Oct 07, 2020 10:18
--- NOTE | 2020-10-07 11:07 | Anesthesia-General Post-Op ---
MAC Patient Condition Mental Status/LOC: Same as Preop Cardiovascular: Satisfactory Nausea/Vomiting: Absent Respiratory: Satisfactory Pain: Controlled Complications: Absent Post Op Complications Complications None Follow Up Care/Instructions Patient Instructions None needed. Anesthesiology Discharge Order Discharge Order Patient is doing well, no complaints, stable vital signs, no apparent adverse anesthesia problems. No complications reported per nursing. VITOR HONG CRNA Oct 07, 2020 11:07
== END 2020-10-07 10:10 | disposition home or self-care (01) ==
LOC: SDC 08:23
PROVIDERS: ATTEND Specialist
DX: E11.36 Type 2 diabetes mellitus with diabetic cataract (principal); H25.11 Age-related nuclear cataract, right eye; I10 Essential (primary) hypertension; Z79.899 Other long term (current) drug therapy; Z88.2 Allergy status to sulfonamides; Z88.5 Allergy status to narcotic agent; Z91.048 Other nonmedicinal substance allergy status
CPT/HCPCS: 66982; 82962; V2632

== ENCOUNTER 2020-10-19 05:36 | Outpatient (RCR) | payer MEDICARE, OTHER ==
[~2020-10-19 05:36] MED LIST changes: -ISOS30TA3 PO; +ISOS30TA82 PO
== END 2020-10-19 09:36 | disposition home or self-care (01) ==
LOC: PREOP 05:36
PROVIDERS: ATTEND Specialist
DX: Z01.812 Encounter for preprocedural laboratory examination (principal); H25.12 Age-related nuclear cataract, left eye; Z20.822 Contact with and (suspected) exposure to COVID-19
CPT/HCPCS: 87635

== ENCOUNTER 2020-10-21 08:25 | Day surgery (SDC) | payer MEDICARE, OTHER ==
[~2020-10-21] VITALS: Ht 160 cm; Wt 100.0 kg
[2020-10-21] MEDS ORDERED: MOXIFLOXACIN OPHTH SOLN 5 MG/ML 0.3 ML SYRINGE OP ONE (08:30)
[2020-10-21] MEDS ORDERED: LIDOCAINE PF 1% 2 ML VIAL IR PRN (08:30)
[2020-10-21] MEDS ORDERED: POVIDONE (BETADINE) OPHTH SOLN 5% 30 ML OP ONE (08:30)
[2020-10-21] MEDS ORDERED: TIMOLOL MALEATE 0.5% 5 ML (TIMOPTIC) BTL OU PRN (08:30)
[2020-10-21] MEDS: TETRACAINE 0.5% OPHTH SOLN 4 ML BTL (SINGLE DOSE ONLY) OU PRN ×4 (08:37→09:03)
[2020-10-21] MEDS: PHENYLEPHRINE 10% OPHTH (NEO-SYN) 5 ML BTL OU SCH ×3 (08:48→09:03)
[2020-10-21] MEDS: TROPICAMIDE 1% OPH SOLN (MYDRIACYL) 15 ML BTL OP SCH ×3 (08:48→09:03)
[2020-10-21 09:02] VITALS: BP 139/78
[2020-10-21] MEDS ORDERED: MIDAZOLAM 2 MG/2 ML (VERSED) VIAL ONE (09:05)
--- NOTE | 2020-10-21 09:32 | Ophthalmologist Pre-Op Note ---
Pre-Operative Progress Note H&P Reviewed The H&P was reviewed, patient examined and no changes noted. Date H&P Reviewed: Oct 21, 2020 Time H&P Reviewed: 09:32 Pre-Op Dx Cataract, Left Eye DINA MULLINS MD Oct 21, 2020 09:32
--- NOTE | 2020-10-21 09:54 | Ophthalmology Operative Report ---
Cataract removal/placement IOL PREOPERATIVE DIAGNOSIS: Cataract Left Eye POSTOPERATIVE DIAGNOSIS: Cataract Left Eye PROCEDURE: Cataract removal and placement of posterior chamber implant, left eye SURGEON: Jase Mullins ANESTHESIA: Topical with sedation COMPLICATIONS: None ESTIMATED BLOOD LOSS: Minimal DESCRIPTION OF PROCEDURE: After proper informed consent was obtained, the patient, a 70 male, was taken to the Operating Room and the left eye was anesthetized with tetracaine. The left eye was then prepped and draped in the usual manner. A wire lid speculum was placed. A paracentesis was made at the left hand position. Preservative free lidocaine was injected into the anterior chamber followed by viscoelastic. A clear corneal incision was made in the temporal position. A capsulorrhexis was preformed and the central nuclear and cortical material were removed. The posterior capsule was polished and an Dominick 18.5 AU00T0 was placed into the capsular bag. The residual viscoelastic was aspirated and balanced saline solution was injected into the anterior chamber. Moxifloxacin was injected into the anterior chamber. The wound was checked and found to be water tight. The patient tolerated the procedure well without complications. JASE MULLINS MD Oct 21, 2020 09:54
[2020-10-21 10:03] VITALS: BP 153/90
--- NOTE | 2020-10-21 15:26 | Anesthesia-General Post-Op ---
MAC Patient Condition Mental Status/LOC: Same as Preop Cardiovascular: Satisfactory Nausea/Vomiting: Absent Respiratory: Satisfactory Pain: Controlled Complications: Absent Post Op Complications Complications None Follow Up Care/Instructions Patient Instructions None needed. Anesthesiology Discharge Order Discharge Order Patient was seen this morning after the procedure and he was doing well, no complaints, stable vital signs, no apparent adverse anesthesia problems. GABY BECK DO Oct 21, 2020 15:26
== END 2020-10-21 10:03 | disposition home or self-care (01) ==
LOC: SDC 08:25
PROVIDERS: ATTEND Specialist
DX: H25.12 Age-related nuclear cataract, left eye (principal); E11.36 Type 2 diabetes mellitus with diabetic cataract; I10 Essential (primary) hypertension; E78.00 Pure hypercholesterolemia, unspecified; E66.9 Obesity, unspecified; Z68.39 Body mass index [BMI] 39.0-39.9, adult; Z79.899 Other long term (current) drug therapy; Z88.2 Allergy status to sulfonamides; Z88.5 Allergy status to narcotic agent; Z91.048 Other nonmedicinal substance allergy status; Z87.891 Personal history of nicotine dependence
CPT/HCPCS: 66984; 82962; V2632

== ENCOUNTER → 2020-11-24 | Outpatient (CLI) | payer MEDICARE, OTHER ==
--- NOTE | 2020-11-24 16:30 | Diagnostic Imaging Report ---
INDICATION: Hypertrophy right parotid gland. EXAMINATION: Right carotid ultrasound. FINDINGS: The previous carotid ultrasound exam performed on 10/30/2019 noted a 4.8 x 1.1 x 4.0 cm echogenic structure in the region of the patient's palpable abnormality along the right cheek. The possibility that this is related to the right parotid gland was raised. On the subsequent CT maxillofacial exam of 08/16/2020 there did seem to be very mild generalized edema of the soft tissues over the right side of face. There is no discrete mass or abscess identified. However, neither the parotid and submandibular glands were not well-visualized on the CT exam however. On this exam, there is a slightly echogenic area along the lateral aspect of the right mandible. This would coincide with the finding of the previous ultrasound exam. I am not certain if this is related to diffuse fatty infiltration of the right parotid gland or whether this is a discrete abnormality separate from the parotid, such as a lipoma, and that the right parotid gland is atrophic. There is also now a 2.0 x 0.7 x 0.8 cm fairly well-circumscribed oval hypoechoic lesion with a hyperechoic center just inferior to the level of the ear. This is most likely related to a lymph node. The left parotid gland was not well visualized. This area does not seem to have changed significantly since the prior study, however. IMPRESSION: 1. There continues to be a prominent echogenic area in the area of the right parotid gland. The right parotid gland, itself, is not well-visualized. Whether this finding is secondary to diffuse fatty infiltration of the parotid gland or perhaps a lipoma is not certain. If further imaging is desired, then MRI would be recommended. 2. In the interval since the prior study a small well-circumscribed hypoechoic lesion has developed just inferior to the right ear. This is most likely a lymph node. 3. These results were discussed with Dr. Ethan Willis. Dictated by: Dictated on workstation # [id number]
== END ==
LOC: RAD 13:47
PROVIDERS: ATTEND Otolaryngology Otolaryngology/Facial Plastic Surgery
DX: K11.1 Hypertrophy of salivary gland (principal); K11.7 Disturbances of salivary secretion
CPT/HCPCS: 36415; 76536; 86235

== ENCOUNTER → 2020-12-02 | Outpatient (CLI) | payer MEDICARE, OTHER ==
[2020-12-02 14:24] LABS: BUN/CREATININE RATIO 19; CREATININE SERUM 1.16 MG/DL (0.60-1.30); GFR ESTIMATED > 60
== END ==
LOC: RAD 13:50
PROVIDERS: ATTEND Otolaryngology Otolaryngology/Facial Plastic Surgery
DX: K11.1 Hypertrophy of salivary gland (principal)
CPT/HCPCS: 36415; 82565; 84520

== ENCOUNTER 2021-01-18 11:00 | Day surgery (SDC) | payer MEDICARE, OTHER ==
[~2021-01-18] VITALS: Ht 163 cm; Wt 109.0 kg
[2021-01-18 09:29] VITALS: BP 153/82
--- NOTE | 2021-01-18 09:30 | Diagnostic Imaging Report ---
INDICATION: Cardiac disease. FINDINGS: The heart size is within normal limits. No overt failure pattern, effusion, pneumothorax, or focal consolidation. IMPRESSION: No acute appearing abnormality. Dictated by: Dictated on workstation # [id number]
[2021-01-18 09:31] LABS: BILIRUBIN,URINE NEGATIVE (NEGATIVE); CLARITY,URINE CLEAR; COLOR,URINE YELLOW; GLUCOSE, URINE (UA) NEGATIVE (NEGATIVE); KETONES,URINE NEGATIVE (NEGATIVE); LEUKOCYTE ESTERASE ,URINE NEGATIVE (NEGATIVE); NITRITE,URINE NEGATIVE (NEGATIVE); PROTEIN,URINE NEGATIVE (NEGATIVE)
[2021-01-18 09:36] LABS: HEMATOCRIT 41 % (40-54); HEMOGLOBIN 14.2 g/dL (13.3-17.7); MEAN CORPUSCULAR HEMOGLOBIN 33 pg (25-34); MEAN CORPUSCULAR HGB CONC 35 g/dL (32-36); MEAN CORPUSCULAR VOLUME 95 fL (80-99); PLATELET COUNT 222 10^3/uL (130-400); WHITE BLOOD COUNT 6.7 10^3/uL (4.3-11.0)
[2021-01-18 09:54] LABS: BACTERIA,URINE NEGATIVE /HPF; WBC,URINE RARE /HPF
[2021-01-18 09:55] LABS: SQUAMOUS EPITHELIAL CELL,UR RARE /HPF
[2021-01-18 10:19] LABS: ALANINE AMINOTRANSFERASE 21 U/L (0-55); ALBUMIN 3.9 GM/DL (3.2-4.5); ALKALINE PHOSPHATASE 37 U/L (40-136); BILIRUBIN,TOTAL 0.5 MG/DL (0.1-1.0); BUN/CREATININE RATIO 14; CALCIUM 8.7 MG/DL (8.5-10.1); CARBON DIOXIDE 24 MMOL/L (21-32); CHLORIDE 97 MMOL/L (98-107); CHOLESTEROL 186 MG/DL (< 200); CREATININE SERUM 1.18 MG/DL (0.60-1.30); GFR ESTIMATED > 60; GLUCOSE 114 MG/DL (70-105); HDL CHOLESTEROL 67 MG/DL (40-60); POTASSIUM 4.3 MMOL/L (3.6-5.0); SODIUM 131 MMOL/L (135-145); TOTAL PROTEIN 6.7 GM/DL (6.4-8.2); TRIGLYCERIDES 188 MG/DL (<150); VLDL CHOLESTEROL 38 MG/DL (5-40)
[2021-01-18 10:23] LABS: INR 0.9 (0.8-1.4); PROTHROMBIN TIME PATIENT 12.9 SEC (12.2-14.7)
--- NOTE | 2021-01-18 10:49 | Conscious Sedation/ASA ---
Conscious Sedation Pre-Proced Time 10:49 ASA Score 3 For ASA 3 and 4: Consider anesthesia and medical clearance. Also, for patients with a history of failed moderate sedation consider anesthesia. Airway Lungs Heart ASA score ASA 1: a normal healthy patient ASA 2: a patient with a mild systemic disease (mid diabetes, controlled hypertension, obesity x ASA 3: a patient with a severe systemic disease that limits activity (angina, COPD, prior Myocardial infarction) ASA 4: a patient with an incapacitating disease that is a constant threat to life (CHF, renal failure) ASA 5: a moribund patient not expected to survive 24 hrs. (ruptured aneurysm) ASA 6: a declared brain- patient whose organs are being harvested. For emergent operations, add the letter E after the classification Mallampati Classification Grade 3 Sedation Plan Analgesia, Amnesia, Plan communicated to team members, Discussed options with patient/fam, Discussed risks with patient/fam The patient is an appropriate candidate to undergo the planned procedure, sedation, and anesthesia. The patient immediately re-assessed prior to indication. GENE BOYKIN MD January 18, 2021 10:49 am
[~2021-01-18 11:00] MED LIST changes: +FENO134C PO; +HEParin (CATH LAB) 2,000 ML IV ONE; +HEParin 1000 UNIT/ML (10ML VIAL) FOR BOLUS ONE; +LIDOCAINE 1% INJ 20 ML 20 ML VIAL ONE; +MIDAZOLAM 5 MG/5 ML (VERSED) VIAL ONE; +NS IV 1000 ML 1,000 ML IV SCH; +NS IV 1000 ML 1,000 ML ONE; +PATIENT MAY USE OWN MEDS, ALL PO SCH; +VITA1TAB17 PO; +fentaNYL INJ 100 MCG/2 ML AMP ONE
[2021-01-18 11:15] VITALS: BP 109/56
--- NOTE | 2021-01-18 11:15 | Cardiac Cath Report ---
Cardiac Cath Report Physician (s)/Cargo Worker (s) Physician GENE BOYKIN MD Pre-Procedure Diagnosis Pre-Procedure Diagnosis: Coronary artery disease Post-Procedure Note Procedure Start Date: January 18, 2021 Name of Procedure: Left heart catheterization Left ventriculogram Attempt for angioplasty to the right coronary artery Findings/Procedure Note PROCEDURE NOTE: 70 years old gentleman with history of coronary artery disease, hypertension hyperlipidemia, had multiple interventions in the past, multiple stents to the right coronary artery, a stent to the LAD and a stent to the circumflex artery. Has been having accelerating angina, had an abnormal stress test with inferior wall ischemia, scheduled for cardiac catheterization possible PTCA. After explaining the procedure to the patient, all pros and cons were explained, all questions were answered. The patient signed the consent and then he was placed on the cardiac catheterization laboratory. Groin was prepped SL fashion local anesthesia was used. Sheath placed in the right femoral artery. Stephanie right and left catheter were used to access the coronary system. Pigtail was used to access the left ventricular cavity. Left ventriculogram was done Patient has total occlusion of the right coronary artery that is receiving collaterals from the left system, due to the fact that he has been having increasing angina I decided to attempt for intervention on the right coronary artery, he was given 6000 units of heparin, if our guide was advanced to the right coronary system, I had difficulty manipulating the guide due to the tortuosity of the iliac artery, I kept the J-wire in the guide while manipulating the guide. After intubating the right coronary artery I remove the J-wire and used BMW wire, I was unable to cross the lesion, I use the backup balloon using trek 2.5 x 20 mm, I was unable to cross the lesion. I decided to abort the procedure. At the end of the procedure the sheath was removed. Closure device was deployed FINDINGS: Hemodynamics LV 127/35, end-diastolic pressure of 35 Aorta 114/62 mean of 86 ANATOMY: Left Main is free of obstructive disease Left Anterior Descending has patent stent in the proximal portion. There is severe stenosis at the mid LAD that is tapering down into very small artery that has been present since 2004. Left Circumflex has patent stent proximally with mild disease distally Right Coronary Artery is large dominant artery, occluded distally just above the bifurcation, the stents in the proximal and mid and distal right coronary artery are patent, attempt for percutaneous intervention has failed. LV Gram was done showing normal left ventricular size, normal contractility, inferior wall alannah normally, ejection fraction 50% CONCLUSION: 1. Patent stent in the proximal and mid right coronary artery, occlusion distally just above the bifurcation, receiving collaterals from the left system, attempt for percutaneous intervention has failed. Procedure was aborted 2. Patent stent in the mid LAD then an area of severe stenosis/subtotal occlusion distally, the artery tapered down into very small artery around the apex area 3. Patent stent in the proximal circumflex artery, nonobstructive disease 4. Normal left ventricular size and systolic function estimate ejection fraction 50%, inferior wall is alannah normally DISCUSSION AND RECOMMENDATION: The attempt on the right coronary artery has failed, patient has collaterals filling the distal right coronary artery, due to the fact that he is symptomatic and his chest pain is getting worse recently, I will consider referring him for high risk intervention on the chronic total occlusion of the right coronary artery or intervention on the LAD Anesthesia Type: Conscious Sedation Estimated blood loss (mL): 35 ml Contrast Amount: 81 ml Total Radiation Dose: 1624 mGy Post-Procedure Diagnosis Post-operative diagnosis: Unstable angina Coronary artery disease Hypertension Hyperlipidemia GENE BOYKIN MD January 18, 2021 11:15 am
[2021-01-18] MEDS ORDERED: ATOR40TA PO (11:17)
--- NOTE | 2021-01-18 11:19 | Discharge Inst-Post CATH ---
Discharge Inst-CATH/EP Problems Reviewed?: Yes Post Cardiac Cath/EP D/C Inst Follow Up/Plan Appointment with Dr. Ron's office in 2 to 4 weeks <b>CARDIAC CATH/EP PROCEDURE DISCHARGE INSTRUCTIONS</b> ACTIVITY * Go Home directly and rest. * Limit activity of the leg (or wrist if it was used) for 7 days including aer obics, swimming, jogging, bicycling, etc. * Restrict stair-climbing for 7 days if possible, if not, climb up with your non-cath leg, then bring together on the same step. * Avoid lifting, pushing, pulling or excessive movement of the affected extremi ty for 7 days. * Customary sexual activity may be resumed after 2 days-use caution not to use a position that strains or causes pain to the affected extremity. * No driving for 24 hours. * NO SMOKING. * Avoid straining for bowel movements for 7 days. * Gentle walking on level ground is allowed. * Returning to work will depend on the type of procedure and the results. Your doctor will discuss this with you. CALL YOUR DOCTOR FOR ANY OF THE FOLLOWING: *If bleeding from the puncture site occurs- Apply gentle pressure to site with clean cloth and call your doctor or EMS. * If a knot or lump forms under the skin, increases in size, or causes pain. * If bruising appears to be worsening or moving further down your leg instead of disappearing. * Temperature above 101 F. CARE OF YOUR GROIN INCISION; * Bruising or purple discoloration of the skin near the puncture site is common. * You may shower only, no bathtub bathing for 5 days. Be careful to avoid slipping as your leg may feel stiff. * If a closure device was used on your femoral artery, please see the attached guide regarding care of the device and your leg. * Leave dressing on FOR 24 hours. CARE OF YOUR WRIST INCISION; * Bruising or purple discoloration of the skin near the puncture site is common. * You may shower. * DO NOT submerge wrist. * Leave dressing on FOR 24 hours. GENE BOYKIN MD January 18, 2021 11:19 am
[2021-01-18 12:00] VITALS: BP 109/60
[2021-01-18 13:00] VITALS: BP 111/62
[2021-01-18 14:00] VITALS: BP 128/60
[2021-01-18 15:00] VITALS: BP 128/53
== END 2021-01-18 17:50 | disposition home or self-care (01) ==
LOC: ICU 11:05 → CATH 17:50
PROVIDERS: ATTEND Internal Medicine Cardiovascular Disease
DX: I25.110 Atherosclerotic heart disease of native coronary artery with unstable angina pectoris (principal); I12.9 Hypertensive chronic kidney disease with stage 1 through stage 4 chronic kidney disease, or unspecified chronic kidney disease; N18.9 Chronic kidney disease, unspecified; E78.2 Mixed hyperlipidemia; E11.9 Type 2 diabetes mellitus without complications; E66.01 Morbid (severe) obesity due to excess calories; G47.33 Obstructive sleep apnea (adult) (pediatric); I65.23 Occlusion and stenosis of bilateral carotid arteries; Z87.891 Personal history of nicotine dependence; Z88.2 Allergy status to sulfonamides; Z68.41 Body mass index [BMI] 40.0-44.9, adult; Z91.048 Other nonmedicinal substance allergy status; Z88.8 Allergy status to other drugs, medicaments and biological substances; Z79.82 Long term (current) use of aspirin; Z79.899 Other long term (current) drug therapy; Z88.5 Allergy status to narcotic agent
CPT/HCPCS: 71045; 80053; 80061; 81000; 85027; 85610; 85730; 87081; 93458; C1725; C1760; C1769; C1887; C1894; 36415

== ENCOUNTER → 2021-09-08 | Outpatient (CLI) | payer MEDICARE, OTHER ==
[~2021-09-08] MED LIST changes: +ATOR40TA PO; -HEParin (CATH LAB) 2,000 ML IV ONE; -HEParin 1000 UNIT/ML (10ML VIAL) FOR BOLUS ONE; -LIDOCAINE 1% INJ 20 ML 20 ML VIAL ONE; -MIDAZOLAM 5 MG/5 ML (VERSED) VIAL ONE; -NS IV 1000 ML 1,000 ML IV SCH; -NS IV 1000 ML 1,000 ML ONE; -PATIENT MAY USE OWN MEDS, ALL PO SCH; -fentaNYL INJ 100 MCG/2 ML AMP ONE
--- NOTE | 2021-09-08 13:16 | Diagnostic Imaging Report ---
EXAMINATION: Right hip unilateral 2 or 3 views (w/pelvis when done) HISTORY: Right hip pain COMPARISON: None available. FINDINGS: There is a right total hip arthroplasty. Alignment is normal. No acute fracture is seen. IMPRESSION: 1. No fracture in the right hip. Dictated by: Dictated on workstation # [id number]
--- NOTE | 2021-09-08 13:20 | Diagnostic Imaging Report ---
EXAMINATION: Right femur 2 or more views HISTORY: Right thigh pain COMPARISON: 09/08/2021 FINDINGS: There is right total hip arthroplasty. Components are in expected position. No acute fracture is seen. There are extensive vascular calcifications. There are loose bodies in the suprapatellar fossa. IMPRESSION: 1. No right femur fracture. Dictated by: Dictated on workstation # [id number]
== END ==
LOC: RAD 12:26
PROVIDERS: ATTEND Family Medicine
DX: M79.651 Pain in right thigh (principal); M25.551 Pain in right hip; Z96.641 Presence of right artificial hip joint
CPT/HCPCS: 73502; 73552

== ENCOUNTER → 2023-05-07 | Outpatient (CLI) | payer MEDICARE, OTHER ==
[~2023-05-07] MED LIST changes: -FENO134C PO; +FENO134C21 PO; +LOSA-415 PO; -LOSA50TA2 PO; +MONT-47 PO; -MONT10TA21 PO
== END ==
LOC: CARD 12:52
PROVIDERS: ATTEND Physician Assistant
DX: I11.9 Hypertensive heart disease without heart failure (principal)
CPT/HCPCS: 93306